=== PATIENT | female | born 1965 | race Caucasian/White ===

== ENCOUNTER 2020-10-03 12:39 | Outpatient (REF) | payer OTHER, SELFPAY ==
--- NOTE | ~2020-10-03 | XR_ITS ---
EXAMINATION: XR CHEST CLINICAL INFORMATION: Shortness of breath COMPARISON: None TECHNIQUE: 2 views of the chest were obtained. FINDINGS: No significant abnormality is noted involving the heart, lungs, mediastinum, bony thorax or soft tissues. XR/XR chest 2V IMPRESSION: Unremarkable chest examination.
== END 2020-10-03 12:40 | disposition home or self-care (01) ==
LOC: HO.HMGCLDS 12:39
PROVIDERS: PCP Internal Medicine; Visit Provider Hospitalist
DX: R06.02 Shortness of breath (principal)
CPT/HCPCS: 71046

== ENCOUNTER 2021-05-29 13:41 | Outpatient (REF) | payer OTHER, SELFPAY | END 2021-05-29 13:42 | disposition home or self-care (01) | LOC: HO.LNP 13:41 | PROVIDERS: Visit Provider Physician Assistant Medical | DX: Z20.822 Contact with and (suspected) exposure to COVID-19 (principal) | CPT/HCPCS: U0003; U0005 ==

== ENCOUNTER 2021-06-29 09:53 | Emergency (ER) | payer OTHER, SELFPAY ==
--- NOTE | ~2021-06-29 | CT_ITS ---
EXAMINATION: CT HEAD WITHOUT CONTRAST CLINICAL INFORMATION: Fall hitting face COMPARISON: None TECHNIQUE: Contiguous axial imaging was performed from the skull base to vertex without intravenous administration of contrast. This CT examination was performed using dose optimization techniques as appropriate, variously including the following: *Automated exposure control *Adjustment of mA and/or kV according to patient size (this includes techniques or standardized protocols for targeted exams where dose is matched to indication/reason for exam; i.e. extremities or head) *Use of iterative reconstruction technique DLP: 702.43 mGy-cm FINDINGS: There is no evidence of acute intracranial hemorrhage or territorial infarction. No abnormal mass effect or midline shift is seen. Weiss to white matter differentiation is well preserved. No extra-axial fluid collections are identified. The ventricles are normal in size. There is no abnormal attenuation within the brain parenchyma. The osseous structures and soft tissues are normal. The mastoid air cells and visualized portions of the paranasal sinuses are well aerated. CT/CT head/brain wo con IMPRESSION: No acute intracranial pathology.
--- NOTE | ~2021-06-29 | CT_ITS ---
EXAMINATION: CT FACIAL BONES WITHOUT CONTRAST CLINICAL INFORMATION: Nasal bridge/periorbital ecchymosis status post fall COMPARISON: None TECHNIQUE: CT of the facial bones without IV contrast with coronal and sagittal reconstructions. This CT examination was performed using dose optimization techniques as appropriate, variously including the following: *Automated exposure control *Adjustment of mA and/or kV according to patient size (this includes techniques or standardized protocols for targeted exams where dose is matched to indication/reason for exam; i.e. extremities or head) *Use of iterative reconstruction technique DLP: 290 mGy-cm FINDINGS: There is some motion artifact present so its difficult to tell whether there may be a nondisplaced distal nasal bone fracture with little soft tissue prominence in this location. No definite displaced fracture is appreciated. The pterygoid plates are intact. The zygomatic arches are intact. The lamina papyracea are intact. The orbital rims are intact. The paranasal sinuses are well-aerated. No air-fluid levels are seen. There is left deviation of the nasal septum. The ostiomeatal complexes are clear. The lamina papyracea are intact. The ethmoid roofs are symmetric. The carotid canals are normally covered by bone. No maxillary periapical disease is seen. There is opacification of some left mastoid air cells. The orbits are normal. The TMJs are unremarkable. The imaged portions of the brain demonstrate no acute abnormality. CT/CT facial bones wo con IMPRESSION: No significant facial bone fracture identified. Small distal nondisplaced nasal bone fracture not excluded.
--- NOTE | ~2021-06-29 | XR_ITS ---
EXAMINATION: XR CHEST CLINICAL INFORMATION: Fall COMPARISON: October 03, 2020 TECHNIQUE: 2 views of the chest were obtained. FINDINGS: No significant abnormality is noted involving the heart, lungs, mediastinum, bony thorax or soft tissues. XR/XR chest 2V IMPRESSION: No acute disease.
--- NOTE | ~2021-06-29 | XR_ITS ---
EXAMINATION: XR THORACIC SPINE CLINICAL INFORMATION: Back pain COMPARISON: None TECHNIQUE: AP and lateral views of the thoracic spine with swimmer's view FINDINGS: No acute thoracic spine fracture is appreciated. No abnormal paraspinal line bulge is seen. There is degenerative marginal spurring T9-T11. Pedicles appear intact. Disc spaces are generally maintained. No destructive bony lesion appreciated. XR/XR thoracic spine 3V IMPRESSION: No significant bony abnormality of the thoracic spine identified.
[2021-06-29 10:22] VITALS: BP 128/84; PULSE 93; RESP 18; TEMP 36.3; O2SAT 100; BMI 24.7
--- NOTE | 2021-06-29 10:30 | PC.NURSE ---
also c/o persistent SOB since having covid around [place].
--- NOTE | 2021-06-29 12:28 | ECG_ITS ---
Test Reason : FALL Blood Pressure : / mmHG Vent. Rate : 073 BPM Atrial Rate : 073 BPM P-R Int : 168 ms QRS Dur : 072 ms QT Int : 366 ms P-R-T Axes : 057 023 054 degrees QTc Int : 403 ms Normal sinus rhythm Normal ECG No previous ECGs available Referred By: Blanca Davey Electronically Signed By:Tacho Mckee
[2021-06-29 13:07] LABS: MANUAL DIFF FLAG NO
[2021-06-29 13:08] LABS: Appearance Urine CLEAR; Basophils Percent Auto 0.7 % (0-2); Color Urine YELLOW; Eosinophils Absolute Auto 0.1 X10*3/uL (0.0-0.4); Eosinophils Percent Auto 2.3 % (0-4); Glucose Urine UA NEG (NEG); Hematocrit 39.2 % (37.0-47.0); Hemoglobin 12.7 g/dl (12.0-16.0); Imm Gran Abs Auto 0.02 X10*3/uL (0.00-0.03); Imm Gran Pct Auto 0.5 % (0.0-0.4); Leukocyte Esterase Urine NEG (NEG); Lymphocytes Absolute Auto 0.7 X10*3/uL (1.2-4.9); Lymphocytes Percent Auto 16.7 % (20-40); Mean Corpuscular HGB Conc 32.4 g/dl (31.0-35.0); Mean Corpuscular Hemoglobin 29.6 pg (27.0-33.0); Mean Corpuscular Volume 91.4 fL (80.0-98.0); Mean Platelet Volume 9.5 fL (9.4-12.3); Monocytes Absolute Auto 0.6 X10*3/uL (0.1-1.2); Neutrophils Absolute Auto 2.9 x10*3/uL (2.0-8.3); Neutrophils Percent Auto 65.8 % (45-73); Nitrite Urine NEG (NEG); Platelet Count 233 X10*3/uL (160-400); Red Blood Count 4.29 X10*6/uL (4.20-5.50); Red Cell Distribution Width 12.7 % (11.0-16.0); Urine Blood NEG (NEG); Urine Ketones NEG (NEG); Urine Protein NEG (NEG-TRACE); White Blood Count 4.4 X10*3/uL (4.8-10.8)
[2021-06-29 13:23] VITALS: BP 145/83; PULSE 74
[2021-06-29 13:25] VITALS: BP 140/81
[2021-06-29 13:26] VITALS: BP 137/81
[2021-06-29] MEDS: Acetaminophen 325 MG TABLET 650 MG PO (13:27)
[2021-06-29 13:28] LABS: Alanine Aminotransferase 21 U/L (0-31); Albumin Level 3.9 g/dL (3.5-5.0); Alkaline Phosphatase 81 U/L (39-117); Anion Gap 11 (12-20); Aspartate Amino Transferase 24 U/L (5-31); Bilirubin Direct < 0.2 mg/dL (0.0-0.5); Bilirubin Total 0.3 mg/dL (0.0-1.0); Blood Urea Nitrogen 14 mg/dL (9-16); Calcium 8.9 mg/dL (8.4-10.2); Carbon Dioxide 29 mmol/L (22-29); Chloride 104 mmol/L (96-108); Estimated Glomerular Filt Rate > 60; Glucose Random 73 mg/dL (60-115); Magnesium 2.3 mg/dL (1.6-2.6); Potassium 3.8 mmol/L (3.3-5.1); Sodium 140 mmol/L (135-145); Total Protein 6.5 g/dL (6.5-8.0)
[2021-06-29 13:29] LABS: COVID-19 Test Negative (Negative)
--- NOTE | 2021-06-29 13:53 | ED_ITS ---
HPI - Fall General Chief Complaint: Fall Stated Complaint: fall facial inj two days ago Time Seen by Provider: 06/29/21 11:42 Source: patient Mode of arrival: ambulatory History of Present Illness HPI Narrative: 56-year-old female with past medical history of MS presenting to the ED complaining of facial pain/headache and increasing weakness > LLE since mechanical trip and fall 2 days ago. Denies symptoms prior to fall. Reports increasing gait imbalance/difficulty ambulating acute on chronically (baseline difficulty with MS) but worsening since fall, denies LOC. also reports chronic persistent SOB since having COVID-19 in April. Denies fever, chills, cough, CP, abdominal pain, numbness, tingling. Takes 325 ASA complaint: fall Onset (ago): day(s) Related Data Home Medications Medication Instructions Recorded Confirmed baclofen 10 mg tablet 10 mg PO TID 08/18/20 10/03/20 duloxetine 30 mg capsule,delayed 30 mg PO DAILY 08/18/20 10/03/20 release duloxetine 60 mg capsule,delayed 60 mg PO DAILY 08/18/20 10/03/20 release gabapentin 300 mg capsule 300 mg PO TID 08/18/20 10/03/20 modafinil 200 mg tablet 200 mg PO QAM 08/18/20 10/03/20 omeprazole 20 mg capsule,delayed 0 mg PO 08/18/20 10/03/20 release Saccharomyces boulardii 250 mg 250 mg PO BID 04/12/21 capsule (Daily Probiotic (S. boulardii)) docusate sodium 50 mg capsule 50 mg PO DAILY 04/12/21 (Stool Softener) ocrelizumab 30 mg/mL intravenous 600 mg IV [id number] 04/12/21 solution (Ocrevus) aspirin 325 mg tablet 325 mg PO DAILY 05/29/21 magnesium citrate 125 mg capsule 250 mg PO BEDTIME cap 05/29/21 oxybutynin chloride 5 mg 5 mg PO DAILY 05/29/21 tablet,extended release 24 hr Previous Rx's Medication Instructions Recorded ondansetron HCl 4 mg tablet 4 mg PO Q8H PRN #30 tab 04/12/21 (Zofran) albuterol sulfate 90 mcg/actuation 2 puff INHALATION Q6H PRN #6.7 g 05/29/21 aerosol inhaler cefdinir 300 mg capsule 300 mg PO Q12H 7 Days #14 cap 05/29/21 Allergies Allergy/AdvReac Type Severity Reaction Status Date / Time bupropion [From WELLBUTRIN] Allergy Intermediate HIVES Verified 06/29/21 10:22 Erythromycin Allergy Unknown low bp Uncoded 06/28/21 10:57 Review of Systems Review of Systems: Constitutional: No Fever, No Chills, No Fatigue, No Malaise ENT/Mouth: No Ear Pain, No Nasal Congestion, No sore throat, No Rhinorrhea, No Swallowing Difficulty Eyes: No Eye Pain, No Swelling, No Redness, No Discharge Cardiovascular: No Chest Pain, + SOB, No Dyspnea on Exertion, No Orthopnea, No Edema Respiratory: No Cough, No Sputum, No Dyspnea Gastrointestinal: No Nausea, No Vomiting, No Diarrhea, No Constipation, No Abdominal pain Genitourinary:No Dysuria, No Urinary Frequency, No Hematuria, No Urinary Incontinence, No Urgency, No Flank Pain Musculoskeletal: +back pain, No Myalgias, No Joint Swelling Skin: +ecchymosis, No rash Neuro: + Weakness, No Numbness, No Paresthesias, No Loss of Consciousness, No Dizziness, + Headache Yes all other systems are reviewed and are negative [facility] Past Medical History Attestation statement: The following information was validated with the patient. Social History Social History Advance Directives: No Advance Directives Information Provided: Yes Physical Exam Vital Signs: Vital Signs: Last Vital Signs Temp 98.5 F 06/29/21 16:49 Pulse 74 06/29/21 16:49 Resp 16 06/29/21 16:49 BP 144/82 H 06/29/21 16:49 Pulse Ox 97 06/29/21 16:49 BMI result Body Mass Index 24.7 Const: General: cooperative, healthy appearing and no acute distress Orientation/consciousness: patient oriented x3 Limitations: no limitations HENMT: Other: + ecchymosis to nasal bridge and right infraorbital region. No periorbital step-off. EOMs intact without entrapment. No septal hematoma Ears: hearing grossly normal bilaterally General nose exam: Normal external nose present Face and sinus: Yes ecchymosis Mouth: Normal oral and palatal mucosa present Throat: Yes posterior oropharynx normal and Yes tonsils normal Eyes: General: appearance normal, both eyes and all related structures Pupils: Equal, round and reactive pupils present EOM: EOMs intact bilaterally Neck: Other: No midline cervical spinous tenderness Neck: Yes normal visual inspection Resp: Effort & Inspection: normal respiratory effort Auscultation: clear to auscultation bilaterally, no rales, no rhonchi and no wheezes Cardio: Rate: regular rate Heart sounds: S1 normal heart sound present and S2 normal heart sound present GI: Inspection: Yes normal to inspection Palpation (GI): Soft to palpation, nontender, no guarding and not rigid : General: Yes no CVA tenderness Back/Spine/Pelvis: Other: + midline thoracic spinal tenderness and paraspinal tenderness. No deformity/step-off. No midline lumbar spinous tenderness Back: no CVA tenderness Skin: Rashes: no rashes Wounds: no wounds Neuro: Other: Patient unsteady on feet, not ataxic, weak +LLE weakness (patient reports baseline weaker than LLE) however today worse than normal General: patient oriented x3, tone normal, moves all extremities a nd CN's II-XI intact bilaterally Cranial nerves: Yes CN's II-XII intact b ilaterally, Yes Equal, round and reactive pupils present and Yes Bilaterally intact EOM present Gait exam (Neuro): Assisted gait required Gait assisted method: walking stick (Baseline) Extrem: General: Yes normal to inspection Course Course Course Narrative: -chronic leukopenia. Labs otherwise unremarkable. UA negative. COVID-19 negative XR chest 2V IMPRESSION: No acute disease. CT facial bones wo con IMPRESSION: No significant facial bone fracture identified. Small distal nondisplaced nasal bone fracture not excluded. CT head/brain wo con IMPRESSION: No acute intracranial pathology. >> results discussed with patient, symptoms likely secondary to MS flare. Discussed IV glucocorticoids. Patient hesitant to start steroids at this time, would like to wait. Will try to touch base with patient's neurologist at the [facility] in [place]. XR thoracic spine 3V IMPRESSION: No significant bony abnormality of the thoracic spine identified. -left message at patient's neurologist office, never received phone call back. Patient was able to contact office herself and obtain appointment for 09:00 tomorrow morning. Patient would like to refrain from obtaining IV glucocorticoids today until her appointment tomorrow. Discussed worrisome signs and symptoms and strict return precautions including needed close follow-up with Neurology. She verbalized understanding and feel safe for discharge home at this time -[id number]--spoke to Carmen GONZALES from patient's neurologist office, aware of history/workup done in the ED, will be seeing patient tomorrow morning MDM - Fall MDM Narrative Medical decision making narrative: 56-year-old female with past medical history of MS presenting to the ED complaining of facial pain/headache and increasing weakness > RLE since mechanical trip and fall 2 days ago. On exam vital signs stable, NAD/nontoxic, physical exam as above, gait unsteady, no ataxia, RLE weakness acute on chronically. Concern for ICH vs facial fractures vs MS flare. Lower concern for CVA as sx began after fall Plan: EKG, labs, UA, CXR, head CT, facial bone CT, re-evaluate Medical Records Attestation: I reviewed the patient's medical records. Lab Data Attestation: I reviewed the patient's lab results. Result diagrams: 06/29/21 12:59 06/29/21 12:59 Labs: Lab Results 06/29/21 06/29/21 06/29/21 Range/Units 12:59 12:59 12:59 WBC 4.4 L (4.8-10.8) X10*3/uL RBC 4.29 (4.20-5.50) X10*6/uL Hgb 12.7 (12.0-16.0) g/dl Hct 39.2 (37.0-47.0) % MCV 91.4 (80.0-98.0) fL MCH 29.6 (27.0-33.0) pg MCHC 32.4 (31.0-35.0) g/dl RDW 12.7 (11.0-16.0) % Plt Count 233 (160-400) X10*3/uL MPV 9.5 (9.4-12.3) fL Immature Gran % (Auto) 0.5 H (0.0-0.4) % Neut % (Auto) 65.8 (45-73) % Lymph % (Auto) 16.7 L (20-40) % [place] % (Auto) 14.0 H (2-11) % Eos % (Auto) 2.3 (0-4) % Baso % (Auto) 0.7 (0-2) % Lymph # (Auto) 0.7 L (1.2-4.9) X10*3/uL [place] # (Auto) 0.6 (0.1-1.2) X10*3/uL Eos # (Auto) 0.1 (0.0-0.4) X10*3/uL Baso # (Auto) 0.0 (0.0-0.2) X10*3/uL Abs Immat Gran (auto) 0.02 (0.00-0.03) X10*3/uL Absolute Neuts (auto) 2.9 (2.0-8.3) x10*3/uL Absolute Nucleated RBC 0.000 (0.0-0.012) X10*3/uL Nucleated RBC % (auto) 0.0 (0.0-0.2) /100WBC Sodium 140 (135-145) mmol/L Potassium 3.8 (3.3-5.1) mmol/L Chloride 104 (96-108) mmol/L Carbon Dioxide 29 (22-29) mmol/L Anion Gap 11 L (12-20) BUN 14 (9-16) mg/dL Creatinine 0.71 (0.5-1.4) mg/dL Estim Creat Clear Calc 86.0 Estimated GFR > 60 Random Glucose 73 (60-115) mg/dL Calcium 8.9 (8.4-10.2) mg/dL Magnesium 2.3 (1.6-2.6) mg/dL Total Bilirubin 0.3 (0.0-1.0) mg/dL Direct Bilirubin < 0.2 (0.0-0.5) mg/dL AST 24 (5-31) U/L ALT 21 (0-31) U/L Alkaline Phosphatase 81 (39-117) U/L Total Protein 6.5 (6.5-8.0) g/dL Albumin 3.9 (3.5-5.0) g/dL Urine Color Urine Appearance Urine pH (5.0-8.0) Ur Specific [place] (1.005-1.025) Urine Protein (NEG-TRACE) MG/DL Urine Glucose (UA) (NEG) MG/DL Urine Ketones (NEG) MG/DL Urine Blood (NEG) Urine Nitrite (NEG) Ur Leukocyte Esterase (NEG) COVID-19 (RITA) Negative (Negative) COVID-19 Clin Com See Note 06/29/21 Range/Units 12:59 WBC (4.8-10.8) X10*3/uL RBC (4.20-5.50) X10*6/uL Hgb (12.0-16.0) g/dl Hct (37.0-47.0) % MCV (80.0-98.0) fL MCH (27.0-33.0) pg MCHC (31.0-35.0) g/dl RDW (11.0-16.0) % Plt Count (160-400) X10*3/uL MPV (9.4-12.3) fL Immature Gran % (Auto) (0.0-0.4) % Neut % (Auto) (45-73) % Lymph % (Auto) (20-40) % [place] % (Auto) (2-11) % Eos % (Auto) (0-4) % Baso % (Auto) (0-2) % Lymph # (Auto) (1.2-4.9) X10*3/uL [place] # (Auto) (0.1-1.2) X10*3/uL Eos # (Auto) (0.0-0.4) X10*3/uL Baso # (Auto) (0.0-0.2) X10*3/uL Abs Immat Gran (auto) (0.00-0.03) X10*3/uL Absolute Neuts (auto) (2.0-8.3) x10*3/uL Absolute Nucleated RBC (0.0-0.012) X10*3/uL Nucleated RBC % (auto) (0.0-0.2) /100WBC Sodium (135-145) mmol/L Potassium (3.3-5.1) mmol/L Chloride (96-108) mmol/L Carbon Dioxide (22-29) mmol/L Anion Gap (12-20) BUN (9-16) mg/dL Creatinine (0.5-1.4) mg/dL Estim Creat Clear Calc Estimated GFR Random Glucose (60-115) mg/dL Calcium (8.4-10.2) mg/dL Magnesium (1.6-2.6) mg/dL Total Bilirubin (0.0-1.0) mg/dL Direct Bilirubin (0.0-0.5) mg/dL AST (5-31) U/L ALT (0-31) U/L Alkaline Phosphatase (39-117) U/L Total Protein (6.5-8.0) g/dL Albumin (3.5-5.0) g/dL Urine Color YELLOW Urine Appearance CLEAR Urine pH 6.0 (5.0-8.0) Ur Specific [place] 1.020 (1.005-1.025) Urine Protein NEG (NEG-TRACE) MG/DL Urine Glucose (UA) NEG (NEG) MG/DL Urine Ketones NEG (NEG) MG/DL Urine Blood NEG (NEG) Urine Nitrite NEG (NEG) Ur Leukocyte Esterase NEG (NEG) COVID-19 (RITA) (Negative) COVID-19 Clin Com Discharge Plan Discharge Clinical Impression: Multiple sclerosis exacerbation Patient Disposition: Home, Self-Care Instructions: Multiple Sclerosis (DC) Additional Instructions: You may have a nondisplaced nasal bone fracture. Head CT was unremarkable. Her blood work was reassuring. Her chest x-ray, back x-ray, and urine unremarkable. It is very important for you to follow-up with her neurologist tomorrow morning as scheduled. If her symptoms persist or worsen, you have persistent or worsening falls, develops fever, worsening weakness please return to the ED Prescriptions: No Action omeprazole 20 mg capsule,delayed release(DR/EC) 0 mg PO 0RF duloxetine 60 mg capsule,delayed release(DR/EC) 60 mg PO DAILY 0RF duloxetine 30 mg capsule,delayed release(DR/EC) 30 mg PO DAILY 0RF gabapentin 300 mg capsule 300 mg PO TID 0RF baclofen 10 mg tablet 10 mg PO TID 0RF modafinil 200 mg tablet 200 mg PO QAM 0RF Ocrevus 30 mg/mL solution 600 mg IV [id number] 0RF Saccharomyces boulardii [Daily Probiotic (S. boulardii)] 250 mg capsule 250 mg PO BID 0RF Stool Softener 50 mg capsule 50 mg PO DAILY 0RF ondansetron HCl [Zofran] 4 mg tablet 4 mg PO Q8H PRN (Reason: nausea and vomiting) Qty: 30 1RF magnesium citrate 125 mg capsule 250 mg PO BEDTIME 0RF oxybutynin chloride 5 mg tablet extended release 24hr 5 mg PO DAILY 0RF aspirin 325 mg tablet 325 mg PO DAILY 0RF cefdinir 300 mg capsule 300 mg PO Q12H 7 Days Qty: 14 0RF albuterol sulfate 90 mcg/actuation HFA aerosol inhaler 2 puff inhalation Q6H PRN (Reason: shortness of breath or wheezing) Qty: 6.7 0RF Referrals: Dwight Grullon MD [Primary Care Provider] - 2 days
--- NOTE | 2021-06-29 15:09 | PC.NURSE ---
MESSAGE LEFT AT [facility] IN [facility], TO CALL RAMON BACK @ THIS TIME
[2021-06-29 16:49] VITALS: BP 144/82; PULSE 74; RESP 16; TEMP 36.9; O2SAT 97
== END 2021-06-29 17:00 | disposition home or self-care (01) ==
PROVIDERS: Physician Assistant; Emergency Provider Emergency Medicine; PCP Internal Medicine
DX: G35 Multiple sclerosis (principal); S00.33XA Contusion of nose, initial encounter; W18.39XA Other fall on same level, initial encounter; R26.2 Difficulty in walking, not elsewhere classified; Z20.822 Contact with and (suspected) exposure to COVID-19; Y93.89 Activity, other specified; Y92.9 Unspecified place or not applicable; Y99.9 Unspecified external cause status
CPT/HCPCS: 36415; 70450; 70486; 71046; 72072; 80048; 80076; 81003; 83735; 85025; 87635; 93005; 99284

== ENCOUNTER 2021-09-13 13:59 | Outpatient (REF) | payer OTHER, SELFPAY ==
[2021-09-13 14:47] LABS: Influenza A PCR NEGATIVE (Negative); Influenza B PCR NEGATIVE (Negative); Resp Syncy Virus RNA Qual PCR NEGATIVE (Negative); SARS COV2 PCR INHOUSE NEGATIVE (Negative)
== END 2021-09-13 14:00 | disposition home or self-care (01) ==
LOC: HO.LNP 13:59
PROVIDERS: Visit Provider Emergency Medicine
DX: Z20.822 Contact with and (suspected) exposure to COVID-19 (principal); R68.89 Other general symptoms and signs
CPT/HCPCS: 0241U

== ENCOUNTER 2022-09-15 13:42 | Outpatient (REF) | payer OTHER, SELFPAY ==
[2022-09-15 15:38] LABS: Appearance Urine Clear; Color Urine Yellow; Glucose Urine UA Negative (Negative); Leukocyte Esterase Urine Moderate (2+) (Negative); Nitrite Urine Negative (Negative); PH 5.5 (5.0-9.0); Specific Gravity - Urine 1.015 (1.005-1.025); UMIC TRIGGER UACC YES; Urine Blood Negative (Negative); Urine Ketones Negative (Negative); Urine Protein Negative (Neg-Trace)
[2022-09-15 15:43] LABS: Bacteria Urine None Seen (None Seen); Hyaline Casts Urine 0-2 /LPF (0-2); Squamous Epithelial Cell Urine 0-2 /HPF (0-2); UACC Culture Trigger YES
== END 2022-09-15 13:43 | disposition home or self-care (01) ==
LOC: HO.HMGCLDS 13:42
PROVIDERS: Visit Provider Physician Assistant
DX: G35 Multiple sclerosis (principal); R82.90 Unspecified abnormal findings in urine
CPT/HCPCS: 81001; 87086

== ENCOUNTER 2022-12-27 15:48 | Outpatient (AMB) | payer OTHER, SELFPAY ==
--- NOTE | 2022-12-27 16:12 | MHC.OFFWIV ---
Intake Vital Signs 12/27/22 16:20 Weight 162 lb BP 114/76 Blood Pressure Location Rt brachial Position Sitting Pulse 76 Pulse Source Pulse Oximeter Temp 97.6 F Temp Source Temporal Artery Scan Pulse Oximetry (%) 98 Oxygen Delivery Method Room Air Intake Visit Reasons: EP Rash on scalp Intake Note: patient here for possible shingles. rash on left side of scalp. pt states it is painful and itchy. Patient Tobacco Use Status: Never used Tobacco Allergies bupropion [From WELLBUTRIN] Allergy (Intermediate, Verified 12/27/22 16:21) HIVES Erythromycin Allergy (Unknown, Uncoded 12/27/22 16:21) low bp Do you need a note to return to daycare/school/sports/work: No HPI HPI Comments History of Present Illness Details 57-year-old female presents for rash or head. Rash has been present for 1 day. The scalp she knows the Welchol me. She is concerned might be shingles. Denies fevers or chills. The rash is itchy and painful. PFSH Family History Other Mental health disorder Substance abuse Social History Patient Tobacco Use Status: Never used Tobacco e-Cigarette/Vaping Use: Never Used Current occupational status: disabled Cognitive needs: No Hearing needs: No Vision needs: Yes Review of Systems Const All systems reviewed & are unremarkable except as noted in HPI and below Skin/Breast Details: Rash on scalp Physical Exam Vital Signs: Last Vital Signs Temp 97.6 F 12/27/22 16:20 Pulse 76 12/27/22 16:20 BP 114/76 12/27/22 16:20 Pulse Ox 98 12/27/22 16:20 Oxygen Delivery Method Room Air 12/27/22 16:20 Const General: no acute distress and alert Skin Other: few scattered small the shins not particularly tender on the scalp Assessment & Plan Assessment & Plan (1) Rash: Code(s): R21 - Rash and other nonspecific skin eruption Plan unclear etiology of rash does not resemble shingles given it crosses the midline and does not seem to follow any specific dermatome. recommend symptomatic treatment at home strict return precautions Discharge instructions, follow up and treatment are discussed with patient in my usual fashion. Alternatives in treatment are also discussed. The patient will return for worsening symptoms or as needed. Advised that any labs/imaging ordered will be followed up on and contact made if further treatment needed. Counseled that patient's condition may require further evaluation and/or treatment. Symptoms of concern for worsening disorder discussed in detail in my customary manner. Patient does verbalize understanding of the plan, there are no apparent barriers to communication. The patient is given the opportunity to ask questions and have them answered to his/her satisfaction Coding Level of Care Code Est Pt Level 2 (00946) Diagnoses Rash R21
[2022-12-27 16:20] VITALS: BP 114/76; PULSE 76; TEMP 36.4; O2SAT 98
== END 2022-12-27 16:46 | disposition home or self-care (01) ==
PROVIDERS: PCP Internal Medicine; Visit Provider Physician Assistant
DX: R21 Rash and other nonspecific skin eruption (principal)
CPT/HCPCS: 99212

== ENCOUNTER 2023-03-11 15:59 | Outpatient (AMB) | payer OTHER, SELFPAY ==
[2023-03-11 16:42] VITALS: BP 128/82; PULSE 75; TEMP 36.7; O2SAT 97; BMI 26.4
--- NOTE | 2023-03-11 16:42 | MHC.OFFWIV ---
Intake Vital Signs 03/11/23 16:42 Height 5 ft 7 in Weight 168 lb 9 oz BMI 26.4 BP 128/82 Blood Pressure Location Lt brachial Position Sitting Pulse 75 Pulse Source Pulse Oximeter Temp 98.1 F Temp Source Oral Pulse Oximetry (%) 97 Oxygen Delivery Method Room Air Intake Visit Reasons: EP, blodd in urine Patient Tobacco Use Status: Never used Tobacco Allergies bupropion [From WELLBUTRIN] Allergy (Intermediate, Verified 03/24/23 14:06) HIVES Erythromycin Allergy (Unknown, Uncoded 03/24/23 14:06) low bp Medication List - Last Reconciled 03/24/23 by Aman Ponce MD albuterol sulfate 90 mcg/actuation 2 puffs inhalation Q6H PRN aspirin 325 mg PO DAILY baclofen 10 mg PO TID docusate sodium (Stool Softener) 50 mg PO DAILY doxycycline hyclate 100 mg PO DAILY duloxetine 30 mg PO DAILY duloxetine 60 mg PO DAILY fluconazole 150 mg PO Q3D 2 doses fluticasone propionate 50 mcg/actuation 1 spray intranasal DAILY gabapentin 300 mg PO TID meclizine 25 mg PO TID modafinil 200 mg PO QAM ocrelizumab (Ocrevus) 600 mg IV [id number] omeprazole 0 mg PO ondansetron HCl (Zofran) 4 mg PO Q8H PRN phenazopyridine (Pyridium) 200 mg PO TID 3 days Saccharomyces boulardii (Daily Probiotic (S. boulardii)) 250 mg PO BID sulfamethoxazole-trimethoprim 800-160 mg (Bactrim DS) 1 tab PO BID 5 days HPI EP, blodd in urine HPI Details Patient presents for a sick visit. Reports symptoms of increased frequency of urination, burning on urination and discomfort in the suprapubic area. Symptoms started in the past few days. No fevers or chills. No nausea or vomiting. PFSH Family History Other Mental health disorder Substance abuse Patient Tobacco Use Status: Never used Tobacco e-Cigarette/Vaping Use: Never Used Current occupational status: disabled Cognitive needs: No Hearing needs: No Vision needs: Yes Physical Exam Vital Signs: Last Vital Signs Temp 98.1 F 03/11/23 16:42 Pulse 75 03/11/23 16:42 BP 128/82 03/11/23 16:42 Pulse Ox 97 03/11/23 16:42 Oxygen Delivery Method Room Air 03/11/23 16:42 BMI result Body Mass Index 26.4 General: Yes Bimanual renal exam normal bilaterally and Yes no CVA tenderness Back/Spine/Pelvis Back: no CVA tenderness Results AMB Urinalysis, Automated UA Leukoctes 500 Cris/uL Last Edit by Gavin Carpenter CMA on 03/11/23 16:51 UA Nitrite Negative Last Edit by Gavin Carpenter CMA on 03/11/23 16:51 UA Urobilinogen 0.2 mg/dL Last Edit by Gavin Carpenter CMA on 03/11/23 16:51 UA Protein 0 mg/dL Last Edit by Gavin Carpenter CMA on 03/11/23 16:51 UA pH 7.0 Last Edit by Gavin Carpenter CMA on 03/11/23 16:51 UA Blood 0 Sea/uL Last Edit by Gavin Carpenter CMA on 03/11/23 16:51 UA Specific [place] 1.010 Last Edit by Gavin Carpenter CMA on 03/11/23 16:51 UA Ketone Negative Last Edit by Gavin Carpenter CMA on 03/11/23 16:51 UA Bilirubin 0 mg/dL Last Edit by Gavin Carpenter CMA on 03/11/23 16:51 UA Glucose 0 mg/dL Last Edit by Gavin Carpenter CMA on 03/11/23 16:51 Results Reviewed Results Reviewed: Laboratory Last Values Urine pH (Auto) 7.0 03/11/23 16:50 Specific [place] (Auto) 1.010 03/11/23 16:50 Urine Protein (Auto) 0 mg/dL 03/11/23 16:50 Glucose (UA)(Auto) 0 mg/dL 03/11/23 16:50 Urine Ketones (Auto) Negative 03/11/23 16:50 Urine Blood (Auto) 0 Sea/uL 03/11/23 16:50 Urine Nitrite (Auto) Negative 03/11/23 16:50 Urine Bilirubin (Auto) 0 mg/dL 03/11/23 16:50 Urine Urobilinogen (Auto) 0.2 mg/dL 03/11/23 16:50 Leukocyte Esterase (Auto) 500 Cris/uL 03/11/23 16:50 Assessment & Plan Assessment & Plan (1) Urinary tract infection: Code(s): N39.0 - Urinary tract infection, site not specified Plan: Take antibiotics and Pyridium as directed. Increase fluid intake. If symptoms of burning persist, new onset of fever or lower back pain, to follow-up at the clinic. Orders: Orders AMB Urinalysis Automated 03/11/23 Z13.9 - Encounter for screening, unspecified Medications: New sulfamethoxazole-trimethoprim 800-160 mg (Bactrim DS) 1 tab PO BID 10 tabs 0RF 5 days phenazopyridine (Pyridium) 200 mg PO TID 9 tabs 0RF 3 days fluconazole 150 mg PO Q3D 2 tabs 0RF 2 doses Coding Level of Care Code Est Pt Level 3 (35209) Diagnoses Urinary tract infection N39.0
== END 2023-03-11 16:55 | disposition home or self-care (01) ==
PROVIDERS: PCP Internal Medicine; Visit Provider Internal Medicine
DX: R35.0 Frequency of micturition (principal)
CPT/HCPCS: 81003; 99213

== ENCOUNTER 2023-04-01 14:09 | Emergency (ER) | payer OTHER, SELFPAY ==
--- NOTE | ~2023-04-01 | XR_ITS ---
EXAMINATION: XR CHEST CLINICAL INFORMATION: Shortness of breath. COMPARISON: 06/29/2021 TECHNIQUE: 2 views of the chest were obtained. FINDINGS: The lungs are well expanded. No focal consolidation. No pleural effusion. Cardiac silhouette is within normal limits. XR/XR chest 2V IMPRESSION: No acute abnormality.
--- NOTE | 2023-04-01 14:10 | ECG_ITS ---
Test Reason : chest pain Blood Pressure : / mmHG Vent. Rate : 075 BPM Atrial Rate : 075 BPM P-R Int : 154 ms QRS Dur : 072 ms QT Int : 366 ms P-R-T Axes : 069 027 072 degrees QTc Int : 408 ms Normal sinus rhythm Normal ECG When compared with ECG of 29-JUN-2021 13:17, No significant change was found Referred By: Generic ED Physician Electronically Signed By:JOHN ABRAHAM
--- NOTE | 2023-04-01 14:22 | ED_ITS ---
HPI - General Adult General Chief complaint: Chest Pain Stated complaint: chest pain sent in by urgent care Time Seen by Provider: 04/01/23 19:51 Source: patient Mode of arrival: ambulatory History of Present Illness HPI narrative: 58-year-old female with history of MS presents with having contracted COVID on 03/18, she states that she feels somewhat better but overall still feels fatigued with congestion. Related Data Home Medications Medication Instructions Recorded Confirmed baclofen 10 mg tablet 10 mg PO TID 08/18/20 03/24/23 duloxetine 30 mg capsule,delayed 30 mg PO DAILY 08/18/20 03/24/23 release duloxetine 60 mg capsule,delayed 60 mg PO DAILY 08/18/20 03/24/23 release gabapentin 300 mg capsule 300 mg PO TID 08/18/20 03/24/23 modafinil 200 mg tablet 200 mg PO QAM 08/18/20 03/24/23 omeprazole 20 mg capsule,delayed 0 mg PO 08/18/20 03/24/23 release Saccharomyces boulardii 250 mg 250 mg PO BID 04/12/21 03/24/23 capsule (Daily Probiotic (S. boulardii)) docusate sodium 50 mg capsule 50 mg PO DAILY 04/12/21 03/24/23 (Stool Softener) ocrelizumab 30 mg/mL intravenous 600 mg IV [id number] 04/12/21 03/24/23 solution (Ocrevus) aspirin 325 mg tablet 325 mg PO DAILY 05/29/21 03/24/23 Previous Rx's Medication Instructions Recorded ondansetron HCl 4 mg tablet 4 mg PO Q8H PRN nausea and 04/12/21 (Zofran) vomiting #30 tabs albuterol sulfate 90 mcg/actuation 2 puff inhalation Q6H PRN 05/29/21 aerosol inhaler shortness of breath or wheezing #6.7 grams meclizine 25 mg tablet 25 mg PO TID #30 tabs 09/15/22 doxycycline hyclate 100 mg capsule 100 mg PO DAILY #30 caps 10/19/22 fluticasone propionate 50 1 spray intranasal DAILY #16 grams 11/26/22 mcg/actuation nasal spray,suspension fluconazole 150 mg tablet 150 mg PO Q3D 2 doses #2 tabs 03/11/23 phenazopyridine 200 mg tablet 200 mg PO TID 3 days #9 tabs 03/11/23 (Pyridium) sulfamethoxazole 800 1 tab PO BID 5 days #10 tabs 03/11/23 mg-trimethoprim 160 mg tablet (Bactrim DS) Allergies Allergy/AdvReac Type Severity Reaction Status Date / Time bupropion [From WELLBUTRIN] Allergy Intermediate HIVES Verified 04/01/23 14:22 Erythromycin Allergy Unknown low bp Uncoded 03/24/23 14:06 Review of Systems 2 Review of Systems: Pertinent positives and negatives as stated in [facility] Past Medical History Source: nursing notes reviewed Family History Family History Other Mental health disorder Substance abuse Social History Social History Unable to assess alcohol history related to: Unknown Patient Tobacco Use Status: Never used Tobacco Smoked in Last 30 Days: No e-Cigarette/Vaping Use: Never Used Use of substances other than those prescribed or required for medical reasons: No Advance Directives: No Advance Directives Information Provided: No Patient : No Current occupational status: disabled Cognitive needs: No Hearing needs: No Vision needs: Yes Physical Exam ED Vital Signs: Vital Signs - 24 hr 04/01/23 14:23 04/01/23 19:41 Temperature 97.8 F Pulse Rate 85 67 Respiratory Rate 16 12 Blood Pressure 103/73 134/71 Pulse Oximetry 97 98 Oxygen Delivery Method Room Air Room Air BMI result Body Mass Index 25.1 VITAL SIGNS: Reviewed. GENERAL: Well developed, well nourished, in no acute distress. HEAD: Normocephalic/atraumatic EYES: PERRLA, EOMI EARS: Ext canals without abnormality NOSE: Nares patent bilateral OROPHARYNX: no oral lesions noted, posterior pharynx clear NECK: Supple, no adenopathy LUNGS: Normal breath sounds. No adventitious sounds or accessory muscle use. SpO2<98> CARDIOVASCULAR: Regular rate and rhythm without noted murmurs ABDOMEN: Soft, non-tender, non-distended with bowel sounds. MUSCULOSKELETAL: No tenderness, deformities, or effusions noted on gross inspection. EXTREMITIES: No cyanosis, clubbing or edema. SKIN: Inspection of the skin reveals no rashes NEUROLOGIC: Alert and oriented x 4. Strength and sensation to light touch were grossly intact x 4. Course Course Course Narrative: RME performed by Shahla Francisoc PA-C. Patient is a 58 year old assigned female at presenting to the emergency department with chest pain and a headache. Patient was COVID-19 positive on 03/18/2023. Labs, imaging, and swabs ordered. Patient placed back in the waiting room pending room availability and results. Medical Decision Making Medical Decision Making [facility] Narrative: This is a 58-year-old female with history and clinical presentation, DDX: Residual COVID-19 symptoms, pneumonia, anemia, post viral syndrome I reviewed all investigations and hematologic indices are negative for leukocytosis or left shift, there is no anemia or thrombocytopenia. Coagulation studies are within normal limits. Chemistry indices are grossly within normal limits without evidence of CARLOTA/electrolyte or liver enzyme derangements. High sensitivity troponin is undetectable. Patient is still read as showing is COVID positive. Chest x-ray does not demonstrate an infiltrate and otherwise my interpretation is in agreement with radiology's impression. There are no acute changes on EKG. Differential Diagnosis Differential Diagnoses: The differential diagnosis associated with the presentation includes Please see the discussion above Admission/Observation Consideration of admission/observation: Escalation of care including admission/observation considered Please see the discussion above Lab Data [facility] Lab Attestation statement: I reviewed the patient's lab results. Please see the discussion above 04/01/23 15:34 04/01/23 15:34 Labs: Lab Results 04/01/23 Range/Units 15:34 WBC 3.9 L (4.8-10.8) X10*3/uL RBC 4.55 (4.20-5.50) X10*6/uL Hgb 13.7 (12.0-16.0) g/dl Hct 41.3 (37.0-47.0) % MCV 90.8 (80.0-98.0) fL MCH 30.1 (27.0-33.0) pg MCHC 33.2 (31.0-35.0) g/dl RDW 12.4 (11.0-16.0) % Plt Count 317 D (160-400) X10*3/uL MPV 9.2 L (9.4-12.3) fL Immature Gran % (Auto) 0.5 H (0.0-0.4) % Neut % (Auto) 68.0 (45-73) % Lymph % (Auto) 19.6 L (20-40) % Lucas % (Auto) 10.1 (2-11) % Eos % (Auto) 1.3 (0-4) % Baso % (Auto) 0.5 (0-2) % Lymph # (Auto) 0.8 L (1.2-4.9) X10*3/uL Lucas # (Auto) 0.4 (0.1-1.2) X10*3/uL Eos # (Auto) 0.1 (0.0-0.4) X10*3/uL Baso # (Auto) 0.0 (0.0-0.2) X10*3/uL Abs Immat Gran (auto) 0.02 (0.00-0.03) X10*3/uL Absolute Neuts (auto) 2.6 (2.0-8.3) x10*3/uL Absolute Nucleated RBC 0.000 (0.0-0.012) X10*3/uL Nucleated RBC % (auto) 0.0 (0.0-0.2) /100WBC PT 11.7 (11.1-13.3) SEC INR 1.0 (0.9-1.1) APTT 27.9 (26.0-36.4) SEC Sodium 143 (135-145) mmol/L Potassium 3.5 (3.3-5.1) mmol/L Chloride 106 (96-108) mmol/L Carbon Dioxide 30 H (22-29) mmol/L Anion Gap 11 L (12-20) BUN 12 (9-16) mg/dL Creatinine 0.72 (0.5-1.4) mg/dL Estim Creat Clear Calc 82.8 Estimated GFR > 60 Random Glucose 96 (60-115) mg/dL Calcium 9.5 D (8.4-10.2) mg/dL Magnesium 2.3 (1.6-2.6) mg/dL Total Bilirubin 0.3 (0.0-1.0) mg/dL AST 23 (5-31) U/L ALT 21 (0-31) U/L Alkaline Phosphatase 86 (39-117) U/L Troponin I High Sens < 2.7 (<3.5-17.0) ng/L Total Protein 7.3 (6.5-8.0) g/dL Albumin 4.2 (3.5-5.0) g/dL Influenza Type A (PCR) NEGATIVE (Negative) Influenza Type B (PCR) NEGATIVE (Negative) RSV RNA Qual (PCR) NEGATIVE (Negative) SARS-CoV-2 RNA (RT-PCR) POSITIVE A (Negative) Independent Interpretation I performed an independent interpretation of an: EKG Interpretation: Normal sinus rhythm, HR-75, no STEMI, ME/QRS/QTC is within normal limits. Radiology Impression Discussion of test interpretation with radiology: I have reviewed the radiologist's reading. Radiologist Impression: Please see the discussion above External Record Review External record reviewed: Outpatient record, Prior outpatient labs and Prior outpatient radiology Chronic Conditions Patient?s care impacted by: Other MS Critical Care Time Critical Care Time Critical Care Time: Yes Total Critical Care Time: 30 Attestation: I personally attest to this time spent taking care of the patient. Discharge Plan Discharge Clinical Impression: Post-COVID syndrome Patient Disposition: Home, Self-Care Instructions: COVID-19 (Coronavirus Disease 2019) (ED) Additional Instructions: 1. Resume all home medications as prescribed. Continue stay well hydrated and utilize [id number] analgesics for any body aches. 2. Please follow-up with primary care doctor. Return to the ER for any worsening symptoms. Prescriptions: No Action fluticasone propionate 50 mcg/actuation spray,suspension 1 spray intranasal DAILY Qty: 16 3RF Rx Instructions: administer into each nostril omeprazole 20 mg capsule,delayed release(DR/EC) 0 mg PO duloxetine 60 mg capsule,delayed release(DR/EC) 60 mg PO DAILY duloxetine 30 mg capsule,delayed release(DR/EC) 30 mg PO DAILY gabapentin 300 mg capsule 300 mg PO TID baclofen 10 mg tablet 10 mg PO TID modafinil 200 mg tablet 200 mg PO QAM meclizine 25 mg tablet 25 mg PO TID Qty: 30 0RF sulfamethoxazole-trimethoprim [Bactrim DS] 800-160 mg tablet 1 tab PO BID 5 Days Qty: 10 0RF phenazopyridine [Pyridium] 200 mg tablet 200 mg PO TID 3 Days Qty: 9 0RF fluconazole 150 mg tablet 150 mg PO Q3D 0 Days Qty: 2 0RF Ocrevus 30 mg/mL solution 600 mg IV [id number] Saccharomyces boulardii [Daily Probiotic (S. boulardii)] 250 mg capsule 250 mg PO BID Stool Softener 50 mg capsule 50 mg PO DAILY ondansetron HCl [Zofran] 4 mg tablet 4 mg PO Q8H PRN (Reason: nausea and vomiting) Qty: 30 1RF aspirin 325 mg tablet 325 mg PO DAILY albuterol sulfate 90 mcg/actuation HFA aerosol inhaler 2 puff inhalation Q6H PRN (Reason: shortness of breath or wheezing) Qty: 6.7 0RF doxycycline hyclate 100 mg capsule 100 mg PO DAILY Qty: 30 0RF Referrals: Chato Paz MD [Primary Care Provider] -
[2023-04-01 14:23] VITALS: BP 103/73; PULSE 85; RESP 16; TEMP 36.6; O2SAT 97; BMI 25.1
[2023-04-01 15:51] LABS: MANUAL DIFF FLAG NO
[2023-04-01 15:57] LABS: Basophils Percent Auto 0.5 % (0-2); Eosinophils Absolute Auto 0.1 X10*3/uL (0.0-0.4); Eosinophils Percent Auto 1.3 % (0-4); Hematocrit 41.3 % (37.0-47.0); Hemoglobin 13.7 g/dl (12.0-16.0); Imm Gran Abs Auto 0.02 X10*3/uL (0.00-0.03); Imm Gran Pct Auto 0.5 % (0.0-0.4); Lymphocytes Absolute Auto 0.8 X10*3/uL (1.2-4.9); Lymphocytes Percent Auto 19.6 % (20-40); Mean Corpuscular HGB Conc 33.2 g/dl (31.0-35.0); Mean Corpuscular Hemoglobin 30.1 pg (27.0-33.0); Mean Corpuscular Volume 90.8 fL (80.0-98.0); Mean Platelet Volume 9.2 fL (9.4-12.3); Monocytes Absolute Auto 0.4 X10*3/uL (0.1-1.2); Monocytes Percent Auto 10.1 % (2-11); Neutrophils Absolute Auto 2.6 x10*3/uL (2.0-8.3); Platelet Count 317 X10*3/uL (160-400); Red Blood Count 4.55 X10*6/uL (4.20-5.50); Red Cell Distribution Width 12.4 % (11.0-16.0); White Blood Count 3.9 X10*3/uL (4.8-10.8)
[2023-04-01 16:04] LABS: Prothrombin Time 11.7 SEC (11.1-13.3)
[2023-04-01 16:06] LABS: Partial Thromboplastin Time 27.9 SEC (26.0-36.4)
[2023-04-01 16:08] LABS: Alanine Aminotransferase 21 U/L (0-31); Albumin Level 4.2 g/dL (3.5-5.0); Alkaline Phosphatase 86 U/L (39-117); Anion Gap 11 (12-20); Aspartate Amino Transferase 23 U/L (5-31); Bilirubin Total 0.3 mg/dL (0.0-1.0); Blood Urea Nitrogen 12 mg/dL (9-16); Calcium 9.5 mg/dL (8.4-10.2); Carbon Dioxide 30 mmol/L (22-29); Chloride 106 mmol/L (96-108); Creatinine Clr Calc Pharmacy 82.8; Estimated Glomerular Filt Rate > 60; Glucose Random 96 mg/dL (60-115); Magnesium 2.3 mg/dL (1.6-2.6); Potassium 3.5 mmol/L (3.3-5.1); Sodium 143 mmol/L (135-145); Total Protein 7.3 g/dL (6.5-8.0)
[2023-04-01 16:19] LABS: Troponin-I High Sensitivity < 2.7 ng/L (<3.5-17.0)
[2023-04-01 17:38] LABS: Influenza A PCR NEGATIVE (Negative); Influenza B PCR NEGATIVE (Negative); Resp Syncy Virus RNA Qual PCR NEGATIVE (Negative); SARS COV2 PCR INHOUSE POSITIVE (Negative)
[2023-04-01 19:41] VITALS: BP 134/71; PULSE 67; PULSE 68; RESP 12; O2SAT 98
== END 2023-04-01 21:49 | disposition home or self-care (01) ==
PROVIDERS: Physician Assistant Medical; Emergency Provider Student in an Organized Health Care Education/Training Program; PCP Internal Medicine
DX: U09.9 Post COVID-19 condition, unspecified (principal); R07.89 Other chest pain; Z20.822 Contact with and (suspected) exposure to COVID-19; Z20.828 Contact with and (suspected) exposure to other viral communicable diseases; Z79.899 Other long term (current) drug therapy
CPT/HCPCS: 0241U; 71046; 80053; 83735; 84484; 85025; 85610; 85730; 93005; 99283; 99285

== ENCOUNTER → 2023-04-01 14:10 | Outpatient (BNV) | payer OTHER, SELFPAY | PROVIDERS: PCP Internal Medicine; Visit Provider Internal Medicine | DX: R07.9 Chest pain, unspecified (principal) | CPT/HCPCS: 93010 ==

== ENCOUNTER 2023-04-24 14:32 | Emergency (ER) | payer OTHER, SELFPAY ==
--- NOTE | ~2023-04-24 | CT_ITS ---
EXAMINATION: CT ABDOMEN AND PELVIS WITH CONTRAST CLINICAL INFORMATION: Right lower quadrant abdominal pain COMPARISON: None available. TECHNIQUE: Multidetector volumetric images were obtained from the superior aspect of the liver through the pubic symphysis following administration 85 mL of Omnipaque 350 intravenous contrast. Sagittal and coronal reformatted images were obtained on the technologist's workstation. Oral contrast: No This CT examination was performed using dose optimization techniques as appropriate, variously including the following: *Automated exposure control *Adjustment of mA and/or kV according to patient size (this includes techniques or standardized protocols for targeted exams where dose is matched to indication/reason for exam; i.e. extremities or head) *Use of iterative reconstruction technique DLP: 551 mGy-cm FINDINGS: LUNG BASES: The visualized lung bases are unremarkable. LIVER, GALLBLADDER, AND BILIARY TREE: The liver is normal in size, shape, and attenuation. Multiple hepatic cysts are seen within the liver. No biliary ductal dilatation is present. Status post cholecystectomy PANCREAS: Unremarkable. SPLEEN: Unremarkable. ADRENAL GLANDS: Unremarkable. KIDNEYS AND URETERS: The kidneys are normal in size, shape, and attenuation. No hydronephrosis, hydroureter, or calculi seen. No perinephric stranding. BLADDER: Unremarkable. GASTROINTESTINAL TRACT: The small and large bowel are unremarkable. The appendix is unremarkable. ABDOMINAL WALL: No significant hernia is appreciated. LYMPH NODES: Normal. VASCULAR: Unremarkable. PELVIC VISCERA: Unremarkable. OSSEOUS STRUCTURES: Posterior facet joint arthropathy is seen in the lumbar spine. CT/CT abdomen pelvis w IV con IMPRESSION: No significant abnormality.
--- NOTE | 2023-04-24 14:38 | ED.ABDPAIN ---
HPI - Abdominal Pain General Chief Complaint: Abdominal Pain Stated Complaint: Abd pain - referred by urgent care Time Seen by Provider: 04/24/23 20:30 Source: patient Mode of arrival: ambulatory Limitations: no limitations History of Present Illness HPI narrative: Patient is a 58-year-old female who presents emergency department for evaluation of diffuse lower abdominal pain x8 days. Initially described as a burning sensation that was radiating to the bilateral sides and associated nausea over the 1st few days but this has resolved. Denies fevers, chills, vomiting, diarrhea, hematuria, dysuria or urinary frequency. She does report history of constipation, last bowel movement was a few days ago. She was at urgent care prior to her arrival today, and states that upon palpation to was having pain to the right of the umbilicus for which she was referred to the emergency department. Related Data Home Medications Medication Instructions Recorded Confirmed baclofen 10 mg tablet 10 mg PO TID 08/18/20 03/24/23 duloxetine 30 mg capsule,delayed 30 mg PO DAILY 08/18/20 03/24/23 release duloxetine 60 mg capsule,delayed 60 mg PO DAILY 08/18/20 03/24/23 release gabapentin 300 mg capsule 300 mg PO TID 08/18/20 03/24/23 modafinil 200 mg tablet 200 mg PO QAM 08/18/20 03/24/23 omeprazole 20 mg capsule,delayed 0 mg PO 08/18/20 03/24/23 release Saccharomyces boulardii 250 mg 250 mg PO BID 04/12/21 03/24/23 capsule (Daily Probiotic (S. boulardii)) docusate sodium 50 mg capsule 50 mg PO DAILY 04/12/21 03/24/23 (Stool Softener) ocrelizumab 30 mg/mL intravenous 600 mg IV [id number] 04/12/21 03/24/23 solution (Ocrevus) aspirin 325 mg tablet 325 mg PO DAILY 05/29/21 03/24/23 Previous Rx's Medication Instructions Recorded ondansetron HCl 4 mg tablet 4 mg PO Q8H PRN nausea and 04/12/21 (Zofran) vomiting #30 tabs albuterol sulfate 90 mcg/actuation 2 puff inhalation Q6H PRN 05/29/21 aerosol inhaler shortness of breath or wheezing #6.7 grams meclizine 25 mg tablet 25 mg PO TID #30 tabs 09/15/22 doxycycline hyclate 100 mg capsule 100 mg PO DAILY #30 caps 10/19/22 fluticasone propionate 50 1 spray intranasal DAILY #16 grams 11/26/22 mcg/actuation nasal spray,suspension fluconazole 150 mg tablet 150 mg PO Q3D 2 doses #2 tabs 03/11/23 phenazopyridine 200 mg tablet 200 mg PO TID 3 days #9 tabs 03/11/23 (Pyridium) sulfamethoxazole 800 1 tab PO BID 5 days #10 tabs 03/11/23 mg-trimethoprim 160 mg tablet (Bactrim DS) dicyclomine 10 mg capsule 10 mg PO TID #30 caps 04/24/23 polyethylene glycol 3350 17 17 g PO DAILY #119 grams 04/24/23 gram/dose oral powder (Miralax) Allergies Allergy/AdvReac Type Severity Reaction Status Date / Time bupropion [From WELLBUTRIN] Allergy Intermediate HIVES Verified 04/01/23 14:22 Review of Systems Review of Systems Yes all other systems are reviewed and are negative [facility] Past Medical History Attestation statement: The following information was validated with the patient. Source: old records reviewed Family History Family History Other Mental health disorder Substance abuse Social History Social History Unable to assess alcohol history related to: Unknown Patient Tobacco Use Status: Never used Tobacco Smoked in Last 30 Days: No e-Cigarette/Vaping Use: Never Used Use of substances other than those prescribed or required for medical reasons: No Advance Directives: No Advance Directives Information Provided: No Patient : No Current occupational status: disabled Cognitive needs: No Hearing needs: No Vision needs: Yes Physical Exam ED Vital Signs: Vital Signs - 24 hr 04/24/23 14:39 04/24/23 20:13 04/24/23 22:08 Temperature 97.6 F 98.3 F Pulse Rate 75 75 74 Respiratory Rate 18 17 14 Blood Pressure 143/83 H 154/83 H 139/82 Pulse Oximetry 97 96 96 Oxygen Delivery Method Room Air Room Air Room Air BMI result Body Mass Index 25.6 Appearance: Alert.?Oriented to person, place and time. No acute distress.?Normal affect. Eyes: Pupils equal, round and reactive to light.? ENT: Pharynx normal.?? Neck: Normal inspection.? Neck supple.?? CVS: Heart sounds normal. Normal heart rate and rhythm.? Pulses normal.?? Respiratory: No respiratory distress.? Lung sounds clear to auscultation bilaterally?? Abdomen: Soft with mild diffuse lower abdominal tenderness upon palpation Normoactive bowel sounds. No pulsatile mass.?? Skin: Skin warm and dry.? Normal skin color.?? Extremities: No lower extremity edema.? Neuro: Moves all extremities spontaneously. Sensation intact bilaterally.. No focal neuro deficits. Ambulates with normal steady gait. Course Course Course Narrative: RME: 58 yo F w/PMHx GERD, hidradenitis, MS, presenting to the ED c/o lower abdominal pain described as burning w/assoc low back pain and nausea. denies fever, vomiting, diarrhea, dysuria/hematuria abdomen soft diffusely ttp > RLQ labs, UA, CTAP ordered Full HPI, ROS and PE to be performed by primary ED provider. Medical Decision Making Medical Decision Making [facility] Narrative: Patient is a 58-year-old female with past medical history of GERD, MS, UTI who presents emergency department for evaluation of abdominal pain as per HPI. At time examination she does have diffuse lower abdominal tenderness upon palpation, however no rigidity or guarding. Will obtain CBC to evaluate for leukocytosis/ anemia, CMP and lipase to evaluate for abnormal electrolytes /abnormal renal function/ abnormal hepatic/biliary function, CT AP and Urinalysis. CT of the abdomen and pelvis without significant abnormalities, reviewed these findings with patient. She does express concern that she may be constipated and has not had a bowel movement in the past 3 days. There is evidence of stool on her examination but no impaction or obstruction. Discussed with patient use of once MiraLax in addition to dicyclomine for abdominal pain and outpatient follow-up with her primary care provider. Reviewed worrisome signs and symptoms that would warrant re-evaluation emergency department. All questions were answered. Stable for discharge. Differential Diagnosis Differential Diagnoses: The differential diagnosis associated with the presentation includes (Constipation, obstruction, diverticulitis, appendicitis, colitis, urinary tract infection) Admission/Observation Consideration of admission/observation: Escalation of care including admission/observation considered (See narrative above) Lab Data [facility] Lab Attestation statement: I reviewed the patient's lab results. CBC is without leukocytosis or anemia. CMP is overall unremarkable. Lipase within normal limits. Urinalysis with 1+ leukocyte esterase and wbc's but no urine bacteria noted, no genitourinary symptoms, do not suspect acute UTI. 04/24/23 14:54 04/24/23 14:54 Labs: Lab Results 04/24/23 Range/Units 14:54 WBC 4.8 (4.8-10.8) X10*3/uL RBC 4.84 (4.20-5.50) X10*6/uL Hgb 14.2 (12.0-16.0) g/dl Hct 43.8 (37.0-47.0) % MCV 90.5 (80.0-98.0) fL MCH 29.3 (27.0-33.0) pg MCHC 32.4 (31.0-35.0) g/dl RDW 12.4 (11.0-16.0) % Plt Count 269 (160-400) X10*3/uL MPV 9.1 L (9.4-12.3) fL Immature Gran % (Auto) 0.6 H (0.0-0.4) % Neut % (Auto) 66.3 (45-73) % Lymph % (Auto) 20.7 (20-40) % Wolfe % (Auto) 9.5 (2-11) % Eos % (Auto) 2.3 (0-4) % Baso % (Auto) 0.6 (0-2) % Lymph # (Auto) 1.0 L (1.2-4.9) X10*3/uL Wolfe # (Auto) 0.5 (0.1-1.2) X10*3/uL Eos # (Auto) 0.1 (0.0-0.4) X10*3/uL Baso # (Auto) 0.0 (0.0-0.2) X10*3/uL Abs Immat Gran (auto) 0.03 (0.00-0.03) X10*3/uL Absolute Neuts (auto) 3.2 (2.0-8.3) x10*3/uL Absolute Nucleated RBC 0.000 (0.0-0.012) X10*3/uL Nucleated RBC % (auto) 0.0 (0.0-0.2) /100WBC Sodium 142 (135-145) mmol/L Potassium 4.0 (3.3-5.1) mmol/L Chloride 105 (96-108) mmol/L Carbon Dioxide 30 H (22-29) mmol/L Anion Gap 11 L (12-20) BUN 16 (9-16) mg/dL Creatinine 0.77 (0.5-1.4) mg/dL Estim Creat Clear Calc 83.7 Estimated GFR > 60 Random Glucose 113 (60-115) mg/dL Calcium 9.6 (8.4-10.2) mg/dL Magnesium 2.4 (1.6-2.6) mg/dL Total Bilirubin 0.3 (0.0-1.0) mg/dL Direct Bilirubin 0.1 (0.0-0.5) mg/dL AST 21 (5-31) U/L ALT 17 (0-31) U/L Alkaline Phosphatase 90 (39-117) U/L Total Protein 7.5 (6.5-8.0) g/dL Albumin 4.4 (3.5-5.0) g/dL Lipase 29 (8-78) U/L Urine Color Yellow Urine Appearance Clear Urine pH 6.5 (5.0-9.0) Ur Specific Carrington 1.010 (1.005-1.025) Urine Protein Negative (Neg-Trace) mg/dL Urine Glucose (UA) Negative (Negative) mg/dL Urine Ketones Negative (Negative) mg/dL Urine Blood Negative (Negative) Urine Nitrite Negative (Negative) Ur Leukocyte Esterase Small (1+) H (Negative) Urine RBC 0-2 (0-2) /HPF Urine WBC 6-10 H (0-5) /HPF Ur Squamous Epith Cells 0-2 (0-2) /HPF Urine Bacteria None Seen (None Seen) Hyaline Casts 0-2 (0-2) /LPF Independent Interpretation I performed an independent interpretation of an: CT Scan Radiology Impression Discussion of test interpretation with radiology: I have reviewed the radiologist's reading. Radiologist Impression: CT/CT abdomen pelvis w IV con IMPRESSION: No significant abnormality. Independent Historian Clinical information obtained from an independent historian. History obtained from or confirmed by: Other (Daughter present at bedside who confirms history) External Record Review External record reviewed: Outpatient record Prescription Management I considered prescription management with: Pain Medication Medications Administered Discontinued Medications Generic Name Dose Route Start Last Admin Trade Name Freq PRN Reason Stop Dose Admin Sodium Chloride 1,000 mls @ 999 mls/hr 04/24/23 21:15 04/24/23 21:16 Ns IV 04/24/23 22:15 999 mls/hr .Q1H1M JA Administration Iohexol 85 ml 04/24/23 20:40 04/24/23 20:41 Iohexol 350 Mg/Ml 100 Ml Infus..Btl IV 04/24/23 20:41 85 ml ONCE ONE Administration Discharge Plan Discharge Clinical Impression: Abdominal pain Patient Disposition: Home, Self-Care Instructions: Abdominal Pain (ED) Prescriptions: New dicyclomine 10 mg capsule 10 mg PO TID Qty: 30 0RF polyethylene glycol 3350 [Miralax] 17 gram/dose powder 17 g PO DAILY Qty: 119 0RF No Action fluticasone propionate 50 mcg/actuation spray,suspension 1 spray intranasal DAILY Qty: 16 3RF Rx Instructions: administer into each nostril omeprazole 20 mg capsule,delayed release(DR/EC) 0 mg PO duloxetine 60 mg capsule,delayed release(DR/EC) 60 mg PO DAILY duloxetine 30 mg capsule,delayed release(DR/EC) 30 mg PO DAILY gabapentin 300 mg capsule 300 mg PO TID baclofen 10 mg tablet 10 mg PO TID modafinil 200 mg tablet 200 mg PO QAM meclizine 25 mg tablet 25 mg PO TID Qty: 30 0RF sulfamethoxazole-trimethoprim [Bactrim DS] 800-160 mg tablet 1 tab PO BID 5 Days Qty: 10 0RF phenazopyridine [Pyridium] 200 mg tablet 200 mg PO TID 3 Days Qty: 9 0RF fluconazole 150 mg tablet 150 mg PO Q3D 0 Days Qty: 2 0RF Ocrevus 30 mg/mL solution 600 mg IV [id number] Saccharomyces boulardii [Daily Probiotic (S. boulardii)] 250 mg capsule 250 mg PO BID Stool Softener 50 mg capsule 50 mg PO DAILY ondansetron HCl [Zofran] 4 mg tablet 4 mg PO Q8H PRN (Reason: nausea and vomiting) Qty: 30 1RF aspirin 325 mg tablet 325 mg PO DAILY albuterol sulfate 90 mcg/actuation HFA aerosol inhaler 2 puff inhalation Q6H PRN (Reason: shortness of breath or wheezing) Qty: 6.7 0RF doxycycline hyclate 100 mg capsule 100 mg PO DAILY Qty: 30 0RF Referrals: Chato Paz MD [Primary Care Provider] - Interventions: ED Discharge Assessment Last Done: 04/24/23 22:15 Discharge Date/Time: 04/24/23 22:16
[2023-04-24 14:39] VITALS: BP 143/83; PULSE 75; RESP 18; TEMP 36.4; O2SAT 97; BMI 25.6
[2023-04-24 15:00] LABS: MANUAL DIFF FLAG NO
[2023-04-24 15:04] LABS: Appearance Urine Clear; Basophils Percent Auto 0.6 % (0-2); Color Urine Yellow; Eosinophils Absolute Auto 0.1 X10*3/uL (0.0-0.4); Eosinophils Percent Auto 2.3 % (0-4); Glucose Urine UA Negative (Negative); Hematocrit 43.8 % (37.0-47.0); Hemoglobin 14.2 g/dl (12.0-16.0); Imm Gran Abs Auto 0.03 X10*3/uL (0.00-0.03); Imm Gran Pct Auto 0.6 % (0.0-0.4); Leukocyte Esterase Urine Small (1+) (Negative); Lymphocytes Percent Auto 20.7 % (20-40); Mean Corpuscular HGB Conc 32.4 g/dl (31.0-35.0); Mean Corpuscular Hemoglobin 29.3 pg (27.0-33.0); Mean Corpuscular Volume 90.5 fL (80.0-98.0); Mean Platelet Volume 9.1 fL (9.4-12.3); Monocytes Absolute Auto 0.5 X10*3/uL (0.1-1.2); Monocytes Percent Auto 9.5 % (2-11); Neutrophils Absolute Auto 3.2 x10*3/uL (2.0-8.3); Neutrophils Percent Auto 66.3 % (45-73); Nitrite Urine Negative (Negative); PH 6.5 (5.0-9.0); Platelet Count 269 X10*3/uL (160-400); Red Blood Count 4.84 X10*6/uL (4.20-5.50); Red Cell Distribution Width 12.4 % (11.0-16.0); UMIC TRIGGER UACC YES; Urine Blood Negative (Negative); Urine Ketones Negative (Negative); Urine Protein Negative (Neg-Trace); White Blood Count 4.8 X10*3/uL (4.8-10.8)
[2023-04-24 15:06] LABS: Bacteria Urine None Seen (None Seen); Hyaline Casts Urine 0-2 /LPF (0-2); RBC Urine 0-2 /HPF (0-2); Squamous Epithelial Cell Urine 0-2 /HPF (0-2); UACC Culture Trigger YES
[2023-04-24 15:17] LABS: Alanine Aminotransferase 17 U/L (0-31); Albumin Level 4.4 g/dL (3.5-5.0); Alkaline Phosphatase 90 U/L (39-117); Anion Gap 11 (12-20); Aspartate Amino Transferase 21 U/L (5-31); Bilirubin Direct 0.1 mg/dL (0.0-0.5); Bilirubin Total 0.3 mg/dL (0.0-1.0); Blood Urea Nitrogen 16 mg/dL (9-16); Calcium 9.6 mg/dL (8.4-10.2); Carbon Dioxide 30 mmol/L (22-29); Chloride 105 mmol/L (96-108); Creatinine Clr Calc Pharmacy 83.7; Estimated Glomerular Filt Rate > 60; Glucose Random 113 mg/dL (60-115); Lipase 29 U/L (8-78); Magnesium 2.4 mg/dL (1.6-2.6); Sodium 142 mmol/L (135-145); Total Protein 7.5 g/dL (6.5-8.0)
[2023-04-24 20:13] VITALS: BP 154/83; PULSE 75; RESP 17; TEMP 36.8; O2SAT 96
--- NOTE | 2023-04-24 20:19 | PC.NURSE ---
20G IV lined started on the R AC as pt is going for a CT Scan with contrast. Pt tolerated well.
[2023-04-24] MEDS: iohexoL 350 MG/ML 100 ML INFUS..BTL 85 ML IV (20:41)
[2023-04-24] MEDS: 0.9 % Sodium Chloride 1,000 ML 999 ML IV (21:16)
[2023-04-24 22:08] VITALS: BP 139/82; PULSE 74; RESP 14; O2SAT 96
== END 2023-04-24 22:16 | disposition home or self-care (01) ==
PROVIDERS: Physician Assistant; Emergency Provider Emergency Medicine; PCP Internal Medicine
DX: R10.30 Lower abdominal pain, unspecified (principal)
CPT/HCPCS: 36415; 74177; 80048; 80076; 81001; 81003; 83690; 83735; 85025; 87086; 99284; 99285; Q9967

== ENCOUNTER 2023-07-06 16:05 | Emergency (ER) | payer OTHER, SELFPAY ==
--- NOTE | 2023-07-06 16:12 | ED.GENADULT ---
HPI - General Adult General Chief complaint: Neuro Symptoms/Deficit Stated complaint: Nerve pain Time Seen by Provider: 07/06/23 17:19 Source: patient and family (Daughter) Mode of arrival: ambulatory Limitations: no limitations History of Present Illness HPI narrative: 58-year-old female with history of trigeminal neuralgia, MS with upper and lower extremity weakness, GERD, who presents emergency department for evaluation of flare-up of her trigeminal neuralgia. The patient states that over the past 4 days she has had pain in the right side of her face consistent with her trigeminal neuralgia urine she states the pain is a constant, burning pain which is greater than 10/10 the patient was started on carbamazepine 100 mg 3 times a day with no improvement of her pain she was also started on methylprednisolone. Patient does take gabapentin for her MS pain is well. Despite taking these medications she states that the pain is gotten worse. She has not able to eat or drink since opening her mouth causes severe pain. She has had nothing by mouth for 24 hours. Her review of systems was negative. She denied fever, chills, rhinorrhea, sore throat, cough, chest pain, shortness of breath, nausea, vomiting or diarrhea. Related Data Home Medications Medication Instructions Recorded Confirmed baclofen 10 mg tablet 10 mg PO TID 08/18/20 03/24/23 duloxetine 30 mg capsule,delayed 30 mg PO DAILY 08/18/20 03/24/23 release duloxetine 60 mg capsule,delayed 60 mg PO DAILY 08/18/20 03/24/23 release gabapentin 300 mg capsule 300 mg PO TID 08/18/20 03/24/23 modafinil 200 mg tablet 200 mg PO QAM 08/18/20 03/24/23 omeprazole 20 mg capsule,delayed 0 mg PO 08/18/20 03/24/23 release Saccharomyces boulardii 250 mg 250 mg PO BID 04/12/21 03/24/23 capsule (Daily Probiotic (S. boulardii)) docusate sodium 50 mg capsule 50 mg PO DAILY 04/12/21 03/24/23 (Stool Softener) ocrelizumab 30 mg/mL intravenous 600 mg IV [id number] 04/12/21 03/24/23 solution (Ocrevus) aspirin 325 mg tablet 325 mg PO DAILY 05/29/21 03/24/23 Previous Rx's Medication Instructions Recorded ondansetron HCl 4 mg tablet 4 mg PO Q8H PRN nausea and 04/12/21 (Zofran) vomiting #30 tabs albuterol sulfate 90 mcg/actuation 2 puff inhalation Q6H PRN 05/29/21 aerosol inhaler shortness of breath or wheezing #6.7 grams meclizine 25 mg tablet 25 mg PO TID #30 tabs 09/15/22 doxycycline hyclate 100 mg capsule 100 mg PO DAILY #30 caps 10/19/22 fluticasone propionate 50 1 spray intranasal DAILY #16 grams 11/26/22 mcg/actuation nasal spray,suspension fluconazole 150 mg tablet 150 mg PO Q3D 2 doses #2 tabs 03/11/23 phenazopyridine 200 mg tablet 200 mg PO TID 3 days #9 tabs 03/11/23 (Pyridium) sulfamethoxazole 800 1 tab PO BID 5 days #10 tabs 03/11/23 mg-trimethoprim 160 mg tablet (Bactrim DS) dicyclomine 10 mg capsule 10 mg PO TID #30 caps 04/24/23 polyethylene glycol 3350 17 17 g PO DAILY #119 grams 04/24/23 gram/dose oral powder (Miralax) oxycodone 5 mg tablet 5 mg PO Q6H PRN pain #10 tabs 07/07/23 Allergies Allergy/AdvReac Type Severity Reaction Status Date / Time bupropion [From WELLBUTRIN] Allergy Intermediate HIVES Verified 07/06/23 16:13 Review of Systems Review of Systems: Yes all other systems are reviewed and are negative PMFSH Family History Family History Other Mental health disorder Substance abuse Social History Social History Unable to assess alcohol history related to: Unknown Patient Tobacco Use Status: Never used Tobacco Smoked in Last 30 Days: No e-Cigarette/Vaping Use: Never Used Use of substances other than those prescribed or required for medical reasons: No Advance Directives: No Advance Directives Information Provided: No Current occupational status: disabled Cognitive needs: No Hearing needs: No Vision needs: Yes Physical Exam ED Vital Signs: Vital Signs - 24 hr 07/06/23 16:14 07/06/23 17:16 07/06/23 18:01 Temperature 96.8 F 97.3 F Pulse Rate 82 84 72 Respiratory Rate 18 16 16 Blood Pressure 158/81 H 156/85 H 130/69 Pulse Oximetry 98 96 97 Oxygen Delivery Method Room Air Room Air Room Air 07/06/23 19:30 07/06/23 20:55 Temperature 98.7 F Pulse Rate 76 83 Respiratory Rate 16 17 Blood Pressure 156/76 H 154/86 H Pulse Oximetry 92 96 Oxygen Delivery Method Room Air Room Air BMI result Body Mass Index 25.1 Vital signs revealed an elevated blood pressure of 158/81. Exam: General: Awake, alert in no distress Head: Normocephalic, atraumatic EENT: Lids normal, sclera normal, conjunctiva normal, nose normal , ears normal, throat without erythema or exudates. Not let me touch the right side of her face secondary to the severe pain that she has had Lung: breath sounds symmetric, no wheezing, rales or rhonchi Chest: symmetric movement, nontender Heart: regular rate and rhythm, normal S1, S2 no murmurs or rubs Abdomen: soft, non-tender, nondistended, normal bowel sounds Psych: Pleasant, cooperative Course Course Course Narrative: This is a rapid medical exam: Additional HPI, ROS, PE not included below will be deferred to primary provider. Patient is a 58-year-old female with MS presenting to the ED with complaint of trigeminal neuralgia flare on right for the past 3-4 days. She contacted DOMINICK Ortega at neurology office who recommended increasing her carbamazepine, which patient did starting yesterday without relief. She last took 100mg at 4:30pm. Was also prescribed a medrol dose pack. States neurosurgeon is Dr. Bashir. Medications Administered Discontinued Medications Generic Name Dose Route Start Last Admin Trade Name Freq PRN Reason Stop Dose Admin Sodium Chloride 1,000 mls @ 999 mls/hr 07/06/23 17:40 07/06/23 19:42 Ns IV 07/06/23 18:40 Infused .Q1H1M STA Infusion Ketorolac Tromethamine 30 mg 07/06/23 17:40 07/06/23 17:54 Ketorolac Tromethamine 15 Mg/Ml Vial IVPUSH 07/06/23 17:41 30 mg ONCE STA Administration Morphine Sulfate 2 mg 07/06/23 18:57 07/06/23 19:38 Morphine Sulfate 2 Mg/Ml Cartridge IVPUSH 07/06/23 18:58 2 mg ONCE ONE Administration Protocol Morphine Sulfate 4 mg 07/06/23 20:35 07/06/23 20:47 Morphine Sulfate 4 Mg/Ml Cartridge IVPUSH 07/06/23 20:36 4 mg ONCE STA Administration Protocol Ondansetron HCl 4 mg 07/06/23 17:40 07/06/23 17:51 Ondansetron Hcl 4 Mg/2 Ml Vial IVPUSH 07/06/23 17:41 4 mg ONCE ONE Administration Oxycodone HCl 5 mg 07/06/23 22:56 07/06/23 23:24 Oxycodone Hcl Immed Release 5 Mg Tablet PO 07/06/23 22:57 5 mg ONCE STA Administration Medical Decision Making Medical Decision Making [facility] Narrative: 58-year-old female with history of trigeminal neuralgia, MS with upper and lower extremity weakness, GERD, who presents emergency department for evaluation of flare-up of her trigeminal neuralgia x4 days with inability eat or drink for 2 days secondary to the severity of her right facial pain. Review of systems was negative. Examination did reveal an elevated blood pressure, patient would not let me touch the right side of her face secondary to the severity of her pain. Differential diagnosis: ?Includes but is not limited to trigeminal neuralgia flare-up, electrolyte abnormality, anemia, dehydration Following evaluation was ordered: CBC, CMP, CK C-reactive protein, ESR. Patient was initially treated with the following: IV insert, normal saline x1 L, Toradol 30 mg IV, Zofran 4 mg IV Course: 23:57 My independent interpretation patient's laboratory evaluation as follows: CBC was normal. CMP was normal. Patient got minimal relief with Toradol IV. She was then treated with morphine 2 mg IV morphine 4 mg IV which gave her an adverse reaction of chest tightness and not feeling well pain. Patient was then given oxycodone 5 mg orally which did improve her pain. She was able to drink fluid and eat pudding without seeing severe pain in her trigeminal nerve Patient will be discharged home with a prescription for oxycodone 5 mg 3 times a day as needed for pain. She is currently taking carbamazepine mg 3 times a day, she was advised to take 100 mg twice a day 200 mg at night to see if this helps with her pain. She was given printed and verbal instructions and discharged home Lab Data 07/06/23 18:13 07/06/23 18:13 Labs: Lab Results 07/06/23 Range/Units 18:13 WBC 5.7 (4.8-10.8) X10*3/uL RBC 4.52 (4.20-5.50) X10*6/uL Hgb 13.6 (12.0-16.0) g/dl Hct 40.8 (37.0-47.0) % MCV 90.3 (80.0-98.0) fL MCH 30.1 (27.0-33.0) pg MCHC 33.3 (31.0-35.0) g/dl RDW 12.6 (11.0-16.0) % Plt Count 256 (160-400) X10*3/uL MPV 9.3 L (9.4-12.3) fL Immature Gran % (Auto) 0.2 (0.0-0.4) % Neut % (Auto) 90.3 H (45-73) % Lymph % (Auto) 7.5 L (20-40) % Angelina % (Auto) 1.6 L (2-11) % Eos % (Auto) 0.2 (0-4) % Baso % (Auto) 0.2 (0-2) % Lymph # (Auto) 0.4 L (1.2-4.9) X10*3/uL Angelina # (Auto) 0.1 (0.1-1.2) X10*3/uL Eos # (Auto) 0.0 (0.0-0.4) X10*3/uL Baso # (Auto) 0.0 (0.0-0.2) X10*3/uL Abs Immat Gran (auto) 0.01 (0.00-0.03) X10*3/uL Absolute Neuts (auto) 5.2 (2.0-8.3) x10*3/uL Absolute Nucleated RBC 0.000 (0.0-0.012) X10*3/uL Nucleated RBC % (auto) 0.0 (0.0-0.2) /100WBC Smear Tech's Comments VERIFIED ESR 10 (0-20) MM/HR Sodium 143 (135-145) mmol/L Potassium 4.0 (3.3-5.1) mmol/L Chloride 109 H (96-108) mmol/L Carbon Dioxide 26 (22-29) mmol/L Anion Gap 12 (12-20) BUN 15 (9-16) mg/dL Creatinine 0.71 (0.5-1.4) mg/dL Estim Creat Clear Calc 84.0 Estimated GFR > 60 Random Glucose 105 (60-115) mg/dL Calcium 9.0 D (8.4-10.2) mg/dL Total Bilirubin 0.3 (0.0-1.0) mg/dL AST 19 (5-31) U/L ALT 18 (0-31) U/L Alkaline Phosphatase 83 (39-117) U/L Total Creatine Kinase 88 (26-140) U/L C-Reactive Protein 0.17 (< or = 0.50) mg/dL Total Protein 6.8 (6.5-8.0) g/dL Albumin 4.2 (3.5-5.0) g/dL Discharge Plan Discharge Clinical Impression: Trigeminal neuralgia pain Patient Disposition: Home, Self-Care Instructions: Trigeminal Neuralgia (ED) Additional Instructions: Your blood work was unremarkable. Take Tylenol (acetaminophen) 500 mg pills, 2 pills every 6 hours as needed for pain. For pain not relieved by Tylenol take oxycodone 5 mg pills, 1 pill every 4 hours as needed for pain. Do not drive or work while taking this medication since they can cause sleepiness. Oxycodone is a narcotic medication that can be addicting. If you are concerned about addiction you can ask the pharmacist for less pills or do not get this prescription filled. Take carbamazepine 100 mg pills, 1 pill twice a day and 2 pills at night to see if this helps with your pain. Consider increasing this medication to 200 mg 3 times a day to see if a higher dose helps your pain. Try drinking protein shakes such as ensure or boost, also try soft foods such as pudding, drink small amounts of fluid frequently to try to stay hydrated. Follow-up with your doctor in 2 days. Please return to the emergency department if your symptoms get worse or if you develop any symptoms that are concerning to you. Prescriptions: New oxycodone 5 mg tablet 5 mg PO Q6H PRN (Reason: pain) Qty: 10 0RF Rx Instructions: Patient may request partial refill; Partial Fill upon patient request. No Action fluticasone propionate 50 mcg/actuation spray,suspension 1 spray intranasal DAILY Qty: 16 3RF Rx Instructions: administer into each nostril dicyclomine 10 mg capsule 10 mg PO TID Qty: 30 0RF polyethylene glycol 3350 [Miralax] 17 gram/dose powder 17 g PO DAILY Qty: 119 0RF omeprazole 20 mg capsule,delayed release(DR/EC) 0 mg PO duloxetine 60 mg capsule,delayed release(DR/EC) 60 mg PO DAILY duloxetine 30 mg capsule,delayed release(DR/EC) 30 mg PO DAILY gabapentin 300 mg capsule 300 mg PO TID baclofen 10 mg tablet 10 mg PO TID modafinil 200 mg tablet 200 mg PO QAM meclizine 25 mg tablet 25 mg PO TID Qty: 30 0RF sulfamethoxazole-trimethoprim [Bactrim DS] 800-160 mg tablet 1 tab PO BID 5 Days Qty: 10 0RF phenazopyridine [Pyridium] 200 mg tablet 200 mg PO TID 3 Days Qty: 9 0RF fluconazole 150 mg tablet 150 mg PO Q3D 0 Days Qty: 2 0RF Ocrevus 30 mg/mL solution 600 mg IV [id number] Saccharomyces boulardii [Daily Probiotic (S. boulardii)] 250 mg capsule 250 mg PO BID Stool Softener 50 mg capsule 50 mg PO DAILY ondansetron HCl [Zofran] 4 mg tablet 4 mg PO Q8H PRN (Reason: nausea and vomiting) Qty: 30 1RF aspirin 325 mg tablet 325 mg PO DAILY albuterol sulfate 90 mcg/actuation HFA aerosol inhaler 2 puff inhalation Q6H PRN (Reason: shortness of breath or wheezing) Qty: 6.7 0RF doxycycline hyclate 100 mg capsule 100 mg PO DAILY Qty: 30 0RF
[2023-07-06 16:14] VITALS: BP 158/81; PULSE 82; RESP 18; TEMP 36; O2SAT 98; BMI 25.1
[2023-07-06 17:16] VITALS: BP 156/85; PULSE 84; RESP 16; O2SAT 96
--- NOTE | 2023-07-06 17:18 | PC.NURSE ---
Awaits ED provider, VSS. States painful nerve pain to right side of face, skin pale, warm and dry. Assistance needed to ambulate into stretcher.
[2023-07-06] MEDS: ondansetron HCL 4 MG/2 ML VIAL IVPUSH (17:51)
[2023-07-06] MEDS: 0.9 % Sodium Chloride 1,000 ML 999 ML IV (17:54)
[2023-07-06] MEDS: Ketorolac Tromethamine 15 MG/ML VIAL 30 MG IVPUSH (17:54)
[2023-07-06 18:01] VITALS: BP 130/69; PULSE 72; RESP 16; TEMP 36.3; O2SAT 97
[2023-07-06 18:21] LABS: Basophils Percent Auto 0.2 % (0-2); Eosinophils Percent Auto 0.2 % (0-4); Hematocrit 40.8 % (37.0-47.0); Hemoglobin 13.6 g/dl (12.0-16.0); Imm Gran Abs Auto 0.01 X10*3/uL (0.00-0.03); Imm Gran Pct Auto 0.2 % (0.0-0.4); Lymphocytes Absolute Auto 0.4 X10*3/uL (1.2-4.9); Lymphocytes Percent Auto 7.5 % (20-40); MANUAL DIFF FLAG SCAN; Mean Corpuscular HGB Conc 33.3 g/dl (31.0-35.0); Mean Corpuscular Hemoglobin 30.1 pg (27.0-33.0); Mean Corpuscular Volume 90.3 fL (80.0-98.0); Mean Platelet Volume 9.3 fL (9.4-12.3); Monocytes Absolute Auto 0.1 X10*3/uL (0.1-1.2); Monocytes Percent Auto 1.6 % (2-11); Neutrophils Absolute Auto 5.2 x10*3/uL (2.0-8.3); Neutrophils Percent Auto 90.3 % (45-73); Platelet Count 256 X10*3/uL (160-400); Red Blood Count 4.52 X10*6/uL (4.20-5.50); Red Cell Distribution Width 12.6 % (11.0-16.0); SCAN SMEAR FLAG 1; White Blood Count 5.7 X10*3/uL (4.8-10.8)
[2023-07-06 18:38] LABS: Alanine Aminotransferase 18 U/L (0-31); Albumin Level 4.2 g/dL (3.5-5.0); Alkaline Phosphatase 83 U/L (39-117); Anion Gap 12 (12-20); Aspartate Amino Transferase 19 U/L (5-31); Bilirubin Total 0.3 mg/dL (0.0-1.0); Blood Urea Nitrogen 15 mg/dL (9-16); C Reactive Protein 0.17 mg/dL (< or = 0.50); Carbon Dioxide 26 mmol/L (22-29); Chloride 109 mmol/L (96-108); Estimated Glomerular Filt Rate > 60; Glucose Random 105 mg/dL (60-115); Sodium 143 mmol/L (135-145); Total Protein 6.8 g/dL (6.5-8.0)
[2023-07-06 18:39] LABS: SLIDE REVIEW VERIFIED
[2023-07-06 18:58] LABS: Erythrocyte Sedimentation Rate 10 MM/HR (0-20)
[2023-07-06 19:30] VITALS: BP 156/76; PULSE 76; RESP 16; TEMP 37.1; O2SAT 92
[2023-07-06] MEDS: Morphine Sulfate 2 MG/ML CARTRIDGE IVPUSH (19:38)
[2023-07-06] MEDS: Morphine Sulfate 4 MG/ML CARTRIDGE IVPUSH (20:47)
[2023-07-06 20:55] VITALS: BP 154/86; PULSE 83; RESP 17; O2SAT 96
[2023-07-06] MEDS: oxyCODONE HCl Immed Release 5 MG TABLET PO (23:24)
[2023-07-07 00:31] VITALS: BP 115/63; PULSE 75; RESP 16; TEMP 36.6; O2SAT 94
== END 2023-07-07 00:32 | disposition home or self-care (01) ==
PROVIDERS: Emergency Provider Emergency Medicine Emergency Medical Services; PCP Internal Medicine
DX: G50.0 Trigeminal neuralgia (principal); R53.1 Weakness; G35 Multiple sclerosis; R51.9 Headache, unspecified; K21.9 Gastro-esophageal reflux disease without esophagitis
CPT/HCPCS: 36415; 80053; 82550; 85025; 85652; 86140; 96361; 96374; 96375; 96376; 99284; J1885; J2270; J2405

== ENCOUNTER 2023-07-09 21:34 | Inpatient (IN) | payer OTHER, SELFPAY ==
--- NOTE | ~2023-07-09 | MR_ITS ---
MR BRAIN WITHOUT AND WITH CONTRAST CLINICAL INFORMATION: Leg weakness. Multiple sclerosis flare. COMPARISON: Head CT 06/29/2021. TECHNIQUE: Multiplanar, multisequence MRI of the brain was obtained before and after the intravenous administration of 7 mL Gadavist. FINDINGS: Multiple T2 signal hyperintense lesions within the supratentorial periventricular and subcortical white matter as well as the corpus callosum and brainstem in keeping with the reported clinical history of multiple sclerosis. No enhancing lesions to suggest active demyelination. Multiple chronic low T1 signal intensity lesions. No prior studies available for comparison. There is no hydrocephalus, extra-axial surface collection, or herniation. The major flow voids at the skull base are preserved. There is no acute infarct on diffusion-weighted imaging. There is no intracranial hemorrhage on the gradient recalled echo acquisition. The midline structures are normal. The cerebellar tonsils are normally positioned. The craniocervical junction is normal. Osseous marrow signal intensity is homogenous. The visualized soft tissues are unremarkable. There is a large left mastoid effusion. MR/MR head/brain wo/w con IMPRESSION: - Multiple T2 signal hyperintense lesions within the supratentorial periventricular and subcortical white matter as well as the corpus callosum and brainstem in keeping with the reported clinical history of multiple sclerosis. No enhancing lesions to suggest active demyelination. No prior studies available for comparison. - There is a large left mastoid effusion.
[2023-07-09 21:39] VITALS: BP 150/100; PULSE 82; O2SAT 99
[2023-07-09 22:01] VITALS: BP 150/78; PULSE 84; RESP 16; TEMP 36.7; O2SAT 96; BMI 25.1
--- NOTE | 2023-07-09 22:22 | PC.NURSE ---
Patient wheeled to bathroom in wheelchair, assisted to transfer to toilet with Vikas Valentin (ED PCT). Rachelle Montenegro (ED automobile [employer] membership sales agent) aware. Plan to collect urine specimen.
[2023-07-09 22:38] LABS: MANUAL DIFF FLAG NO
[2023-07-09 22:40] LABS: Appearance Urine Clear; Basophils Percent Auto 0.4 % (0-2); Color Urine Yellow; Eosinophils Absolute Auto 0.1 X10*3/uL (0.0-0.4); Eosinophils Percent Auto 1.1 % (0-4); Glucose Urine UA Negative (Negative); Hematocrit 40.1 % (37.0-47.0); Hemoglobin 13.8 g/dl (12.0-16.0); Imm Gran Abs Auto 0.01 X10*3/uL (0.00-0.03); Imm Gran Pct Auto 0.2 % (0.0-0.4); Leukocyte Esterase Urine Trace (Negative); Mean Corpuscular HGB Conc 34.4 g/dl (31.0-35.0); Mean Corpuscular Hemoglobin 30.2 pg (27.0-33.0); Mean Corpuscular Volume 87.7 fL (80.0-98.0); Mean Platelet Volume 9.1 fL (9.4-12.3); Monocytes Absolute Auto 0.5 X10*3/uL (0.1-1.2); Monocytes Percent Auto 10.9 % (2-11); Neutrophils Percent Auto 66.4 % (45-73); Nitrite Urine Negative (Negative); PH 6.5 (5.0-9.0); Platelet Count 246 X10*3/uL (160-400); Red Blood Count 4.57 X10*6/uL (4.20-5.50); Red Cell Distribution Width 12.5 % (11.0-16.0); UMIC TRIGGER UACC YES; Urine Blood Negative (Negative); Urine Ketones Negative (Negative); Urine Protein Negative (Neg-Trace); White Blood Count 4.6 X10*3/uL (4.8-10.8)
[2023-07-09 22:42] LABS: Bacteria Urine None Seen (None Seen); Hyaline Casts Urine 0-2 /LPF (0-2); RBC Urine 0-2 /HPF (0-2); Squamous Epithelial Cell Urine 0-2 /HPF (0-2); WBC Urine 0-5 /HPF (0-5)
[2023-07-09 22:57] LABS: Anion Gap 13 (12-20); Blood Urea Nitrogen 12 mg/dL (9-16); Calcium 9.3 mg/dL (8.4-10.2); Carbon Dioxide 29 mmol/L (22-29); Chloride 105 mmol/L (96-108); Creatinine Clr Calc Pharmacy 87.6; Estimated Glomerular Filt Rate > 60; Glucose Random 89 mg/dL (60-115); Partial Thromboplastin Time 28.9 SEC (26.0-36.8); Potassium 3.6 mmol/L (3.3-5.1); Sodium 143 mmol/L (135-145)
[2023-07-09 23:05] LABS: Troponin-I High Sensitivity < 2.7 ng/L (<3.5-17.0)
--- NOTE | 2023-07-10 01:18 | ED_ITS ---
HPI - General Adult General Chief complaint: General Medical Stated complaint: HEADACHE WEAKNESS Time Seen by Provider: 07/10/23 01:16 Source: patient, family and old records reviewed Mode of arrival: wheelchair Limitations: no limitations History of Present Illness HPI narrative: 58 yo female with PMH of MS on ocrevus, trigeminal neuralgia seeing Dr. Bashir but waiting for appointment on 07/15 for injections she is currently taking carbamazepine 100mg BID then 200mg at night and was seen here on 07/05 and prescribed 5mg oxycodone TID PRN. She returns tonight with persistent pain from trigeminal neuralgia and she cannot eat. She is so weak she has pain everywhere. She cannot get up. She got up and fell two times today no trauma reported. She only consumed two puddings today. MD complaint: trigeminal neuralgia, MS flare Onset (ago): day(s) (several ) Location: face Radiation: non-radiation Severity: moderate Quality: stabbing and sharp Pain Consistency: intermittent Relieving factors: none Exacerbating factors: eating and movement Associated symptoms: loss of appetite, malaise and weakness Treatments prior to arrival: other (trying all Rx medications) Related Data Home Medications Medication Instructions Recorded Confirmed baclofen 10 mg tablet 10 mg PO TID 08/18/20 03/24/23 duloxetine 30 mg capsule,delayed 30 mg PO DAILY 08/18/20 03/24/23 release duloxetine 60 mg capsule,delayed 60 mg PO DAILY 08/18/20 03/24/23 release gabapentin 300 mg capsule 300 mg PO TID 08/18/20 03/24/23 modafinil 200 mg tablet 200 mg PO QAM 08/18/20 03/24/23 omeprazole 20 mg capsule,delayed 0 mg PO 08/18/20 03/24/23 release Saccharomyces boulardii 250 mg 250 mg PO BID 04/12/21 03/24/23 capsule (Daily Probiotic (S. boulardii)) docusate sodium 50 mg capsule 50 mg PO DAILY 04/12/21 03/24/23 (Stool Softener) ocrelizumab 30 mg/mL intravenous 600 mg IV [id number] 04/12/21 03/24/23 solution (Ocrevus) aspirin 325 mg tablet 325 mg PO DAILY 05/29/21 03/24/23 Previous Rx's Medication Instructions Recorded ondansetron HCl 4 mg tablet 4 mg PO Q8H PRN nausea and 04/12/21 (Zofran) vomiting #30 tabs albuterol sulfate 90 mcg/actuation 2 puff inhalation Q6H PRN 05/29/21 aerosol inhaler shortness of breath or wheezing #6.7 grams meclizine 25 mg tablet 25 mg PO TID #30 tabs 09/15/22 doxycycline hyclate 100 mg capsule 100 mg PO DAILY #30 caps 10/19/22 fluticasone propionate 50 1 spray intranasal DAILY #16 grams 11/26/22 mcg/actuation nasal spray,suspension fluconazole 150 mg tablet 150 mg PO Q3D 2 doses #2 tabs 03/11/23 phenazopyridine 200 mg tablet 200 mg PO TID 3 days #9 tabs 03/11/23 (Pyridium) sulfamethoxazole 800 1 tab PO BID 5 days #10 tabs 03/11/23 mg-trimethoprim 160 mg tablet (Bactrim DS) dicyclomine 10 mg capsule 10 mg PO TID #30 caps 04/24/23 polyethylene glycol 3350 17 17 g PO DAILY #119 grams 04/24/23 gram/dose oral powder (Miralax) oxycodone 5 mg tablet 5 mg PO Q6H PRN pain #10 tabs 07/07/23 Allergies Allergy/AdvReac Type Severity Reaction Status Date / Time bupropion [From WELLBUTRIN] Allergy Intermediate HIVES Verified 07/09/23 22:08 Review of Systems 2 Review of Systems: Constitutional : No Fever, No Chills, pos Fatigue ENT/Mouth : No sore throat, No Rhinorrhea Eyes: No Eye Pain, No Swelling, No Redness Cardiovascular : No Chest Pain, No SOB, No Dyspnea on Exertion Respiratory : No Cough, No Sputum Gastrointestinal : No Nausea, No Vomiting, No Diarrhea, No abdominal Pain Genitourinary : No Dysuria, No Urinary Frequency, No Hematuria, Musculoskeletal : No joint pain, No Myalgias, No Joint Swelling Skin : No Skin Lesions, No rash Neuro : pos Weakness, No Numbness, No Dizziness, positive Headache Psych : No Anxiety/Panic, No Depression Heme/Lymph: No Bruising, No Bleeding,No Lymphadenopathy Endocrine : No Polyuria, No Polydipsia All other systems reviewed and are negative [facility] Past Medical History Attestation statement: The following information was validated with the patient. Source: old records reviewed Medical History Chronic GERD Multiple sclerosis Urinary tract infection Family History Family History Other Mental health disorder Substance abuse Social History Social History Unable to assess alcohol history related to: Unknown Patient Tobacco Use Status: Never used Tobacco e-Cigarette/Vaping Use: Never Used Advance Directives: No Advance Directives Information Provided: No Current occupational status: disabled Cognitive needs: No Hearing needs: No Vision needs: Yes Physical Exam ED Vital Signs: Vital Signs - 24 hr 07/09/23 22:01 Temperature 98.0 F Pulse Rate 84 Respiratory Rate 16 Blood Pressure 150/78 H Pulse Oximetry 96 Oxygen Delivery Method Room Air BMI result Body Mass Index 25.1 Appearance: Alert. Oriented X3. No acute distress. Eyes: Pupils equal, round and reactive to light. ENT: Pharynx normal but with pain and trismus due to R sided facial pain Neck: Normal inspection. Neck supple. CVS: Normal heart rate and rhythm. Pulses normal. Respiratory: No respiratory distress. Breath sounds normal. Abdomen: Soft and nontender. Skin: Skin warm and dry. Normal skin color. Normal skin turgor. Extremities: No lower extremity edema. No calf ttp Neuro: Oriented X 3. No motor deficit. No sensory deficit. diffusely weak Course Course Course Narrative: discussed with hospitalist recommends full gram of solumedrol Reevaluation(s) Reevaluation #1: [facility] is closed currently for any transfer Medications Administered Discontinued Medications Generic Name Dose Route Start Last Admin Trade Name Freq PRN Reason Stop Dose Admin Hydromorphone HCl 0.5 mg 07/10/23 01:32 07/10/23 02:28 Hydromorphone Hcl 0.5 Mg/0.5 Ml Syringe IVPUSH 07/10/23 01:33 0.5 mg ONCE ONE Administration Protocol Lactated Ringer's 1,000 mls @ 999 mls/hr 07/10/23 01:45 07/10/23 02:29 Lr IV 07/10/23 02:45 999 mls/hr .Q1H1M JA Administration Medical Decision Making Medical Decision Making [facility] Narrative: 58 yo female with PMH of MS on ocrevus, trigeminal neuralgia waiting for injections by Dr. Bashir pending 07/15 currently on carbamazepine and oxycodone with little relief. She feels her MS is flared and now she cannot walk, ambulate and she is having a hard time eating and drinking. At this time labs, IVF and low dose dilaudid ordered. Will likely need to admit for FTT and weakness anticipate admission for IV steroid bolus and likely low dose given ocrevus use. Differential Diagnosis Differential Diagnoses: The differential diagnosis associated with the presentation includes MS flare, dehydration, anemia Admission/Observation Consideration of admission/observation: Escalation of care including admission/observation considered admit for MS flare Consult Healthcare Provider Management of the patient was discussed with: Hospitalist (will admit) Lab Data [facility] Lab Attestation statement: I reviewed the patient's lab results. 07/09/23 22:33 07/09/23 22:33 Labs: Lab Results 07/09/23 Range/Units 22:33 WBC 4.6 L (4.8-10.8) X10*3/uL RBC 4.57 (4.20-5.50) X10*6/uL Hgb 13.8 (12.0-16.0) g/dl Hct 40.1 (37.0-47.0) % MCV 87.7 (80.0-98.0) fL MCH 30.2 (27.0-33.0) pg MCHC 34.4 (31.0-35.0) g/dl RDW 12.5 (11.0-16.0) % Plt Count 246 (160-400) X10*3/uL MPV 9.1 L (9.4-12.3) fL Immature Gran % (Auto) 0.2 (0.0-0.4) % Neut % (Auto) 66.4 (45-73) % Lymph % (Auto) 21.0 (20-40) % Talbot % (Auto) 10.9 (2-11) % Eos % (Auto) 1.1 (0-4) % Baso % (Auto) 0.4 (0-2) % Lymph # (Auto) 1.0 L (1.2-4.9) X10*3/uL [place]bot # (Auto) 0.5 (0.1-1.2) X10*3/uL Eos # (Auto) 0.1 (0.0-0.4) X10*3/uL Baso # (Auto) 0.0 (0.0-0.2) X10*3/uL Abs Immat Gran (auto) 0.01 (0.00-0.03) X10*3/uL Absolute Neuts (auto) 3.0 (2.0-8.3) x10*3/uL Absolute Nucleated RBC 0.000 (0.0-0.012) X10*3/uL Nucleated RBC % (auto) 0.0 (0.0-0.2) /100WBC APTT 28.9 (26.0-36.8) SEC Sodium 143 (135-145) mmol/L Potassium 3.6 (3.3-5.1) mmol/L Chloride 105 (96-108) mmol/L Carbon Dioxide 29 (22-29) mmol/L Anion Gap 13 (12-20) BUN 12 (9-16) mg/dL Creatinine 0.68 (0.5-1.4) mg/dL Estim Creat Clear Calc 87.6 Estimated GFR > 60 Random Glucose 89 (60-115) mg/dL Calcium 9.3 (8.4-10.2) mg/dL Troponin I High Sens < 2.7 (<3.5-17.0) ng/L Urine Color Yellow Urine Appearance Clear Urine pH 6.5 (5.0-9.0) Ur Specific [place] 1.010 (1.005-1.025) Urine Protein Negative (Neg-Trace) mg/dL Urine Glucose (UA) Negative (Negative) mg/dL Urine Ketones Negative (Negative) mg/dL Urine Blood Negative (Negative) Urine Nitrite Negative (Negative) Ur Leukocyte Esterase Trace H (Negative) Urine RBC 0-2 (0-2) /HPF Urine WBC 0-5 (0-5) /HPF Ur Squamous Epith Cells 0-2 (0-2) /HPF Urine Bacteria None Seen (None Seen) Hyaline Casts 0-2 (0-2) /LPF Independent Historian Clinical information obtained from an independent historian. History obtained from or confirmed by: Other (daughter) External Record Review External record reviewed: Inpatient record Discharge Plan Discharge Clinical Impression: Multiple sclerosis, Weakness, Right trigeminal neuralgia Patient Disposition: Admitted As Inpatient
--- NOTE | 2023-07-10 01:47 | MHC.EDTECH ---
PT used her call suarez, informed this tech she had to use to bathroom. Per RN a commode was okay to use, this tech brought in a commode and helped the PT to it, PT is unstable on her Left leg. This tech stood outside of the room to give her privacy and the patient get herself up and transferred back into bed.
[2023-07-10] MEDS: HYDROmorphone HCl 0.5 MG/0.5 ML SYRINGE IVPUSH (02:28)
[2023-07-10] MEDS: Lactated Ringers 1,000 ML 999 ML IV (02:29)
--- NOTE | 2023-07-10 03:17 | P.HPHOSP_ITS ---
History of Present Illness Date of Service: 07/10/23 Chief Complaint: Weakness, unable to walk This is a 58-year-old female with pertinent history of MS on ocrelizumab, trigeminal neuralgia followed by Dr. Bashir, mood disorder who presents to the emergency department for evaluation of weakness and unable to walk. Patient states she has been having flare of her trigeminal neuralgia with facial pain. Patient was seen in the ER about 4 days ago and was prescribed oxycodone. Patient states the pain is persistent and she can not eat. She takes carbamazepine for it. Patient undergoes microvascular needle decompression surgery by Dr. Bashir and has an appointment on 07/15 for the same. Patient unable to make an appointment sooner as he is on vacation. Patient states the stress of trigeminal neuralgia has caused flare of her MS. She has been having lower extremity weakness and has been having difficulty ambulating for the last couple of days. Patient normally uses a walker to ambulate but she has been wheelchair-bound on the day of presentation. Also has been having multiple falls due to weakness. No fever, chills, chest discomfort, palpitations, shortness of breath, abdominal pain, vision changes. States she has had urinary and bowel incontinence that has been ongoing for many years. In the emergency department, IV methylprednisolone was ordered. [facility] was called for treatment of flare of trigeminal neuralgia by Neurosurgery but [facility] declined transfer. Review of Systems 2 Constitutional: Constitutional: Reports fatigue, Reports frequent falls, Reports lethargy, Reports malaise, Reports poor appetite and Reports weakness Cardiovascular: Cardiovascular: Reports no additional cardiovascular complaints Respiratory: Respiratory: Reports no additional respiratory complaints Gastrointestinal: Gastrointestinal: Reports no additional gastrointestinal complaints Genitourinary: Genitourinary: Reports no additional female genitourinary complaints Musculoskeletal: Musculoskeletal: Reports abnormal gait Neurologic: Reports abnormal gait, Reports frequent falls and Reports weakness Endocrine: Endocrine: Reports fatigue PMFSH Medical History Chronic GERD Multiple sclerosis Urinary tract infection Family History Other Mental health disorder Substance abuse Social History Unable to assess alcohol history related to: Unknown Patient Tobacco Use Status: Never used Tobacco e-Cigarette/Vaping Use: Never Used Advance Directives: No Advance Directives Information Provided: No Current occupational status: disabled Cognitive needs: No Hearing needs: No Vision needs: Yes Meds Allergies Allergy/AdvReac Type Severity Reaction Status Date / Time bupropion [From WELLBUTRIN] Allergy Intermediate HIVES Verified 07/09/23 22:08 Active Medications: Current Medications Methylprednisolone Sodium Succinate 1,000 mg/ Sodium Chloride 66 mls @ 66 mls/hr IV ONCE ONE Stop: 07/10/23 03:27 Home Medications Medication Instructions Recorded Confirmed Last Taken Type baclofen 10 mg tablet 10 mg PO TID 08/18/20 03/24/23 Unknown History duloxetine 30 mg capsule,delayed 30 mg PO DAILY 08/18/20 03/24/23 Unknown History release duloxetine 60 mg capsule,delayed 60 mg PO DAILY 08/18/20 03/24/23 Unknown History release gabapentin 300 mg capsule 300 mg PO TID 08/18/20 03/24/23 Unknown History modafinil 200 mg tablet 200 mg PO QAM 08/18/20 03/24/23 Unknown History omeprazole 20 mg capsule,delayed 0 mg PO 08/18/20 03/24/23 Unknown History release Saccharomyces boulardii 250 mg 250 mg PO BID 04/12/21 03/24/23 Unknown History capsule (Daily Probiotic (S. boulardii)) docusate sodium 50 mg capsule 50 mg PO DAILY 04/12/21 03/24/23 Unknown History (Stool Softener) ocrelizumab 30 mg/mL intravenous 600 mg IV [id number] 04/12/21 03/24/23 Unknown History solution (Ocrevus) aspirin 325 mg tablet 325 mg PO DAILY 05/29/21 03/24/23 Unknown History Physical Exam 2 Vital Signs and Narrative: Vital Signs: Last Vital Signs Temp 98.0 F 07/09/23 22:01 Pulse 84 07/09/23 22:01 Resp 16 07/09/23 22:01 BP 150/78 H 07/09/23 22:01 Pulse Ox 96 07/09/23 22:01 O2 Del Method Room Air 07/09/23 22:01 BMI result Body Mass Index 25.1 Middle-aged female lying in bed in no distress Neck supple, no JVD Regular rate and rhythm, S1-S2 heard Regular breath sounds bilaterally, no wheezing or crackles appreciated Abdomen soft nontender, no guarding, no rigidity Patient is awake, alert and oriented to self, place, time and person, lower extremity weakness noted Psych: Normal mood No pedal edema Results Labs 07/09/23 22:33 07/09/23 22:33 Labs: Laboratory Results - last 24 hr 07/09/23 22:33 MCV 87.7 MCH 30.2 MCHC 34.4 RDW 12.5 Plt Count 246 MPV 9.1 L Immature Gran % (Auto) 0.2 Neut % (Auto) 66.4 Lymph % (Auto) 21.0 Walsh % (Auto) 10.9 Eos % (Auto) 1.1 Baso % (Auto) 0.4 Lymph # (Auto) 1.0 L Walsh # (Auto) 0.5 Eos # (Auto) 0.1 Baso # (Auto) 0.0 Abs Immat Gran (auto) 0.01 Absolute Neuts (auto) 3.0 Absolute Nucleated RBC 0.000 Nucleated RBC % (auto) 0.0 APTT 28.9 Anion Gap 13 Estim Creat Clear Calc 87.6 Estimated GFR > 60 Random Glucose 89 Calcium 9.3 Troponin I High Sens < 2.7 Urine Color Yellow Urine Appearance Clear Urine pH 6.5 Ur Specific [place] 1.010 Urine Protein Negative Urine Glucose (UA) Negative Urine Ketones Negative Urine Blood Negative Urine Nitrite Negative Ur Leukocyte Esterase Trace H Urine RBC 0-2 Urine WBC 0-5 Ur Squamous Epith Cells 0-2 Urine Bacteria None Seen Hyaline Casts 0-2 Assessment and Plan (1) Multiple sclerosis: Status: Acute Plan This is a 58-year-old female with pertinent history of MS on ocrelizumab, trigeminal neuralgia followed by Dr. Bashir, mood disorder who presents to the emergency department for evaluation of weakness and unable to walk. #. Acute exacerbation of multiple sclerosis: Patient initiated on IV methylprednisolone. Consulting Neurology, appreciate assistance #. Trigeminal neuralgia: On carbamazepine. Has an appointment with Dr. Bashir, neurosurgery for microvascular decompression surgery. [facility] refused transfer at the time of admission #. Mood disorder: Continue home mood stabilizers #. Gastroesophageal reflux disease: On PPI Med rec pending DVT prophylaxis: Lovenox Full code Admit as inpatient and will require two night minimum hospital stay for IV steroids (as above), which is not possible in a lesser acute setting. Specialist consult pending Quality Stroke Does the patient have a stroke diagnosis?: No VTE Prior VTE?: No VTE Risk Level:: Medical - moderate - high VTE Device Contraindication: Treatment Not Indicated VTE Drug Contraindication: N/A - Med Ordered
[2023-07-10] MEDS: Enoxaparin Sodium 40 MG/0.4 ML SYRINGE SUBCUT (03:57)
[2023-07-10] MEDS: methylPREDNISolone Sod Succ 500 MG in 0.9 % Sodium Chloride 50 ML 66 MG IV (03:57)
[2023-07-10] MEDS: ondansetron HCL 4 MG/2 ML VIAL IVPUSH ×2 (05:19→15:58)
[2023-07-10] MEDS: carBAMazepine 100 MG TAB.CHEW PO (05:20)
[2023-07-10 06:24] LABS: MANUAL DIFF FLAG NO
[2023-07-10 06:44] LABS: Anion Gap 14 (12-20); Blood Urea Nitrogen 11 mg/dL (9-16); Calcium 8.8 mg/dL (8.4-10.2); Carbon Dioxide 28 mmol/L (22-29); Chloride 104 mmol/L (96-108); Creatinine Clr Calc Pharmacy 93.2; Estimated Glomerular Filt Rate > 60; Glucose Random 89 mg/dL (60-115); Potassium 3.3 mmol/L (3.3-5.1); Sodium 143 mmol/L (135-145)
[2023-07-10 07:01] LABS: Basophils Percent Auto 0.6 % (0-2); Eosinophils Absolute Auto 0.1 X10*3/uL (0.0-0.4); Eosinophils Percent Auto 1.4 % (0-4); Hematocrit 37.5 % (37.0-47.0); Hemoglobin 12.7 g/dl (12.0-16.0); Imm Gran Abs Auto 0.02 X10*3/uL (0.00-0.03); Imm Gran Pct Auto 0.6 % (0.0-0.4); Lymphocytes Percent Auto 27.5 % (20-40); Mean Corpuscular HGB Conc 33.9 g/dl (31.0-35.0); Mean Corpuscular Volume 88.7 fL (80.0-98.0); Mean Platelet Volume 9.8 fL (9.4-12.3); Monocytes Absolute Auto 0.4 X10*3/uL (0.1-1.2); Monocytes Percent Auto 11.6 % (2-11); Neutrophils Absolute Auto 2.1 x10*3/uL (2.0-8.3); Neutrophils Percent Auto 58.3 % (45-73); Platelet Count 246 X10*3/uL (160-400); Red Blood Count 4.23 X10*6/uL (4.20-5.50); Red Cell Distribution Width 12.5 % (11.0-16.0); White Blood Count 3.6 X10*3/uL (4.8-10.8)
[2023-07-10] MEDS: Metoclopramide HCl 10 MG/2 ML VIAL 5 MG IVPUSH ×2 (08:24→17:53)
[2023-07-10 08:46] VITALS: BP 124/72; PULSE 84; RESP 14; O2SAT 94
[2023-07-10] MEDS: carBAMazepine 200 MG TABLET PO (09:52)
--- NOTE | 2023-07-10 10:53 | PHA.MEDREC ---
Pharmacy Consult ? Medication Reconciliation Pharmacy has completed the medication reconciliation.Med rec complete, spoke to patient.
[2023-07-10 11:41] VITALS: BP 126/68; PULSE 86; RESP 20; TEMP 36.2; O2SAT 93
[2023-07-10] MEDS: Sennosides/Docusate Sodium TABLET 1 TAB PO ×2 (13:07→21:08)
[2023-07-10] MEDS: modafiniL 100 MG TABLET PO (13:07)
[2023-07-10] MEDS: Gabapentin 300 MG CAPSULE PO (13:07)
[2023-07-10] MEDS: DULoxetine HCl 60 MG CAPSULE.DR PO (13:07)
--- NOTE | 2023-07-10 13:49 | PM.EVENT ---
Event Note Date of Service: 07/10/23 Event Note: Patient seen and evaluated. Chart reviewed. Agree with documentation as outlined. We will continue methylprednisolone at 1 g IV daily for 3 days for MS flare; add back carbamazepine and 100 mg t.i.d. for trigeminal neuralgia. Opiates as necessary during hospitalization. Await neuro input Time Spent With Patient Time: Total time managing care of this patient today ____ minutes.
[2023-07-10] MEDS: carBAMazepine ER 100 MG TAB.ER.12H PO ×2 (15:17→21:35)
[2023-07-10] MEDS: Baclofen 20 MG TABLET PO ×2 (15:17→21:08)
[2023-07-10] MEDS: Gabapentin 300 MG CAPSULE 600 MG PO ×2 (15:17→21:08)
[2023-07-10 15:43] VITALS: BP 124/73; PULSE 79; RESP 18; TEMP 36.4; O2SAT 93
[2023-07-10 15:44] VITALS: BMI 24.9
[2023-07-10] MEDS: 0.9 % Sodium Chloride Flush 3 ML SYRINGE IVFLUSH ×2 (15:58→21:13)
[2023-07-10] MEDS: Omeprazole 20 MG CAPSULE.DR PO (15:58)
--- NOTE | 2023-07-10 16:52 | P.CNNE_ITS ---
History of Present Illness Data of Consult Service Date: 07/10/23 Primary Care Provider: Unknown Physician HPI Reason for consult: [place]orsenin Trigeminal neuralgia and possible MSexacerbation This is a 58-year-old female with MS on ocrelizumab, trigeminal neuralgia followed by Dr. Bashir, mood disorder, who presents to the emergency department for evaluation of weakness and unable to walk. Patient states she has been having flare of her trigeminal neuralgia with facial pain. Patient was seen in the ER about 4 days ago and was prescribed oxycodone. Patient states the pain is persistent and she can not eat. She takes carbamazepine for it. Patient undergoes microvascular needle decompression surgery by Dr. Bashir and has an appointment on 07/15 for the same. Patient unable to make an appointment sooner as he is on vacation. Patient states the stress of trigeminal neuralgia has caused flare of her MS. She has been having lower extremity weakness and has been having difficulty ambulating for the last couple of days. Patient normally uses a walker to ambulate but she has been wheelchair-bound on the day of presentation. Also has been having multiple falls due to weakness. No fever, chills, chest discomfort, palpitations, shortness of breath, abdominal pain, vision changes. States she has had urinary and bowel incontinence that has been ongoing for many years. Review of Systems 2 Review of Systems: Constitutional : No Fever, No Chills, pos Fatigue ENT/Mouth : No sore throat, No Rhinorrhea Eyes: No Eye Pain, No Swelling, No Redness Cardiovascular : No Chest Pain, No SOB, No Dyspnea on Exertion Respiratory : No Cough, No Sputum Gastrointestinal : No Nausea, No Vomiting, No Diarrhea, No abdominal Pain Genitourinary : No Dysuria, No Urinary Frequency, No Hematuria, Musculoskeletal : No joint pain, No Myalgias, No Joint Swelling Skin : No Skin Lesions, No rash Neuro : pos Weakness, No Numbness, No Dizziness, positive Headache Psych : No Anxiety/Panic, No Depression Heme/Lymph: No Bruising, No Bleeding,No Lymphadenopathy Endocrine : No Polyuria, No Polydipsia All other systems reviewed and are negative Constitutional: Constitutional: Reports fatigue, Reports frequent falls, Reports lethargy, Reports malaise, Reports poor appetite and Reports weakness Cardiovascular: Cardiovascular: Reports no additional cardiovascular complaints Respiratory: Respiratory: Reports no additional respiratory complaints Gastrointestinal: Gastrointestinal: Reports no additional gastrointestinal complaints Musculoskeletal: Musculoskeletal: Reports abnormal gait Neurologic: Reports abnormal gait, Reports frequent falls and Reports weakness Endocrine: Endocrine: Reports fatigue PMFSH Past Medical History Medical History Chronic GERD Multiple sclerosis Urinary tract infection Family History Family History Other Mental health disorder Substance abuse Social History Social History Household Members: Children Housing: House Do you presently have visiting nurse or other home services: No Unable to assess alcohol history related to: Unknown Patient Tobacco Use Status: Never used Tobacco e-Cigarette/Vaping Use: Never Used Second Hand Smoke Exposure: No Current occupational status: disabled Cognitive needs: No Hearing needs: No Vision needs: Yes Meds Allergies Allergy/AdvReac Type Severity Reaction Status Date / Time bupropion [From WELLBUTRIN] Allergy Intermediate HIVES Verified 07/09/23 22:08 Active Medications: Current Medications Acetaminophen (Acetaminophen 325 Mg Tablet) 650 mg PO Q6H PRN PRN Reason: Pain, Mild (Pain Scale 1-3) Aspirin (Aspirin Enteric Coated 81 Mg Tablet.) 81 mg PO DAILY [facility] Baclofen (Baclofen 10 Mg Tablet) 10 mg PO DAILY [facility] Baclofen (Baclofen 20 Mg Tablet) 20 mg PO BID@1500,2100 [facility] Last Admin: 07/10/23 15:17 Dose: 20 mg Carbamazepine (Carbamazepine Er 100 Mg Tab.Er.12h) 100 mg PO TID [facility] Last Admin: 07/10/23 15:17 Dose: 100 mg Duloxetine HCl (Duloxetine Hcl 30 Mg Capsule.) 30 mg PO BEDTIME [facility] Duloxetine HCl (Duloxetine Hcl 60 Mg Capsule.) 60 mg PO DAILY [facility] Last Admin: 07/10/23 13:07 Dose: 60 mg Enoxaparin Sodium (Enoxaparin Sodium 40 Mg/0.4 Ml Syringe) 40 mg SUBCUT Q24H [facility] Last Admin: 07/10/23 03:57 Dose: 40 mg Fluticasone Propionate (Fluticasone Propionate Nasal 16 Gm [place]) 1 spray NOSTRIL-B DAILY PRN PRN Reason: allergies Gabapentin (Gabapentin 300 Mg Capsule) 300 mg PO DAILY [facility] Last Admin: 07/10/23 13:07 Dose: 300 mg Gabapentin (Gabapentin 300 Mg Capsule) 600 mg PO BID@1500,2100 [facility] Last Admin: 07/10/23 15:17 Dose: 600 mg Methylprednisolone Sodium Succinate 1,000 mg/ Sodium Chloride 66 mls @ 66 mls/hr IV DAILY [facility] Stop: 07/12/23 09:59 Melatonin (Melatonin 3 Mg Tablet) 6 mg PO BEDTIME PRN PRN Reason: Insomnia Metoclopramide HCl (Metoclopramide Hcl 10 Mg/2 Ml Vial) 5 mg IVPUSH Q6H PRN PRN Reason: Nausea and Vomiting Last Admin: 07/10/23 08:24 Dose: 5 mg Modafinil (Modafinil 100 Mg Tablet) 100 mg PO DAILY [facility] Last Admin: 07/10/23 13:07 Dose: 100 mg Omeprazole (Omeprazole 20 Mg Capsule.Dr) 20 mg PO BID@0630,1630 [facility] Last Admin: 07/10/23 15:58 Dose: 20 mg Ondansetron HCl (Ondansetron Hcl 4 Mg/2 Ml Vial) 4 mg IVPUSH Q8H PRN PRN Reason: Nausea and Vomiting Last Admin: 07/10/23 15:58 Dose: 4 mg Senna/Docusate Sodium (Sennosides/Docusate Sodium Tablet) 1 tab PO BID [facility] Last Admin: 07/10/23 13:07 Dose: 1 tab Sodium Chloride (0.9 % Sodium Chloride Flush 3 Ml Syringe) 3 ml IVFLUSH QSHIFT [facility] Last Admin: 07/10/23 15:58 Dose: 3 ml Vitamin D (Cholecalciferol (Vitamin D3) 25 Mcg Tablet) 50 mcg PO DAILY [facility] Home Medications Medication Instructions Recorded Confirmed Last Taken Type baclofen 10 mg tablet 10 mg PO DAILY 08/18/20 07/10/23 07/09/23 History duloxetine 30 mg capsule,delayed 30 mg PO BEDTIME 08/18/20 07/10/23 07/09/23 History release duloxetine 60 mg capsule,delayed 60 mg PO DAILY 08/18/20 07/10/23 07/09/23 History release gabapentin 300 mg capsule 300 mg PO DAILY 08/18/20 07/10/23 07/09/23 History modafinil 200 mg tablet 100 mg PO DAILY 08/18/20 07/10/23 Unknown History omeprazole 20 mg capsule,delayed 20 mg PO BID@0630,1630 08/18/20 07/10/23 07/09/23 History release ocrelizumab 30 mg/mL intravenous 600 mg IV [id number] 04/12/21 07/10/23 Unknown History solution (Ocrevus) aspirin 81 mg tablet,delayed 81 mg PO DAILY 07/10/23 07/10/23 07/09/23 History release baclofen 10 mg tablet 20 mg PO BID@1500,2100 07/10/23 07/10/23 07/09/23 History carbamazepine 100 mg 100 mg PO TID 07/10/23 07/10/23 Unknown History tablet,extended release,12 hr cholecalciferol (vitamin D3) 50 50 mcg PO DAILY 07/10/23 07/10/23 07/09/23 History mcg (2,000 unit) tablet fluticasone propionate 50 1 spray intranasal DAILY PRN 07/10/23 07/10/23 Unknown History mcg/actuation nasal allergies spray,suspension gabapentin 300 mg capsule 600 mg PO BID@1500,2100 07/10/23 07/10/23 07/09/23 History methylprednisolone 4 mg tablets in 0 mg DIRECTED 07/10/23 07/10/23 Unknown History a dose pack polyethylene glycol 3350 17 17 g PO Q2D@1000 07/10/23 07/10/23 Unknown History gram/dose oral powder (Miralax) renew probiotic 1 tab PO DAILY 07/10/23 07/10/23 Unknown History sennosides 8.6 mg-docusate sodium 1 tab-cap PO BID 07/10/23 07/10/23 Unknown History 50 mg tablet Physical Exam 2 Vital Signs: Vital Signs: Last Vital Signs Temp 97.6 F 07/10/23 15:43 Pulse 79 07/10/23 15:43 Resp 18 07/10/23 15:43 BP 124/73 07/10/23 15:43 Pulse Ox 93 07/10/23 15:43 O2 Del Method Room Air 07/10/23 15:43 BMI result Body Mass Index 24.9 Neuro: Other: Alert and oriented. Non focal exam Results Labs 07/10/23 04:56 07/10/23 04:56 Labs: Short CBC 07/09/23 07/10/23 Range/Units 22:33 04:56 WBC 4.6 L 3.6 L (4.8-10.8) X10*3/uL Hgb 13.8 12.7 (12.0-16.0) g/dl Hct 40.1 37.5 (37.0-47.0) % Plt Count 246 246 (160-400) X10*3/uL BMP 07/09/23 07/10/23 22:33 04:56 Sodium 143 143 Potassium 3.6 3.3 Chloride 105 104 Carbon Dioxide 29 28 BUN 12 11 Creatinine 0.68 0.64 Calcium 9.3 8.8 Urine 07/09/23 Range/Units 22:33 Urine Color Yellow Urine Appearance Clear Urine pH 6.5 (5.0-9.0) Ur Specific [place] 1.010 (1.005-1.025) Urine Protein Negative (Neg-Trace) mg/dL Urine Glucose (UA) Negative (Negative) mg/dL Assessment and Plan (1) Multiple sclerosis: Status: Acute Relapsing remitting MS with trigeminal neuralgia. Recom. IV Solumedrol 1gm dialy x 3 days Increase carbamazepine by 200mg / day. MRI brain with and without Gautam. Plan This is a 58-year-old female with pertinent history of MS on ocrelizumab, trigeminal neuralgia followed by Dr. Bashir, mood disorder who presents to the emergency department for evaluation of weakness and unable to walk. #. Acute exacerbation of multiple sclerosis: Patient initiated on IV methylprednisolone. Consulting Neurology, appreciate assistance #. Trigeminal neuralgia: On carbamazepine. Has an appointment with Dr. Bashir, neurosurgery for microvascular decompression surgery. [facility] refused transfer at the time of admission #. Mood disorder: Continue home mood stabilizers #. Gastroesophageal reflux disease: On PPI Med rec pending DVT prophylaxis: Lovenox Full code Admit as inpatient and will require two night minimum hospital stay for IV steroids (as above), which is not possible in a lesser acute setting. Specialist consult pending Procedures Date of Service Date of Service: 07/10/23
[2023-07-10 19:03] VITALS: BP 119/63; PULSE 94; RESP 18; TEMP 36.2; O2SAT 98
[2023-07-10] MEDS: DULoxetine HCl 30 MG CAPSULE.DR PO (21:08)
[2023-07-11 04:00] VITALS: BP 131/60; PULSE 78; RESP 16; TEMP 36.1; O2SAT 97
[2023-07-11] MEDS: Enoxaparin Sodium 40 MG/0.4 ML SYRINGE SUBCUT (05:37)
[2023-07-11] MEDS: Omeprazole 20 MG CAPSULE.DR PO ×2 (05:38→15:39)
[2023-07-11 06:33] LABS: MANUAL DIFF FLAG NO
[2023-07-11 06:36] LABS: Basophils Percent Auto 0.4 % (0-2); Eosinophils Absolute Auto 0.1 X10*3/uL (0.0-0.4); Eosinophils Percent Auto 0.9 % (0-4); Hematocrit 38.2 % (37.0-47.0); Hemoglobin 12.9 g/dl (12.0-16.0); Imm Gran Abs Auto 0.02 X10*3/uL (0.00-0.03); Imm Gran Pct Auto 0.4 % (0.0-0.4); Lymphocytes Percent Auto 19.4 % (20-40); Mean Corpuscular HGB Conc 33.8 g/dl (31.0-35.0); Mean Corpuscular Hemoglobin 30.1 pg (27.0-33.0); Mean Platelet Volume 9.5 fL (9.4-12.3); Monocytes Absolute Auto 0.6 X10*3/uL (0.1-1.2); Monocytes Percent Auto 11.2 % (2-11); Neutrophils Absolute Auto 3.6 x10*3/uL (2.0-8.3); Neutrophils Percent Auto 67.7 % (45-73); Platelet Count 257 X10*3/uL (160-400); Red Blood Count 4.29 X10*6/uL (4.20-5.50); Red Cell Distribution Width 12.8 % (11.0-16.0); White Blood Count 5.3 X10*3/uL (4.8-10.8)
[2023-07-11 06:51] LABS: Alanine Aminotransferase 32 U/L (0-31); Albumin Level 3.8 g/dL (3.5-5.0); Alkaline Phosphatase 77 U/L (39-117); Anion Gap 11 (12-20); Aspartate Amino Transferase 24 U/L (5-31); Bilirubin Total 0.3 mg/dL (0.0-1.0); Blood Urea Nitrogen 15 mg/dL (9-16); Calcium 9.1 mg/dL (8.4-10.2); Carbon Dioxide 32 mmol/L (22-29); Chloride 104 mmol/L (96-108); Creatinine Clr Calc Pharmacy 79.5; Estimated Glomerular Filt Rate > 60; Glucose Fasting 94 mg/dL (60-99); Potassium 3.4 mmol/L (3.3-5.1); Sodium 144 mmol/L (135-145); Total Protein 6.4 g/dL (6.5-8.0)
[2023-07-11 07:28] VITALS: BP 114/57; PULSE 70; RESP 18; TEMP 36.3; O2SAT 97
[2023-07-11] MEDS: Baclofen 10 MG TABLET PO (08:06)
[2023-07-11] MEDS: Gabapentin 300 MG CAPSULE PO (08:06)
[2023-07-11] MEDS: DULoxetine HCl 60 MG CAPSULE.DR PO (08:06)
[2023-07-11] MEDS: 0.9 % Sodium Chloride Flush 3 ML SYRINGE IVFLUSH ×3 (08:06→19:47)
[2023-07-11] MEDS: Cholecalciferol (Vitamin D3) 25 MCG TABLET 50 MCG PO (08:06)
[2023-07-11] MEDS: carBAMazepine ER 100 MG TAB.ER.12H PO (08:06)
[2023-07-11] MEDS: Sennosides/Docusate Sodium TABLET 1 TAB PO ×2 (08:06→19:46)
[2023-07-11] MEDS: modafiniL 100 MG TABLET PO (08:06)
[2023-07-11] MEDS: ondansetron HCL 4 MG/2 ML VIAL IVPUSH (09:51)
--- NOTE | 2023-07-11 10:20 | MHC.CM.PN ---
IMM DELIVERED. PATIENT COMES FROM HOME W/ DAUGHTER MIKE WHO IS ALSO [employer]. [employer] ASSISTS W/ ALL ADL'S. PATIENT AMBULATES W/ ROLLATOR. ALSO HAS A CANE. PCP: WOODY FLANAGAN MD HCP: PT COMPLETED HCP NAMING AGENTS 1) DAUGHTER MIKE AND 2) BROTHER CONNOR [phone] DP: GOAL IS HOME W/ [employer]/DTR. DTR TO TRANSPORT. NO PT EVAL ORDERED AT THIS TIME. CM WILL CONTINUE TO FOLLOW.
[2023-07-11] MEDS: Acetaminophen 325 MG TABLET 650 MG PO (11:06)
[2023-07-11] MEDS: polyethylene glycoL 3350 17 GM POWD.PACK PO (11:06)
[2023-07-11] MEDS: carBAMazepine 100 MG TAB.CHEW PO (11:35)
[2023-07-11] MEDS: gadobutroL 7.5 ML VIAL IVPUSH (12:53)
[2023-07-11] MEDS: methylPREDNISolone Sod Succ 500 MG in 0.9 % Sodium Chloride 50 ML 50 MG IV (12:55)
[2023-07-11] MEDS: oxyCODONE HCl Immed Release 5 MG TABLET PO (14:19)
[2023-07-11] MEDS: Metoclopramide HCl 10 MG/2 ML VIAL 5 MG IVPUSH (14:19)
--- NOTE | 2023-07-11 14:39 | P.PNIM_ITS ---
Subjective Subjective Date of Service: 07/11/23 Interval History: seen and examined this morning follow up for MS, Trigeminal neuralgia flare does not want 1gm of solu-medrol, requesting dose decrease to 500 mg feels like leg weakness is improving Review of Systems Review of Systems: Yes all other systems are reviewed and are negative Constitutional Constitutional: Denies chills and Denies fever(s) Cardiovascular Cardiovascular: Denies chest pain, Denies palpitations and Denies dyspnea Respiratory Respiratory: Denies cough and Denies dyspnea Endocrine Endocrine: Denies palpitations Physical Exam 2 Vital Signs: Vital Signs: Last Vital Signs Temp 97.4 F 07/11/23 07:28 Pulse 70 07/11/23 07:28 Resp 18 07/11/23 07:28 BP 114/57 L 07/11/23 07:28 Pulse Ox 97 07/11/23 07:28 O2 Del Method Room Air 07/11/23 07:28 BMI result Body Mass Index 24.9 Const: General: cooperative, comfortable, no acute distress, alert and awake Nutritional Appearance: average body habitus Orientation/consciousness: p atient oriented x3 Resp: Effort & Inspection: normal respiratory effort, able to speak in complete sentences, no respiratory distress and no use of accessory muscles Cardio: Rate: regular rate GI: Inspection: No distended Palpation (GI): Soft to palpation and nontender Neuro: Other: upper body strength equal b/l; RLE 2/5, LLE 4/5 General: patient oriented x3 Objective Data Active Medications Acetaminophen (Acetaminophen 325 Mg Tablet) 650 mg PO Q6H PRN PRN Reason: Pain, Mild (Pain Scale 1-3) Last Admin: 07/11/23 11:06 Dose: 650 mg Documented By: EDNA Aspirin (Aspirin Enteric Coated 81 Mg Tablet.) 81 mg PO DAILY@2100 [facility] Baclofen (Baclofen 10 Mg Tablet) 10 mg PO DAILY [facility] Last Admin: 07/11/23 08:06 Dose: 10 mg Documented By: EDNA Baclofen (Baclofen 20 Mg Tablet) 20 mg PO BID@1500,2100 [facility] Last Admin: 07/10/23 21:08 Dose: 20 mg Documented By: KASIA Carbamazepine (Carbamazepine Er 200 Mg Tab.Er.12h) 200 mg PO TID [facility] Duloxetine HCl (Duloxetine Hcl 30 Mg Capsule.) 30 mg PO BEDTIME [facility] Last Admin: 07/10/23 21:08 Dose: 30 mg Documented By: KASIA Duloxetine HCl (Duloxetine Hcl 60 Mg Capsule.) 60 mg PO DAILY [facility] Last Admin: 07/11/23 08:06 Dose: 60 mg Documented By: EDNA Enoxaparin Sodium (Enoxaparin Sodium 40 Mg/0.4 Ml Syringe) 40 mg SUBCUT Q24H [facility] Last Admin: 07/11/23 05:37 Dose: 40 mg Documented By: KASIA Fluticasone Propionate (Fluticasone Propionate Nasal 16 Gm [place]) 1 spray NOSTRIL-B DAILY PRN PRN Reason: allergies Gabapentin (Gabapentin 300 Mg Capsule) 300 mg PO DAILY [facility] Last Admin: 07/11/23 08:06 Dose: 300 mg Documented By: EDNA Gabapentin (Gabapentin 300 Mg Capsule) 600 mg PO BID@1500,2100 [facility] Last Admin: 07/10/23 21:08 Dose: 600 mg Documented By: KASIA Methylprednisolone Sodium Succinate 500 mg/ Sodium Chloride 50 mls @ 50 mls/hr IV DAILY [facility] Stop: 07/12/23 09:59 Last Infusion: 07/11/23 13:55 Dose: Infused Documented By: EDNA Melatonin (Melatonin 3 Mg Tablet) 6 mg PO BEDTIME PRN PRN Reason: Insomnia Metoclopramide HCl (Metoclopramide Hcl 10 Mg/2 Ml Vial) 5 mg IVPUSH Q6H PRN PRN Reason: Nausea and Vomiting Last Admin: 07/11/23 14:19 Dose: 5 mg Documented By: EDNA Modafinil (Modafinil 100 Mg Tablet) 100 mg PO DAILY [facility] Last Admin: 07/11/23 08:06 Dose: 100 mg Documented By: EDNA Omeprazole (Omeprazole 20 Mg Capsule.) 20 mg PO BID@0630,1630 [facility] Last Admin: 07/11/23 05:38 Dose: 20 mg Documented By: KASIA Ondansetron HCl (Ondansetron Hcl 4 Mg/2 Ml Vial) 4 mg IVPUSH Q8H PRN PRN Reason: Nausea and Vomiting Last Admin: 07/11/23 09:51 Dose: 4 mg Documented By: EDNA Oxycodone HCl (Oxycodone Hcl Immed Release 5 Mg Tablet) 5 mg PO Q6H PRN PRN Reason: Pain, Moderate(Pain Scale 4-6) Last Admin: 07/11/23 14:19 Dose: 5 mg Documented By: EDNA Polyethylene Glycol (Polyethylene Glycol 3350 17 Gm Powd.Pack) 17 gm PO DAILY PRN PRN Reason: Constipation Last Admin: 07/11/23 11:06 Dose: 17 gm Documented By: EDNA Senna/Docusate Sodium (Sennosides/Docusate Sodium Tablet) 1 tab PO BID [facility] Last Admin: 07/11/23 08:06 Dose: 1 tab Documented By: EDNA Sodium Chloride (0.9 % Sodium Chloride Flush 3 Ml Syringe) 3 ml IVFLUSH QSHIFT [facility] Last Admin: 07/11/23 08:06 Dose: 3 ml Documented By: EDNA Vitamin D (Cholecalciferol (Vitamin D3) 25 Mcg Tablet) 50 mcg PO DAILY [facility] Last Admin: 07/11/23 08:06 Dose: 50 mcg Documented By: EDNA Labs 07/11/23 05:38 07/11/23 05:38 Labs: Laboratory Results - last 24 hr 07/11/23 05:38 MCV 89.0 MCH 30.1 MCHC 33.8 RDW 12.8 Plt Count 257 MPV 9.5 Immature Gran % (Auto) 0.4 Neut % (Auto) 67.7 Lymph % (Auto) 19.4 L [place] % (Auto) 11.2 H Eos % (Auto) 0.9 Baso % (Auto) 0.4 Lymph # (Auto) 1.0 L [place] # (Auto) 0.6 Eos # (Auto) 0.1 Baso # (Auto) 0.0 Abs Immat Gran (auto) 0.02 Absolute Neuts (auto) 3.6 Absolute Nucleated RBC 0.000 Nucleated RBC % (auto) 0.0 Anion Gap 11 L Estim Creat Clear Calc 79.5 Estimated GFR > 60 Fasting Glucose 94 Calcium 9.1 Total Bilirubin 0.3 AST 24 ALT 32 H Alkaline Phosphatase 77 Total Protein 6.4 L Albumin 3.8 Assessment and Plan (1) Right trigeminal neuralgia: Status: Acute (2) Multiple sclerosis: Status: Acute Plan This is a 58-year-old female with pertinent history of MS on ocrelizumab, trigeminal neuralgia followed by Dr. Bashir, mood disorder who presents to the emergency department for evaluation of weakness and unable to walk. Acute exacerbation of multiple sclerosis: seen by neurology - rec 1gm Solu-Medrol x3 days, patient does not want that dose, unable to tolerate in the past requesting 500 mg instead MRI pending Trigeminal neuralgia: On carbamazepine, dose increased as per Neurology recommendation Has an appointment with Dr. Bashir, neurosurgery for microvascular decompression surgery on 07/15 [facility] refused transfer at the time of admission oxycodone prn Gastroesophageal reflux disease: On PPI DVT prophylaxis: Lovenox Full code Requires ongoing inpatient stay for high dose IV steroids (as above), which is not possible in a lesser acute setting Quality Stroke Does the patient have a stroke diagnosis?: No VTE Prior VTE?: No VTE Risk Level:: Medical - moderate - high VTE Device Contraindication: Treatment Not Indicated VTE Drug Contraindication: N/A - Med Ordered
[2023-07-11 15:24] VITALS: BP 131/68; PULSE 68; RESP 16; TEMP 36; O2SAT 92
[2023-07-11] MEDS: Baclofen 20 MG TABLET PO ×2 (15:39→19:46)
[2023-07-11] MEDS: carBAMazepine ER 200 MG TAB.ER.12H PO ×2 (15:39→19:46)
[2023-07-11] MEDS: Gabapentin 300 MG CAPSULE 600 MG PO ×2 (15:40→19:46)
[2023-07-11 19:15] VITALS: BP 125/68; PULSE 95; RESP 18; TEMP 36; O2SAT 94
[2023-07-11] MEDS: DULoxetine HCl 30 MG CAPSULE.DR PO (19:46)
[2023-07-11] MEDS: Aspirin Enteric Coated 81 MG TABLET.DR PO (19:46)
[2023-07-12 03:14] VITALS: BP 103/55; PULSE 74; RESP 16; TEMP 36; O2SAT 97
[2023-07-12] MEDS: Enoxaparin Sodium 40 MG/0.4 ML SYRINGE SUBCUT (05:11)
[2023-07-12] MEDS: Omeprazole 20 MG CAPSULE.DR PO ×2 (05:12→15:12)
[2023-07-12 07:26] VITALS: BP 121/62; PULSE 62; RESP 16; TEMP 36.3; O2SAT 95
[2023-07-12] MEDS: Cholecalciferol (Vitamin D3) 25 MCG TABLET 50 MCG PO (08:01)
[2023-07-12] MEDS: DULoxetine HCl 60 MG CAPSULE.DR PO (08:01)
[2023-07-12] MEDS: Baclofen 10 MG TABLET PO (08:01)
[2023-07-12] MEDS: methylPREDNISolone Sod Succ 500 MG in 0.9 % Sodium Chloride 50 ML 50 MG IV (08:01)
[2023-07-12] MEDS: Gabapentin 300 MG CAPSULE PO (08:02)
[2023-07-12] MEDS: Sennosides/Docusate Sodium TABLET 1 TAB PO ×2 (08:02→19:47)
[2023-07-12] MEDS: carBAMazepine ER 200 MG TAB.ER.12H PO ×3 (08:02→19:46)
[2023-07-12] MEDS: modafiniL 100 MG TABLET PO (08:02)
[2023-07-12] MEDS: oxyCODONE HCl Immed Release 5 MG TABLET PO ×2 (09:27→18:40)
[2023-07-12] MEDS: ondansetron HCL 4 MG/2 ML VIAL IVPUSH (09:55)
[2023-07-12 10:38] VITALS: BP 121/62; PULSE 62; O2SAT 95
--- NOTE | 2023-07-12 11:37 | PC.NURSE ---
Addendum entered by Evangelina Gann RN 07/12/23 13:19: Pt able to ambulate to bathroom with this RN, 1A stand by and walker. Original Note: Pt was able to ambulate to bathroom with PT. Pt is currently sitting in the chair, see PT note for details.
--- NOTE | 2023-07-12 14:13 | P.PNIM_ITS ---
Subjective Subjective Date of Service: 07/12/23 Interval History: seen and examined this morning follow up for flare of trigeminal neuralgia and MS reports improvement in leg weakness, but not back to her baseline still with significant facial pain Review of Systems Review of Systems: Yes all other systems are reviewed and are negative Constitutional Constitutional: Denies chills and Denies fever(s) Cardiovascular Cardiovascular: Denies chest pain and Denies palpitations Gastrointestinal Gastrointestinal: Denies nausea and Denies vomiting Endocrine Endocrine: Denies palpitations Physical Exam 2 Vital Signs: Vital Signs: Last Vital Signs Temp 97.3 F 07/12/23 07:26 Pulse 62 07/12/23 10:38 Resp 16 07/12/23 07:26 BP 121/62 07/12/23 10:38 Pulse Ox 95 07/12/23 10:38 O2 Del Method Room Air 07/12/23 07:26 BMI result Body Mass Index 24.9 Const: General: cooperative, comfortable, no acute distress, alert and awake Nutritional Appearance: average body habitus Orientation/consciousness: p atient oriented x3 Resp: Effort & Inspection: normal respiratory effort, able to speak in complete sentences, no respiratory distress and no use of accessory muscles Cardio: Rate: regular rate GI: Inspection: No distended Palpation (GI): Soft to palpation and nontender Neuro: Other: upper body strength equal b/l; RLE 3/5, LLE 4/5 General: patient oriented x3 Objective Data Active Medications Acetaminophen (Acetaminophen 325 Mg Tablet) 650 mg PO Q6H PRN PRN Reason: Pain, Mild (Pain Scale 1-3) Last Admin: 07/11/23 11:06 Dose: 650 mg Documented By: EDNA Aspirin (Aspirin Enteric Coated 81 Mg Tablet.) 81 mg PO DAILY@2100 [facility] Last Admin: 07/11/23 19:46 Dose: 81 mg Documented By: KASIA Baclofen (Baclofen 10 Mg Tablet) 10 mg PO DAILY [facility] Last Admin: 07/12/23 08:01 Dose: 10 mg Documented By: VENLEE Baclofen (Baclofen 20 Mg Tablet) 20 mg PO BID@1500,2100 [facility] Last Admin: 07/11/23 19:46 Dose: 20 mg Documented By: KASIA Carbamazepine (Carbamazepine Er 200 Mg Tab.Er.12h) 200 mg PO TID [facility] Last Admin: 07/12/23 08:02 Dose: 200 mg Documented By: HARI Duloxetine HCl (Duloxetine Hcl 30 Mg Capsule.) 30 mg PO BEDTIME [facility] Last Admin: 07/11/23 19:46 Dose: 30 mg Documented By: KASIA Duloxetine HCl (Duloxetine Hcl 60 Mg Capsule.) 60 mg PO DAILY [facility] Last Admin: 07/12/23 08:01 Dose: 60 mg Documented By: HARI Enoxaparin Sodium (Enoxaparin Sodium 40 Mg/0.4 Ml Syringe) 40 mg SUBCUT Q24H [facility] Last Admin: 07/12/23 05:11 Dose: 40 mg Documented By: KASIA Fluticasone Propionate (Fluticasone Propionate Nasal 16 Gm [place]) 1 spray NOSTRIL-B DAILY PRN PRN Reason: allergies Gabapentin (Gabapentin 300 Mg Capsule) 300 mg PO DAILY [facility] Last Admin: 07/12/23 08:02 Dose: 300 mg Documented By: HARI Gabapentin (Gabapentin 300 Mg Capsule) 600 mg PO BID@1500,2100 [facility] Last Admin: 07/11/23 19:46 Dose: 600 mg Documented By: KASIA Melatonin (Melatonin 3 Mg Tablet) 6 mg PO BEDTIME PRN PRN Reason: Insomnia Metoclopramide HCl (Metoclopramide Hcl 10 Mg/2 Ml Vial) 5 mg IVPUSH Q6H PRN PRN Reason: Nausea and Vomiting Last Admin: 07/11/23 14:19 Dose: 5 mg Documented By: EDNA Modafinil (Modafinil 100 Mg Tablet) 100 mg PO DAILY [facility] Last Admin: 07/12/23 08:02 Dose: 100 mg Documented By: HARI Omeprazole (Omeprazole 20 Mg Capsule.) 20 mg PO BID@0630,1630 [facility] Last Admin: 07/12/23 05:12 Dose: 20 mg Documented By: KASIA Ondansetron HCl (Ondansetron Hcl 4 Mg/2 Ml Vial) 4 mg IVPUSH Q8H PRN PRN Reason: Nausea and Vomiting Last Admin: 07/12/23 09:55 Dose: 4 mg Documented By: EDNA Oxycodone HCl (Oxycodone Hcl Immed Release 5 Mg Tablet) 5 mg PO Q6H PRN PRN Reason: Pain, Moderate(Pain Scale 4-6) Last Admin: 07/12/23 09:27 Dose: 5 mg Documented By: EDNA Polyethylene Glycol (Polyethylene Glycol 3350 17 Gm Powd.Pack) 17 gm PO DAILY PRN PRN Reason: Constipation Last Admin: 07/11/23 11:06 Dose: 17 gm Documented By: EDNA Comments: Pt c/o constipation DOMINICK stovall Senna/Docusate Sodium (Sennosides/Docusate Sodium Tablet) 1 tab PO BID [facility] Last Admin: 07/12/23 08:02 Dose: 1 tab Documented By: HARI Sodium Chloride (0.9 % Sodium Chloride Flush 3 Ml Syringe) 3 ml IVFLUSH QSHIFT [facility] Last Admin: 07/12/23 08:02 Dose: Not Given Documented By: HARI Non-Admin Reason: IV Running Vitamin D (Cholecalciferol (Vitamin D3) 25 Mcg Tablet) 50 mcg PO DAILY [facility] Last Admin: 07/12/23 08:01 Dose: 50 mcg Documented By: HARI Labs 07/11/23 05:38 07/11/23 05:38 Assessment and Plan (1) Right trigeminal neuralgia: Status: Acute (2) Multiple sclerosis: Status: Acute Plan This is a 58-year-old female with pertinent history of MS on ocrelizumab, trigeminal neuralgia followed by Dr. Bashir, mood disorder who presents to the emergency department for evaluation of weakness and unable to walk. Acute exacerbation of multiple sclerosis: seen by neurology - rec 1gm Solu-Medrol x3 days, patient does not want that dose, unable to tolerate in the past requesting 500 mg instead today is last day of IV solu-medrol MRI does not show active demyelination leg weakness improving Trigeminal neuralgia: On carbamazepine, dose increased as per Neurology recommendation to 200mg TID Has an appointment with Dr. Bashir, neurosurgery for microvascular decompression surgery on 07/15 [facility] refused transfer at the time of admission oxycodone prn Gastroesophageal reflux disease: On PPI DVT prophylaxis: Lovenox Full code dispo: seen by PT - rec home with PT services Requires ongoing inpatient stay for high dose IV steroids (as above), which is not possible in a lesser acute setting Quality Stroke Does the patient have a stroke diagnosis?: No VTE Prior VTE?: No VTE Risk Level:: Medical - moderate - high VTE Device Contraindication: Treatment Not Indicated VTE Drug Contraindication: N/A - Med Ordered
--- NOTE | 2023-07-12 15:07 | MHC.CM.PN ---
EMR REVIEWED AND PER MD ROUNDS, PT NOT MEDICALLY CLEARED FOR DC , CONTINUES WITH FACIAL PAIN. P.T. RECOMMENDED HOME WITH SERVICES. REFERRAL SENT TO [facility] PER PT CHOICE. CM WILL CONTINUE TO FOLLOW FOR ANY CHANGE IN DC PLAN/NEEDS
[2023-07-12] MEDS: Gabapentin 300 MG CAPSULE 600 MG PO ×2 (15:11→19:45)
[2023-07-12] MEDS: Baclofen 20 MG TABLET PO ×2 (15:12→19:46)
[2023-07-12] MEDS: 0.9 % Sodium Chloride Flush 3 ML SYRINGE IVFLUSH ×2 (15:13→19:48)
[2023-07-12 15:21] VITALS: BP 142/68; PULSE 81; RESP 18; TEMP 36.8; O2SAT 94
--- NOTE | 2023-07-12 18:22 | PC.NURSE ---
DOMINICK Robles made aware via tiger text at 1702 pt reporting severe right facial pain. Patient asking for additional medication to help with the pain. DOMINICK Robles ordered 2mg IVP morphine, pt refuses medication at this time, pts reason being she does not believe the morphine will work. Other non-pharmacological options offered such as heat/cold compress pt refuses at this time.
[2023-07-12] MEDS: polyethylene glycoL 3350 17 GM POWD.PACK PO (18:40)
[2023-07-12 19:30] VITALS: BP 134/64; PULSE 84; RESP 18; TEMP 36.1; O2SAT 97
[2023-07-12] MEDS: Aspirin Enteric Coated 81 MG TABLET.DR PO (19:46)
[2023-07-12] MEDS: DULoxetine HCl 30 MG CAPSULE.DR PO (19:47)
[2023-07-13 04:00] VITALS: BP 126/63; PULSE 70; RESP 16; TEMP 36.2; O2SAT 94
[2023-07-13] MEDS: Enoxaparin Sodium 40 MG/0.4 ML SYRINGE SUBCUT (05:43)
[2023-07-13] MEDS: Omeprazole 20 MG CAPSULE.DR PO (05:43)
[2023-07-13 07:16] VITALS: BP 124/60; PULSE 71; RESP 16; TEMP 36.4; O2SAT 93
[2023-07-13] MEDS: Sennosides/Docusate Sodium TABLET 1 TAB PO (07:27)
[2023-07-13] MEDS: carBAMazepine ER 200 MG TAB.ER.12H PO (07:27)
[2023-07-13] MEDS: modafiniL 100 MG TABLET PO (07:28)
[2023-07-13] MEDS: Cholecalciferol (Vitamin D3) 25 MCG TABLET 50 MCG PO (07:28)
[2023-07-13] MEDS: DULoxetine HCl 60 MG CAPSULE.DR PO (07:28)
[2023-07-13] MEDS: Gabapentin 300 MG CAPSULE PO (07:28)
[2023-07-13] MEDS: Baclofen 10 MG TABLET PO (07:28)
[2023-07-13] MEDS: 0.9 % Sodium Chloride Flush 3 ML SYRINGE IVFLUSH (07:28)
[2023-07-13] MEDS: ondansetron HCL 4 MG/2 ML VIAL IVPUSH (09:40)
--- NOTE | 2023-07-13 10:43 | P.DS_ITS ---
DS: Providers Provider Date of Service: 07/13/23 Date of admission: 07/10/23 03:15 Primary care physician: Chato Paz MD Consults: 07/10/23 01:32 Consult to Neurology Stat Consulting Provider: [facility] Reason for consultation: MS flare, trigeminal neuralgia Has provider been notified: No DS: Diagnosis Discharge Diagnosis (1) Right trigeminal neuralgia: Status: Acute (2) Multiple sclerosis: Status: Acute DS: Summary Hospital Course Hospital Course: History and physical as per admitting provider. This is a 58-year-old female w ith pertinent history of MS on ocrelizumab, trigeminal neuralgia followed by Dr. Bashir, mood disorder who presents to the emergency department for evaluation of weakness and unable to walk. Patient states she has been having flare of her trigeminal neuralgia with facial pain. Patient was seen in the ER about 4 days ago and was prescribed oxycodone. Patient states the pain is persistent and she can not eat. She takes carbamazepine for it. Patient undergoes microvascular needle decompression surgery by Dr. Bashir and has an appointment on 07/15 for the same. Patient unable to make an appointment sooner as he is on vacation. Patient states the stress of trigeminal neuralgia has caused flare of her MS. She has been having lower extremity weakness and has been having difficulty ambulating for the last couple of days. Patient normally uses a walker to ambulate but she has been wheelchair-bound on the day of presentation. Also has been having multiple falls due to weakness. No fever, chills, chest discomfort, palpitations, shortness of breath, abdominal pain, vision changes. States she has had urinary and bowel incontinence that has been ongoing for many years. In the emergency department, IV methylprednisolone was ordered. [facility] was called for treatment of flare of trigeminal neuralgia by Neurosurgery but [facility] declined transfer. 58-year-old woman treated for acute exacerbation of multiple sclerosis and trigeminal neuralgia. Treated with 500 mg IV Solu-Medrol x3 days, patient requested to have lower dose. MRI did not show active demyelination. Her leg weakness seem to improve with treatment. In terms of her trigeminal neuralgia she has been on Tegretol and her dose was increased as per Neurology 200 mg t.i.d.. She can continue this and weaned down when her symptoms resolve or as per her neurologist. She has a scheduled microvascular decompression on 07/16/2023. Plan is to discharge home with physical therapy. Time Attestation Discharge Coordination Time (in mins): 45 Quality: Safe Use of Opioids Does Pt have an Active Cancer Diagnosis on the Problem List?: No Quality: Stroke Does the patient have a stroke diagnosis?: No Physical Exam Vital Signs: Vital Signs: Last Vital Signs Temp 97.5 F 07/13/23 07:16 Pulse 71 07/13/23 07:16 Resp 16 07/13/23 07:16 BP 124/60 07/13/23 07:16 Pulse Ox 93 07/13/23 07:16 O2 Del Method Room Air 07/13/23 07:16 BMI result Body Mass Index 24.9 Appearing in no acute distress head is normocephalic atraumatic eyes pupils are PERRLA sclera is anicteric mouth throat mucous membranes are intact and moist neck is supple no lymphadenopathy, no JVD noted lung sounds are clear to auscultation heart regular rate rhythm, clear S1, S2 positive bowel sounds, abdomen is soft, nontender neuro patient is alert x3, no focal deficits Discharge Plan Discharge Anticipated Discharge Date/Time: 07/13/23 10:25 Patient Disposition: Home Health Service Discharge Diagnosis: Multiple sclerosis exacerbation Trigeminal neuralgia Referrals: [facility] [Outside] Chato Paz MD [Primary Care Provider] - 1 Week Discharge Medications: New carbamazepine 200 mg Tablet Extended Release 12 Hr 200 mg PO TID Qty: 90 0RF Continued oxycodone 5 mg tablet 5 mg PO Q6H PRN (Reason: pain) Qty: 10 0RF Rx Instructions: Patient may request partial refill; Partial Fill upon patient request. methylprednisolone 4 mg tablets,dose pack 0 mg DIRECTED Rx Instructions: medrol dose pack taper fluticasone propionate 50 mcg/actuation spray,suspension 1 spray intranasal DAILY PRN (Reason: allergies) Rx Instructions: administer into each nostril baclofen 10 mg Tablet 20 mg PO BID@1500,2100 gabapentin 300 mg Capsule 600 mg PO BID@1500,2100 cholecalciferol (vitamin D3) 50 mcg (2,000 unit) Tablet 50 mcg PO DAILY polyethylene glycol 3350 [Miralax] 17 gram/dose powder 17 g PO Q2D@1000 aspirin 81 mg Tablet,Delayed Release (Dr/Ec) 81 mg PO DAILY sennosides-docusate sodium 8.6-50 mg Tablet 1 tab-cap PO BID renew probiotic 1 tab PO DAILY omeprazole 20 mg capsule,delayed release(DR/EC) 20 mg PO BID@0630,1630 duloxetine 60 mg capsule,delayed release(DR/EC) 60 mg PO DAILY duloxetine 30 mg capsule,delayed release(DR/EC) 30 mg PO BEDTIME gabapentin 300 mg capsule 300 mg PO DAILY baclofen 10 mg tablet 10 mg PO DAILY modafinil 200 mg tablet 100 mg PO DAILY Ocrevus 30 mg/mL solution 600 mg IV [id number] Discontinued carbamazepine 100 mg Tablet Extended Release 12 Hr 100 mg PO TID Discharge Orders: Discharge Order (Routine); Ordered 07/13/23 Ordered By: Shirin Clark Diet: Advance to usual diet Activity on Discharge: As tolerated Stand Alone Forms: Patient Portal Discharge page Care Plan Goals: complete resolution of symptoms May wean back down to home dose of Tegretol when symptoms resolve or discuss with neurologist Health Concerns: Multiple sclerosis exacerbation Trigeminal neuralgia Plan of Treatment: Follow-up with primary care provider as needed Follow-up as scheduled neurology appointment Take all medications as prescribed Assessment: See discharge summary
--- NOTE | 2023-08-01 18:26 | W.MHC.F2F ---
Service Date Service Date: 08/01/23 Encounter Date of encounter: 07/13/23 Encounter: acute exacerbation of multiple sclerosis and trigeminal neuralgia Reasons for Services Signs and symptoms assessed: acute exacerbation of multiple sclerosis and trigeminal neuralgia Reason for shelter: CV/CP assess and/or care Reason for physical therapy: home safety and mobility Homebound: Leaving the home is medically contraindicated at this time without the asist of a device and/or another person due th the listed conditions above and below. Reason homebound: unsteady gait / fall risk Certification: Based on the above findings, I certify that this patient is confined to the home and needs intermittent shelter care, physical therapy and/or speech therapy, or continues to need occupational therapy. The patient is under my care, and I have initiated the establishment of the plan of care. The patient will be followed by a physician who will periodically review the plan of care. Time Spent With Patient Time: Total time managing care of this patient today ____ minutes.
== END 2023-07-13 12:24 | disposition home health service (06) | DRG 60 ==
LOC: HO.ED 07-10 02:24 → HO.EDOVER 07-10 03:19 → HO.S3 07-10 13:31
PROVIDERS: Hospitalist; Admitting Provider Student in an Organized Health Care Education/Training Program; Emergency Provider Emergency Medicine; PCP Internal Medicine; Visit Provider Nurse Practitioner Acute Care
DX: G35 Multiple sclerosis (principal); G50.0 Trigeminal neuralgia; F39 Unspecified mood [affective] disorder; K21.9 Gastro-esophageal reflux disease without esophagitis; Z79.82 Long term (current) use of aspirin; Z79.899 Other long term (current) drug therapy
CPT/HCPCS: 36415; 70553; 80048; 80053; 81001; 84484; 85025; 85730; 97162; 99285; A9585; J1170; J1650; J2405; J2765; J2930; J7120

== ENCOUNTER → 2023-07-10 03:15 | Outpatient (BNV) | payer OTHER, SELFPAY | PROVIDERS: Admitting Provider Student in an Organized Health Care Education/Training Program; Emergency Provider Emergency Medicine; Visit Provider Student in an Organized Health Care Education/Training Program | DX: G50.0 Trigeminal neuralgia (principal); G35 Multiple sclerosis | CPT/HCPCS: 99222; 99232; 99233; 99239; 99499; G0180 ==

== ENCOUNTER → 2023-07-10 03:15 | Outpatient (BNV) | payer OTHER, SELFPAY | PROVIDERS: Admitting Provider Student in an Organized Health Care Education/Training Program; Emergency Provider Emergency Medicine; Visit Provider Psychiatry & Neurology Neurology | DX: G35 Multiple sclerosis (principal); G50.0 Trigeminal neuralgia | CPT/HCPCS: 99222 ==

== ENCOUNTER 2023-10-29 11:26 | Outpatient (AMB) | payer OTHER, SELFPAY ==
--- NOTE | 2023-10-29 11:29 | MHC.PC.OV ---
Vital Signs 10/29/23 11:35 Height 5 ft 7 in BMI Reason not done Patient refused/unable BP 126/78 Blood Pressure Location Rt brachial Position Sitting Pulse 82 Pulse Source Pulse Oximeter Pulse Oximetry (%) 96 Oxygen Delivery Method Room Air Intake Visit Reasons: Annual PE Allergies bupropion [From WELLBUTRIN] Allergy (Intermediate, Verified 10/29/23 11:36) HIVES Medication List - Last Reconciled 10/29/23 by Chato Paz MD aspirin 81 mg PO DAILY baclofen 20 mg PO BID@1500,2100 baclofen 10 mg PO DAILY carbamazepine ER 200 mg PO TID cholecalciferol (vitamin D3) 50 mcg PO DAILY duloxetine 30 mg PO BEDTIME duloxetine 60 mg PO DAILY fluticasone propionate 50 mcg/actuation 1 spray intranasal DAILY PRN gabapentin 600 mg PO BID@1500,2100 gabapentin 300 mg PO DAILY methylprednisolone medrol dose pack taper modafinil 100 mg PO DAILY ocrelizumab (Ocrevus) 600 mg IV [id number] omeprazole 20 mg PO BID@0630,1630 oxycodone 5 mg PO Q6H PRN polyethylene glycol 3350 (Miralax) 17 grams PO Q2D@1000 [renew probiotic 1 tab PO DAILY] sennosides-docusate sodium 8.6-50 mg 1 tab-cap PO BID [tub transfer bench As directed] Tobacco use date assessed: 10/29/23 Dental Screening Dental Screen Date: 10/29/23 Did you have a dental visit in the last 12 months?: Yes Did you have a dental problem in the last 6 months where you did not have access to dental care?: No Was dental information given to patient?: Patient has dentist HPI Annual PE HPI Details Physical exam appointment Patient has been seen only once last year when she came in for her initial establish care visit Patient have Multiple sclerosis which was diagnosed in 2000 Currently she is taking neurologist at [facility] Patient is complaining difficulty sleeping at night would recommend to discuss it further with a neurologist Most of her medications are through neurology office except omeprazole for chronic GERD Mammogram is up-to-date at [facility] She has OBGYN at [place] Colonoscopy was also [facility] through Dr. Baca gastroenterology She is having change in bowel movement for the past 1 month, I would like her to call Gastroenterology for follow-up on that Patient has a history of hydradenitis suppurative she was referred to Dermatology, patient saw Dr. Mayo but she would like to go to [place] animal ride attendant New referral placed Lab order placed to be done fasting I also ordered x-ray of her wrist as patient is complaining of pain both wrist which is worse at the end of the day Referral to orthopedic placed for wrist evaluation. [facility] Medical History Chronic GERD Multiple sclerosis Urinary tract infection Family History Other Mental health disorder Substance abuse Social History Household Members: Children Housing: House Do you presently have visiting nurse or other home services: No Unable to assess alcohol history related to: Unknown Patient Tobacco Use Status: Never used Tobacco e-Cigarette/Vaping Use: Never Used Second Hand Smoke Exposure: No service: No Current occupational status: disabled Cognitive needs: No Hearing needs: No Vision needs: Yes Questionnaire PHQ-9 Over the last 2 weeks, how often have you been bothered by any of the following problems? Depression Screening Interpretation: Negative Depression Screening Done: Yes Source: Developed by Drs. Morteza Velasquez, Chuck Gar and colleagues, with an educational estella from [employer]. Thrive Questionnaire Date Thrive assessed: 07/11/23 AUDIT C Alcohol Use Questionnaire (AUDIT-C) 1. How often do you have a drink containing alcohol?: Never 3. How often do you have six or more drinks on one occasion?: Never Total Score: 0 Score Reviewed/Action Taken: Yes YANYC-7 AMB Questionnaire YANCY-7 Date YANCY - 7 assessed: 10/19/22 Source: Developed by Drs. Morteza Velasquez, Chuck Gar and colleagues, with an educational estella from [employer]. Review of Systems Const Denies chills, Denies fever(s) and Denies headache(s) Eyes Denies blurry vision ENT Denies headache(s), Denies nasal discharge, Denies nasal obstruction, Denies odynophagia and Denies sinus pain Card Denies chest pain at rest and Denies chest pain with activity Resp Denies cough and Denies hemoptysis GI Denies diarrhea, Denies odynophagia, Denies vomiting and Denies hematemesis Reports as per HPI Skin/Breast Reports as per HPI Neuro Denies Abnormal speech present and Denies headache(s) Psych Denies mood swings and Denies paranoia Endo Reports as per HPI Timmy/Lymph Reports as per HPI Aller/Immun Reports as per HPI Physical exam (Primary Care) Vital Signs: Last Vital Signs Pulse 82 10/29/23 11:35 BP 126/78 10/29/23 11:35 Pulse Ox 96 10/29/23 11:35 Oxygen Delivery Method Room Air 10/29/23 11:35 Tobacco/Smoking Status: Tobacco use Status Tobacco use date assessed 10/29/23 10/29/23 11:38 Patient Tobacco Use Status Never used Tobacco 10/29/23 11:30 e-Cigarette/Vaping Use Never Used 10/29/23 11:30 Depression Screening Interpretation: Negative Thrive Assessment: Date of Thrive Assessment Date Thrive assessed 07/11/23 10/29/23 11:30 Const General: cooperative, comfortable and no acute distress Orientation/consciousness: patient oriented x3 HENMT Head: Yes normocephalic and Yes atraumatic Ears: hearing grossly normal bilaterally Eyes General: appearance normal, both eyes and all related structures Pupils: Equal, round and reactive pupils present EOM: EOMs intact bilaterally Neck Neck: Yes supple and No lymphadenopathy Thyroid: Thyroid normal Lymphatic: no lymphadenopathy noted Resp Effort & Inspection: normal respiratory effort and able to speak in complete sentences Auscultation: clear to auscultation bilaterally Cardio Rhythm: regular rhythm Heart sounds: S1 normal heart sound present and S2 normal heart sound present GI Palpation (GI): Soft to palpation and nontender Auscultation: normal bowel sounds Skin General skin exam: elasticity normal and turgor normal Neuro Other: Sitting in wheelchair comfortable answering question appropriately she is here daughter General: patient oriented x3 Cranial nerves: Yes Equal, round and reactive pupils present Speech: No Abnormal speech present Extrem Other: No pain with wrist movement General: Yes normal exam except as noted and No edema Right lower extremity: no edema Left lower extremity: no edema Psych Affect: normal affect Attitude: cooperative Results AMB Urinalysis, Automated UA Leukoctes 0 Cris/uL Last Edit by Gavin Carpenter CMA on 10/29/23 11:47 UA Nitrite Negative Last Edit by Gavin Carpenter CMA on 10/29/23 11:47 UA Urobilinogen 0.2 mg/dL Last Edit by Gavin Carpenter CMA on 10/29/23 11:47 UA Protein 0 mg/dL Last Edit by Gavin Carpenter CMA on 10/29/23 11:47 UA pH 6.0 Last Edit by Gavin Carpenter CMA on 10/29/23 11:47 UA Blood 0 Sea/uL Last Edit by Gavin Carpenter CMA on 10/29/23 11:47 UA Specific [place] 1.020 Last Edit by Gavin Carpenter CMA on 10/29/23 11:47 UA Ketone Positive Last Edit by Gavin Carpenter CMA on 10/29/23 11:47 UA Bilirubin 0 mg/dL Last Edit by Gavin Carpenter CMA on 10/29/23 11:47 UA Glucose 0 mg/dL Last Edit by Gavin Carpenter CMA on 10/29/23 11:47 Results Reviewed Results Reviewed: Laboratory Last Values Urine pH (Auto) 6.0 10/29/23 11:47 Specific [place] (Auto) 1.020 10/29/23 11:47 Urine Protein (Auto) 0 mg/dL 10/29/23 11:47 Glucose (UA)(Auto) 0 mg/dL 10/29/23 11:47 Urine Ketones (Auto) Positive 10/29/23 11:47 Urine Blood (Auto) 0 Sea/uL 10/29/23 11:47 Urine Nitrite (Auto) Negative 10/29/23 11:47 Urine Bilirubin (Auto) 0 mg/dL 10/29/23 11:47 Urine Urobilinogen (Auto) 0.2 mg/dL 10/29/23 11:47 Leukocyte Esterase (Auto) 0 Cris/uL 10/29/23 11:47 Assessment and Plan Assessment & Plan (1) Encounter for general adult medical examination with abnormal findings: Code(s): Z00.01 - Encounter for general adult medical examination with abnormal findings (2) Multiple sclerosis: Code(s): G35 - Multiple sclerosis (3) Bilateral hand pain: Code(s): M79.641 - Pain in right hand; M79.642 - Pain in left hand (4) Hydradenitis: Code(s): L73.2 - Hidradenitis suppurativa Plan Physical exam appointment Patient has been seen only once last year when she came in for her initial establish care visit Patient have Multiple sclerosis which was diagnosed in 2000 Currently she is taking neurologist at [facility] Patient is complaining difficulty sleeping at night would recommend to discuss it further with a neurologist Most of her medications are through neurology office except omeprazole for chronic GERD Mammogram is up-to-date at [facility] She has OBGYN at [place] Colonoscopy was also [facility] through Dr. Baca gastroenterology She is having change in bowel movement for the past 1 month, I would like her to call Gastroenterology for follow-up on that Patient has a history of hydradenitis suppurative she was referred to Dermatology, patient saw Dr. Mayo but she would like to go to [place] animal ride attendant New referral placed, she is having flare-up currently and is requesting a script for doxycycline which I have sent for her Lab order placed to be done fasting I also ordered x-ray of her wrist as patient is complaining of pain both wrist which is worse at the end of the day Referral to orthopedic placed for wrist evaluation. Orders: Orders Comprehensive [place]. Panel Fast Today G35 - Multiple sclerosis, Z00.01 - Encounter for general adult medical examination with abnormal findings Vitamin B12 Today G35 - Multiple sclerosis, Z00.01 - Encounter for general adult medical examination with abnormal findings AMB Urinalysis Automated Today Z13.9 - Encounter for screening, unspecified Complete Blood Count Auto Diff Today G35 - Multiple sclerosis, Z00.01 - Encounter for general adult medical examination with abnormal findings Lipid Panel Today G35 - Multiple sclerosis, Z00.01 - Encounter for general adult medical examination with abnormal findings TSH reflex Free T4 Today G35 - Multiple sclerosis, Z00.01 - Encounter for general adult medical examination with abnormal findings Vitamin D 25-OH (D2 and D3) Today G35 - Multiple sclerosis, Z00.01 - Encounter for general adult medical examination with abnormal findings XR hand wrist LT Today M79.641 - Pain in right hand, M79.642 - Pain in left hand XR hand wrist RT Today M79.641 - Pain in right hand, M79.642 - Pain in left hand Referrals Orthopedics Referral M79.641 - Pain in right hand, M79.642 - Pain in left hand Dermatology Referral L73.2 - Hidradenitis suppurativa Medications: Changed From dicyclomine 10 mg PO TID 30 caps 0RF To dicyclomine 10 mg PO BID 10 days 20 caps 0RF Coding Level of Care Code Est Pt Level 4 (96324) Est Pt Prev Care 40-64y(32303) Diagnoses Encounter for general adult medical examination with abnormal findings Z00.01 Multiple sclerosis G35 Bilateral hand pain M79.641; M79.642 Hydradenitis L73.2
[2023-10-29 11:35] VITALS: BP 126/78; PULSE 82; O2SAT 96
== END 2023-10-29 12:06 | disposition home or self-care (01) ==
PROVIDERS: PCP Internal Medicine; Visit Provider Internal Medicine
DX: Z00.01 Encounter for general adult medical examination with abnormal findings (principal); G35 Multiple sclerosis; M79.641 Pain in right hand; M79.642 Pain in left hand; L73.2 Hidradenitis suppurativa
CPT/HCPCS: 81003; 99214; 99396

== ENCOUNTER 2023-12-02 11:02 | Outpatient (AMB) | payer OTHER, SELFPAY ==
--- NOTE | 2023-12-02 11:03 | A.OFFVIS_ITS ---
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 Patient reports ongoing pain for about 6 months to about a year. No previous treatment. Patient reports that both of her hands are equal to pain. 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 She fines relief with icing her hands. 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 The patient reports that her pain is diffuse throughout her bilateral hands and wrist, but reports that his worst at the base of the thumb bilaterally and also reports that the right small finger has been bothering her for the past few days. Patient reports that she previously had injections performed in her shoulder, and that she would like to avoid further injections if possible. The patient denies any numbness or tingling in hands. 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 The patient also complains of pain and tenderness in the medial left elbow, that has been ongoing for approximately 1 year and has gotten worse. She has no other acute complaints or concerns at this time. [facility] Medical History Chronic GERD Multiple sclerosis Urinary tract infection Family History Other Mental health disorder Substance abuse Social History Household Members: Children Housing: House Do you presently have visiting nurse or other home services: No Unable to assess alcohol history related to: Unknown Patient Tobacco Use Status: Never used Tobacco e-Cigarette/Vaping Use: Never Used Second Hand Smoke Exposure: No service: No Current occupational status: disabled Cognitive needs: No Hearing needs: No Vision needs: Yes Review of Systems Const All systems reviewed & are unremarkable except as noted in HPI and below Physical Exam Extrem Other: Patient is alert, oriented, and in no acute distress. Neuro: Median, ulnar, radial nerves motor and sensory intact and sensation is normal to the tips of all digits. Vascular: Cap refill brisk Pain: Patient reports pain with range of motion of the right small finger Patient also reports tenderness to palpation of the right radial wrist ROM: Range of motion about bilateral hands full and intact, but patient reports discomfort throughout range of motion exercises. Skin: No lacerations or abrasions. General: No ecchymosis, erythema, or evidence of infection. Psych: Appears grossly normal Affect normal Attitude cooperative Assessment & Plan Assessment & Plan (1) Bilateral hand pain: Code(s): M79.641 - Pain in right hand; M79.642 - Pain in left hand Category: Medical (2) Bilateral wrist pain: Code(s): M25.531 - Pain in right wrist; M25.532 - Pain in left wrist Category: Medical (3) Medial epicondylitis, left elbow: Code(s): M77.02 - Medial epicondylitis, left elbow Category: Medical Plan 1. Bilateral hand pain and stiffness 2. Bilateral wrist pain 3. Medial epicondylitis Patient is educated that the best place to start with treatment of these conditions without injection would be occupational therapy Patient is amenable to this, but reports that she is not able to leave her home frequently enough for occupational therapy outpatient due to her him MS, and will need a referral for home OT Patient states that she has had home PT and OT several times previously through [facility] Patient is once again referred to [facility] for home PT and OT services for treatment of bilateral hand pain and stiffness, bilateral wrist pain and s tiffness, and medial epicondylitis of the left elbow Patient will follow-up in 2 to 3 months if she does not feel that PT and OT are helping with these conditions to discuss further treatment options, as needed with any acute concerns Orders: Referrals [facility] Referral M25.531 - Pain in right wrist, M25.532 - Pain in left wrist, M77.02 - Medial epicondylitis, left elbow, M79.641 - Pain in right hand, M79.642 - Pain in left hand Coding Level of Care Code Est Pt Level 3 (13308) Diagnoses Bilateral hand pain M79.641; M79.642 Bilateral wrist pain M25.531; M25.532 Medial epicondylitis, left elbow M77.02
== END 2023-12-02 12:14 | disposition home or self-care (01) ==
PROVIDERS: PCP Internal Medicine
DX: M79.641 Pain in right hand (principal); M79.642 Pain in left hand; M25.531 Pain in right wrist; M25.532 Pain in left wrist; M77.02 Medial epicondylitis, left elbow
CPT/HCPCS: 99213

== ENCOUNTER → 2023-12-02 11:02 | Outpatient (BNVA) | payer OTHER, SELFPAY | PROVIDERS: PCP Internal Medicine | DX: M79.641 Pain in right hand (principal); M79.642 Pain in left hand; M25.531 Pain in right wrist; M25.532 Pain in left wrist; M77.02 Medial epicondylitis, left elbow | CPT/HCPCS: 99212 ==

== ENCOUNTER 2023-12-11 13:05 | Outpatient (REF) | payer OTHER, SELFPAY | END 2023-12-11 13:06 | disposition home or self-care (01) | LOC: HO.HMGCLDS 13:05 | PROVIDERS: PCP Internal Medicine; Visit Provider Nurse Practitioner Family | DX: Z87.440 Personal history of urinary (tract) infections (principal); R82.90 Unspecified abnormal findings in urine | CPT/HCPCS: 87086 ==

== ENCOUNTER 2023-12-16 13:18 | Outpatient (REF) | payer OTHER, SELFPAY ==
[2023-12-16 15:56] LABS: Appearance Urine Clear; Color Urine Yellow; Glucose Urine UA Negative (Negative); Leukocyte Esterase Urine Small (1+) (Negative); Nitrite Urine Negative (Negative); PH 6.5 (5.0-9.0); UMIC TRIGGER UACC YES; Urine Blood Negative (Negative); Urine Ketones Negative (Negative); Urine Protein Negative (Neg-Trace)
[2023-12-16 16:06] LABS: Bacteria Urine None Seen (None Seen); Hyaline Casts Urine 0-2 /LPF (0-2); RBC Urine 0-2 /HPF (0-2); Squamous Epithelial Cell Urine 0-2 /HPF (0-2); UACC Culture Trigger YES; WBC Urine 0-5 /HPF (0-5)
== END 2023-12-16 13:19 | disposition home or self-care (01) ==
LOC: HO.HMGCLDS 13:18
PROVIDERS: PCP Internal Medicine; Visit Provider Urology
DX: R35.0 Frequency of micturition (principal)
CPT/HCPCS: 81001; 87086

== ENCOUNTER 2024-01-20 15:23 | Outpatient (AMB) | payer OTHER, SELFPAY ==
--- NOTE | 2024-01-20 15:24 | AM.OFFWIN_ITS ---
Intake Vital Signs 01/20/24 15:26 Height 5 ft 7 in BMI Reason not done Patient refused/unable BP 114/78 Blood Pressure Location Rt brachial Position Sitting Pulse 94 Pulse Source Pulse Oximeter Temp 99.2 F Temp Source Oral Pulse Oximetry (%) 97 Oxygen Delivery Method Room Air Intake Visit Reasons: EP Fall, pain behing lt knee. Intake Note: pt c/o pain behind LT knee. Started due to fall a week ago. Patient Tobacco Use Status: Never used Tobacco Allergies bupropion [From WELLBUTRIN] Allergy (Intermediate, Verified 01/20/24 15:25) HIVES Do you need a note to return to daycare/school/sports/work: No HPI EP Fall, pain behing lt knee. HPI Details This note is constructed using voice recognition software. While every effort has been made to ensure accuracy, humidifier maintenance worker errors may have been included. The patient is a 59 year old female who presents to the clinic today with left knee pain after fall one-week ago. She notes that she had fallen with hyperextending her left knee the lateral aspect striking both her knee and ankle. She was hopeful that the pain would improve, however not. She has a history of MS so has balance issues at baseline, and this is certainly not helped her pain or balance. She denies any visible swelling, or bruising. She notes that since the fall she has been having additional hyperextension with minimal pressure on the foot. [facility] Medical History Chronic GERD Multiple sclerosis Urinary tract infection Family History Other Mental health disorder Substance abuse Social History Household Members: Children Housing: House Do you presently have visiting nurse or other home services: No Unable to assess alcohol history related to: Unknown Patient Tobacco Use Status: Never used Tobacco e-Cigarette/Vaping Use: Never Used Second Hand Smoke Exposure: No service: No Current occupational status: disabled Cognitive needs: No Hearing needs: No Vision needs: Yes Review of Systems Const All systems reviewed & are unremarkable except as noted in HPI and below Physical Exam Vital Signs: Last Vital Signs Temp 99.2 F 01/20/24 15:26 Pulse 94 01/20/24 15:26 BP 114/78 01/20/24 15:26 Pulse Ox 97 01/20/24 15:26 Oxygen Delivery Method Room Air 01/20/24 15:26 Const General: cooperative, healthy appearing, comfortable, no acute distress and alert Orientation/consciousness: patient oriented x3 Limitations: no limitations Resp Effort & Inspection: normal respiratory effort and able to speak in complete sentences Skin General skin exam: no rashes or lesions noted, elasticity normal and turgor normal Neuro General: patient oriented x3 Extrem Other: Left knee tenderness along lateral joint line, pain with all movements, however full range of motion present. General: Yes full ROM, Yes capillary refill normal and Yes normal exam except as noted Psych Appearance: grossly normal Mental Status: mental status grossly normal Speech and movement: Normal speech and movement present Affect: normal affect Assessment & Plan Assessment & Plan (1) Hyperextension injury of left knee: Code(s): S89.82XA - Other specified injuries of left lower leg, initial encounter Qualifiers: Encounter type: initial encounter Qualified Code(s): S89.82XA - Other specified injuries of left lower leg, initial encounter Plan: Given nature of injury, imaging obtained by x-ray, however we also elected to immobilize the knee in place referral to Orthopedics for evaluation and treatment plan. Advised rest, ice, compression when not an immobilizer, elev ation, and NSAIDs as able for pain management. (2) Ankle pain, left: Code(s): M25.572 - Pain in left ankle and joints of left foot Qualifiers: Chronicity: acute Qualified Code(s): M25.572 - Pain in left ankle and joints of left foot Plan: X-ray ordered to evaluate after a fall, geovany wrap applied, advised rest, ice, compression, elevation as needed. Plan See above for full details and plan. Orders: Referrals Orthopedics Referral S89.82XA - Other specified injuries of left lower leg, initial encounter Coding Level of Care Code Est Pt Level 4 (50357) Diagnoses Hyperextension injury of left knee, initial encounter S89.82XA Encounter type: initial encounter Acute left ankle pain M25.572 Chronicity: acute
[2024-01-20 15:26] VITALS: BP 114/78; PULSE 94; TEMP 37.3; O2SAT 97
== END 2024-01-20 16:28 | disposition home or self-care (01) ==
PROVIDERS: PCP Internal Medicine; Visit Provider Registered Nurse
DX: S89.82XA Other specified injuries of left lower leg, initial encounter (principal); M25.572 Pain in left ankle and joints of left foot

== ENCOUNTER → 2024-01-20 15:23 | Outpatient (BNVA) | payer OTHER, SELFPAY | PROVIDERS: PCP Internal Medicine ==

== ENCOUNTER 2024-01-20 15:52 | Outpatient (REF) | payer OTHER, SELFPAY ==
--- NOTE | ~2024-01-20 | XR_ITS ---
EXAMINATION: XR ANKLE, LEFT CLINICAL INFORMATION: Left ankle pain. COMPARISON: 03/31/2017 TECHNIQUE: AP, lateral, and mortise views of the left ankle. FINDINGS: No fracture. Alignment is anatomic. No erosions. Joint spaces are maintained. Soft tissues are normal. XR/XR ankle LT 2V IMPRESSION: No acute bony pathology. Electronically signed by: Sandra Shannon MD 01/21/2024 09:02 AM EDT
--- NOTE | ~2024-01-20 | XR_ITS ---
EXAMINATION: XR KNEE, LEFT CLINICAL INFORMATION: M25.562 - Pain in left knee , pain after fall. COMPARISON: None available. TECHNIQUE: Two views of the left knee. FINDINGS: No fracture or joint effusion. Alignment is anatomic. Joint spaces are maintained. Minimal medial compartment joint space loss and trace productive marginal osteophytes. Mild spurring of the lateral tibial spine. Soft tissue appears normal. XR/XR knee LT 2V IMPRESSION: 1. No acute findings left knee. No joint effusion. 2. Minimal degenerative arthritis medial compartment. Electronically signed by: Emmanuel Munguia MD 03/30/2024 09:37 AM EST
== END 2024-01-20 15:53 | disposition home or self-care (01) ==
LOC: HO.HMGCX 15:52
PROVIDERS: PCP Internal Medicine; Visit Provider Registered Nurse
DX: M25.572 Pain in left ankle and joints of left foot (principal); M25.562 Pain in left knee
CPT/HCPCS: 73560; 73600; 99212

== ENCOUNTER → 2024-01-20 15:56 | Outpatient (BNV) | payer OTHER, SELFPAY | PROVIDERS: PCP Internal Medicine; Visit Provider Radiology Diagnostic Radiology | DX: M25.562 Pain in left knee (principal) | CPT/HCPCS: 73560 ==

== ENCOUNTER 2024-07-02 08:32 | Outpatient (AMB) | payer OTHER, SELFPAY ==
--- NOTE | 2024-07-02 08:43 | A.OFFPC_ITS ---
Intake Visit Reasons: GI Referral Request Allergies bupropion [From [facility]] Allergy (Intermediate, Verified 07/02/24 08:44) HIVES Medication List - Last Reconciled 07/02/24 by Chato Paz MD aspirin 81 mg PO DAILY baclofen 20 mg PO TID carbamazepine ER 200 mg PO TID PRN cholecalciferol (vitamin D3) 1,250 mcg PO QWEEK duloxetine 30 mg PO BEDTIME duloxetine 60 mg PO DAILY fluticasone propionate 50 mcg/actuation 1 spray intranasal DAILY PRN gabapentin 600 mg PO TID modafinil 100 mg PO DAILY ocrelizumab (Ocrevus) 600 mg IV [id number] omeprazole 20 mg PO BID polyethylene glycol 3350 (Miralax) 17 grams PO Q2D@1000 [renew probiotic 1 tab PO DAILY] sennosides-docusate sodium 8.6-50 mg 1 tab-cap PO BID [tub transfer bench As directed] Tobacco use date assessed: 07/02/24 Dental Screening Dental Screen Date: 07/02/24 Did you have a dental visit in the last 12 months?: Yes Did you have a dental problem in the last 6 months where you did not have access to dental care?: No Was dental information given to patient?: Patient has dentist HPI GI Referral Request HPI Details History - The patient is a 59-year-old female pr esenting with requests for specialist referrals and medication refills. - Her established diagnosis of Multiple Sclerosis has been associated with bowel irregularity, presenting recently with small, infrequent bowel movements. - Previously managed Hidradenitis Suppur ativa is experiencing a resurgence, with recent flare-ups affecting facial and aural regions. - The patient associates the changes in bowel consistency to her MS, but reports an atypical pattern of bowel movements. - Previous treatment for Hidradenitis Gleason ppurativa included doxycycline, and she expresses a need for a dermatology referral for ongoing dermatological care. Problem List - Multiple Sclerosis (MS) - Bowel Dysfunction secondary to Multipl e Sclerosis - Hidradenitis Suppurativa - Constipation - Dermal Inflammation Patient Instructions - Call to schedule an appointment with Morgan Yoo, the pickle sorter post-referral. - Contact [facility] to arr harriet a consultation following the referral. - Follow prescription instructions for d oxycycline as previously prescribed. - Monitor bowel patterns and seek prompt consultation if symptoms exacerbate. Review of Systems - General: No fever no chills - Neurological: No headaches no dizziness - Ear nose throat: No sore throat no hearing difficulty no ear pain - Cardiovascular: No syncope, no chest pain, no palpitations - Gastrointestinal: No nausea vomiting or diarrhea PFSH Medical History Right trigeminal neuralgia Multiple sclerosis Chronic GERD Multiple sclerosis Urinary tract infection Family History Other Mental health disorder Substance abuse Social History Household Members: Children Housing: House Do you presently have visiting nurse or other home services: No Unable to assess alcohol history related to: Unknown Patient Tobacco Use Status: Never used Tobacco e-Cigarette/Vaping Use: Never Used Second Hand Smoke Exposure: No service: No Current occupational status: disabled Cognitive needs: No Hearing needs: No Vision needs: Yes Questionnaire Thrive Questionnaire Date Thrive assessed: 07/11/23 AUDIT C Alcohol Use Questionnaire (AUDIT-C) 1. How often do you have a drink containing alcohol?: Never 3. How often do you have six or more drinks on one occasion?: Never Total Score: 0 Score Reviewed/Action Taken: Yes YANCY-7 AMB Questionnaire YANCY-7 Date YANCY - 7 assessed: 10/19/22 Source: Developed by Drs. Morteza Velasquez, Malina Melo, Chuck Marcano and colleagues, with an educational estella from [employer]. Physical exam (Primary Care) Tobacco/Smoking Status: Tobacco use Status Tobacco use date assessed 07/02/24 07/02/24 08:44 Patient Tobacco Use Status Never used Tobacco 07/02/24 08:44 e-Cigarette/Vaping Use Never Used 07/02/24 08:44 Thrive Assessment: Date of Thrive Assessment Date Thrive assessed 07/11/23 07/02/24 08:44 Telehealth Telehealth Telehealth Platform: [facility] Location of provider rendering services: practice address Location of patient: address on file Patient Identification confirmed using: Name, : Yes Telehealth method: video (attempted) Patient verbally consented to treatment: Yes Patient verbally consented to billing insurance company: Yes Patient informed of any privacy concerns related to visit: Yes Minutes spent on Phone/Video with Pt.: 13 Coding Level of Care Code Tele Est Pt Level 3 (38330) Diagnoses Hydradenitis L73.2 Bowel dysfunction K59.9 Assessment & Plan Assessment & Plan (1) Hydradenitis: Code(s): L73.2 - Hidradenitis suppurativa Category: Medical (2) Bowel dysfunction: Code(s): K59.9 - Functional intestinal disorder, unspecified Category: Medical Plan History - The patient is a 59-year-old female presenting with requests for specialist referrals and medication refills. - Her established diagnosis of Multiple Sclerosis has been associated with bowel irregularity, presenting recently with small, infrequent bowel movements. - Previously managed Hidradenitis Suppurativa is experiencing a resurgence, with recent flare-ups affecting facial and aural regions. - The patient associates the changes in bowel consistency to her MS, but reports an atypical pattern of bowel movements. - Previous treatment for Hidradenitis Suppurativa included doxycycline, and she expresses a need for a dermatology referral for ongoing dermatological care. Problem List - Multiple Sclerosis (MS) - Bowel Dysfunction secondary to Multiple Sclerosis - Hidradenitis Suppurativa - Constipation - Dermal Inflammation Patient Instructions - Call to schedule an appointment with Dr. Yoo, the pickle sorter post-referral. - Contact [facility] to arrange a consultation following the referral. - Follow prescription instructions for doxycycline as previously prescribed. - Monitor bowel patterns and seek prompt consultation if symptoms exacerbate. Orders: Referrals Gastroenterology Referral K59.9 - Functional intestinal disorder, unspecified Dermatology Referral L73.2 - Hidradenitis suppurativa
--- OUTSIDE RECORDS SUMMARY | 2024-07-02 09:01 | XMS_ITS | Clinical Summary ---
Author Organization [facility] Address [address] [place] [address] Phone Care Team Providers Care Commercial [employer] Retro[employer] Architect Name Role Phone Chato Paz MD Primary Care Provider [phone] Allergies Active Allergy Reactions Criticality Noted Date Comments Bupropion 12/11/2010 Other 12/11/2010 Medications aspirin 81 mg EC tablet Take 1 tablet (81 mg total) by mouth 1 (one) time each day. Active baclofen (LIORESAL) 10 mg tablet Take 2 tablets (20 mg total) by mouth 3 (three) times a day. 03/06/20 22 Active carBAMazepine , bulk, powder Take by mouth. Activ e cholecalcifer ol (VITAMIN D-3) 25 mcg (1,000 unit) capsule Take 1 capsule (1,000 Units total) by mouth. Active cyanocobalami n (VITAMIN B-12) 100 mcg tablet Take 0.5 tablets (50 mcg total) by mouth. Active docusate sodium (COLACE) 100 mg capsule Take 1 capsule (100 mg total) by mouth. Active DULoxetine (CYMBALTA) [address] capsule Take 1 capsule (30 mg total) by mouth 1 (one) time each day. 01/09/20 22 Active DULoxetine (CYMBALTA) [address] capsule Take 1 capsule (60 mg total) by mouth 1 (one) time each day. 11/29/19 17 Active estradioL (ESTRACE) 0.01 % (0.1 mg/gram) vaginal cream 07/28/19 22 Active fluticasone propionate (FLONASE) 50 mcg/actuation nasal spray Administer 2 sprays into affected nostril(s). 08/27/19 15 Active gabapentin (NEURONTIN) 300 mg capsule 1 po up to 5 times per day 12/13/19 22 Active L. acidophilus/B ifid. animalis 32 billion cell capsule Take by mouth. Activ e LORazepam (ATIVAN) 0.5 mg tablet 1 po qd PRN 12/14/19 22 Active ocrelizumab (Ocrevus) 30 mg/mL solution injection Infuse into a venous catheter. Active omeprazole (PriLOSEC) [address] capsule Take 2 capsules (40 mg total) by mouth 2 (two) times a day. 04/24/20 22 Active ondansetron (ZOFRAN) 4 mg tablet Take 1 tablet (4 mg total) by mouth. 09/25/19 19 Active polyethylene glycol (PEG) 17 gram/dose oral powder Take 17 g by mouth. 10/05/19 22 Active methylPREDNIS olone (MEDROL) 4 mg tablet See administration instructions. 07/05/19 24 Active modafiniL (PROVIGIL) 100 mg tabletIndicat ions:Multiple sclerosis (CMS/HCC) Take 1 tablet (100 mg total) by mouth 1 (one) time each day in the morning. TAKE 1 TABLET BY MOUTH EVERY DAY IN THE MORNING Max Daily Amount: 100 mg 30 each 5 05/13/19 25 2024 Active ergocalcifero l (VITAMIN D-2) 1,250 mcg (50,000 unit) capsule TAKE 1 CAPSULE BY MOUTH ONE TIME PER WEEK x 12 wks 11/25/19 24 2024 Discontinued sulfamethoxaz ole-trimethop rim (BACTRIM DS,SEPTRA DS) 800-160 mg per tablet Take 1 tablet by mouth 2 (two) times a day for 3 days. 6 tablet 06/11/19 25 2024 Active Problems Problem Noted Date Diagnosed Date Breast pain 06/10/2024 Assessment & Plan (06/10/2024 4:36 PM EST): I reviewed normal exam findings with patient. I explained her pain may be due to caffeine intake or trauma from her pets. I encouraged her to cut back on caffeine, wear a supportive bra, try to avoid contact with animals, and use primrose oil prn. Call if she notices a lump. She agreed. Urinary retention 06/10/2024 Assessment & Plan (06/10/2024 4:36 PM EST): No real evidence today, but I encouraged her to follow up with Urology if she feels this is the case. We will send culture and treat prn. Cervical myelopathy 06/14/2023 Allergic rhinitis 06/03/2022 Vaginal dryness, menopausal 07/28/2021 Overview (06/03/2022): Last Assessment & Plan: Rx for vaginal estrogen provided today. Patient uncertain if she will use this medication or not. I discussed that vaginal estrogen may also help to prevent recurrent UTIs. She plans to discuss further with her urologist. 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 Fatigue 08/05/2019 Spasticity 08/05/2019 Trigeminal neuralgia 11/21/2017 Incidental lung nodule 08/29/2017 Neck pain 12/24/2016 Hoarseness 01/02/2016 Shoulder pain, bilateral 02/17/2015 Overview (06/03/2022): Seeing MARTY Chronic constipation 12/30/2014 Dysphagia 03/04/2012 Overview (06/03/2022): Seeing dr. Yoo Upper EGD: 03/18/2012 Multiple sclerosis 12/11/2010 Overview (06/03/2022): Dr. Cristina Encounters Date Type Department Care Team Description 06/11/2024 Telephone Obstetrics and Gynecology - [address] [phone] Ela Najera MD Urinary Problem 06/10/2024 3:15 PM EST Office Visit Obstetrics and Gynecology - [address] [phone] Ela Najera MD Breast pain (Primary Dx); Urinary retention 05/25/2024 Telephone Obstetrics and Gynecology [address] [phone] Ela Najera MD Appointment 05/21/2024 4:45 PM EST - 05/21/2024 11:59 PM EST Hospital Encounter [facility] [address] [place] [address] Multiple sclerosis (CMS/HCC) Discharge Disposition: Home or Self Care 05/21/2024 4:45 PM EST - 05/21/2024 11:59 PM EST Hospital Encounter [facility] [address] [place] [address] Multiple sclerosis (CMS/HCC) Discharge Disposition: Home or Self Care 05/21/2024 4:45 PM EST - 05/21/2024 11:59 PM EST Hospital Encounter [facility] [address] [place] [address] Multiple sclerosis (CMS/HCC) Discharge Disposition: Home or Self Care 05/13/2024 8:00 AM EST Office Visit [facility] [address] [facility] [address] [place] [phone] Eden Babb PA Multiple sclerosis ([facility]/HCC) (Primary Dx) 05/01/2024 Telephone [facility] [address] [facility] [address] [place] [phone] Eden Babb PA SYMPTOMS from Last 3 Months Surgical History Surgery Date Site/Laterality Comments OTHER SURGICAL HISTORY PROCEDURE:CHOLECYSTECOMY OTHER SURGICAL HISTORY PROCEDURE:TRIGEMINAL NERVE SURGERY Medical History Medical History Date Comments Multiple sclerosis ([facility]/HCC) 06/25/2011 DX: Multiple sclerosis (HCC) Myelopathy ([facility]) 06/25/2011 DX:Myelopat hy ([facility]);COMMENT:Cervical Myelopathy of thoracic region 05/13/2017 DX :Myelopathy of thoracic region Trigeminal neuralgia of left side of face 11/15/2017 DX:Trigeminal neuralgia of l eft side of face Family History Medical History Relation Name Comments Clotting disorder Father Cancer Mother Dementia Mother Hypertension Mother Multiple sclerosis Neg Hx Relation Name Status Comments Father Mother Social History Tobacco Use Types Packs/Day Years Used Date Smoking Tobacco: Never Smokeless Tobacco: Never Alcohol Use Standard Drinks/Week Comments Not Currently 0 (1 standard drink = 0.6 oz pur e alcohol) Housing Instability Answer Date Recorde d Are you worried that in the next 2 months you may not have stable housing? No 05/24/2024 Food Access & Nutrition Answer Date Rec orded Do you have access to a vari ety of food including fruits and vegetables? Yes 05/24/2024 Health Literacy Answer Date Recorded How often do you need to hav e someone help you when you read instructions, pamphlets, or other written material from your doctor or pharmacy? Never 05/24/2024 Caregiver: How often do you need to have someone help you when you read instructions, pamphlets, or other written material from your doctor or pharmacy? Not on file 05/24/2024 Financial Risk Answer Date Recorded How hard is it for you to pa y for the very basics like food, housing, medical care, and air conditioning / heating? Not very hard 05/24/2024 Transportation Answer Date Recorded Has the lack of transportati on kept you from meetings, work, or from getting things needed for daily living? No Has the lack of transportati on kept you from medical appointments or from getting medications? No 05/24/2024 Social Isolation Answer Date Recorded How often do you feel lonely or isolated from th ose around you? Never 05/24/2024 Food Risk Answer Date Recorded Within the past 12 months we worried whether our food would run out before we got money to buy more. Never true 05/24/2024 Within the past 12 months th e food we bought just didn't last and we didn't have money to get more. Never true 05/24/2024 Dependent Care Answer Date Recorded Do you need help finding or paying for care for your loved ones. For example, child welfare social worker or elderly care for an older adult? No 05/24/2024 Education Answer Date Recorded Do you think completing more education or training, like finishing a GED, going to college, or learning a trade, would be helpful for you? No 05/24/2024 Employment and Income Answer Date Recor ded During the last four weeks, have you been actively looking for work? No 05/24/2024 Living Situation Answer Date Recorded What is your living situation? 0 05/24/2024 Comments Unknown Sex and Gender Information Value Date Recorded Sex Assigned at Female 05/20/2024 2:19 PM EST Legal Sex Female 12:27 PM EST Gender Identity Female 05/20/2024 2:19 PM EST Sexual Orientation Not on file Obstetrics History Para Term AB IAB SAB Ectopic Multiple Livin g Live Births 1 1 1 1 1 Date Outcome GA Total Labor Labor/2nd/3rd Weight Sex Type Anes PTL Brisa A1 A5 Name Clin Term CS-Un spec Living Last Filed Vital Signs Vital Sign Reading Time Taken Comments Blood Pressure 115/74 06/10/2024 3:34 PM EST Pulse 86 06/10/2024 3:34 PM EST Temperature 36.1 ??C (96.9 ??F) 05/13/2024 8:35 AM ES T Respiratory Rate - - Oxygen Saturation 95% 05/13/2024 8:35 AM EST Inhaled Oxygen Concentration - - Weight 74.7 kg (164 lb 9.6 oz) 06/10/2024 3:34 P M EST Height 170.2 cm (5' 7 ) 06/10/2024 3:34 PM EST Body Mass Index 25.78 06/10/2024 3:34 PM EST Plan of Treatment Health Maintenance Due Date Last Done Comments Breast Cancer Screening 1965 Hepatitis B Vaccines (1 of 3 - 19+ 3-dose series) 01/13/1984 Zoster Vaccines (1 of 2) 2015 Pneumococcal Vaccine: 50+ Years (2 of 2 - PCV) 11/11/2016 11/12/2015 Colorectal Cancer Screening: Colonoscopy 04/06/2022 HIV Screening 04/06/2022 Hepatitis C Screening 04/06/2022 COVID-19 Vaccine ( season) 2023 03/20/2022, 03/07/2021, 09/07/2020, Additional history exists Influenza Vaccine (#1) 2023 , 02/22/2021, 04/24/2020, Additional history exists Cervical Cancer Screening: Pap Smear 07/27/2024 07/27/2021 DTaP,Tdap,and Td Vaccines (2 - Td or Tdap) 08/26/2024 08/26/2014 Social Influencers of Health Screening 05/24/2025 05/24/2024 Depression Screening 06/10/2025 06/10/2024 RSV Immunization Patients 60+ Years Old (1 - 1-dose 75+ series) 01/13/2040 Pneumococcal Vaccine: Pediatrics (0 to 5 Years) and At-Risk Patients (6 to 64 Years) Aged Out 11/12/2015 No longer eligible based on patient's age to complete this topic HIB Vaccines Aged Out No longer eligi ble based on patient's age to complete this topic HPV Vaccines Aged Out No longer eligi ble based on patient's age to complete this topic Hepatitis A Vaccines Aged Out No long er eligible based on patient's age to complete this topic IPV Vaccines Aged Out No longer eligi ble based on patient's age to complete this topic MMR Vaccines Aged Out No longer eligi ble based on patient's age to complete this topic Meningococcal ACWY Vaccine Aged Out N o longer eligible based on patient's age to complete this topic Meningococcal B Vacine Aged Out No lo nger eligible based on patient's age to complete this topic RSV Immunization Patients Under 20 months Aged Out No longer eligible based on patient's age to complete this topic Varicella Vaccines Aged Out No longer eligible based on patient's age to complete this topic Procedures Procedure Name Priority Date/Time Associated Diagnosis Comments CULTURE URINE Routine 06/10/2024 4:28 PM EST Urinary retention POC URINE AUTO W/O MICRO Routine 06/10/2024 4:13 PM EST Urinary retention MR THORACIC SPINE WO CONTRAST Routine 05/21/2024 6:28 PM EST Multiple sclerosis (CMS/HCC) MR CERVICAL SPINE WO CONTRAST Routine 05/21/2024 6:28 PM EST Multiple sclerosis (CMS/HCC) MR BRAIN WO CONTRAST Routine 05/21/2024 6:28 PM EST Multiple sclerosis (CMS/HCC) CBC WITH AUTO DIFFERENTIAL Routine 05/05/2024 3:38 PM EST Multiple sclerosis (CMS/HCC) VITAMIN B12 Routine 05/05/2024 3:38 PM EST Multiple sclerosis (CMS/HCC) VITAMIN D 25 HYDROXY Routine 05/05/2024 3:38 PM EST Multiple sclerosis (CMS/HCC) THYROID STIMULATING HORMONE Routine 05/05/2024 3:38 PM EST Multiple sclerosis (CMS/HCC) COMPREHENSIVE METABOLIC PANEL Routine 05/05/2024 3:38 PM EST Multiple sclerosis (CMS/HCC) CBC AND DIFFERENTIAL Routine 05/05/2024 3:38 PM EST Multiple sclerosis (CMS/HCC) PAP SMEAR Routine 07/27/2021 from Last 3 Months or Most Recently Relevant to Health Maintenance Results * Culture urine (06/10/2024 4:28 PM EST) Pathologist [facility] Culture, Urine <10,000 cfu/ml, insignificant count, no further workup. 06/11/2024 2:06 PM EST [facility] Urine Urine specimen obtained by clean catch procedure / Unknown Non-blood Collection / Unknown 06/10/2024 4:28 PM EST 06/10/2024 4:28 PM EST us Ela Najera MD LAB MICROBIOLOGY - GENERAL ORDERABLES Final Result [facility] [address] [place] [address], * (ABNORMAL) POC Urine Auto W/O Micro (06/10/2024 4:13 PM EST) Pathologist [facility] Leukocytes UA POC Positive(A) Negative Nitrite UA POC Negative Negative Urobilinogen UA POC Negative Negative Protein UA POC Negative Negative PH UA POC 5.0 5.0 - 9.0 Blood UA POC Trace(A) Negative, Trace Specific [place] UA POC 1.015 1.001 - 1.035 Ketones UA POC Negative Negative Bilirubin UA POC Negative Negative Glucose UA POC Normal Normal, Trace Urine Urine specimen obtained by clean catch procedure / Unknown 06/10/2024 4:13 PM EST Ela Najera MD POINT OF CARE TEST ENTER/ED IT ORDERABLES Final Result * MR Thoracic Spine wo Contrast (05/21/2024 6:28 PM EST) Anatomical Region Laterality Modality T-spine, Spine Magnetic Resonan ce 05/22/2024 8:36 AM EST Impressions 05/22/2024 9:49 AM EST Stable MRI appearance of the thoracic cord with multifocal demyelinating lesions, some of which demonstrate associated volume loss. ??No new lesion. -------- FINAL REPORT -------- Dictated By: Yousif Dejesus Dictated Date: 05/22/2024 08:36 ET Assigned Physician: Yousif Dejesus Reviewed and Electronically Signed By: Yousif Dejesus Signed Date: 05/22/2024 09:49 ET Workstation ID: [id number] Transcribed By: Self Edit Transcribed Date: 05/22/2024 08:36 ET Narrative 05/22/2024 9:49 AM EST PROCEDURE: Noncontrast MRI of the thoracic spine. HISTORY: Multiple sclerosis, monitor. COMPARISON: 11/15/2022. TECHNIQUE: Multiplanar multisequence MRI of the thoracic spine without intravenous contrast administration. FINDINGS: There are scattered nonspecific T2 hyperintense lesions in the liver, probably cysts but not definitively characterized on this study. ??No other soft tissue findings. ?? Normal alignment. ??No compression deformity. ??No concerning marrow infiltrative lesion. ??Small hemangiomas in the T9 and T3 vertebral bodies. Mild degenerative changes of the vertebral endplates and facet joints. ??No disc herniation. ??No significant spinal or foraminal stenosis. Normal position of the conus at L1. --There is a stable faint area of signal abnormality and mild atrophy in the left posterior cord at T3. --Stable area of signal abnormality and volume loss in the dorsal cord at T4-5. ??This is most evident on the sagittal inversion recovery sequence on the accompanying MRI of the cervical spine. --Stable elongated dorsal cord atrophy antegrade signal abnormality at T7. --Stable focus of signal abnormality in the right lateral cord at T8. --Stable patchy signal abnormality the bilateral lateral cord at T8-9. --Stable signal abnormality and mild atrophy in the left lateral cord at T9. --Stable small focus of signal abnormality in the right anterior cord at the level of the T10 endplate. --Stable patchy central T2 signal in the cord at the level of the inferior T11 endplate. --Stable signal abnormality in the central anterior and left dorsal cord at the level of the inferior T12 endplate. Procedure Note Yousif Dejesus MD - 05/22/2024 PROCEDURE: Noncontrast MRI of the thoracic spine. HISTORY: Multiple sclerosis, monitor. COMPARISON: 11/15/2022. TECHNIQUE: Multiplanar multisequence MRI of the thoracic spine withoutintravenous contrast administration. FINDINGS: There are scattered nonspecific T2 hyperintense lesions in the liver,probably cysts but not definitively characterized on this study. No othersoft tissue findings. Normal alignment. No compression deformity. No concerning marrowinfiltrative lesion. Small hemangiomas in the T9 and T3 vertebralbodies. Mild degenerative changes of the vertebral endplates and facet joints. Nodisc herniation. No significant spinal or foraminal stenosis. Normal position of the conus at L1. --There is a stable faint area of signal abnormality and mild atrophy inthe left posterior cord at T3. --Stable area of signal abnormality and volume loss in the dorsal cord atT4-5. This is most evident on the sagittal inversion recovery sequence onthe accompanying MRI of the cervical spine. --Stable elongated dorsal cord atrophy antegrade signal abnormality atT7. --Stable focus of signal abnormality in the right lateral cord at T8. --Stable patchy signal abnormality the bilateral lateral cord at T8-9. --Stable signal abnormality and mild atrophy in the left lateral cord atT9. --Stable small focus of signal abnormality in the right anterior cord atthe level of the T10 endplate. --Stable patchy central T2 signal in the cord at the level of the [id number] endplate. --Stable signal abnormality in the central anterior and left dorsal cordat the level of the inferior T12 endplate. IMPRESSION: Stable MRI appearance of the thoracic cord with multifocal demyelinatinglesions, some of which demonstrate associated volume loss. No newlesion. -------- FINAL REPORT -------- Dictated By: Yousif Dejesus Dictated Date: 05/22/2024 08:36 ET Assigned Physician: Yousif Dejesus Reviewed and Electronically Signed By: Yousif Dejesus Signed Date: 05/22/2024 09:49 ET Workstation ID: [id number] Transcribed By: Self Edit Transcribed Date: 05/22/2024 08:36 ET Eden TAN IMG MRI PROCEDURES Final Res ult * MR Cervical Spine wo Contrast (05/21/2024 6:28 PM EST) Anatomical Region Laterality Modality C-spine, Spine Magnetic Resonan ce 05/22/2024 9:05 AM EST Impressions 05/22/2024 9:14 AM EST Stable patchy multifocal signal abnormality in the cervical cord compatible with demyelinating plaques. ??No new lesion. -------- FINAL REPORT -------- Dictated By: Yousif Dejesus Dictated Date: 05/22/2024 09:05 ET Assigned Physician: Yousif Dejesus Reviewed and Electronically Signed By: Yousif Dejesus Signed Date: 05/22/2024 09:14 ET Workstation ID: [id number] Transcribed By: Self Edit Transcribed Date: 05/22/2024 09:05 ET Narrative 05/22/2024 9:14 AM EST PROCEDURE: MRI of the cervical spine without intravenous contrast. TECHNIQUE: Sagittal and axial multisequence MRI of the cervical spine without intravenous contrast administration. HISTORY: Multiple sclerosis, monitor COMPARISON: 11/15/2022. FINDINGS: Please see the accompanying dedicated MRI brain report for findings involving the brain and skull base. The paraspinous soft tissues are normal. Alignment is normal. ??No concerning marrow infiltrative lesion. There is stable subtle ill-defined T2 signal abnormality in the left lateral cord at the cervicomedullary junction. Stable diffuse ill-defined signal abnormality in the cord from the mid C2 level through the mid C3 level. Stable patchy T2 signal abnormality in the left lateral cord at C5. Stable elongated area of T2 signal abnormality in the dorsal cord at C6. Stable small focus of signal abnormality in the left posterior cord at C6-7. There are also lesions in the upper thoracic cord which will be detailed in a separate report. Cervical disc levels: C2-3: No significant disc or facet abnormality. ??No spinal or foraminal stenosis. C3-4: No significant disc or facet abnormality. ??No spinal or foraminal stenosis. C4-5: Small left uncovertebral spurs and mild left facet arthropathy. ??Mild left foraminal stenosis. ??No spinal stenosis. C5-6: Mild disc space height loss and endplate irregularity with small anterior endplate osteophytes. ??No spinal or foraminal stenosis. C6-7: Mild left facet arthropathy. ??No spinal or foraminal stenosis. C7-T1: Mild lateral facet arthropathy. ??No spinal or foraminal stenosis. Procedure Note Yousif Dejesus MD - 05/22/2024 PROCEDURE: MRI of the cervical spine without intravenous contrast. TECHNIQUE: Sagittal and axial multisequence MRI of the cervical spinewithout intravenous contrast administration. HISTORY: Multiple sclerosis, monitor COMPARISON: 11/15/2022. FINDINGS: Please see the accompanying dedicated MRI brain report for findingsinvolving the brain and skull base. The paraspinous soft tissues are normal. Alignment is normal. No concerning marrow infiltrative lesion. There is stable subtle ill-defined T2 signal abnormality in the leftlateral cord at the cervicomedullary junction. Stable diffuse ill-defined signal abnormality in the cord from the mid N2ftnpt through the mid C3 level. Stable patchy T2 signal abnormality in the left lateral cord at C5. Stable elongated area of T2 signal abnormality in the dorsal cord at C6. Stable small focus of signal abnormality in the left posterior cord atC6-7. There are also lesions in the upper thoracic cord which will be detailedin a separate report. Cervical disc levels: C2-3: No significant disc or facet abnormality. No spinal or foraminalstenosis. C3-4: No significant disc or facet abnormality. No spinal or foraminalstenosis. C4-5: Small left uncovertebral spurs and mild left facet arthropathy.Mild left foraminal stenosis. No spinal stenosis. C5-6: Mild disc space height loss and endplate irregularity with smallanterior endplate osteophytes. No spinal or foraminal stenosis. C6-7: Mild left facet arthropathy. No spinal or foraminal stenosis. C7-T1: Mild lateral facet arthropathy. No spinal or foraminal stenosis. IMPRESSION: Stable patchy multifocal signal abnormality in the cervical cordcompatible with demyelinating plaques. No new lesion. -------- FINAL REPORT -------- Dictated By: Yousif Dejesus Dictated Date: 05/22/2024 09:05 ET Assigned Physician: Yousif Dejesus Reviewed and Electronically Signed By: Yousif Dejesus Signed Date: 05/22/2024 09:14 ET Workstation ID: [id number] Transcribed By: Self Edit Transcribed Date: 05/22/2024 09:05 ET Eden TAN Janny MRI PROCEDURES Final Res ult * MR Brain wo Contrast (05/21/2024 6:28 PM EST) Anatomical Region Laterality Modality Head and Neck Magnetic Resonan ce 05/22/2024 9:24 AM EST Impressions 05/22/2024 9:31 AM EST Stable juxtacortical, periventricular, brainstem, and cerebellar lesions compatible with demyelinating plaques in this patient with a history of multiple sclerosis. -------- FINAL REPORT -------- Dictated By: Yousif Dejesus Dictated Date: 05/22/2024 09:24 ET Assigned Physician: Yousif Dejesus Reviewed and Electronically Signed By: Yousif Dejesus Signed Date: 05/22/2024 09:31 ET Workstation ID: [id number] Transcribed By: Self Edit Transcribed Date: 05/22/2024 09:24 ET Narrative 05/22/2024 9:31 AM EST PROCEDURE: Noncontrast MRI of the brain. HISTORY: Multiple sclerosis, monitor. COMPARISON: 05/27/2022. TECHNIQUE: Multiplanar multisequence MRI of the brain without intravenous contrast administration. FINDINGS: BRAIN: There are stable scattered lesions involving the juxtacortical greater than periventricular supratentorial white matter. ??Stable patchy signal abnormality in the brainstem and stable patchy signal in the brachium pontis bilaterally. ??Small lesions in the left cerebellum are also unchanged. ??Some of the lesions are hypointense on the T1-weighted spin-echo sequence; the T1 lesion burden is unchanged. ?? No diffusion abnormality. ??No mass or extra-axial fluid collection. ??No hydrocephalus. ??The major intracranial flow voids are preserved. Age commensurate ventricles and sulci. ORBITS: Normal. ??Normal appearance of the optic nerves. SINUSES/MASTOIDS: Moderate left mastoid fluid. CALVARIUM: Mild hyperostosis frontalis interna. OTHER: The visualized skull base soft tissues are normal. ??Mild degenerative changes of the visualized cervical spine. Procedure Note Yousif Dejesus MD - 05/22/2024 PROCEDURE: Noncontrast MRI of the brain. HISTORY: Multiple sclerosis, monitor. COMPARISON: 05/27/2022. TECHNIQUE: Multiplanar multisequence MRI of the brain without intravenouscontrast administration. FINDINGS: BRAIN: There are stable scattered lesions involving the juxtacorticalgreater than periventricular supratentorial white matter. Stable patchysignal abnormality in the brainstem and stable patchy signal in thebrachium pontis bilaterally. Small lesions in the left cerebellum arealso unchanged. Some of the lesions are hypointense on the [id number] sequence; the T1 lesion burden is unchanged. No diffusionabnormality. No mass or extra-axial fluid collection. No hydrocephalus.The major intracranial flow voids are preserved. Age commensurateventricles and sulci. ORBITS: Normal. Normal appearance of the optic nerves. SINUSES/MASTOIDS: Moderate left mastoid fluid. CALVARIUM: Mild hyperostosis frontalis interna. OTHER: The visualized skull base soft tissues are normal. Milddegenerative changes of the visualized cervical spine. IMPRESSION: Stable juxtacortical, periventricular, brainstem, and cerebellar lesionscompatible with demyelinating plaques in this patient with a history ofmultiple sclerosis. -------- FINAL REPORT -------- Dictated By: Yousif Dejesus Dictated Date: 05/22/2024 09:24 ET Assigned Physician: Yousif Dejesus Reviewed and Electronically Signed By: Yousif Dejesus Signed Date: 05/22/2024 09:31 ET Workstation ID: [id number] Transcribed By: Self Edit Transcribed Date: 05/22/2024 09:24 ET [facility] IMG MRI PROCEDURES Final Res ult * (ABNORMAL) CBC auto differential (05/05/2024 3:38 PM EST) WBC 4.6(L) 4.8 - 10.8 K/mcL LAB HEMETOLOGY METHOD 05/05/2024 6:18 PM [facility] RBC 4.60 3.80 - 4.80 M/mcL LAB HEMETOLOGY METHOD 05/05/2024 6:18 PM [facility] Hemoglobin 13.5 11.5 - 16.0 g/dL LAB HEMETOLOGY METHOD 05/05/2024 6:18 PM [facility] Hematocrit 43.1 35.0 - 47.0 % LAB HEMETOLOGY METHOD 05/05/2024 6:18 PM [facility] MCV 93.7 79.0 - 98.0 FL LAB HEMETOLOGY METHOD 05/05/2024 6:18 PM [facility] MCH 29.3 27.0 - 32.0 pcg LAB HEMETOLOGY METHOD 05/05/2024 6:18 PM [facility] MCHC 31.3(L) 32.0 - 37.0 g/dL LAB HEMETOLOGY METHOD 05/05/2024 6:18 PM [facility] RDW 12.4 11.0 - 15.0 % LAB HEMETOLOGY METHOD 05/05/2024 6:18 PM [facility] Platelets 289 130 - 400 K/mcL LAB HEMETOLOGY METHOD 05/05/2024 6:18 PM EST [facility] MPV 9.8 7.0 - 11.0 FL LAB HEMETOLOGY METHOD 05/05/2024 6:18 PM [facility] NRBC 0.0 <1.0 % LAB HEMETOLOGY METHOD 05/05/2024 6:18 PM [facility] NRBC Absolute 0.00 <0.10 K/mcL LAB HEMETOLOGY METHOD 05/05/2024 6:18 PM [facility] Neutrophils Relative 67.6 % LAB HEMETOLOGY METHOD 05/05/2024 6:18 PM [facility] Lymphocytes Relative 20.3 % LAB HEMETOLOGY METHOD 05/05/2024 6:18 PM [facility] Monocytes Relative 10.0 % LAB HEMETOLOGY METHOD 05/05/2024 6:18 PM [facility] Eosinophils Relative 1.5 % LAB HEMETOLOGY METHOD 05/05/2024 6:18 PM [facility] Basophils Relative 0.4 % LAB HEMETOLOGY METHOD 05/05/2024 6:18 PM [facility] Immature Granulocytes Relative 0.2 % LAB HEMETOLOGY METHOD 05/05/2024 6:18 PM [facility] Neutrophils Absolute 3.10 1.50 - 7.00 K/mcL LAB HEMETOLOGY METHOD 05/05/2024 6:18 PM [facility] Lymphocytes Absolute 0.93(L) 1.00 - 5.00 K/mcL LAB HEMETOLOGY METHOD 05/05/2024 6:18 PM [facility] Monocytes Absolute 0.46 0.20 - 1.00 K/mcL LAB HEMETOLOGY METHOD 05/05/2024 6:18 PM [facility] Eosinophils Absolute 0.07 0.00 - 0.50 K/mcL LAB HEMETOLOGY METHOD 05/05/2024 6:18 PM EST [facility] Basophils Absolute 0.02 0.00 - 0.20 K/[facility] LAB HEMETOLOGY METHOD 05/05/2024 6:18 PM EST [facility] Immature Granulocytes Absolute 0.01 0.00 - 0.03 K/[facility] LAB HEMETOLOGY METHOD 05/05/2024 6:18 PM EST [facility] Blood Venous blood specimen / Unknown Venipuncture / Unknown 05/05/2024 3:38 PM EST 05/05/2024 3:38 PM EST [facility] LAB BLOOD ORDERABLES Final R esult Performing Organization Address City/[facility]/ZIP Co de Phone Number [facility] [address] [place] [address], [place] [phone] * (ABNORMAL) Vitamin D 25 hydroxy (05/05/2024 3:38 PM EST) Vit D, 25-Hydroxy 82.8(H) 30.0 - 80.0 ng/mL LAB CHEMISTRY METHOD 05/05/2024 6:42 PM EST [facility] Blood Venous blood specimen / Unknown Venipuncture / Unknown 05/05/2024 3:38 PM EST 05/05/2024 3:38 PM EST [facility] LAB BLOOD ORDERABLES Final R esult Performing Organization Address City/[facility]/ZIP Co de Phone Number [facility] [address] [place] [address], [place] [phone] * Thyroid stimulating hormone (05/05/2024 3:38 PM EST) TSH 1.59 0.40 - 4.00 mcIU/mL LAB CHEMISTRY METHOD 05/05/2024 6:42 PM EST [facility] Blood Venous blood specimen / Unknown Venipuncture / Unknown 05/05/2024 3:38 PM EST 05/05/2024 3:38 PM EST [facility] LAB BLOOD ORDERABLES Final R esult [facility] [address] [place] [address], [place] [phone] * Vitamin B12 (05/05/2024 3:38 PM EST) [facility] Vitamin B-12 596 250 - 900 pcg/mL LAB CHEMISTRY METHOD 05/05/2024 7:02 PM [facility] Blood Venous blood specimen / Unknown Venipuncture / Unknown 05/05/2024 3:38 PM EST 05/05/2024 3:38 PM EST [facility] LAB BLOOD ORDERABLES Final R esult Performing Organization Address City/[facility]/ZIP Co de Phone Number [facility] [address] [place] [address], [place] [phone] * (ABNORMAL) Comprehensive metabolic panel (05/05/2024 3:38 PM EST) [facility] Sodium 138 133 - 145 mmol/L LAB CHEMISTRY METHOD 05/05/2024 7:02 PM [facility] Potassium 4.5 3.5 - 5.5 mmol/L LAB CHEMISTRY METHOD 05/05/2024 7:02 PM [facility] Chloride 104 96 - 110 mmol/L LAB CHEMISTRY METHOD 05/05/2024 7:02 PM [facility] CO2 30 21 - 32 mmol/L LAB CHEMISTRY METHOD 05/05/2024 7:02 PM [facility] Anion Gap 4 3 - 11 LAB CHEMISTRY METHOD 05/05/2024 7:02 PM [facility] Glucose 101(H) 70 - 100 mg/dL LAB CHEMISTRY METHOD 05/05/2024 7:02 PM [facility] BUN 17 5 - 25 mg/dL LAB CHEMISTRY METHOD 05/05/2024 7:02 PM [facility] Creatinine 0.66 0.50 - 1.10 mg/dL LAB CHEMISTRY METHOD 05/05/2024 7:02 PM [facility] eGFR 101 >=60 mL/min/1. 73m2 LAB CHEMISTRY METHOD 05/05/2024 7:02 PM [facility] Comment:Calculation based on the??Chronic Kidney Disease Epidemiology Collaboration (CKD-EPI) equation refit??without adjustment for race. BUN/Creatinine Ratio 25.8 LAB CHEMISTRY METHOD 05/05/2024 7:02 PM [facility] Calcium 9.3 8.5 - 10.5 mg/dL LAB CHEMISTRY METHOD 05/05/2024 7:02 PM [facility] AST (SGOT) 24 10 - 42 unit/L LAB CHEMISTRY METHOD 05/05/2024 7:02 PM [facility] ALT (SGPT) 36 10 - 60 unit/L LAB CHEMISTRY METHOD 05/05/2024 7:02 PM [facility] Alkaline Phosphatase 96 42 - 121 unit/L LAB CHEMISTRY METHOD 05/05/2024 7:02 PM [facility] Total Protein 7.0 6.0 - 8.0 g/dL LAB CHEMISTRY METHOD 05/05/2024 7:02 PM [facility] Albumin 4.0 3.2 - 5.0 g/dL LAB CHEMISTRY METHOD 05/05/2024 7:02 PM [facility] Total Bilirubin 0.4 0.0 - 1.4 mg/dL LAB CHEMISTRY METHOD 05/05/2024 7:02 PM [facility] Blood Venous blood specimen / Unknown Venipuncture / Unknown 05/05/2024 3:38 PM EST 05/05/2024 3:38 PM EST [facility] LAB BLOOD ORDERABLES Final R esult [facility] [address] [place] [address], * Pap smear (07/27/2021) 07/27/2021 Narrative HISTORICAL TESTING LAB RESULTING AGENCY - 08/07/2021 4:35 PM EDT [id number] THINPREP PAP, IMAGED: NEGATIVE FOR SQUAMOUS INTRAEPITHELIAL LESION AND MALIGNANCY. ATROPHY. NOTE: THE PAP TEST IS A SCREENING TEST WITH AN INHERENT FALSE NEGATIVE RATE. AUTOMATED PRESCREENING OF ALL LIQUID BASED SPECIMENS IS PERFORMED BY THE THINPREP IMAGING SYSTEM UNLESS OTHERWISE STATED. JACK CHUNG(ASCP) (CASE ELECTRONICALLY SIGNED 08 07 2021) RESULT OF APTIMA HIGH RISK HPV ASSAY: HIGH RISK HPV: ??NEGATIVE (SEROTYPES 16,18,31,33,35,39,45,51,52,56,58,59,66,68) COMPLETED ON 2021-07-28 ADEQUACY: SATISFACTORY . SOURCE: THINPREP PAP HPV ANY DX: ??REFLEX 16 AND 18, CERVICAL, IMAGED CLINICAL INFORMATION: HPV ANY DIAGNOSIS. HORMONES, PAP HX NEGATIVE, [Z12.4, Z01.419] Meng Lindsay DO LAB CYTOLOGY ORDERABLES Final Result HISTORICAL TESTING LAB RESULTING AGENCY from Last 3 Months or Most Recently Relevant to Health Maintenance Insurance [employer] MEDICAID [place] [id number] Care Teams Commercial Green Retrofit Architect Relationship Specialty Start Date End Date Chato Paz MD [address] [place] [address] PCP - General 12/14/22
--- OUTSIDE RECORDS SUMMARY | 2024-07-02 09:01 | XMS_ITS | Clinical Summary ---
Author Organization [facility] Address [address] [place] [address] Care Team Providers Care Internet Programmer Name Role Phone Chato Paz MD Primary Care Provider [phone] Allergies Active Allergy Reactions Criticality Noted Date Comments Bupropion 12/11/2010 Carbamazepine Hives Medium 05/03/2018 Medications Medication Sig Dispensed Refills Start Date End Date Status Probiotic CAPS Take by mouth. 0 Active Cholecalciferol (VITAMIN D3) 25 MCG (1000 UT) CAPS Take 1 capsule by mouth. 0 Active docusate sodium (COLACE) 100 MG capsule Take 1 capsule (100 mg total) by mouth. 0 Active fluticasone (FLONASE) 50 MCG/ACT nasal spray spray or apply 2 sprays inside Nose. 0 08/26/2014 Active vitamin B-12 (CYANOCOBALAMIN) 100 MCG tablet Take 0.5 tablets (50 mcg total) by mouth daily. 0 Active Ocrelizumab (OCREVUS IV) Inject into the vein. 0 Active estradiol (ESTRACE) 0.1 MG/GM vaginal cream 0 07/27/2021 Active LORazepam (ATIVAN) 0.5 MG tablet 1 po qd PRN 20 tablet 0 12/13/2021 Active baclofen (LIORESAL) 10 MG tabletIndications: Multiple sclerosis (HCC) Take 2 tablets (20 mg total) by mouth 3 (three) times a day. 540 tablet 3 05/01/2023 Active gabapentin (NEURONTIN) 300 MG capsule 2 po tid 540 capsule 3 05/01/2023 Active methylPREDNISolone (Medrol) 4 MG tablet follow package directions 21 tablet 0 07/05/2023 Active carBAMazepine (CARBATROL) 100 MG 12 hr capsule Take 1 capsule (100 mg total) by mouth. 0 07/26/2022 Active Polyethylene Glycol 3350 (PEG 3350) 17 g PACK 0 08/30/2023 Active Aspirin 81 MG CAPS Take 81 mg by mouth. 0 07/17/2023 Active ergocalciferol (VITAMIN D2) capsule 83444 units TAKE 1 CAPSULE BY MOUTH ONE TIME PER WEEK x 12 wks 12 capsule 0 11/25/2023 Active DULoxetine (CYMBALTA) DR capsule 30 mg TAKE 1 CAPSULE BY MOUTH EVERY DAY 90 capsule 1 12/18/2023 Active modafinil (PROVIGIL) 200 MG tablet TAKE 1 TABLET BY MOUTH EVERY DAY IN THE MORNING 30 tablet 5 01/19/2024 Active DULoxetine (CYMBALTA) DR capsule 60 mg TAKE 1 CAPSULE BY MOUTH EVERY DAY 90 capsule 1 01/19/2024 Active modafinil (PROVIGIL) 200 MG tablet TAKE 1 TABLET BY MOUTH EVERY DAY IN THE MORNING 30 tablet 0 01/14/2024 Active omeprazole (PriLOSEC) 20 MG capsule TAKE 2 CAPSULES BY MOUTH TWICE A DAY 360 capsule 1 02/07/2024 Active Active Problems Problem Noted Date Diagnosed Date Multiple sclerosis 02/18/2020 Trigeminal neuralgia 08/05/2019 Spasticity 08/05/2019 Cervical myelopathy 08/05/2019 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 Fatigue 08/05/2019 Family History Medical History Relation Name Comments Blood Clots Father Cancer Mother Dementia Mother Hypertension Mother Multiple sclerosis Neg Hx Relation Name Status Comments Father Mother Social History Tobacco Use Types Packs/Day Years Used Date Smoking Tobacco: Never Smokeless Tobacco: Never Tobacco Cessation:Counseling Given: Not Answered Alcohol Use Standard Drinks/Week Comments Yes 0 (1 standard drink = 0.6 oz pur e alcohol) Sex and Gender Information Value Date Recorded Sex Assigned at Female 04/18/2021 10:21 AM EST Gender Identity Not on file Sexual Orientation Not on file Job Start Date Occupation Industry Not on file Not on file Not on file Last Filed Vital Signs Vital Sign Reading Time Taken Comments Blood Pressure 125/81 01/07/2024 3:53 PM EDT Pulse 81 01/07/2024 3:53 PM EDT Temperature 35.9 ??C (96.6 ??F) 11/21/2023 9:00 AM ED T Respiratory Rate 18 11/21/2023 11:52 AM EDT Oxygen Saturation 96% 01/07/2024 3:53 PM EDT Inhaled Oxygen Concentration - - Weight 72.6 kg (160 lb) 09/03/2023 4:06 PM EDT Height 170.2 cm (5' 7 ) 05/01/2023 4:02 PM EST Body Mass Index 25.06 05/01/2023 4:02 PM EST Plan of Treatment Health Maintenance Due Date Last Done Comments Hepatitis B Vaccines (1 of 3 - 3-dose series) 1965 Hepatitis C Screening 1965 COVID-19 Vaccine (#1) 1965 Depression Screening 1977 BMI Counseling 1983 Preventative Health Evaluation 1983 Cervical Cancer Screening (Pap Smear) 1986 Colon Cancer Screening (Colonoscopy) 2010 Breast Cancer Screening (Mammogram) 2015 Shingrix-Zoster Vaccine (1 of 2) 2015 Influenza Vaccine (#1) 2023 , 02/22/2021, 04/24/2020, Additional history exists DTap / Tdap / Td (2 - Td or Tdap) 08/26/2024 08/26/2014 Pneumococcal Vaccine Aged Out 11/12/2015 No long er eligible based on patient's age to complete this topic RSV Ped < 20 months Aged Out No longe r eligible based on patient's age to complete this topic Care Teams Internet Programmer Relationship Specialty Start Date End Date Chato Paz MD [address] [place] [address] PCP - General Internal Medicine 12/14/22
--- OUTSIDE RECORDS SUMMARY | 2024-07-02 09:01 | XMS_ITS | Data Portability ---
Author Organization [place] [facility] Address [address] [place] [id number] Care Team Providers Care Printing Manager Name Role Phone [facility] Primary Care Provider Assessment Encounter Date Assessment Date Assessment LastModified by Organization Details LastModified Time 10/08/2022 10/08/2022 Time On Scene with Patient: 00:41:42 Brief Overview: 57 y/o female c/o left ear pain x 3 days, ear is tender to the touch with intermittent drainage. she states hearing feels decreased. no hx of injury. no fever, chills, cough, congestion. pt has hx chronic ear infections and OE due to HS. pt also c/o urinary urgency, no dysuria, fever, flank pain or hematuria. pt also reports she had an episode of urinary incontinence last night. Vital Signs: BP 140/82, HR 86, RR 18, T 98.3, O2 98% RA Exam: 57 y/o female well appearing, alert NAD sitting on her couch. left ear: + erythema, mild edema left canal. + tenderness of the left tragus, slight discharge noted. abdomen: non distended, normal bowel sounds, soft, non tender. no suprapubic tenderness no CVA tenderness. DDx considered, with rationale: OM: considered but TMs is clear. Ruptured TM: considered but TMs intact. mastoiditis: considered but no erythema, edema or mastoid tenderness. UTI: considered but no dysuria, UA not suggestive of UTI. Pyelonephritis: considered but no CVA tenderness she is afebrile. sepsis: considered but she is afebrile, vitals are stable, she does not appear septic. UA: no blood, leuks or nitrates. culture not indicated. Proper Personal Protective Equipment (PPE), including gloves, eye protection and masks were donned and doffed appropriately and all equipment cleaned using approved technique with germicidal disposable wipes prior to and after care of this patient according to [facility]'s infection prevention protocols. [email or web address] Not available 10/08/2022 12:13:54 Plan of Treatment Reminders Order Date Submit Date Provider Last Modified By Organization Details Last Modified Time Details Appointments None recorded. Lab urinalysis , dipstick 2022 023 [email or web address] 5 [facility] - [facility], [address], [place], [address], 11:29:34 Referral None recorded. Procedures None recorded. Surgeries None recorded. Imaging None recorded. Medication Orders Ciprodex 0.3 %-0.1 % ear drops,susp ension 2022 023 [facility] #[id number], [address] [place], [address], 11:29:46 Patient TargetsNo targets recorded. Patient Instructions Encounter Date Encounter Id Patient Instructions Last Modified By Organization Details Last Modified Time 10/08/2022 [id number] Thank you for yo ur visit with [facility] today. We cannot always find the exact cause of your symptoms during your initial visit. Please follow up with your primary care provider or specialist within 12-24 hours within 24-48 hours within 2-3 days to be rechecked or seek medical attention if your symptoms do not go away or get worse. If you develop any new or worsening symptoms and need after hours care, please go to nearest ER and/or call 911. If you have additional concerns or develop a change in your condition between 8am-10pm, please call [facility] at [phone] to help navigate your care. [email or web address] Not available 10/08/2022 12:12:22 Reason for Referral None Reported. Results Created Date Observation Date Name Description Value Unit Range Abnormal Flag Note LastModifiedBy Organization Detail LastModifiedTime 10/09/19 23 10/08/2022 urina lysis , dipst ick Appearance clear Not Available [facility] [address], [place], [address], 10/08/2022 11:27:19 10/09/1910/08/2022 urina lysis , dipst ick Color yellow Not Available [facility] [address] [place], [address], 10/08/2022 11:27:19 10/09/1910/08/2022 urina lysis , dipst ick Glucose (ref: neg Neg Not Available [facility] [address] [place], [address], 10/08/2022 11:27:19 10/09/1910/08/2022 urina lysis , dipst ick Bilirubin (ref: neg) Neg Not Available [facility] [address] [place], [address], 10/08/2022 11:27:19 10/09/1910/08/2022 urina lysis , dipst ick Ketones (ref: neg) Neg Not Available [facility] [address], [place], [address], 10/08/2022 11:27:19 10/09/1910/08/2022 urina lysis , dipst ick Specific [place] (ref: 1.003 - 1.035) 1.010 Not Available [facility] [address] [place], [address], 10/08/2022 11:27:19 10/09/1910/08/2022 urina lysis , dipst ick Blood (ref: neg) Neg Not Available [facility] [address] [place], [address], 10/08/2022 11:27:19 10/09/1910/08/2022 urina lysis , dipst ick pH (ref: 5.0-7.0) 7.5 Not Available [facility] [address] [place], [address], 10/08/2022 11:27:19 10/09/1910/08/2022 urina lysis , dipst ick Protein (ref: neg) Neg Not Available [address], [address], 10/08/2022 11:27:19 10/09/19 23 10/08/2022 urina lysis , dipst ick Urobilinogen (ref: 0.2-1.0) 0.2 Not Available [address], [address], 10/08/2022 11:27:19 10/09/19 23 10/08/2022 urina lysis , dipst ick Nitrites (ref: neg) negati ve Not Available [address], [address], 10/08/2022 11:27:19 10/09/19 23 10/08/2022 urina lysis , dipst ick Leukocytes (ref: neg) Neg Not Available [address], [address], 10/08/2022 11:27:19 10/09/1910/08/2022 urina lysis , dipst ick Location [facility] , [address] [place] [phone], [id number] [phone] Not Available [address], [address], 10/08/2022 11:27:19 Result Notes None recorded. Procedures Surgical History Date Name Laterality Status Provider Name and Address Organization Details Recorded Time Cholecystectomy completed DOMINICK Simeon [address] [place] [address], [address], [place] [facility] 10/08/2022 11:14:17 section completed DOMINICK Simeon [address] [place] [address], [address], [place] [facility] 10/08/2022 11:14:35 Imaging Results None recorded. Procedure Notes None recorded. Medical Equipment None Reported. Allergies Allergen ID Allergen Name Allergen Category Reaction Reaction Severity Criticality Documentation Date Start Date Code Code System Note Provider Name and Address Organization Details Recorded Time [id number] Wellbutri n medicatio n Not available Not available Not available 10/08/2022 14965 RxNorm DOMINICK Simeon [address], [facility] [place], [address], [place] [facility] 11:10:24 Medications Name Sig Start Date Stop Date Status Note LastModified by Organization Details LastModified Time poise*pads active Not Available Not Av ailable Not Available doxycycline hyclate 100 mg capsule active Not Available Not Available N ot Available ondansetron HCl 4 mg tablet TAKE 1 TABLET BY MOUTH EVERY 8 HOURS NEEDED FOR NAUSEA AND VOMITING active Not Available Not Available No t Available methenamine hippurate 1 gram tablet TAKE 1 TABLET BY MOUTH TWICE DAILY (WITH CRANBERRY OR VITAMIN C 500 MG) active Not Available Not Available No t Available modafinil 200 mg tablet TAKE 1 TABLET BY MOUTH EVERY DAY IN THE MORNING active Not Available Not Available No t Available lorazepam 0.5 mg tablet TAKE 1 TABLET BY MOUTH EVERY DAY NEEDED active Not Available Not Available No t Available tamsulosin 0.4 mg capsule TAKE 1 CAPSULE BY MOUTH EVERY EVENING active Not Available Not Available No t Available meclizine 25 mg tablet TAKE 1 TABLET BY MOUTH 3 TIMES A DAY active Not Available Not Available No t Available baclofen 10 mg tablet TAKE 2 TABLETS BY MOUTH 3 TIMES A DAY. active Not Available Not Available No t Available cephalexin 500 mg capsule TAKE 1 CAPSULE BY MOUTH TWICE A DAY 10/08 completed Not Available Not Available Not Available gabapentin 300 mg capsule TAKE 2 CAPSULES BY MOUTH 3 TIMES DAILY active Not Available Not Available No t Available omeprazole 20 mg capsule,del ayed release TAKE 2 CAPSULES BY MOUTH TWICE A DAY active Not Available Not Available No t Available polyethylen e glycol 3350 17 gram/dose oral powder MIX DIRECTED AND TAKE 17 G BY MOUTH EVERY OTHER DAY. active Not Available Not Available No t Available estradiol 0.01% (0.1 mg/gram) vaginal cream APPLY 1/2 GRAMS WITH FINGER NIGHTLY FOR 2 WEEKS, THEN SATURDAY, SATURDAY , SATURDAY. 10/08 completed Not Available Not Available Not Available fluticasone propionate 50 mcg/actuati on nasal spray,suspe nsion SPRAY 1 SPRAY INTO EACH NOSTRIL DAILY active Not Available Not Available No t Available amoxicillin 875 mg-feli m clavulanate 125 mg tablet 10/08 completed Not Available Not Available Not Available ciprofloxac in 0.3 %-dexametha sone 0.1 % ear drops,suspe nsion INSTILL 4 DROPS INTO AFFECTED EAR(S) TWICE A DAY FOR 7 DAYS active Not Available Not Available No t Available trospium 20 mg tablet TAKE 1 TABLET BY MOUTH TWICE A DAY 10/08 completed Not Available Not Available Not Available duloxetine 30 mg capsule,del ayed release TAKE 1 CAPSULE BY MOUTH EVERY DAY active Not Available Not Available No t Available duloxetine 60 mg capsule,del ayed release TAKE 1 CAPSULE BY MOUTH EVERY DAY active Not Available Not Available No t Available Myrbetriq 50 mg tablet,exte nded release TAKE 1 TABLET BY MOUTH EVERY DAY active Not Available Not Available No t Available Vitals Date Recorded Oxygen saturation Oxygen saturation in Arterial blood by Pulse oximetry Heart rate Respiratory rate Body temperature Systolic blood pressure Diastolic blood pressure Provider Name and Address Organization Details Last Updated DateTime 3 98 % 98 % 86 /min 18 /min 98.3 [degF] 140 mm[Hg] 82 mm[Hg] Not Available [facility] 11:13:16 Social History Question Answer Notes LastModified by Organizat ion Details LastModified Time Tobacco Smoking Status Never Smoker DOMINICK Simeon [address] [place], [address], [place] [facility] 10/08/2022 11:13:31 What Is Your Level Of Alcohol Consumption? None [email or web address] Information not available 10/08/2022 Fall Risk: Do You Feel Unsteady When Standing Or Walking? Yes [email or web address] Information not available 10/08/2022 Excessive Alcohol Or Drug Use No [email or web address] Information not available 10/08/2022 Does This Patient Have A PCP? Yes [email or web address] Information not available 10/07/2022 Has The Patient Seen Their PCP In The Past 6 Months? No [email or web address] Information not available 10/07/2022 Social Support: Do You Feel Safe? Yes [email or web address] Information no t available 10/08/2022 What Is Your Housing Situation Today? I Have Housing Information not available 10/08/2022 Do You Use Any Illicit Or Recreational Drugs? No Information not available 10/08/2022 Sex: Unknown Functional Status None recorded. Mental Status None recorded. Family History Relationship Description Onset Age of this Age Resolved Age Notes LastModified by Organization Details LastModified Time Father No current problems or disability [email or web address] Not available 09/27 11:13:08 Mother No current problems or disability [email or web address] Not available 09/27 11:13:08 Medical History Condition Response Diabetes N Coronary Artery Disease N CHF N Parkinson's Disease N Cancer N Dementia N Stroke N Depression N Asthma N COPD N Hypothyroidism N High Cholesterol N Rheumatoid Arthritis N Pulmonary Embolism N Hypertension N A-fib N Osteoporosis N Kidney Disease N Gynecological HistoryNo gynecological history recorded. Obstetrics History GPAL:G 0 P 0 0 0 0 Past Encounters Encounter ID Performer Location Encounter Start Date Encounter Closed Date Diagnosis/Indication Diagnosis SNOMED-CT Code Diagnosis ICD10 Code Diagnosis Note [id number] DOMINICK Simeon [facility] [address] [place] [address] 10/08/2022 11:09:22 10/10/2022 13:22:50 Otitis externa of left ear [id number] 247984 H60.92 Status of condition: {{Acute* E xacerbatio n/Acute on chronic Ch ronic Stab le Worseni ng/Progres jaleesa Uncon trolled Cr itical: Warrants escalation to ED. Undete rmined: Unclear staging of condition. Needs further evaluation and management by PCP and/or Specialist }}. Testing/Re sults: n/a Discussion :OE on exam.keep the ears clean and dry. do not use q tips or ear buds.ok to take otc tylenol or ibuprofen as directed on the package for pain.start Rx Ciprodex 0.3% otic suspension apply 4 drops to left ear bid x 7 days. Plan, Medication Management & Follow-up recommenda tions:foll ow up with pcp next week as scheduled. go to the ER with worsening symptoms increased pain, edema, fever, drainage, hearing loss, skin rash, cp, sob. Urgent riley ivan to urinate [id number] R39.15 Status of condition: {{Acute* E xacerbatio n/Acute on chronic Ch ronic Stab le Worseni ng/Progres jaleesa Uncon trolled Cr itical: Warrants escalation to ED. Undete rmined: Unclear staging of condition. Needs further evaluation and management by PCP and/or Specialist }}. Testing/Re sults: UA not suggestive of UTI. Discussion :keep hydrated.a void caffeine.n o signs of infection noted on exam.conta ct your urologist to discuss if this is medication related and arrange follow up. Plan, Medication Management & Follow-up recommenda tions:foll ow up with pcp next week as scheduled or sooner prn.go to the ER with worsening symptoms fever, flank pain, nausea, vomiting, gross hematuria, decreased urinary output, further incontinen ce, cp, sob, dizziness. Multiple sclerosis 20457 007 G35 Health Concerns Section Related Observation LastModified by Organization Detai ls LastModified Time None Recorded Concern Status LastModified by Organization Details LastModified Time None Recorded Advance Directives Directive None Recorded Payers Encounter Date Sequence Insurance Name Policy Number Policy Swartz Covered Member ID Swartz Member ID Guarantor Name 10/08/2022 1 [facility] - DOS ON OR AFTER 2022 - MEDICARE [place]VANTAGE [place] (MEDICARE REPLACEMENT/ADV ANTAGE - PPO) Darlene Prather [id number] Darlene Prather Notes Date Note Type Note Provider Name and Address Organization Details Recorded Time 10/08/2022 text/html 57 y/o female ne w to and provider with hx of MS, overactive bladder and GERD, trigeminal neuralgia, anxiety. pt reports for the past 3 days she has had left ear pain, drainage and decreased hearing in left ear. she has had similar symptoms before due to HS. back last fall she relapsed with her MS and was hospitalized and also tx then with oral antibiotics and antibiotic drops for ear Infection. she denies fever, cough, congestion, cp, sob. she is also concerned she may have UTI as she has had nocturia the past 2 nights and some urgency and incontinence. no fever, abdominal pain, flank pain, hematuria, diarrhea, vomiting. she denies any skin rash, no numbness, tingling. pt states she has appt next week with her new pcp and will be seeking referral to dermatology. DOMINICK Simeon [address], [place], [address], [place] [facility] 10/08/2022 12:14:35 OBGyn Episode No OBEpisode recorded.
--- OUTSIDE RECORDS SUMMARY | 2024-07-02 09:01 | XMS_ITS | Patient Health Record ---
Author Organization [facility] Address [address] [facility] [place] [address] Care Team Providers Care Mortgage Loan Reviewer Name Role Phone Jackson [facility]ANNA[facility], [facility] Primary [facility] Provider Serge Cleaning Unavailable [phone] Allergies Allergen (clinical drug ingredient) Drug/Non Drug Allergy documented on EMR Reaction Allergy Type Onset Date Status Wellbutrin Unknown Drug Allergy Active bupropion Bupropion Unknown Drug Allergy Active Reason For Referral No Information Medications Medication SIG (Take, Route, Frequency, Duration) Notes Start Date End Date Status Ammonium Lactate 12 % 1 application Externally Twice a day for 30 days Active Cymbalta Active Fluticasone Propionate 50 MCG/ACT 1 spray in each nostril Nasally Once a day for 30 day(s) Active Provigil Active Gabapentin 300 MG 1 capsule Orally Once a day for 30 day(s) Active Senna Active Meclizine HCl 25 MG 1 tablet as needed Orally every 12 hrs Active Modafinil 200 MG 1 tablet in the morning Orally Once a day Active oxyBUTYnin Chloride ER 5 MG 1 tablet Orally Once a day for 30 day(s) Active Aspirin 325 MG 1 tablet Orally Once a day for 30 day(s) Active Saccharomyces boulardii 250 MG as directed Orally Not-T aking Baclofen 10 MG 1 tablet as needed Orally Twice a day Active Ocrevus 300 MG/10ML as directed Intravenous Active Docusate Sodium stool softener Active Neurontin Active DULoxetine HCl 30 MG 1 capsule Orally Once a day for 30 day(s) Active Ocrelizumab Ocrevus Not-Taki ng Omeprazole 20 MG as directed Orally Active Ondansetron HCl 4 MG 1 tablet Orally Once a day for 30 day(s) Zofran Active Albuterol Sulfate Ac tive Social History Tobacco Use: Social History Observation Description Date Details (start date - stop date) Never Smoker NA - NA Tobacco Use/Smoking Question Answer Notes Are you a: nonsmoker Additional Findings: Tobacco Non-User Current no n-smoker Alcohol Screen Question Answer Notes Did you have a drink contain ing alcohol in the past year? Yes How often did you have a dri nk containing alcohol in the past year? Monthly or less (1 point) Points 1 Interpretation Negative Tobacco use other than smoking: Question Answer Notes Are you an other tobacco user? No Problems Problem Type SNOMED Code ICD Code Onset Dates Problem Status W/U Status Risk Notes Problem Atherosclerosis of [place] arteries of the extremities ([id number]) Atherosclerosis of [place] artery of both lower extremities, with unspecified presence of clinical manifestation (I70.203) Active confirmed Problem Multiple sclerosis (61665617) Generalized multiple sclerosis (G35) Active confirmed Plan Of Treatment Pending Test Test Name Order Date X ray : Foot, left 3V 12/11/2022 [id number] NAIL, 1-5 12/20/2022 [id number] SKIN LESIONS, OVER 4 12/21/19 23 [id number] DYSTROPHIC NAILS ANY # Insurance Providers Payer Name Payer Address Payer Phone Subscriber Number Group Number Insured Name Patient Relationship to Insured Coverage Start Date Coverage End Date [facility] [employer] Claims [address] [place] [address] [phone] [id number] Darlene Prather Self - patient is the insured Medical (General) History Medical History History ICD Code sclerosis Reflux ( GERD) hydradenitis left foot pain leg weakness Back,Hip,and Knee pain covid-19 Gall bladder problems Headaches/Migraines Numbness Mumps Chicken pox Trigeminal neuralgia MS Surgical History Surgery Date(Month/Year) colonoscopy Gall bladder removal Trigeminal neuralgia
--- OUTSIDE RECORDS SUMMARY | 2024-07-02 09:02 | XMS_ITS ---
Author Name [facility] Organization Unknown History of Medication Use Medication Directions Dispensed Refills Start Date End Date Stat us baclofen (LIORESAL) 10 MG tablet Take 2 tablets (20 mg total) by mouth 3 (three) times a day. 05/01/2023 active methylPREDNISolone sodium succinate (SOLU-Medrol) injection 125 mg 125 mg, Intravenous, Once, On Lyubov 11/21/23 at 0915, For 1 doseGive 30 minutes prior to ocrelizumab. ??Administer over 2-3 minutes 11/21/2023 4 completed Polyethylene Glycol 3350 (PEG 3350) 17 g PACK 08/30/2023 active Probiotic CAPS Take by mouth. ac tive CARBAMAZEPINE PO Take by mouth. active fluticasone (FLONASE) 50 MCG/ACT nasal spray spray or apply 2 sprays inside Nose. 08/26/2014 active ocrelizumab (OCREVUS) 600 mg in sodium chloride (NS) 0.9 % 500 mL IVPB 600 mg, Intravenous, Once, On Lyubov 11/21/23 at 0915, For 1 doseMust use in-line 0.22 micron filter. ??- Infusion Rate for first full 600 mg dose or reaction with previous infusion: Start at 40 mL/hr. Increase by 40 mL/hr every 30 minutes. Maximum rate: 200 mL/hr. Duration: 3.5 hours or longer.??- Infus 11/21/2023 4 completed Problems Problem Status Onset Date Problem Type Date of Resoluti on Source Thoracic myelopathy active 2019-08-05 ProblemAct [facility] Spasticity active 2019-08-05 ProblemAct [facility] G Cervical myelopathy active 2019-08-05 ProblemAct [facility] Multiple sclerosis active 2020-02-18 ProblemAct [facility] Trigeminal neuralgia active 2019-08-05 ProblemAct [facility] Fatigue active 2019-08-05 ProblemAct [facility]
--- OUTSIDE RECORDS SUMMARY | 2024-07-02 09:02 | XMS_ITS | Encounter Summary ---
Author Organization [facility] [place] [address] Care Team Providers Care Veneer Stapler Name Role Phone Chato Paz MD Primary Care Provider [phone] Reason for Visit * Reason Onset Date Comments Urinary Problem 06/11/2024 Encounter Details Date Type Department Care Team ([facility] Contact Info) Description 06/11/2024 Telephone Obstetrics and Gynecology [address] [phone] Ela Najera MD [address] [place], [place] Urinary Problem Social History Tobacco Use Types Packs/Day Years [...] for your loved ones. For example, child care counselor or elderly care for an older adult? [...] PM EST Sexual Orientation Not on file documented as of this encounter Progress Notes * DOMINICK Brown - 06/29/2024 10:09 AM EST Error * DOMINICK Brown - 06/29/2024 10:04 AM EST Lets check a urinalysis with reflex culture and a CBC. Orders entered. We could set her up for a visit later this week or next week and I can make sure she is ready for rescheduling infusion. Thanks * DOMINICK Brown - 06/29/2024 10:02 AM EST ----- Message from Jordana Barajas sent at 06/29/2024 8:10 AM EST ----- Patient daughter called and said she is experiencing dizziness, weird feelings in her head, weakness. And she is wondering if the patient should get any blood work done or come in for an appointment.Patient currently does not have a follow up scheduled and the last infusions have been cancelled. * Leandra Judge - 06/11/2024 11:31 AM EST Pt's daughter calling as her mother is still having UTI symptoms. She has tried AZO but it is not helping. I spoke with Dr Najera who will send a script to her pharmacy. If culture comes back as negative we will call and advise her to cease taking them. Daughter understood. She asks that we send the prescription as soon as possible. documented in this encounter Plan of Treatment Scheduled Orders Name Type Priority Associated Diagnoses Orde r Schedule Urinalysis with reflex microscopic and culture Lab Routine Multiple sclerosis (CMS/HCC) 1 Occurrences starting 06/29/2024 until 06/29/2025 CBC and differential Lab Routine Multiple sclerosis (CMS/HCC) 1 Occurrences starting 06/29/2024 until 06/29/2025 documented as of this encounter Visit Diagnoses Diagnosis Multiple sclerosis (CMS/HCC)- Primary Multiple sclerosis documented in this encounter Additional Health Concerns Assessment Noted Time PHQ-9 Depression Total Score: 0 06/10/19 25 10:58 AM EST documented as of this encounter Care Teams Veneer Stapler Relationship Specialty Start Date End Date Chato Paz MD [address] [place] [address] PCP - General 12/14/22 documented as of this encounter
--- OUTSIDE RECORDS SUMMARY | 2024-07-02 09:02 | XMS_ITS | Encounter Summary ---
Author Organization [facility] [place] [address] Care Team Providers Care Machinist Mate Name Role Phone Chato Paz MD Primary Care Provider [phone] Reason for Visit * Reason Comments Breast Problem Pain Encounter Details Date Type Department Care Team ([facility] Contact Info) Description 06/10/2024 3:15 PM EST Office Visit Obstetrics and Gynecology - [address] [phone] Ela Rice MD [address], [place] Breast pain (Primary Dx); Urinary retention Social History Tobacco Use Types Packs/Day Years [...] your loved ones. For example, child care provider or elderly care for an older adult? [...] on file documented as of this encounter Last Filed Vital Signs Vital Sign Reading Time Taken Comments Blood Pressure 115/74 06/10/2024 3:34 PM EST Pulse 86 06/10/2024 3:34 PM EST Temperature - - Respiratory Rate - - Oxygen Saturation - - Inhaled Oxygen Concentration - - Weight 74.7 kg (164 lb 9.6 oz) 06/10/2024 3:34 P M EST Height 170.2 cm (5' 7 ) 06/10/2024 3:34 PM EST Body Mass Index 25.78 06/10/2024 3:34 PM EST documented in this encounter Ordered Prescriptions Prescription Sig Dispense Quantity Refills Last Filled Start Date End Date sulfamethoxazole-t rimethoprim (BACTRIM DS,SEPTRA DS) 800-160 mg per tablet Take 1 tablet by mouth 2 (two) times a day for 3 days. 6 tablet 06/11/2024 06/14/2024 documented in this encounter Progress Notes * Ela Rice MD - 06/10/2024 4:36 PM ESTAssociated Problem(s): Urinary retention No real evidence today, but I encouraged her to follow up with Urology if she feels this is the case. We will send culture and treat prn. * lEa Rice MD - 06/10/2024 4:36 PM ESTAssociated Problem(s): Breast pain I reviewed normal exam findings with patient. I explained her pain may be due to caffeine intake ortrauma from her pets. I encouraged her to cut back on caffeine, wear a supportive bra, try to avoidcontact with animals, and use primrose oil prn. Call if she notices a lump. She agreed. * Ela Rice MD - 06/10/2024 3:15 PM EST negative * Ela Rice MD - 06/10/2024 3:15 PM ESTAddended by: ELA RICE on: 06/11/2024 11:29 AM Modules accepted: Orders * Ela Rice MD - 06/10/2024 3:15 PM EST 06/10/2024 Chief Complaint Patient presents with Breast Problem Pain Subjective: Darlene Prather is a 59 y.o. who presents for breast pain, R>L. It has been going on for 2 months. Just tender. She is not sure if she felt a lump on the right side. Has caused bruising to herself by trying to feel very deep. She drinks 1-2 cups of coffee daily and iced tea pretty regularly. She does wear a good fitting bra. She does have a dog and cat that jump up on her chest. No ot her trauma. She denies skin changes, nipple discharge. Also wonders if she may have a UTI. Only symptom is she has not gone all day. She had recent Botox with Urology. Not sure if she is retaining. Does not usually have the usual sx of UTI. No other symptoms. She reports she had a normal mammogram at [facility] in September 2023. Review of Systems: As in HPI. Patient Active Problem List Diagnosis Allergic rhinitis Thoracic myelopathy Chronic constipation Dysphagia Fatigue Hoarseness Incidental lung nodule Multiple sclerosis (CMS/HCC) Neck pain Shoulder pain, bilateral Spasticity Trigeminal neuralgia Vaginal dryness, menopausal Cervical myelopathy (CMS/HCC) Breast pain Urinary retention Past Medical History: Diagnosis Date Multiple sclerosis (CMS/HCC) 06/25/2011 DX:Multiple sclerosis (HCC) Myelopathy (CMS/HCC) 06/25/2011 DX:Myelopathy (HCC);COMMENT:Cervical Myelopathy of thoracic region 05/13/2017 DX:Myelopathy of thoracic region Trigeminal neuralgia of left side of face 11/15/2017 DX:Trigeminal neuralgia of left side of face Past Surgical History: Procedure Laterality Date OTHER SURGICAL HISTORY PROCEDURE:CHOLECYSTECOMY OTHER SURGICAL HISTORY PROCEDURE:TRIGEMINAL NERVE SURGERY Family History Problem Relation Name Age of Onset Hypertension Mother Dementia Mother Cancer Mother Clotting disorder Father Multiple sclerosis Neg Hx Social History Socioeconomic History Marital status: Single Spouse name: None Number of children: None Years of education: None Highest education level: None Occupational History None Tobacco Use Smoking status: Never Smokeless tobacco: Never Substance and Sexual Activity Alcohol use: Not Currently Drug use: Never Sexual activity: None Other Topics Concern None Social History Narrative None OB History Para Term AB Living 1 1 1 1 SAB IAB Ectopic Multiple Live Births 1 # Outcome Date GA Lbr Brant/2nd Weight Sex Type Anes PTL Lv 1 Term CS-Unspec ALLEGRA Current Outpatient Medications on File Prior to Visit Medication Sig Dispense Refill aspirin 81 mg EC tablet Take 1 tablet (81 mg total) by mouth 1 (one) time each day. baclofen (LIORESAL) 10 mg tablet Take 2 tablets (20 mg total) by mouth 3 (three) times a day. carBAMazepine, bulk, powder Take by mouth. cholecalciferol (VITAMIN D-3) 25 mcg (1,000 unit) capsule Take 1 capsule (1,000 Units total) by mouth. cyanocobalamin (VITAMIN B-12) 100 mcg tablet Take 0.5 tablets (50 mcg total) by mouth. docusate sodium (COLACE) 100 mg capsule Take 1 capsule (100 mg total) by mouth. DULoxetine (CYMBALTA) [address] capsule Take 1 capsule (30 mg total) by mouth 1 (one) time each day. DULoxetine (CYMBALTA) [address] capsule Take 1 capsule (60 mg total) by mouth 1 (one) time each day. fluticasone propionate (FLONASE) 50 mcg/actuation nasal spray Administer 2 sprays into affected nostril(s). gabapentin (NEURONTIN) 300 mg capsule 1 po up to 5 times per day LORazepam (ATIVAN) 0.5 mg tablet 1 po qd PRN modafiniL (PROVIGIL) 100 mg tablet Take 1 tablet (100 mg total) by mouth 1 (one) time each day in the morning. TAKE 1 TABLET BY MOUTH EVERY DAY IN THE MORNING Max Daily Amount: 100 mg 30 each 5 ocrelizumab (Ocrevus) 30 mg/mL solution injection Infuse into a venous catheter. omeprazole (PriLOSEC) [address] capsule Take 2 capsules (40 mg total) by mouth 2 (two) times a day. ondansetron (ZOFRAN) 4 mg tablet Take 1 tablet (4 mg total) by mouth. polyethylene glycol (PEG) 17 gram/dose oral powder Take 17 g by mouth. estradioL (ESTRACE) 0.01 % (0.1 mg/gram) vaginal cream (Patient not taking: Reported on 06/10/2024) L. acidophilus/Bifid. animalis 32 billion cell capsule Take by mouth. methylPREDNISolone (MEDROL) 4 mg tablet See administration instructions. [DISCONTINUED] ergocalciferol (VITAMIN D-2) 1,250 mcg (50,000 unit) capsule TAKE 1 CAPSULE BY MOUTHONE TIME PER WEEK x 12 wks No current facility-administered medications on file prior to visit. Allergies Allergen Reactions Bupropion Other Objective: Vitals: 06/10/24 1534 BP: 115/74 Pulse: 86 Weight: 74.7 kg (164 lb 9.6 oz) Height: 1.702 m (67 ) Gen: Well-appearing on today's exam NEUROLOGIC: speech fluent, grossly intact PSYCH: Mood and affect appropriate. Alert and oriented x 3. Breast: Normal appearance, no masses or tenderness, no nipple retraction or dimpling bilaterally. No axillary or supraclavicular lymphadenopathy. Has some skin bruising on upper chest bilaterally Assessment/Plan: 59 y.o. with: Breast pain I reviewed normal exam findings with patient. I explained her pain may be due to caffeine intake ortrauma from her pets. I encouraged her to cut back on caffeine, wear a supportive bra, try to avoidcontact with animals, and use primrose oil prn. Call if she notices a lump. She agreed. Urinary retention No real evidence today, but I encouraged her to follow up with Urology if she feels this is the case. We will send culture and treat prn. Orders Placed This Encounter Procedures Culture urine Order Specific Question: Specimen Source: Answer: Urine, Clean Catch [76] POC Urine Auto W/O Micro No follow-ups on file. Ela Rice MD documented in this encounter Plan of Treatment Not on file documented as of this encounter Procedures Procedure Name Priority Date/Time Associated Diagnosis Comments CULTURE URINE Routine 06/10/2024 4:28 PM EST Urinary retention POC URINE AUTO W/O MICRO Routine 06/10/2024 4:13 PM EST Urinary retention documented in this encounter Results * Culture urine (06/10/2024 4:28 PM EST) Culture, Urine <10,000 cfu/ml, insignificant count, no further workup. 06/11/2024 2:06 PM EST [facility] Urine Urine specimen obtained by clean catch procedure / Unknown Non-blood Collection / Unknown 06/10/2024 4:28 PM EST 06/10/2024 4:28 PM EST us Ela Rice MD LAB MICROBIOLOGY - GENERAL ORDERABLES Final Result [facility] [address] [place] [address], * (ABNORMAL) POC Urine Auto W/O Micro (06/10/2024 4:13 PM EST) Leukocytes UA POC Positive(A) Negative Nitrite UA POC Negative Negative Urobilinogen UA POC Negative Negative Protein UA POC Negative Negative PH UA POC 5.0 5.0 - 9.0 Blood UA POC Trace(A) Negative, Trace Specific [place] UA POC 1.015 1.001 - 1.035 Ketones UA POC Negative Negative Bilirubin UA POC Negative Negative Glucose UA POC Normal Normal, Trace Urine Urine specimen obtained by clean catch procedure / Unknown 06/10/2024 4:13 PM EST us Ela Rice MD POINT OF CARE TEST ENTER/ED IT ORDERABLES Final Result documented in this encounter Visit Diagnoses Diagnosis Breast pain- Primary Mastodynia Urinary retention Unspecified retention of urine documented in this encounter Discontinued Medications Medication Sig Discontinue Reason Start Date End Da te ergocalciferol (VITAMIN D-2) 1,250 mcg (50,000 unit) capsule TAKE 1 CAPSULE BY MOUTH ONE TIME PER WEEK x 12 wks 11/25/2023 06/10/2024 documented as of this encounter Additional Health Concerns Assessment Noted Time PHQ-9 Depression Total Score: 0 06/10/19 25 10:58 AM EST documented as of this encounter Care Teams Machinist Mate Relationship Specialty Start Date End Date Chato Paz MD [address] [place] [address] PCP - General 12/14/22 documented as of this encounter
== END 2024-07-02 11:01 | disposition home or self-care (01) ==
LOC: HO.HMCC 08:32
PROVIDERS: PCP Internal Medicine; Visit Provider Internal Medicine
DX: L73.2 Hidradenitis suppurativa (principal); K59.9 Functional intestinal disorder, unspecified

== ENCOUNTER 2024-09-29 17:08 | Emergency (ER) | payer OTHER, SELFPAY ==
--- NOTE | ~2024-09-29 | XR_ITS ---
CLINICAL HISTORY: fall 3 view right foot Comparison: None Findings: Bones intact. No dislocations. Midfoot spurring. No ankle effusion. No radiopaque foreign body. IMPRESSION: 1. No acute findings. This document has been electronically signed by: Sher Ramirez MD on 09/29/2024 19:27:29
--- NOTE | ~2024-09-29 | XR_ITS ---
CLINICAL HISTORY: fall 3 view, pelvis and right hip Comparison: None Findings: No acute fracture or dislocation. No significant arthritic change. The soft tissues are unremarkable. IMPRESSION: No acute findings. This document has been electronically signed by: Sher Ramirez MD on 09/29/2024 19:27:50
--- NOTE | ~2024-09-29 | CT_ITS ---
CLINICAL HISTORY: head injury CT head without contrast Comparison: None Findings: No intra-axial mass, midline shift, hydrocephalus, or acute hemorrhage. No significant atrophy-like change or white matter disease. The visualized paranasal sinuses and mastoid air cells are normal. The orbits are within normal limits. No skull fracture. IMPRESSION: 1. No acute intracranial findings. This document has been electronically signed by: Sher Ramirez MD on 09/29/2024 19:48:34
--- NOTE | ~2024-09-29 | CT_ITS ---
CLINICAL HISTORY: neck pain CT cervical spine without contrast Comparison: None Findings: Normal vertebral body alignment. Mild multilevel spondylosis with disc space narrowing, osteophytosis most notably at C5-C6. No acute fractures or dislocations. Visualized intracranial contents are unremarkable. Soft tissues of the neck are normal. Lung apices are clear. IMPRESSION: No acute findings. Mild spondylosis at C5-C6. This document has been electronically signed by: Sher Ramirez MD on 09/29/2024 19:48:31
[2024-09-29 17:16] VITALS: BP 165/100; PULSE 93; O2SAT 95
[2024-09-29 17:18] VITALS: BP 133/80; PULSE 83; RESP 18; TEMP 36.7; O2SAT 98; BMI 26.7
--- NOTE | 2024-09-29 17:53 | ED_ITS ---
HPI - Fall General Chief Complaint: Fall Stated Complaint: FALL + COLLAR Time Seen by Provider: 09/29/24 17:17 History of Present Illness HPI Narrative: Patient is a 59-year-old female with a history of MS presented today after falling. Accidentally fell while she was in the shower. Hitting her head. There was no loss of consciousness. Complaining of pain to the right hip and to the right foot. Patient denies any chest pain denies any diaphoresis hit her head hard against the vanity. Then feels a snap in her neck. Patient is from home. Related Data Home Medications ?Medication ?Instructions ?Recorded ?Confirmed duloxetine 30 mg capsule,delayed 30 mg PO BEDTIME 08/18/20 07/02/24 release duloxetine 60 mg capsule,delayed 60 mg PO DAILY 08/18/20 07/02/24 release modafinil 200 mg tablet 100 mg PO DAILY 08/18/20 10/29/23 ocrelizumab 30 mg/mL intravenous 600 mg IV [id number] 04/12/21 07/02/24 solution (Ocrevus) aspirin 81 mg tablet,delayed 81 mg PO DAILY 07/10/23 07/02/24 release polyethylene glycol 3350 17 17 g PO Q2D@1000 07/10/23 07/02/24 gram/dose oral powder (Miralax) renew probiotic 1 tab PO DAILY 07/10/23 07/02/24 sennosides 8.6 mg-docusate sodium 1 tab-cap PO BID 07/10/23 07/02/24 50 mg tablet baclofen 10 mg tablet 20 mg PO TID 01/20/24 07/02/24 carbamazepine 200 mg 200 mg PO TID PRN 01/20/24 07/02/24 tablet,extended release,12 hr cholecalciferol (vitamin D3) 1,250 1,250 mcg PO QWEEK 01/20/24 07/02/24 mcg (50,000 unit) capsule gabapentin 300 mg capsule 600 mg PO TID 01/20/24 07/02/24 omeprazole 20 mg capsule,delayed 20 mg PO BID 01/20/24 07/02/24 release Previous Rx's ?Medication ?Instructions ?Recorded tub transfer bench #1 ea 07/24/23 fluticasone propionate 50 1 spray intranasal DAILY PRN 10/21/23 mcg/actuation nasal allergies #16 grams spray,suspension Allergies Allergy/AdvReac Type Severity Reaction Status Date / Time bupropion [From WELLBUTRIN] Allergy Intermediate HIVES Verified 09/29/24 17:20 Review of Systems 2 Review of Systems: positive head injury positive pain to the right hip, pain to the right foot Yes all other systems are reviewed and are negative [facility] Past Medical History Medical History Right trigeminal neuralgia Multiple sclerosis Chronic GERD Multiple sclerosis Urinary tract infection Family History Family History Other Mental health disorder Substance abuse Social History Social History Household Members: Children Housing: House Do you presently have visiting nurse or other home services: No Unable to assess alcohol history related to: Unknown Patient Tobacco Use Status: Never used Tobacco e-Cigarette/Vaping Use: Never Used Second Hand Smoke Exposure: No Advance Directives: No Advance Directives Information Provided: No Do you have a plan to hurt others: No Plan service: No Current occupational status: disabled Cognitive needs: No Hearing needs: No Vision needs: Yes Physical Exam 2 Vital Signs: Vital Signs: Last Vital Signs Temp 98.1 F 09/29/24 17:18 Pulse 83 09/29/24 17:18 Resp 18 09/29/24 17:18 BP 133/80 09/29/24 17:18 Pulse Ox 98 09/29/24 17:18 O2 Del Method Room Air 09/29/24 17:18 BMI result Body Mass Index 26.7 Appearance: Alert. Oriented X3. No acute distress. Eyes: Pupils equal, round and reactive to light. ENT: Pharynx normal. Neck: Normal inspection. Neck supple. No lymph nodes noted. No crepitus CVS: Normal heart rate and rhythm. Pulses normal. Normal S1 and S2 Respiratory: No respiratory distress. Breath sounds normal. No Wheezing. No rales Abdomen: Soft and nontender. No rigidity. No distention. good BS x4 Skin: Skin warm and dry. Normal skin color. Normal skin turgor. Extremities: No lower extremity edema. Neurovascular intact to all extremities. No Lacerations. positive contusion to the right foot Neuro: Oriented X 3. No motor deficit. No sensory deficit. Moving all extermities. No slurred speech Medications Administered Discontinued Medications Generic Name Dose Route Start Last Admin Trade Name Padmini PRN Reason Stop Dose Admin Acetaminophen 975 mg 09/29/24 17:49 09/29/24 18:02 Acetaminophen 325 Mg Tablet PO 09/29/24 17:50 975 mg ONCE ONE Administration Medical Decision Making Medical Decision Making [facility] Narrative: patient is status post accidental fall. She was cleaning and she hit her head. My interpretation patient's CT head was grossly negative. My review patient's radiology report was the same. X-ray of the foot and hip by my interpretation we are grossly negative for fracture. I reviewed radiology's reading. Patient's white count is normal hemoglobin is 14. No signs of anemia. Kidney function is normal. The fall was mechanical will discharge patient home close follow-up on an outpatient basis Differential Diagnosis Differential Diagnoses: The differential diagnosis associated with the presentation includes fracture, contusion, head injury, neck fracture, intracranial bleed Admission/Observation Consideration of admission/observation: Escalation of care including admission/observation considered Lab Data [facility] Lab Attestation statement: I reviewed the patient's lab results. 09/29/24 18:10 09/29/24 18:10 Labs: Lab Results 09/29/24 Range/Units 18:10 WBC 5.0 (4.8-10.8) X10*3/uL RBC 4.74 (4.20-5.50) X10*6/uL Hgb 14.0 (12.0-16.0) g/dl Hct 42.1 (37.0-47.0) % MCV 88.8 (80.0-98.0) fL MCH 29.5 (27.0-33.0) pg MCHC 33.3 (31.0-35.0) g/dl RDW 12.6 (11.0-16.0) % Plt Count 244 (160-400) X10*3/uL MPV 9.3 L (9.4-12.3) fL Immature Gran % (Auto) 0.8 H (0.0-0.4) % Neut % (Auto) 67.9 (45-73) % Lymph % (Auto) 16.4 L (20-40) % [place] % (Auto) 11.5 H (2-11) % Eos % (Auto) 2.6 (0-4) % Baso % (Auto) 0.8 (0-2) % Lymph # (Auto) 0.8 L (1.2-4.9) X10*3/uL [place]ier # (Auto) 0.6 (0.1-1.2) X10*3/uL Eos # (Auto) 0.1 (0.0-0.4) X10*3/uL Baso # (Auto) 0.0 (0.0-0.2) X10*3/uL Abs Immat Gran (auto) 0.04 H (0.00-0.03) X10*3/uL Absolute Neuts (auto) 3.4 (2.0-8.3) x10*3/uL Absolute Nucleated RBC 0.000 (0.0-0.012) X10*3/uL Nucleated RBC % (auto) 0.0 (0.0-0.2) /100WBC Sodium 143 (135-145) mmol/L Potassium 3.7 (3.3-5.1) mmol/L Chloride 105 (96-108) mmol/L Carbon Dioxide 31 H (22-29) mmol/L Anion Gap 11 L (12-20) BUN 14 (9-16) mg/dL Creatinine 0.68 (0.5-1.4) mg/dL Estim Creat Clear Calc 95.5 Estimated GFR > 60 Random Glucose 88 (60-115) mg/dL Calcium 9.2 (8.4-10.2) mg/dL Independent Interpretation I performed an independent interpretation of an: Plain X-Ray ( x-ray of the foot x-ray of the hip negative) and CT Scan ( CT head and CT C-spine negative) Radiology Impression Discussion of test interpretation with radiology: I have reviewed the radiologist's reading. Discharge Plan Discharge Clinical Impression: Head injury, Contusion Patient Disposition: Home, Self-Care Instructions: Head Injury (DC), Hip Contusion (ED) Prescriptions: No Action (DME) tub transfer bench See Rx Instructions .Route .MEDSUPPLY Qty: 1 0RF Rx Instructions: As directed fluticasone propionate 50 mcg/actuation spray,suspension 1 spray intranasal DAILY PRN (Reason: allergies) Qty: 16 1RF Rx Instructions: administer into each nostril polyethylene glycol 3350 [Miralax] 17 gram/dose powder 17 g PO Q2D@1000 aspirin 81 mg Tablet,Delayed Release (Dr/Ec) 81 mg PO DAILY sennosides-docusate sodium 8.6-50 mg Tablet 1 tab-cap PO BID renew probiotic 1 tab PO DAILY baclofen 10 mg tablet 20 mg PO TID gabapentin 300 mg capsule 600 mg PO TID duloxetine 60 mg capsule,delayed release(DR/EC) 60 mg PO DAILY duloxetine 30 mg capsule,delayed release(DR/EC) 30 mg PO BEDTIME modafinil 200 mg tablet 100 mg PO DAILY omeprazole 20 mg capsule,delayed release(DR/EC) 20 mg PO BID Ocrevus 30 mg/mL solution 600 mg IV [id number] carbamazepine 200 mg tablet extended release 12 hr 200 mg PO TID PRN cholecalciferol (vitamin D3) 1,250 mcg (50,000 unit) capsule 1,250 mcg PO QWEEK Referrals: Chato Paz MD [Primary Care Provider] - 10/01/24 Print Language: [place]an
[2024-09-29] MEDS: Acetaminophen 325 MG TABLET 975 MG PO (18:02)
[2024-09-29 18:14] LABS: MANUAL DIFF FLAG NO
[2024-09-29 18:25] LABS: Basophils Percent Auto 0.8 % (0-2); Eosinophils Absolute Auto 0.1 X10*3/uL (0.0-0.4); Eosinophils Percent Auto 2.6 % (0-4); Hematocrit 42.1 % (37.0-47.0); Imm Gran Abs Auto 0.04 X10*3/uL (0.00-0.03); Imm Gran Pct Auto 0.8 % (0.0-0.4); Lymphocytes Absolute Auto 0.8 X10*3/uL (1.2-4.9); Lymphocytes Percent Auto 16.4 % (20-40); Mean Corpuscular HGB Conc 33.3 g/dl (31.0-35.0); Mean Corpuscular Hemoglobin 29.5 pg (27.0-33.0); Mean Corpuscular Volume 88.8 fL (80.0-98.0); Mean Platelet Volume 9.3 fL (9.4-12.3); Monocytes Absolute Auto 0.6 X10*3/uL (0.1-1.2); Monocytes Percent Auto 11.5 % (2-11); Neutrophils Absolute Auto 3.4 x10*3/uL (2.0-8.3); Neutrophils Percent Auto 67.9 % (45-73); Platelet Count 244 X10*3/uL (160-400); Red Blood Count 4.74 X10*6/uL (4.20-5.50); Red Cell Distribution Width 12.6 % (11.0-16.0)
[2024-09-29 18:27] LABS: Anion Gap 11 (12-20); Blood Urea Nitrogen 14 mg/dL (9-16); Calcium 9.2 mg/dL (8.4-10.2); Carbon Dioxide 31 mmol/L (22-29); Chloride 105 mmol/L (96-108); Creatinine Clr Calc Pharmacy 95.5; Estimated Glomerular Filt Rate > 60; Glucose Random 88 mg/dL (60-115); Potassium 3.7 mmol/L (3.3-5.1); Sodium 143 mmol/L (135-145)
[2024-09-29 20:21] VITALS: BP 122/70; PULSE 87; RESP 18; TEMP 36.8; O2SAT 96
[2024-09-29 20:43] VITALS: BP 122/70; PULSE 87; RESP 18; TEMP 36.8; O2SAT 96
== END 2024-09-29 20:44 | disposition home or self-care (01) ==
PROVIDERS: Emergency Provider Emergency Medicine Emergency Medical Services; PCP Internal Medicine
DX: S09.90XA Unspecified injury of head, initial encounter (principal); S90.31XA Contusion of right foot, initial encounter; W18.2XXA Fall in (into) shower or empty bathtub, initial encounter; M25.551 Pain in right hip; G35 Multiple sclerosis; Y93.E1 Activity, personal bathing and showering; Y92.012 Bathroom of single-family (private) house as the place of occurrence of the external cause; Y99.8 Other external cause status
CPT/HCPCS: 36415; 70450; 72125; 73502; 73620; 80048; 85025; 99284

== ENCOUNTER → 2024-09-29 17:49 | Outpatient (BNV) | payer OTHER, SELFPAY | PROVIDERS: Emergency Provider Emergency Medicine Emergency Medical Services; PCP Internal Medicine; Visit Provider Student in an Organized Health Care Education/Training Program | DX: M54.2 Cervicalgia (principal); S09.90XA Unspecified injury of head, initial encounter; M25.551 Pain in right hip; M79.671 Pain in right foot | CPT/HCPCS: 70450; 72125; 73502; 73620 ==

== ENCOUNTER 2024-11-10 12:35 | Outpatient (AMB) | payer OTHER, SELFPAY ==
[2024-11-10 12:40] VITALS: BP 112/72; PULSE 77; O2SAT 97
--- NOTE | 2024-11-10 12:40 | A.OFFPC_ITS ---
Vital Signs 11/10/24 12:40 Height 5 ft 7 in BMI Reason not done Patient refused/unable BP 112/72 Blood Pressure Location Lt brachial Position Sitting Pulse 77 Pulse Source Pulse Oximeter Pulse Oximetry (%) 97 Intake Visit Reasons: Annual PE Motion Study Engineer Required: No Accompanied by: Daughter Allergies bupropion (From WELLBUTRIN) Allergy (Intermediate, Verified 11/10/24 12:40) HIVES Medication List - Last Reconciled 11/10/24 by Chato Paz MD aspirin 81 mg PO DAILY baclofen 20 mg PO TID carbamazepine ER 200 mg PO TID PRN duloxetine 30 mg PO BEDTIME duloxetine 60 mg PO DAILY fluticasone propionate 50 mcg/actuation 1 spray intranasal DAILY PRN gabapentin 600 mg PO TID modafinil 100 mg PO DAILY ocrelizumab (Ocrevus) 600 mg IV O4SVMSES omeprazole 20 mg PO BID polyethylene glycol 3350 (Miralax) 17 grams PO Q2D@1000 [renew probiotic 1 tab PO DAILY] sennosides-docusate sodium 8.6-50 mg 1 tab-cap PO BID [tub transfer bench As directed] Tobacco use date assessed: 07/02/24 Dental Screening Dental Screen Date: 11/10/24 Did you have a dental visit in the last 12 months?: Yes Did you have a dental problem in the last 6 months where you did not have access to dental care?: No Was dental information given to patient?: Patient has dentist HPI Annual PE HPI Details Physical exam appointment Patient is 59 years old female Patient have Multiple sclerosis which was diagnosed in 2000 Currently she is taking neurologist at [facility] Patient is complaining difficulty sleeping at night would recommend to discuss it further with a neurologist Most of her medications are through neurology office except omeprazole for chronic GERD Mammogram is up-to-date at [facility] She has OBGYN at [place] Colonoscopy was also [facility] through Dr. Baca gastroenterology Today she is presenting with post-traumatic knee pain and swelling. - Reports having a fall December t year, following which she has experienced significant swelling in the left knee. - Reports leg and ankle swelling more pr onounced on the left side, which began after the fall. - Knee swelling noted to have persisted since the fall with a tight sensation described as like a rock. - States the leg symptoms have been fluc tuating, but there is ongoing tightness from hip to foot. - The patient was evaluated via x-ray at the time of injury, findings indicated minimal degenerative arthritis, ruling out acute injury. - Left leg and ankle swelling also obser troy to be darker than the contralateral side. - Reports symptoms of ear canal infectio n involving pain and drainage. Left ear, daughter is here who tells me that patient frequently put her finger in her ear Medical History: - multiple sclerosis - Hydradenitis suppurativa Surgical History: - Surgery for trigeminal neuralgia Social History: - Sedentary lifestyle primarily staying at home due to pain post-fall and multiple psychiatric doses - Limited mobility, only walking short d istances Family History: - Family history of polyps Health Maintenance - Upcoming mammogram in October - Routine colonoscopy history with krish melo polyps Medications - Omeprazole 40 mg twice daily for gastr oesophageal reflux disease - Doxycycline for ear infection (prescri bed, not yet taken) Diagnostic results - Labs: CBC was normal; electrolytes, ki dney function, and blood glucose were normal - An x-ray for knee showed minimal degen erative arthritis with no acute findings or effusion Patient Instructions - Undergo an ultrasound examination of t he affected leg today to rule out DVT - Continue taking omeprazole as prescrib ed - Refrain from inserting fingers into th e ear to avoid exacerbating infection - Complete the prescribed doxycycline (t ervin for five days) - Schedule an eye exam - Contact gastroenterology if GI symptom s persist Review of Systems - General: No fever no chills - Neurological: No headaches no dizzin ess - Ear nose throat: No sore throat no hearing difficulty - Cardiovascular: No syncope, no chest pain, no palpitations - Gastrointestinal: No nausea vomiting or diarrhea - Endocrine: No polyuria polydipsia no heat intolerance - Skin: No new complaints Physical Exam General: Cooperative, healthy appearing, comfortable, no acute distress Orientation: Patient oriented x3 Head: Normal to inspection Ears: Within normal limit visually, but ear canal is red due to manipulation left side Nose: Normal external nose present Face and sinus: Normal facial exam Eyes: Appearance normal, extraocular movement intact, pupils reactive, twitching observed in one eye Neck: Normal visual inspection and supple Respiratory: Normal respiratory effort and able to speak in complete sentences. Clear to auscultation, no stridor, no wheezing, no crackling, no fluid Cardiovascular: S1 and S2 RRR GI: Normal to inspection. Soft to palpation and nontender Skin: Turgor normal, no acute findings Neuro: Patient oriented x3, patient is sitting in wheelchair Extremities: Left leg shows increased circumference compared to the right [id number], discomfort with calf pressure Affect normal [facility] Medical History (Updated 11/10/24 @ 13:58 by Chato Paz MD) Multiple sclerosis Right trigeminal neuralgia Chronic GERD Multiple sclerosis Urinary tract infection Surgical History S/P section S/P laparoscopic cholecystectomy Family History Other Mental health disorder Substance abuse Social History Household Members: Children Housing: House Do you presently have visiting nurse or other home services: No Unable to assess alcohol history related to: Unknown Patient Tobacco Use Status: Never used Tobacco e-Cigarette/Vaping Use: Never Used Second Hand Smoke Exposure: No service: No Current occupational status: disabled Cognitive needs: No Hearing needs: No Vision needs: Yes Questionnaire Thrive Questionnaire Date Thrive assessed: 11/10/24 I am a: Patient What is your living situation today?: I have a steady place to live Within the past 12 months, did the food you bought not last and you didn't have the money to get more?: Never true Within the past 12 months, did you worry whether your food would run out before you got money to buy more?: Never true Do you have trouble paying for medicines?: No Do you have trouble getting transportation to medical appointments?: No Do you have trouble paying your heating and electricity bill?: No Do you have trouble taking care of your child, family member or friend?: No Do you have trouble with day-to-day activities such as bathing, preparing meals, shopping, managing finances, etc.?: No Are you currently unemployed and looking for a job?: No Are you interested in more education?: No Please select the resources that you would like help with: None Currently or been in a relationship where the following occur: I choose not to answer THRIVE Score: 0 AUDIT C Alcohol Use Questionnaire (AUDIT-C) 1. How often do you have a drink containing alcohol?: Never 3. How often do you have six or more drinks on one occasion?: Never Total Score: 0 Score Reviewed/Action Taken: Yes YANCY-7 AMB Questionnaire YANCY-7 Date YANCY - 7 assessed: 11/10/24 Feeling nervous, anxious, or on edge: 0 = Not at all Not being able to stop or control worryin = Not at all Worrying too much about different things: 0 = Not at all Trouble relaxin = Not at all Being so restless that it is hard to sit still: 0 = Not at all Becoming easily annoyed or irritable: 0 = Not at all Feeling afraid as if something awful might happen: 0 = Not at all Total YANCY-7 score (0-4 normal; 5-9 mild; 10-14 moderate; 15-21 severe): 0 Source: Developed by Drs. Morteza Velasquez, Malina Melo, Chuck Marcano and colleagues, with an educational estella from [employer]. YANCY-7 Assessment Billing YANCY-7 Assessment Tool: YANCY-7 Assessment 08552 Physical exam (Primary Care) Vital Signs: Last Vital Signs Pulse 77 11/10/24 12:40 BP 112/72 11/10/24 12:40 Pulse Ox 97 11/10/24 12:40 Tobacco/Smoking Status: Tobacco use Status Tobacco use date assessed 07/02/24 11/10/24 12:48 Patient Tobacco Use Status Never used Tobacco 11/10/24 12:48 e-Cigarette/Vaping Use Never Used 11/10/24 12:48 Thrive Assessment: Date of Thrive Assessment Date Thrive assessed 11/10/24 11/10/24 12:48 Currently or been in a relationship where the following occur: I choose not to answer Coding Level of Care Code Est Pt Level 4 (14774) Est Pt Prev Care 40-64y(90612) Diagnoses Swelling of lower leg M79.89 Dysuria R30.0 Encounter for general adult medical examination with abnormal findings Z00.01 Hydradenitis L73.2 Multiple sclerosis G35 Recurrent falls R29.6 Additional Codes YANCY-7 Assessment Billing - YANCY-7 Assessment Tool: YANCY-7 Assessment 43882 ([id number]) Assessment & Plan Assessment & Plan (1) Swelling of lower leg: Code(s): M79.89 - Other specified soft tissue disorders Category: Medical (2) Dysuria: Code(s): R30.0 - Dysuria Category: Medical (3) Encounter for general adult medical examination with abnormal findings: Code(s): Z00.01 - Encounter for general adult medical examination with abnormal findings Category: Medical (4) Hydradenitis: Code(s): L73.2 - Hidradenitis suppurativa Category: Medical (5) Multiple sclerosis: Code(s): G35 - Multiple sclerosis Category: Medical (6) Recurrent falls: Code(s): R29.6 - Repeated falls Category: Medical Plan Physical exam appointment Patient is 59 years old female Patient have Multiple sclerosis which was diagnosed in 2000 Currently she is taking neurologist at [facility] Patient is complaining difficulty sleeping at night would recommend to discuss it further with a neurologist Most of her medications are through neurology office except omeprazole for chronic GERD Mammogram is up-to-date at [facility] She has OBGYN at [place] Colonoscopy was also [facility] through Dr. Baca gastroenterology Today she is presenting with post-traumatic knee pain and swelling. - Reports having a fall December of last year, following which she has experienced significant swelling in the left knee. - Reports leg and ankle swelling more pronounced on the left side, which began after the fall. - Knee swelling noted to have persisted since the fall with a tight sensation described as like a rock. - States the leg symptoms have been fluctuating, but there is ongoing tightness from hip to foot. - The patient was evaluated via x-ray at the time of injury, findings indicated minimal degenerative arthritis, ruling out acute injury. - Left leg and ankle swelling also observed to be darker than the contralateral side. - Reports symptoms of ear canal infection involving pain and drainage. Left ear, daughter is here who tells me that patient frequently put her finger in her ear Medical History: - multiple sclerosis - Hydradenitis suppurativa Surgical History: - Surgery for trigeminal neuralgia Social History: - Sedentary lifestyle primarily staying at home due to pain post-fall and multiple psychiatric doses - Limited mobility, only walking short distances Family History: - Family history of polyps Health Maintenance - Upcoming mammogram in October - Routine colonoscopy history with benign polyps Medications - Omeprazole 40 mg twice daily for gastroesophageal reflux disease - Doxycycline for ear infection (prescribed, not yet taken) Diagnostic results - Labs: CBC was normal; electrolytes, kidney function, and blood glucose were normal - An x-ray for knee showed minimal degenerative arthritis with no acute findings or effusion Patient Instructions - Undergo an ultrasound examination of the affected leg today to rule out DVT - Continue taking omeprazole as prescribed - Refrain from inserting fingers into the ear to avoid exacerbating infection - Complete the prescribed doxycycline (take for five days) - Schedule an eye exam - Contact gastroenterology if GI symptoms persist Orders: Orders US venous duplex LE LT Today M79.89 - Other specified soft tissue disorders UA CC w/rflx Micro + Cult Today R30.0 - Dysuria Medications: Refilled doxycycline hyclate 100 mg PO BID 20 tabs 0RF 10 days
--- OUTSIDE RECORDS SUMMARY | 2024-11-10 13:43 | XMS_ITS | Data Portability ---
Author Organization [place] [facility], [facility] Address [address] [place] [address] Care Team Providers Care Clean Up Worker Name Role Phone [facility] Primary Care Provider [phone] Assessment Encounter Date Assessment Date Assessment LastModified [...] after care of this patient according to [facility]'s infection prevention protocols. [email or web address] Not available 10/08/2022 12:13:54 Plan of Treatment Reminders Order Date Submit Date Provider Last Modified By Organization Details Last Modified Time Details Appointments None recorded. Lab urinalysis , dipstick 2022 023 [email or web address] 5 [facility] - Home, [address], [place], [address], 11:29:34 Referral None recorded. Procedures None recorded. Surgeries None recorded. Imaging None recorded. Medication Orders Ciprodex 0.3 %-0.1 % ear drops,susp ension 2022 023 [facility] #[id number], [address] [facility] [place], [address], 11:29:46 Patient TargetsNo targets recorded. Patient Instructions Encounter Date Encounter Id Patient Instructions Last Modified By Organization Details Last Modified Time 10/08/2022 [id number] Thank you for yo ur visit with [facility] today. We cannot always find the exact cause of your symptoms during your initial visit. Please follow up with your primary care provider or specialist within 2-3 days to be rechecked or seek medical attention if your symptoms do not go away or get worse. If you develop any new or worsening symptoms and need after hours care, please go to nearest ER and/or call 911. If you have additional concerns or develop a change in your condition between 8am-10pm, please call [facility] at [phone] to help navigate your care. [email or web address] Not available 10/08/2022 12:12:22 Reason for Referral None Reported. Results Created Date Observation Date Name Description Value Unit Range Abnormal Flag Note LastModifiedBy Organization Detail LastModifiedTime 10/09/19 23 10/08/2022 urina lysis , dipst ick Appearance clear Not Available [facility] [address], [place], [address], 10/08/2022 11:27:19 10/09/1910/08/2022 urina lysis , dipst ick Color yellow Not Available [facility] [address] [place], [address], 10/08/2022 11:27:19 10/09/1910/08/2022 urina lysis , dipst ick Glucose (ref: neg Neg Not Available [facility] [address] [place], [address], 10/08/2022 11:27:19 10/09/19 23 10/08/2022 urina lysis , dipst ick Bilirubin (ref: neg) Neg Not Available [facility] [address] [place], [address], 10/08/2022 11:27:19 10/09/1910/08/2022 urina lysis , dipst ick Ketones (ref: neg) Neg Not Available [facility] [address], [place], [address], 10/08/2022 11:27:19 10/09/1910/08/2022 urina lysis , dipst ick Specific [place] (ref: 1.003 - 1.035) 1.010 Not Available [facility] [address], [place], [address], 10/08/2022 11:27:19 10/09/1910/08/2022 urina lysis , dipst ick Blood (ref: neg) Neg Not Available [facility] [address], [place], [address], 10/08/2022 11:27:19 10/09/1910/08/2022 urina lysis , dipst ick pH (ref: 5.0-7.0) 7.5 Not Available [facility] [address] [place], [address], 10/08/2022 11:27:19 06/12/20 23 10/08/2022 urina lysis , dipst ick Protein (ref: neg) Neg Not Available [facility] - [address], [address], 10/08/2022 11:27:19 10/09/19 23 10/08/2022 urina lysis , dipst ick Urobilinogen (ref: 0.2-1.0) 0.2 Not Available [facility] - [address], [address], 10/08/2022 11:27:19 10/09/19 23 10/08/2022 urina lysis , dipst ick Nitrites (ref: neg) negati ve Not Available [facility] - [address], [address], 10/08/2022 11:27:19 10/09/19 23 10/08/2022 urina lysis , dipst ick Leukocytes (ref: neg) Neg Not Available [address], [address], 10/08/2022 11:27:19 10/09/19 23 10/08/2022 urina lysis , dipst ick Location [facility], [facility] , [address] [place] [address], [id number] [phone] Not Available [facility] - [address], [address], 10/08/2022 11:27:19 Result Notes None recorded. Procedures Surgical History Date Name Laterality Status Provider Name and Address Organization Details Recorded Time Cholecystectomy completed DOMINICK Simeon [address] [place] [address], [address], [place] [facility] 10/08/2022 11:14:17 section completed DOMINICK Simeon [address] [place] [address], [address], [place] [facility] 10/08/2022 11:14:35 Imaging Results None recorded. Procedure Notes None recorded. Medical Equipment None Reported. Allergies Allergen ID Allergen Name Allergen Category Reaction Reaction Severity Criticality Documentation Date Start Date Code Code System Note Provider Name and Address Organization Details Recorded Time 768116 Wellbutri n medicatio n Not available Not available Not available 10/08/2022 90989 RxNorm DOMINICK Simeon [address], [place], [address], [place] [facility] 11:10:24 [...] Not Available No t Available amoxicillin 875 mg-potaliciau m clavulanate 125 mg tablet 10/08 completed [...] Heart rate Respiratory rate Body temperature Systolic And Diastolic Provider Name and Address Organization Details Last Updated DateTime 3 98 % 98 % 86 /min 18 /min 98.3 [degF] 140/82 mm[Hg] Not Available [facility] 3 11:13:16 Social History Question Answer Notes LastModified by [employer] Details LastModified Time Tobacco Smoking Status Never Smoker DOMINICK Simeon [address], [place], [address], [place] [facility] 10/08/2022 11:13:31 Fall Risk: Do You Feel Unsteady When Standing Or Walking? Yes Information not available 10/08/2022 Excessive Alcohol Or Drug Use No [email or web address] Information not available 10/08/2022 Does This Patient Have A PCP? Yes [email or web address] Information not available 10/07/2022 Has The Patient Seen Their PCP In The Past 6 Months? No [email or web address] Information not available 10/07/2022 Social Support: Do You Feel Safe? Yes [email or web address] Information not available 10/08/2022 What Is Your Housing Situation Today? I Have Housing Information not available 10/08/2022 Sex: Unknown Functional Status Question Answer Note LastModified by [employer] Details LastModified Time Do you use any illicit or recreational drugs? No [email or web address] Information not available 10/08/2022 What is your level of alcohol consumption? None Information not available 10/08/2022 Mental Status None recorded. Family History Relationship Description Onset Age of this Age Resolved Age Notes LastModified by Organization Details LastModified Time Father No current problems or disability [email or web address] Not available 09/27 11:13:08 Mother No current problems or disability Not available 09/27 11:13:08 Medical History Condition Response Diabetes N Coronary Artery Disease N CHF N Parkinson's Disease N Cancer N Stroke N Dementia N Asthma N Hypothyroidism N Depression N COPD N High Cholesterol N Rheumatoid Arthritis N Pulmonary Embolism N Hypertension N A-fib N Osteoporosis N Kidney Disease N Gynecological HistoryNo gynecological history recorded. Obstetrics History GPAL:G 0 P 0 0 0 0 Past Encounters Encounter ID Performer Location Encounter Start Date Encounter Closed Date Diagnosis/Indication Diagnosis SNOMED-CT Code Diagnosis ICD10 Code Diagnosis Note [id number] DOMINICK Simeon [facility] [address] [place] [address] 10/08/2022 11:09:22 10/10/2022 13:22:50 Otitis externa of left ear [id number] 407312 H60.92 Status of condition: Acute. Testing/Re sults: n/a Discussion :OE on exam.keep [...] cp, sob. Urgent riley ivan to urinate [id number] R39.15 Status of condition: Acute. Testing/Re sults: UA not suggestive of UTI. [...] incontinen ce, cp, sob, dizziness. Multiple sclerosis 07835 007 G35 Health Concerns Section Related Observation LastModified by Organization Detai ls LastModified Time None Recorded Concern Status LastModified by Organization Details LastModified Time None Recorded Advance Directives Directive None Recorded Payers Insurance Date Sequence Insurance Name Policy Number Policy Swartz Covered Member ID Swartz Member ID Guarantor Name 10/07/2022 1 *SELF PAY* Darlene Prather [id number] Darlene Prather 10/19/2022 1 [facility] - DOS ON OR AFTER 2022 - MEDICARE ADVANTAGE [place] (MEDICARE REPLACEMENT/ADV ANTAGE - PPO) Darlene Prather [id number] Darlene Prather Notes Date Note Type Note [...] to dermatology. DOMINICK Simeon [address], [place], [address], [place] [facility] 10/08/2022 12:14:35 OBGyn Episode No OBEpisode recorded.
--- OUTSIDE RECORDS SUMMARY | 2024-11-10 13:44 | XMS_ITS | Clinical Summary ---
Author Organization Former[facility] Address [address] [place] [address] Care Team Providers Care Environmental Director Name Role Phone Chato Paz MD Primary Care Provider [phone] Allergies Active Allergy Reactions Criticality Noted Date [...] 0 07/17/2023 Active ergocalciferol (VITAMIN D2) capsule 86347 units TAKE 1 CAPSULE BY MOUTH ONE [...] 81 01/07/2024 3:53 PM EDT Temperature 35.9 C (96.6 F) 11/21/2023 9:00 AM EDT Respiratory Rate 18 11/21/2023 11:52 AM EDT [...] 2015 Shingrix-Zoster Vaccine (1 of 2) 2015 DTap / Tdap / Td (2 - Td or Tdap) 08/26/2024 08/26/2014 Influenza Vaccine (#1) 2024 , 02/22/2021, 04/24/2020, Additional history exists Pneumococcal Vaccine Aged Out 11/12/2015 No long er eligible based on patient's age to complete this topic RSV Ped < 20 months Aged Out No longe r eligible based on patient's age to complete this topic Care Teams Environmental Director Relationship Specialty Start Date End Date Chato Paz MD [address] [place] [address] PCP - General Internal Medicine 12/14/22
--- OUTSIDE RECORDS SUMMARY | 2024-11-10 13:44 | XMS_ITS | Clinical Summary ---
Author Organization 175 [facility] Address [address] [place] [address] Phone Care Team Providers Care Sales Department Supervisor Name Role Phone Chato Paz MD Primary Care Provider [phone] Allergies Active Allergy Reactions Criticality Noted Date Comments Bupropion 12/11/2010 Other 12/11/2010 Medications aspirin 81 mg EC tablet Take 1 tablet (81 mg total) by mouth 1 (one) time each day. Active carBAMazepine, bulk, powder Take by mouth. Ac tive cholecalcifero l (VITAMIN D-3) 25 mcg (1,000 unit) capsule Take 1 capsule (1,000 Units total) by mouth. Active cyanocobalamin (VITAMIN B-12) 100 mcg tablet Take 0.5 tablets (50 mcg total) by mouth. Active docusate sodium (COLACE) 100 mg capsule Take 1 capsule (100 mg total) by mouth. Active fluticasone propionate (FLONASE) 50 mcg/actuation nasal spray Administer 2 sprays into affected nostril(s). 5 Active L. acidophilus/Bi fid. animalis 32 billion cell capsule Take by mouth. Ac tive LORazepam (ATIVAN) 0.5 mg tablet 1 po qd PRN 2 Active ocrelizumab (Ocrevus) 30 mg/mL solution injection Infuse into a venous catheter. Active omeprazole (PriLOSEC) [address] capsule Take 2 capsules (40 mg total) by mouth 2 (two) times a day. 2 Active ondansetron (ZOFRAN) 4 mg tablet Take 1 tablet (4 mg total) by mouth. 9 Active polyethylene glycol (PEG) 17 gram/dose oral powder Take 17 g by mouth. 2 Active methylPREDNISo lone (MEDROL) 4 mg tablet See administration instructions. 4 Active modafiniL (PROVIGIL) 200 mg tabletIndicati ons:Multiple sclerosis ([facility] V24, CMS/HCC V28) Take 1 tablet (200 mg total) by mouth 1 (one) time each day in the morning. Max Daily Amount: 200 mg 30 each 5 5 025 Active omeprazole (PriLOSEC) [address] capsule Take 1 capsule (40 mg total) by mouth 1 (one) time each day. Do not crush or chew. Active baclofen (LIORESAL) 10 mg tablet TAKE 2 TABLETS BY MOUTH 3 TIMES A DAY. 540 tablet 1 5 Active gabapentin (NEURONTIN) 300 mg capsule Take 2 capsules (600 mg total) by mouth 3 (three) times a day. 540 each 3 5 025 Active DULoxetine (CYMBALTA) [address] capsule Take 1 capsule (30 mg total) by mouth 1 (one) time each day. 90 each 3 5 026 Active DULoxetine (CYMBALTA) [address] capsule Take 1 capsule (60 mg total) by mouth 1 (one) time each day. 90 each 3 5 025 Active amantadine (SYMMETREL) 100 mg tablet Take 1 tablet (100 mg total) by mouth 2 (two) times a day. 60 tablet 2 5 026 Active Active Problems Problem Noted Date Diagnosed Date Unspecified atherosclerosis of [place] arteries of extremities, bilateral legs ([facility] V24) 08/03/2024 Breast pain 06/10/2024 Assessment & Plan (06/10/2024 [...] send culture and treat prn. Cervical myelopathy ([facility] V24, [facility] V28) 0 06/14/2023 Allergic rhinitis 06/03/2022 Vaginal dryness, menopausal [...] dr. Yoo Upper EGD: 03/18/2012 Multiple sclerosis ([facility] V24, [facility] V28) Overview (06/03/2022): Dr. Cristina Encounters Date Type Department Care Team Description 11/02/2024 [facility] [address] [place] [phone] Amy Rodriguez MD SHOWER CHAIR 09/17/2024 [facility] [place] [address] [place] [address] Eden Babb PA 09/11/2024 11:00 AM EDT Telemedicine Outpatient Infusion - [address] [phone] Eden Babb PA Multiple sclerosis (CMS/HCC V24, CMS/HCC V28) (Primary Dx) 09/11/2024 Lab Requisition [facility] - Main Lab [address] [place] [address] Tracy Palomo NP Frequency of micturition 08/18/2024 8:00 AM EDT - 08/18/2024 11:59 PM EDT Hospital Encounter [facility] - [place] [address] [place] [address] Multiple sclerosis (CMS/HCC V24, CMS/[facility] V28) (Primary Dx); Encounter for therapeutic drug monitoring Discharge Disposition: Home or Self Care from Last 3 Months Surgical History Surgery Date Site/Laterality Comments OTHER SURGICAL HISTORY PROCEDURE:CHOLECYSTECOMY OTHER SURGICAL HISTORY PROCEDURE:TRIGEMINAL NERVE SURGERY COLONOSCOPY 10/09/2018 10 yr recall ESOPHAGOGASTRODUODENOSCOPY 06/20/2016 negative spruce COLONOSCOPY 06/20/2016 recall 5 yr ESOPHAGOGASTRODUODENOSCOPY 03/18/2012 COLONOSCOPY 06/09/2003 Medical History Medical History Date Comments Multiple sclerosis ([facility]/HCC V24, CMS/HCC V28) 06/25/2011 DX:Multiple sclerosis (HCC) Myelopathy (CMS/HCC V24, CMS/HCC V28) 06/25/2011 DX:Myelopathy (HCC);COMMENT:Cervical Myelopathy of thoracic region 05/13/2017 DX :Myelopathy of thoracic region Trigeminal neuralgia of left side of face 11/15/2017 DX:Trigeminal neuralgia of l eft side of face Family History Medical History Relation Name Comments Clotting disorder Father Cancer Mother Dementia Mother Hypertension Mother Colon cancer Neg Hx Colon polyps Neg Hx Multiple sclerosis Neg Hx Relation Name Status [...] care for your loved ones. For example, rn maternal child or elderly care for an older adult? [...] Sign Reading Time Taken Comments Blood Pressure 137/79 08/18/2024 11:56 AM EDT Pulse 84 08/18/2024 11:56 AM EDT Temperature 36.1 C (97 F) 08/18/2024 11:56 AM EDT Respiratory Rate 18 08/18/2024 11:56 AM EDT Oxygen Saturation 92% 08/18/2024 11:56 AM EDT Inhaled Oxygen Concentration - - Weight 72.6 kg (160 lb) 08/04/2024 3:29 PM EDT Height 170.2 cm (5' 7 ) 08/04/2024 3:29 PM EDT Body Mass Index 25.06 08/04/2024 3:29 PM EDT Plan of Treatment Upcoming Encounters Date Type Department Care Team (Late st Contact Info) Description 02/08/2025 10:00 AM EDT Appointment [facility] [place] [address] [phone] 02/08/2025 10:00 AM EDT Office Visit [facility] [place] [facility] [place] [address] [phone] Amy Rodriguez MD [address] [phone] Health Maintenance Due Date Last Done Comments Breast Cancer Screening 1965 Hepatitis B Vaccines (1 of 3 - 19+ 3-dose series) 01/13/1984 Zoster Vaccines (1 of 2) 2015 Pneumococcal Vaccine: 50+ Years (2 of 2 - PCV) 11/11/2016 11/12/2015 Cholesterol Screening (Lipid Panel) 04/06/2022 HIV Screening 04/06/2022 Hepatitis C Screening 04/06/2022 Medicare Annual Wellness Visit 04/06/2022 COVID-19 Vaccine ( season) 2023 03/20/2022, 03/07/2021, 09/07/2020, Additional history exists Cervical Cancer Screening: Pap Smear 07/27/2024 07/27/2021 DTaP,Tdap,and Td Vaccines (2 - Td or Tdap) 08/26/2024 08/26/2014 Influenza Vaccine (#1) 2024 , 02/22/2021, 04/24/2020, Additional history exists Social Influencers of Health Screening 05/24/2025 05/24/2024 Depression Screening 09/09/2025 09/09/2024 Colorectal Cancer Screening: Colonoscopy 08/07/2034 08/07/2024, 08/06/2024 RSV Immunization Adult Patients (1 - 1-dose 75+ series) 01/13/2040 HIB Vaccines Aged Out No longer eligi [...] age to complete this topic Meningococcal B Vaccine Aged Out No l onger eligible based on patient's age to complete this topic RSV Immunization Patients Under 20 months Aged Out No longer eligible based on patient's age to complete this topic Varicella Vaccines Aged Out No longer eligible based on patient's age to complete this topic Procedures Procedure Name Priority Date/Time Associated Diagnosis Comments CULTURE URINE Routine 09/11/2024 4:15 PM EDT Frequency of micturition CBC WITH AUTO DIFFERENTIAL Routine 08/18/2024 8:38 AM EDT Multiple sclerosis (CMS/HCC V24, CMS/HCC V28) CBC AND DIFFERENTIAL Routine 08/18/2024 8:38 AM EDT Multiple sclerosis (CMS/HCC V24, CMS/HCC V28) HEPATIC FUNCTION PANEL Routine 08/18/2024 8:38 AM EDT Multiple sclerosis (CMS/HCC V24, CMS/HCC V28) Encounter for therapeutic drug monitoring CREATININE, SERUM Routine 08/18/2024 8:3 8 AM EDT Multiple sclerosis (CMS/HCC V24, CMS/HCC V28) Encounter for therapeutic drug monitoring BUN Routine 08/18/2024 8:38 AM EDT Multiple sclerosis (CMS/HCC V24, CMS/HCC V28) Encounter for therapeutic drug monitoring EXTERNAL COLONOSCOPY REPORT Routine 08/07/2024 7:51 AM EDT PAP SMEAR Routine 07/27/2021 from Last 3 Months or Most Recently Relevant to Health Maintenance Results * (ABNORMAL) Culture urine (09/11/2024 4:15 PM EDT) [facility] Culture, Urine >100,000 CFU/mL Pseudomonas aeruginosa(A) ZINA 09/15/2024 7:46 AM EDT [facility] Comment: The organism value for this result has been updated. These results have been appended to the previously preliminary verified report. This is an edited result. Previous organism was Gram negative bacilli on 09/14/2024 at 1005 EDT. Urine Urine specimen obtained by clean catch procedure / Unknown 09/11/2024 4:15 PM EDT 09/11/2024 6:21 PM EDT Narrative Organism Antibiotic Method Susceptibility Pseudomonas aeruginosa Piperacillin/Tazobactam ZINA <=4 ug/ml: Susceptible Pseudomonas aeruginosa Ceftazidime ZINA 4 ug/ml: Susceptible Pseudomonas aeruginosa Cefepime ZINA 1 ug/ml: Susceptible Pseudomonas aeruginosa Meropenem ZINA 0.5 ug/ml: Susceptible Pseudomonas aeruginosa Amikacin ZINA 2 ug/ml: Susceptible Pseudomonas aeruginosa Ciprofloxacin ZINA 0.25 ug/ml: Susceptible Pseudomonas aeruginosa Levofloxacin ZINA 1 ug/ml: Susceptible Tracy Palomo NP LAB MICROBIOLOGY - GENERA L ORDERABLES Final Result [facility] [address] [place] [address], * CBC auto differential (08/18/2024 8:38 AM EDT) WBC 5.6 4.8 - 10.8 K/mcL LAB HEMETOLOGY METHOD 08/18/2024 9:54 AM EDT [facility] RBC 4.50 3.80 - 4.80 M/mcL LAB HEMETOLOGY METHOD 08/18/2024 9:54 AM EDT [facility] Hemoglobin 13.3 11.5 - 16.0 g/dL LAB HEMETOLOGY METHOD 08/18/2024 9:54 AM EDT [facility] Hematocrit 41.0 35.0 - 47.0 % LAB HEMETOLOGY METHOD 08/18/2024 9:54 AM EDT [facility] MCV 90.5 79.0 - 98.0 FL LAB HEMETOLOGY METHOD 08/18/2024 9:54 AM EDT [facility] MCH 29.4 27.0 - 32.0 pcg LAB HEMETOLOGY METHOD 08/18/2024 9:54 AM EDT [facility] MCHC 32.4 32.0 - 37.0 g/dL LAB HEMETOLOGY METHOD 08/18/2024 9:54 AM EDT [facility] RDW 12.5 11.0 - 15.0 % LAB HEMETOLOGY METHOD 08/18/2024 9:54 AM EDT [facility] Platelets 220 130 - 400 K/mcL LAB HEMETOLOGY METHOD 08/18/2024 9:54 AM EDT [facility] MPV 10.0 7.0 - 11.0 FL LAB HEMETOLOGY METHOD 08/18/2024 9:54 AM EDT [facility] NRBC 0.0 <1.0 % LAB HEMETOLOGY METHOD 08/18/2024 9:54 AM T [facility] NRBC Absolute 0.00 <0.10 K/mcL LAB HEMETOLOGY METHOD 08/18/2024 9:54 AM [facility] Neutrophils Relative 66.2 % LAB HEMETOLOGY METHOD 08/18/2024 9:54 AM [facility] Lymphocytes Relative 22.5 % LAB HEMETOLOGY METHOD 08/18/2024 9:54 AM [facility] Monocytes Relative 7.5 % LAB HEMETOLOGY METHOD 08/18/2024 9:54 AM [facility] Eosinophils Relative 2.7 % LAB HEMETOLOGY METHOD 08/18/2024 9:54 AM [facility] Basophils Relative 0.7 % LAB HEMETOLOGY METHOD 08/18/2024 9:54 AM [facility] Immature Granulocytes Relative 0.4 % LAB HEMETOLOGY METHOD 08/18/2024 9:54 AM [facility] Neutrophils Absolute 3.70 1.50 - 7.00 K/mcL LAB HEMETOLOGY METHOD 08/18/2024 9:54 AM [facility] Lymphocytes Absolute 1.26 1.00 - 5.00 K/mcL LAB HEMETOLOGY METHOD 08/18/2024 9:54 AM [facility] Monocytes Absolute 0.42 0.20 - 1.00 K/mcL LAB HEMETOLOGY METHOD 08/18/2024 9:54 AM [facility] Eosinophils Absolute 0.15 0.00 - 0.50 K/mcL LAB HEMETOLOGY METHOD 08/18/2024 9:54 AM [facility] Basophils Absolute 0.04 0.00 - 0.20 K/mcL LAB HEMETOLOGY METHOD 08/18/2024 9:54 AM EDT [facility] Immature Granulocytes Absolute 0.02 0.00 - 0.03 K/mcL LAB HEMETOLOGY METHOD 08/18/2024 9:54 AM EDT [facility] Blood Venous blood specimen / Unknown Venipuncture / Unknown 08/18/2024 8:38 AM EDT 08/18/2024 8:38 AM EDT [facility] BLOOD ORDERABLES Final R esult [facility] [address] [place] [address], * Creatinine (08/18/2024 8:38 AM EDT) Creatinine 0.68 0.50 - 1.10 mg/dL LAB CHEMISTRY METHOD 08/18/2024 10:01 AM EDT [facility] eGFR 100 >=60 mL/min/1. 73m2 LAB CHEMISTRY METHOD 08/18/2024 10:01 AM EDT [facility] Comment:Calculation based on the Chronic Kidney Disease Epidemiology Collaboration (CKD-EPI) equation refit without adjustment for race. Blood Venous blood specimen / Unknown Venipuncture / Unknown 08/18/2024 8:38 AM EDT 08/18/2024 8:38 AM EDT [facility] BLOOD ORDERABLES Final R esult [facility] [address] [place] [address], * BUN (08/18/2024 8:38 AM EDT) BUN 17 5 - 25 mg/dL LAB CHEMISTRY METHOD 08/18/2024 10:01 AM EDT [facility] Blood Venous blood specimen / Unknown Venipuncture / Unknown 08/18/2024 8:38 AM EDT 08/18/2024 8:38 AM EDT Eden TAN LAB BLOOD ORDERABLES Final R esult [facility] [address] [place] [address], * Hepatic function panel (08/18/2024 8:38 AM EDT) Total Protein 6.9 6.0 - 8.0 g/dL LAB CHEMISTRY METHOD 08/18/2024 10:02 AM [facility] Albumin 3.6 3.2 - 5.0 g/dL LAB CHEMISTRY METHOD 08/18/2024 10:02 AM [facility] Total Bilirubin 0.3 0.0 - 1.4 mg/dL LAB CHEMISTRY METHOD 08/18/2024 10:02 AM [facility] Bilirubin, Direct <0.1 0.0 - 0.3 mg/dL LAB CHEMISTRY METHOD 08/18/2024 10:02 AM [facility] Bilirubin, Indirect LAB CHEMISTRY METHOD 08/18/2024 10:02 AM [facility] Comment:Unable to calculate Indirect Bilirubin. ALT (SGPT) 21 10 - 60 unit/L LAB CHEMISTRY METHOD 08/18/2024 10:02 AM [facility] AST (SGOT) 16 10 - 42 unit/L LAB CHEMISTRY METHOD 08/18/2024 10:02 AM [facility] Alkaline Phosphatase 109 42 - 121 unit/L LAB CHEMISTRY METHOD 08/18/2024 10:02 AM [facility] Blood Venous blood specimen / Unknown Venipuncture / Unknown 08/18/2024 8:38 AM EDT 08/18/2024 8:38 AM EDT Eden TAN LAB BLOOD ORDERABLES Final R esult YOLANDA LUEVANO [place] ([facility]) [facility] [address] [place] [address], * External Colonoscopy Report (08/07/2024 7:51 AM EDT) Anatomical Region Laterality Modality Endoscopy Historical Provider MD GI~PROCEDURE ORDERABLES F inal Result * Pap smear (07/27/2021) 07/27/2021 Narrative HISTORICAL TESTING LAB RESULTING AGENCY - 08/07/2021 4:35 PM EDT [id number] THINPREP PAP, IMAGED: NEGATIVE FOR SQUAMOUS INTRAEPITHELIAL LESION AND MALIGNANCY. ATROPHY. NOTE: THE PAP TEST IS A SCREENING TEST WITH AN INHERENT FALSE NEGATIVE RATE. AUTOMATED PRESCREENING OF ALL LIQUID BASED SPECIMENS IS PERFORMED BY THE [email or web address] IMAGING SYSTEM UNLESS OTHERWISE STATED. JACK CHUNG(ASCP) (CASE ELECTRONICALLY SIGNED 08 07 2021) RESULT OF APTIMA HIGH RISK HPV ASSAY: HIGH RISK HPV: NEGATIVE (SEROTYPES 16,18,31,33,35,39,45,51,52,56,58,59,66,68) COMPLETED ON 2021-07-28 ADEQUACY: SATISFACTORY . SOURCE: THINPREP PAP HPV ANY DX: REFLEX 16 AND 18, CERVICAL, IMAGED CLINICAL INFORMATION: HPV ANY DIAGNOSIS. HORMONES, PAP HX NEGATIVE, [Z12.4, Z01.419] Meng Lindsay DO LAB CYTOLOGY ORDERABLES Final Result HISTORICAL TESTING LAB RESULTING AGENCY from Last 3 Months or Most Recently Relevant to Health Maintenance Insurance [employer] MEDICARE Member Subscriber Plan / Payer (Ef fective 2017-Present) Name:THALIA PRATHER Relation to Subscriber:Self Name:Thalia Prather Payer ID:[id number] Group ID:[id number] Type:Not on file Address: [place] [address] [id number] Care Teams Sales Department Supervisor Relationship Specialty Start Date End Date Chato Paz MD [address] [place] [phone] PCP - General 12/14/22
--- OUTSIDE RECORDS SUMMARY | 2024-11-10 13:44 | XMS_ITS | Patient Health Record ---
Author [facility] Address [address] [place] [address] Care Team Providers Care Straight Truck Driver Name Role Phone Jackson [facility]AN[facility] Primary Care Provider Serge Cleaning Unavailable [phone] Allergies Allergen (clinical drug ingredient) Drug/Non Drug Allergy documented on EMR Reaction Allergy Type Onset Date Status Wellbutrin Unknown Drug Allergy Active bupropion Bupropion Unknown Drug Allergy Active Reason For Referral No Information Medications Medication SIG (Take, Route, Frequency, Duration) Notes Start Date End Date Status Ammonium Lactate 12 % 1 application Externally Twice a day; Duration: 30 days Active Cymbalta Active Fluticasone Propionate 50 MCG/ACT 1 spray in each nostril Nasally Once a day; Duration: 30 day(s) Active Provigil Active Gabapentin 300 MG 1 capsule Orally Once a day; Duration: 30 day(s) Active Senna Active Meclizine HCl 25 MG 1 tablet as needed Orally every 12 hrs Active Modafinil 200 MG 1 tablet in the morning Orally Once a day Active oxyBUTYnin Chloride ER 5 MG 1 tablet Orally Once a day; Duration: 30 day(s) Active Aspirin 325 MG 1 tablet Orally Once a day; Duration: 30 day(s) Active Saccharomyces boulardii 250 MG as directed Orally Not-T aking Baclofen 10 MG 1 tablet as needed Orally Twice a day Active Ocrevus 300 MG/10ML as directed Intravenous Active Docusate Sodium stool softener Active Neurontin Active DULoxetine HCl 30 MG 1 capsule Orally Once a day; Duration: 30 day(s) Active Ocrelizumab Ocrevus Not-Taki ng Omeprazole 20 MG as directed Orally Active Ondansetron HCl 4 MG 1 tablet Orally Once a day; Duration: 30 day(s) Zofran Active Albuterol Sulfate Ac [...] Problem Status W/U Status Risk Notes Problem Bilateral atherosclerosis of arteries of lower limbs (disorder) (50704986172783066 ) Atherosclerosis of [place] artery of both lower extremities, with unspecified presence of clinical manifestation (I70.203) Active confirmed Problem Multiple sclerosis (51722927) Generalized multiple sclerosis (G35) Active confirmed Plan Of Treatment Pending Test Test Name Order Date X ray : Foot, left 3V 12/11/2022 [id number] NAIL, 1-5 12/20/2022 [id number] SKIN LESIONS, OVER 4 12/21/19 23 [id number] DYSTROPHIC NAILS ANY # Insurance Providers Payer Name Payer Address Payer Phone Subscriber Number Group Number Insured Name Patient Relationship to Insured Coverage Start Date Coverage End Date [facility] [employer] Claims [address] [place] [address] [phone] [id number] Darlene Prather Self - patient is the insured Medical (General) History Medical History History ICD Code sclerosis Reflux ( GERD) hydradenitis left foot pain leg weakness Back,Hip,and Knee pain covid-19 Gall bladder problems Headaches/Migraines Numbness Mumps Chicken pox Trigeminal neuralgia MS Surgical History Surgery Date(Month/Year) colonoscopy Gall bladder removal Trigeminal neuralgia
--- OUTSIDE RECORDS SUMMARY | 2024-11-10 13:45 | XMS_ITS ---
Author Name [facility] Organization Unknown History of Medication Use Medication Directions Dispensed Refills Start Date End Date Status amantadine (SYMMETREL) 100 mg tablet Take 1 tablet (100 mg total) by mouth 2 (two) times a day. 5 active gabapentin (NEURONTIN) 300 mg capsule Take 2 capsules (600 mg total) by mouth 3 (three) times a day. 5 09/12/19 25 active baclofen (LIORESAL) 10 mg tablet TAKE 2 TABLETS BY MOUTH 3 TIMES A DAY. 5 active DULoxetine (CYMBALTA) [address] capsule Take 1 capsule (30 mg total) by mouth 1 (one) time each day. 5 09/12/19 25 active DULoxetine (CYMBALTA) [address] capsule Take 1 capsule (60 mg total) by mouth 1 (one) time each day. 5 09/12/19 25 active modafiniL (PROVIGIL) 200 mg tablet Take 1 tablet (200 mg total) by mouth 1 (one) time each day in the morning. Max Daily Amount: 200 mg 5 active methylPREDNISolone sodium succinate (SOLU-Medrol) injection 125 mg 125 mg, Intravenous, Once, On Lyubov 11/21/23 at 0915, For 1 doseGive 30 minutes prior to ocrelizumab. Administer over 2-3 minutes 4 11/21/19 24 completed ocrelizumab (OCREVUS) 600 mg in sodium chloride (NS) 0.9 % 500 mL IVPB 600 mg, Intravenous, Once, On Lyubov 11/21/23 at 0915, For 1 doseMust use in-line 0.22 micron filter. - Infusion Rate for first full 600 mg dose or reaction with previous infusion: Start at 40 mL/hr. Increase by 40 mL/hr every 30 minutes. Maximum rate: 200 mL/hr. Duration: 3.5 hours or longer. - Infus 4 11/21/19 24 completed Polyethylene Glycol 3350 (PEG 3350) 17 g PACK 4 active methylPREDNISolone (MEDROL) 4 mg tablet See administration instructions. 4 active baclofen (LIORESAL) 10 MG tablet Take 2 tablets (20 mg total) by mouth 3 (three) times a day. 4 active omeprazole (PriLOSEC) [address] capsule Take 2 capsules (40 mg total) by mouth 2 (two) times a day. 2 active LORazepam (ATIVAN) 0.5 mg tablet 1 po qd PRN 2 active polyethylene glycol (PEG) 17 gram/dose oral powder Take 17 g by mouth. 2 active estradioL (ESTRACE) 0.01 % (0.1 mg/gram) vaginal cream 2 09/12/19 25 aborted ondansetron (ZOFRAN) 4 mg tablet Take 1 tablet (4 mg total) by mouth. 9 active fluticasone (FLONASE) 50 MCG/ACT nasal spray spray or apply 2 sprays inside Nose. 5 active fluticasone propionate (FLONASE) 50 mcg/actuation nasal spray Administer 2 sprays into affected nostril(s). 5 active ammonium lactate (AMLACTIN) 12 % cream 1 Application every 12 hours. 09/12/19 25 aborted aspirin 81 mg EC tablet Take 1 tablet (81 mg total) by mouth 1 (one) time each day. active CARBAMAZEPINE PO Take by mouth. active carBAMazepine, bulk, powder Take by mouth. active cholecalciferol (VITAMIN D-3) 25 mcg (1,000 unit) capsule Take 1 capsule (1,000 Units total) by mouth. active cyanocobalamin (VITAMIN B-12) 100 mcg tablet Take 0.5 tablets (50 mcg total) by mouth. active docusate sodium (COLACE) 100 mg capsule Take 1 capsule (100 mg total) by mouth. active L. acidophilus/Bifid. animalis 32 billion cell capsule Take by mouth. active ocrelizumab (Ocrevus) 30 mg/mL solution injection Infuse into a venous catheter. active omeprazole (PriLOSEC) [address] capsule Take 1 capsule (40 mg total) by mouth 1 (one) time each day. Do not crush or chew. active Probiotic CAPS Take by mouth. ac tive Allergies Allergen Reaction Severity Comment Documented Date Source Statu s CARBAMAZEPINE HIVES 05/03/2018 [facility] active OTHER 12/11/2010 [facility] active BUPROPION [facility] Problems Problem Status Onset Date Problem Type Date of Resoluti on Source Spasticity active 2019-08-05 ProblemAct [facility] Neck pain active 2016-12-24 ProblemAct [facility] Chronic constipation active 2014-12-30 ProblemAct [facility] Unspecified atherosclerosis of [place] arteries of extremities, bilateral legs ([facility] V24) active 2024-08-03 ProblemAct [facility] N Cervical myelopathy ([facility] V24, [facility] V28) active 2023-06-14 ProblemAct [facility] Incidental lung nodule active 2017-08-29 ProblemAct [facility] Fatigue active 2019-08-05 ProblemAct [facility] Shoulder pain, bilateral active 2015-02-17 ProblemAct [facility] Hoarseness active 2016-01-02 ProblemAct [facility] Thoracic myelopathy active 2019-08-05 ProblemAct [facility] Trigeminal neuralgia active 2017-11-21 ProblemAct [facility] Breast pain active 2024-06-10 ProblemAct [facility] JACKIE Multiple sclerosis ([facility] V24, [facility] V28) active 2010-12-11 ProblemAct [facility] Urinary retention active 2024-06-10 ProblemAct [facility] Allergic rhinitis active 2022-06-03 ProblemAct [facility] Vaginal dryness, menopausal active 2021-07-28 ProblemAct [facility] Dysphagia active 2012-03-04 ProblemAct [facility] AN Cervical myelopathy active 2019-08-05 ProblemAct [facility] Multiple sclerosis active 2020-02-18 ProblemAct [facility] Trigeminal neuralgia active 2019-08-05 ProblemAct [facility] Encounters Encounter Type Encounter Reason Primary Diagnosis Location Date Ambulatory [facility] 09/11/2024 Care Team Organization Name Specialty Phone Email Start Date End Da te [facility] 09/11/2024 [facility] 09/11/2024
== END 2024-11-10 13:41 | disposition home or self-care (01) ==
LOC: HO.HMCC 12:35
PROVIDERS: PCP Internal Medicine; Visit Provider Internal Medicine
DX: Z00.01 Encounter for general adult medical examination with abnormal findings (principal); M79.89 Other specified soft tissue disorders; R30.0 Dysuria; G35 Multiple sclerosis; R29.6 Repeated falls; L73.2 Hidradenitis suppurativa

== ENCOUNTER 2024-11-10 13:12 | Outpatient (REF) | payer OTHER, SELFPAY ==
--- NOTE | ~2024-11-10 | US_ITS ---
EXAMINATION: US TRIPLEX LOWER EXTREMITY, LEFT CLINICAL INFORMATION: Edema, left lower extremity. COMPARISON: None available. TECHNIQUE: Color-flow triplex imaging with spectral analysis and compression Doppler were performed on the left lower extremity. FINDINGS: Respiratory variation, normal compression and augmented flow are demonstrated throughout the interrogated left common femoral vein, superficial femoral vein, profunda femoral vein, popliteal vein and midcalf peroneal and posterior tibial venous segments. There is no Villalta's cyst. US/US venous duplex LE IMPRESSION: No acute deep venous thrombosis interrogated veins, left lower extremity. Negative for DVT. Electronically signed by: Juan Alberto Muro MD 11/10/2024 03:47 PM EDT
--- OUTSIDE RECORDS SUMMARY | 2024-11-10 14:34 | XMS_ITS | Encounter Summary ---
Author Organization [facility] Address [address] [place] [address] Care Team Providers Care Ethnology Teacher Name Role Phone Dwight Grullon MD Primary Care Provider Shahida Mercado, Pcp Primary Care Provider Lynne martinez Encounter Details Date Type Department Care Team Description 01/07/2012 Special Education Teaching Assistant Report Medical Records [address] [place] [address] [place] Babb Social History Tobacco Use Types Packs/Day Years Used Date Smoking Tobacco: Never Smokeless Tobacco: Never Alcohol Use Standard Drinks/Week Comments Yes 0 (1 standard drink = 0.6 oz pur e alcohol) occ Sex Assigned at Date Recorded Not on file Job Start Date Occupation Industry Not on file Not on file Not on file documented as of this encounter Plan of Treatment Not on file documented as of this encounter Visit Diagnoses Not on filedocumented in this encounter Care Teams Ethnology Teacher Relationship Specialty Start Date End Date Dwight Grullon MD PCP - General Internal Medicine 08/09/11 11/18/22 Jess Pcp PCP - General Internal Medicine 11/19/22 documented as of this encounter
[2024-11-10 16:26] LABS: Appearance Urine Clear; Glucose Urine UA Negative (Negative); PH 6.0 (5.0-9.0); Specific Gravity - Urine 1.015 (1.005-1.025); UMIC TRIGGER UACC YES
[2024-11-10 16:36] LABS: UACC Culture Trigger YES
== END 2024-11-10 13:13 | disposition home or self-care (01) ==
LOC: HO.HMGCX 13:12
PROVIDERS: PCP Internal Medicine; Visit Provider Internal Medicine
DX: Z00.01 Encounter for general adult medical examination with abnormal findings (principal); M79.89 Other specified soft tissue disorders; R30.0 Dysuria; L73.2 Hidradenitis suppurativa; G35 Multiple sclerosis; R29.6 Repeated falls; K21.9 Gastro-esophageal reflux disease without esophagitis; Z79.899 Other long term (current) drug therapy; Z13.39 Encounter for screening examination for other mental health and behavioral disorders
CPT/HCPCS: 81001; 87086; 93971; 96127; 99212; 99396

== ENCOUNTER → 2024-11-10 13:28 | Outpatient (BNV) | payer OTHER, SELFPAY | PROVIDERS: PCP Internal Medicine; Visit Provider Radiology Diagnostic Radiology | DX: R22.42 Localized swelling, mass and lump, left lower limb (principal) | CPT/HCPCS: 93971 ==

== ENCOUNTER 2025-02-23 15:32 | Outpatient (AMB) | payer OTHER, SELFPAY ==
--- OUTSIDE RECORDS SUMMARY | 2025-02-19 11:33 | XMS_ITS | Encounter Summary ---
Author Organization [facility] Address [address] [place] [address] Care Team Providers Care Product Manager Medical Device Name Role Phone Chato Paz MD Primary Care Provider [phone] Reason for Visit * Reason Comments Leg Pain Encounter Details Date Type Department Care Team ([facility] st Contact Info) Description 02/19/2025 11:33 AM EDT - 02/19/2025 3:53 PM EDT Emergency [facility] Emergency [address] [place] [phone] James Ott MD [address] [address] Leg pain, central, left (Primary Dx); Raynaud's phenomenon without gangrene; Lower extremity edema; Constipation, unspecified constipation type Discharge Disposition: Home or Self Care Social History Tobacco Use Types Packs/Day Years [...] care for your loved ones. 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 [...] Date Recorded What is your living situation? Unrecognized valu e 05/24/2024 Comments Unknown Sex and Gender Information Value Date Recorded Sex Assigned at Female 05/20/2024 2:19 PM EST Legal Sex Female 12:27 PM EST Gender Identity Female 05/20/2024 2:19 PM EST Sexual Orientation Not on file documented as of this encounter Last Filed Vital Signs Vital Sign Reading Time Taken Comments Blood Pressure 146/79 02/19/2025 12:35 PM EDT Pulse 72 02/19/2025 12:35 PM EDT Temperature 36.8 C (98.2 F) 02/19/2025 12:35 PM EDT Respiratory Rate 16 02/19/2025 12:35 PM EDT Oxygen Saturation 96% 02/19/2025 12:35 PM EDT Inhaled Oxygen Concentration - - Weight - - Height - - Body Mass Index - - documented in this encounter Discharge Instructions * Attachments The following attachments cannot be sent through Care Everywhere. * Edema: Leg and Ankle (Georgian) * Raynaud's Phenomenon (Georgian) * Constipation (Georgian) documented in this encounter Medications at Time of Discharge amantadine (SYMMETREL) 100 mg tablet Take 1 tablet (100 mg total) by mouth 2 (two) times a day. 60 tablet 2 09/11/2024 aspirin 81 mg EC tablet Take 1 tablet (81 mg total) by mouth 1 (one) time each day. baclofen (LIORESAL) 10 mg tablet TAKE 2 TABLETS BY MOUTH 3 TIMES A DAY. 540 tablet 1 08/24/2024 cholecalciferol (VITAMIN D-3) 25 mcg (1,000 unit) [...] (one) time each day. 90 each 3 09/11/2024 fluticasone propionate (FLONASE) 50 mcg/actuation nasal spray Administer 2 sprays into affected nostril(s) 1 (one) time each day if needed. 08/26/2014 L. acidophilus/Bifi d. animalis 32 billion cell capsule Take by mouth. lactulose (CEPHULAC) 10 gram packet Take 1 packet (10 g total) by mouth 1 (one) time each day if needed (constipation) for up to 10 doses. 10 packet 02/19/2025 LORazepam (ATIVAN) 0.5 mg tablet 1 po qd PRN 12/13/2021 methylPREDNISolo ne (MEDROL) 4 mg tablet 1 (one) time each day if needed. 07/05/2023 modafiniL (PROVIGIL) 200 mg tabletIndication s:Multiple sclerosis Take 1 tablet (200 mg total) by mouth 1 (one) time each day in the morning. Max Daily Amount: 200 mg 30 each 5 02/01/2025 ocrelizumab (Ocrevus) 30 mg/mL solution injection Infuse into a venous catheter. omeprazole (PriLOSEC) [address] capsule Take 2 capsules (40 mg total) by mouth 2 (two) times a day. 04/24/2022 omeprazole (PriLOSEC) [address] capsule Take 1 capsule (40 mg total) by mouth 1 (one) time each day. Do not crush or chew. ondansetron (ZOFRAN) 4 mg tablet Take 1 tablet (4 mg total) by mouth 1 (one) time each day if needed. 09/24/2018 polyethylene glycol (PEG) 17 gram/dose oral powder Take 17 g by mouth. 10/04/2021 documented as of this encounter Ordered Prescriptions Prescription Sig Dispense Quantity Refills Last Filled Start Date End Date lactulose (CEPHULAC) 10 gram packet Take 1 packet (10 g total) by mouth 1 (one) time each day if needed (constipatio n) for up to 10 doses. 10 packet 02/19/2025 documented in this encounter Discharge Disposition Disposition Code Departure Means Destination Comment s Home or Self Care Went over d/c paperwork and instructions. No further questions and pt was wheeled out of department with family without incident. documented in this encounter Progress Notes * Anne-Marie Arriola RN - 02/19/2025 1:05 PM EDT When pt got up to use bedside commode, lost balance x 2 and had to reach out. Pt is a 1 person assist. Pt again requested w/c to go to bathroom and this nurse refused. * Anne-Marie Arriola RN - 02/19/2025 1:03 PM EDT Pt requested w/c to use the bathroom. She states she is very nearly w/c bound at home. Offered bedside commode, which she accepted. * Anne-Marie Arriola RN - 02/19/2025 12:44 PM EDT Pt reporting that approx 1 week ago, the wheel of pt's wheelchair hit the back of her left calf andhad pain soon after for the last week. Pt reports pain with extension and with weight bearing. Leftfoot appears slightly discolored/darker, feet are cool to touch bilaterally. Difficulty obtaining pulses with dopper bilaterally. Doppler exam was interrupted by US taking patient for study. Pt also reporting constipation x several days despite taking bowel regimen. * Anne-Marie Arriola RN - 02/19/2025 11:34 AM EDT BIBA from home ([facility], BLS) LLE pain to back to calf. Hx of MS and frequent falls. 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 Not on blood thinners. Constipation x 6-8 days. EMS vitals- 142/ 86, HR 84, 99% room air, RR 14, POC 87. * James Ott MD - 02/19/2025 11:28 AM EDT Emergency Medicine Note Patient Name: Darlene Prather Initial Evaluation: 02/19/2025 : 1965 Patient's PCP: Chato Paz MD Emergency Physician: James Ott MD History of Present Illness Chief Complaint: Chief Complaint Patient presents with ??? Leg Pain HPI: 60 y.o. female has a past medical history of Multiple sclerosis (CMS/HCC V24, CMS/HCC V28) (06/25/2011), Myelopathy (CMS/HCC V24, CMS/HCC V28) (06/25/2011), Myelopathy of thoracic region (05/13/2017), and Trigeminal neuralgia of left side of face (11/15/2017). Presents with 1wk of LLE pain, diffusely , no trauma noted coolness of left foot which not new. No smoking, no travel. Minmal walking due to MS. No SOB or pleuritic pain, noted family hx of PE. She herself has never had a PE or DVT ROS: I have performed a ROS with the pertinent positives and negatives documented in the history ofpresent illness. Previous History Medical History[1] Surgical History[2] Social History[3] Family History[4] is allergic to bupropion and pollen extracts. Medications Ordered Prior to Encounter[5] Physical Exam ED Triage Vitals Temp Pulse Resp BP -- -- -- -- SpO2 Temp src Heart Rate Source Patient Position -- -- -- -- BP Location FiO2 (%) -- -- General: Well-appearing, well nourished, in no acute distress HEENT: PERRL, EOMI, external ears and nose appear unremarkable, airway is patent Neck: Supple, full range of motion, no meningismus, no JVD Chest: Clear to auscultation; no evidence of respiratory distress Circulatory: The rate and rhythm , no murmurs rubs or gallops Abdomen: Non-distended, Non-Tender Extremities: Normal ROM, No edema, generalized weakness of LE, decreased perfusion of Left foot, somewhat cool but not cold. Decreased pulses. Calf mldly tender Skin: Warm and dry, well-perfused , no rashes Neuro: Alert and oriented x 3. no motor or sensory deficits Psyche: Normal affect Results Labs Reviewed CBC AND DIFFERENTIAL Narrative: The following orders were created for panel order CBC and differential. Procedure Abnormality Status --------- ------ CBC auto differential[[id number]] Please view results for these tests on the individual orders. BASIC METABOLIC PANEL PROTHROMBIN TIME WITH INR CBC WITH AUTO DIFFERENTIAL Abnormal Labs Reviewed - No abnormal labs to display Vascular US duplex lower extremity venous left (Results Pending) Vascular US duplex lower extremity arteries left with Doppler (Results Pending) I have discussed the incidental/abnormal imaging and/or lab abnormalities with the patient and haveinstructed them the need for further evaluation and workup with their primary care doctor. I have provided the patient with a paper copy of the abnormality. The laboratory results, imaging results and other diagnostic exam results were reviewed in the EMR. EKG Interpretation Critical Care Time None Medical Decision Making Medications - No data to display ED Course as of 02/22/25 0050 SatFeb 19, 2025 1310 DVT scan negative. [JL] 1315 There are multiphasic waveforms throughout the visualized lower extremity arterial vasculature. IMPRESSION: NO OCCLUSION OF THE LEFT LOWER EXTREMITY ARTERIAL VASCULATURE. PEAK SYSTOLIC VELOCITIES AND WAVEFORMS ABOVE. [JL] 1434 Labs show mild leukopenia. Imaging is negative. I suspect there is a component of her nose or some mild lower extremity manage recommended compression stockings. Follow-up with her primary care doctor and vascular. [JL] ED Course User Index [JL] James Ott MD Clinical Impressions as of 02/22/25 0050 Leg pain, central, left Raynaud's phenomenon without gangrene Lower extremity edema Constipation, unspecified constipation type Procedures Procedures Diagnosis 1. Leg pain, central, left Vascular US duplex lower extremity venous left Vascular US duplex lower extremity arteries left with Doppler Vascular US duplex lower extremity venous left Vascular US duplex lower extremity arteries left with Doppler Disposition Data Unavailable ED Prescriptions None Physician Attestation James Ott MD 02/19/25 1204 [1] Past Medical History: Diagnosis Date ??? Multiple sclerosis (CMS/HCC V24, CMS/HCC V28) 06/25/2011 DX:Multiple sclerosis (HCC) ??? Myelopathy (CMS/HCC V24, CMS/HCC V28) 06/25/2011 DX:Myelopathy (HCC);COMMENT:Cervical ??? Myelopathy of thoracic region 05/13/2017 DX:Myelopathy of thoracic region ??? Trigeminal neuralgia of left side of face 11/15/2017 DX:Trigeminal neuralgia of left side of face [2] Past Surgical History: Procedure Laterality Date ??? COLONOSCOPY 10/09/2018 10 yr recall ??? COLONOSCOPY 06/20/2016 recall 5 yr ??? COLONOSCOPY 06/09/2003 ??? ESOPHAGOGASTRODUODENOSCOPY 06/20/2016 negative spruce ??? ESOPHAGOGASTRODUODENOSCOPY 03/18/2012 ??? OTHER SURGICAL HISTORY PROCEDURE:CHOLECYSTECOMY ??? OTHER SURGICAL HISTORY PROCEDURE:TRIGEMINAL NERVE SURGERY [3] Social History Tobacco Use ??? Smoking status: Never ??? Smokeless tobacco: Never Substance Use Topics ??? Alcohol use: Not Currently ??? Drug use: Never [4] Family History Problem Relation Name Age of Onset ??? Hypertension Mother ??? Dementia Mother ??? Cancer Mother ??? Clotting disorder Father ??? Multiple sclerosis Neg Hx ??? Colon cancer Neg Hx ??? Colon polyps Neg Hx [5] No current facility-administered medications on file prior to encounter. Current Outpatient Medications on File Prior to Encounter Medication Sig Dispense Refill ??? amantadine (SYMMETREL) 100 mg tablet Take 1 tablet (100 mg total) by mouth 2 (two) times a day.60 tablet 2 ??? aspirin 81 mg EC tablet Take 1 tablet (81 mg total) by mouth 1 (one) time each day. ??? baclofen (LIORESAL) 10 mg tablet TAKE 2 TABLETS BY MOUTH 3 TIMES A DAY. 540 tablet 1 ??? cholecalciferol (VITAMIN D-3) 25 mcg (1,000 unit) capsule Take 1 capsule (1,000 Units total) bymouth. ??? cyanocobalamin (VITAMIN B-12) 100 mcg tablet Take 0.5 tablets (50 mcg total) by mouth. ??? docusate sodium (COLACE) 100 mg capsule Take 1 capsule (100 mg total) by mouth. ??? DULoxetine (CYMBALTA) [address] capsule Take 1 capsule (30 mg total) by mouth 1 (one) time each day. 90 each 3 ??? DULoxetine (CYMBALTA) [address] capsule Take 1 capsule (60 mg total) by mouth 1 (one) time each day. 90 each 3 ??? fluticasone propionate (FLONASE) 50 mcg/actuation nasal spray Administer 2 sprays into affectednostril(s) 1 (one) time each day if needed. ??? gabapentin (NEURONTIN) 300 mg capsule Take 2 capsules (600 mg total) by mouth 3 (three) times aday. 540 each 3 ??? L. acidophilus/Bifid. animalis 32 billion cell capsule Take by mouth. ??? LORazepam (ATIVAN) 0.5 mg tablet 1 po qd PRN ??? methylPREDNISolone (MEDROL) 4 mg tablet 1 (one) time each day if needed. ??? modafiniL (PROVIGIL) 200 mg tablet Take 1 tablet (200 mg total) by mouth 1 (one) time each day in the morning. Max Daily Amount: 200 mg 30 each 5 ??? ocrelizumab (Ocrevus) 30 mg/mL solution injection Infuse into a venous catheter. ??? omeprazole (PriLOSEC) [address] capsule Take 2 capsules (40 mg total) by mouth 2 (two) times a day. ??? omeprazole (PriLOSEC) [address] capsule Take 1 capsule (40 mg total) by mouth 1 (one) time each day. Do not crush or chew. (Patient not taking: Reported on 12/15/2024) ??? ondansetron (ZOFRAN) 4 mg tablet Take 1 tablet (4 mg total) by mouth 1 (one) time each day if needed. ??? polyethylene glycol (PEG) 17 gram/dose oral powder Take 17 g by mouth. James Ott MD 02/22/25 0050 documented in this encounter Plan of Treatment Upcoming Encounters Date Type Department Care Team (Late st Contact Info) Description 03/02/2025 8:00 AM EST Appointment [facility] Outpatient Rehabilititation - [address] [facility] [address] [place] [phone] 03/02/2025 11:15 AM EST Office Visit Pulmonology - [address] [place] [address] Ann-Marie Krueger MD [address] [place] [phone] documented as of this encounter Procedures Procedure Name Priority Date/Time Associated Diagnosis Comments CBC WITH AUTO DIFFERENTIAL STAT 02/19/2025 1:00 PM EDT PROTHROMBIN TIME WITH INR STAT 02/19/2025 1:00 PM EDT CBC AND DIFFERENTIAL STAT 02/19/2025 1:00 PM EDT BASIC METABOLIC PANEL STAT 02/19/2025 1:00 PM EDT VAS US DUPLEX LOWER EXT ART LEFT W DOPPLER Routine 02/19/2025 12:36 PM EDT Leg pain, central, left VAS US DUPLEX LOWER EXT VENOUS LEFT Routine 02/19/2025 12:36 PM EDT Leg pain, central, left documented in this encounter Results * (ABNORMAL) CBC auto differential (02/19/2025 1:00 PM EDT) [facility] WBC 4.0(L) 4.8 - 10.8 K/mcL LAB HEMETOLOGY METHOD 02/19/2025 1:58 PM EDT [facility] RBC 4.40 3.80 - 4.80 M/mcL LAB HEMETOLOGY METHOD 02/19/2025 1:58 PM EDT [facility] Hemoglobin 13.3 11.5 - 16.0 g/dL LAB HEMETOLOGY METHOD 02/19/2025 1:58 PM EDT [facility] Hematocrit 40.3 35.0 - 47.0 % LAB HEMETOLOGY METHOD 02/19/2025 1:58 PM EDT [facility] MCV 91.8 79.0 - 98.0 FL LAB HEMETOLOGY METHOD 02/19/2025 1:58 PM EDT [facility] MCH 30.3 27.0 - 32.0 pcg LAB HEMETOLOGY METHOD 02/19/2025 1:58 PM EDT [facility] MCHC 33.0 32.0 - 37.0 g/dL LAB HEMETOLOGY METHOD 02/19/2025 1:58 PM EDT [facility] RDW 12.6 11.0 - 15.0 % LAB HEMETOLOGY METHOD 02/19/2025 1:58 PM [facility] Platelets 257 130 - 400 K/mcL LAB HEMETOLOGY METHOD 02/19/2025 1:58 PM EDT [facility] MPV 9.5 7.0 - 11.0 FL LAB HEMETOLOGY [facility] NRBC 0.0 <1.0 % LAB HEMETOLOGY METHOD 02/19/2025 1:58 PM [facility] NRBC Absolute 0.00 <0.10 K/mcL LAB HEMETOLOGY METHOD 02/19/2025 1:58 PM [facility] Neutrophils Relative 62.8 % LAB HEMETOLOGY METHOD 02/19/2025 1:58 PM [facility] Lymphocytes Relative 23.1 % LAB HEMETOLOGY METHOD 02/19/2025 1:58 PM [facility] Monocytes Relative 10.7 % LAB HEMETOLOGY METHOD 02/19/2025 1:58 PM [facility] Eosinophils Relative 2.2 % LAB HEMETOLOGY METHOD 02/19/2025 1:58 PM [facility] Basophils Relative 0.5 % LAB HEMETOLOGY METHOD 02/19/2025 1:58 PM [facility] Immature Granulocytes Relative 0.7 % LAB HEMETOLOGY METHOD 02/19/2025 1:58 PM [facility] Neutrophils Absolute 2.52 1.50 - 7.00 K/mcL LAB HEMETOLOGY METHOD 02/19/2025 1:58 PM [facility] Lymphocytes Absolute 0.93(L) 1.00 - 5.00 K/mcL LAB HEMETOLOGY METHOD 02/19/2025 1:58 PM [facility] Monocytes Absolute 0.43 0.20 - 1.00 K/mcL LAB HEMETOLOGY METHOD 02/19/2025 1:58 PM [facility] Eosinophils Absolute 0.09 0.00 - 0.50 K/mcL LAB HEMETOLOGY METHOD 02/19/2025 1:58 PM [facility] Basophils Absolute 0.02 0.00 - 0.20 K/[facility] LAB HEMETOLOGY METHOD 02/19/2025 1:58 PM EDT [facility] Immature Granulocytes Absolute 0.03 0.00 - 0.03 K/[facility] LAB HEMETOLOGY METHOD 02/19/2025 1:58 PM EDT [facility] Blood Venous blood specimen / Unknown Venipuncture / Unknown 02/19/2025 1:00 PM EDT 02/19/2025 1:45 PM EDT James Ott MD LAB BLOOD ORDERABLES Final Result Performing Organization Address [facility]/ZIP Co de Phone Number [facility] [address] [place] [address], [place] [phone] * Protime-INR (02/19/2025 1:00 PM EDT) Pathologist [facility] Protime 11.4 10.6 - 13.9 sec LAB COAGULATION METHOD 02/19/2025 2:23 PM EDT [facility] INR 0.9 LAB COAGULATION METHOD 02/19/2025 2:23 PM EDT [facility] Blood Venous blood specimen / Unknown Venipuncture / Unknown 02/19/2025 1:00 PM EDT 02/19/2025 1:45 PM EDT James Ott MD LAB BLOOD ORDERABLES Final Result Performing Organization Address City/[facility]/ZIP Co de Phone Number [facility] [address] [place] [address], [place] [phone] * Basic metabolic panel (02/19/2025 1:00 PM EDT) Sodium 140 133 - 145 mmol/L LAB CHEMISTRY METHOD 02/19/2025 2:13 PM EDT [facility] Potassium 4.1 3.5 - 5.5 mmol/L LAB CHEMISTRY METHOD 02/19/2025 2:13 PM [facility] Chloride 103 96 - 110 mmol/L LAB CHEMISTRY METHOD 02/19/2025 2:13 PM [facility] CO2 32 21 - 32 mmol/L LAB CHEMISTRY METHOD 02/19/2025 2:13 PM [facility] Anion Gap 5 3 - 11 LAB CHEMISTRY METHOD 02/19/2025 2:13 PM [facility] Glucose 99 70 - 100 mg/dL LAB CHEMISTRY METHOD 02/19/2025 2:13 PM [facility] BUN 13 5 - 25 mg/dL LAB CHEMISTRY METHOD 02/19/2025 2:13 PM [facility] Creatinine 0.64 0.50 - 1.10 mg/dL LAB CHEMISTRY METHOD 02/19/2025 2:13 PM [facility] eGFR 101 >=60 mL/min/1. 73m2 LAB CHEMISTRY METHOD 02/19/2025 2:13 PM T [facility] Comment:Calculation based on the Chronic Kidney Disease Epidemiology Collaboration (CKD-EPI) equation refit without adjustment for race. BUN/Creatinine Ratio 20.3 LAB CHEMISTRY METHOD 02/19/2025 2:13 PM [facility] Calcium 9.1 8.5 - 10.5 mg/dL LAB CHEMISTRY METHOD 02/19/2025 2:13 PM [facility] Blood Venous blood specimen / Unknown Venipuncture / Unknown 02/19/2025 1:00 PM EDT 02/19/2025 1:45 PM EDT us James Ott MD LAB BLOOD ORDERABLES Final Result [facility] [address] [place] [address], [place] [phone] * Vascular US duplex lower extremity arteries left with Doppler (02/19/2025 12:36 PM EDT) Anatomical Region Laterality Modality Vascular, Abdomen Ultrasound 02/19/2025 1:02 PM EDT Impressions 02/19/2025 1:08 PM EDT NO OCCLUSION OF THE LEFT LOWER EXTREMITY ARTERIAL VASCULATURE. PEAK SYSTOLIC VELOCITIES AND WAVEFORMS ABOVE. -------- FINAL REPORT -------- Dictated By: Thea Danielle Dictated Date: 02/19/2025 13:02 ET Assigned Physician: Thea Danielle Reviewed and Electronically Signed By: Thea Danielle Signed Date: 02/19/2025 13:08 ET Workstation ID: [id number] Transcribed By: Self Edit Transcribed Date: 02/19/2025 13:02 ET Narrative 02/19/2025 1:08 PM EDT PROCEDURE: VAS US DUPLEX LOWER EXT ART LEFT W DOPPLER INDICATION: Peripheral vascular disease TECHNIQUE: 2-D and color Doppler imaging of the left lower extremity arterial vasculature. COMPARISON: No priors available. FINDINGS: Left lower extremity peak systolic arterial velocities in cm/s as follows: SECURITY GUARD: 89.6 Prox SFA: 96.1 Mid SFA: 71.5 Distal SFA: 39.3 Popliteal: 40 Anterior tibial: 65.3 Posterior tibial: 65.3 Dorsalis pedis: 19.2 There are multiphasic waveforms throughout the visualized lower extremity arterial vasculature. Procedure Note Thea Danielle MD - 02/19/2025 PROCEDURE: VAS US DUPLEX LOWER EXT ART LEFT W DOPPLER INDICATION: Peripheral vascular disease TECHNIQUE: 2-D and color Doppler imaging of the left lower extremityarterial vasculature. COMPARISON: No priors available. FINDINGS: Left lower extremity peak systolic arterial velocities in cm/s asfollows: SECURITY GUARD: 89.6 Prox SFA: 96.1 Mid SFA: 71.5 Distal SFA: 39.3 Popliteal: 40 Anterior tibial: 65.3 Posterior tibial: 65.3 Dorsalis pedis: 19.2 There are multiphasic waveforms throughout the visualized lower extremityarterial vasculature. IMPRESSION: NO OCCLUSION OF THE LEFT LOWER EXTREMITY ARTERIAL VASCULATURE. PEAKSYSTOLIC VELOCITIES AND WAVEFORMS ABOVE. -------- FINAL REPORT -------- Dictated By: Thea Danielle Dictated Date: 02/19/2025 13:02 ET Assigned Physician: Thea Danielle Reviewed and Electronically Signed By: Thea Danielle Signed Date: 02/19/2025 13:08 ET Workstation ID: [id number] Transcribed By: Self Edit Transcribed Date: 02/19/2025 13:02 ET us James Ott MD CV VASCULAR PROCEDURES Lisseth l Result * Vascular US duplex lower extremity venous left (02/19/2025 12:36 PM EDT) Anatomical Region Laterality Modality Vascular, Abdomen Ultrasound 02/19/2025 12:4 8 PM EDT Impressions 02/19/2025 12:48 PM EDT NO LEFT LOWER EXTREMITY DEEP VENOUS THROMBOSIS. -------- FINAL REPORT -------- Dictated By: Thea Danielle Dictated Date: 02/19/2025 12:48 ET Assigned Physician: Thea Danielle Reviewed and Electronically Signed By: Thea Danielle Signed Date: 02/19/2025 12:48 ET Workstation ID: [id number] Transcribed By: Self Edit Transcribed Date: 02/19/2025 12:48 ET Narrative 02/19/2025 12:48 PM EDT Ultrasound venous duplex left lower extremity INDICATION: pain in extremities TECHNIQUE: 2-D and color Doppler imaging of the left lower extremity venous vasculature with compression and augmentation maneuvers. COMPARISON: No priors available. FINDINGS: There is normal flow, compression, and augmentation from the common femoral through the popliteal vein. No focal fluid collection. Procedure Note Thea Danielle MD - 02/19/2025 Ultrasound venous duplex left lower extremity INDICATION: pain in extremities TECHNIQUE: 2-D and color Doppler imaging of the left lower extremityvenous vasculature with compression and augmentation maneuvers. COMPARISON: No priors available. FINDINGS: There is normal flow, compression, and augmentation from the commonfemoral through the popliteal vein. No focal fluid collection. IMPRESSION: NO LEFT LOWER EXTREMITY DEEP VENOUS THROMBOSIS. -------- FINAL REPORT -------- Dictated By: Thea Danielle Dictated Date: 02/19/2025 12:48 ET Assigned Physician: Thea Danielle Reviewed and Electronically Signed By: Thea Danielle Signed Date: 02/19/2025 12:48 ET Workstation ID: [id number] Transcribed By: Self Edit Transcribed Date: 02/19/2025 12:48 ET us James Ott MD CV VASCULAR PROCEDURES Lisseth l Result documented in this encounter Visit Diagnoses Diagnosis Leg pain, central, left- Primary Raynaud's phenomenon without gangrene Lower extremity edema Edema Constipation, unspecified constipation type documented in this encounter Additional Health Concerns Assessment Noted Time PHQ-9 Depression Total Score: 0 09/10/19 25 11:35 AM EDT documented as of this encounter Care Teams Product Manager Medical Device Relationship Specialty Start Date End Date Chato Paz MD [address] [place] [id number] PCP - General 12/14/22 documented as of this encounter
[2025-02-23 15:33] VITALS: BMI 26.6
--- NOTE | 2025-02-23 15:33 | MHC.OFFVIS ---
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 Pt states started after a fall 1 yr ago. States some discoloration. Pt states she elevates and still has swelling but worse when feet are hanging down. Pt is in wheelchair but can walk with walker, has MS. 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 The swelling in the patient's leg began approximately one year ago following a fall in her room, which resulted in a knee sprain. The swelling extends from the thigh down to the foot, with a noticeable lump described as egg-shaped near the knee. Despite limited mobility, the patient experiences persistent swelling even when her legs are elevated in a recliner. The patient denies having diabetes and reports no significant history of smoking. 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 It has been affecting there daily activities including walking. It is noted more so in left leg. Patient denies any previous venous surgery or injections. Patient denies any history of DVT/ PE. Patient denies any history of phlebitis. Trial of compression includes - [id number] They now present for vascular evaluation regarding their varicose veins. [facility] Medical History Multiple sclerosis Right trigeminal neuralgia Chronic GERD Multiple sclerosis Urinary tract infection Surgical History S/P section S/P laparoscopic cholecystectomy Family History Other Mental health disorder Substance abuse Social History Household Members: Children Housing: House Do you presently have visiting nurse or other home services: No Unable to assess alcohol history related to: Unknown Patient Tobacco Use Status: Never used Tobacco e-Cigarette/Vaping Use: Never Used Second Hand Smoke Exposure: No service: No Current occupational status: disabled Cognitive needs: No Hearing needs: No Vision needs: Yes Review of Systems Const Reports as per HPI ENT Reports no additional complaints Card Denies chest pain, Denies chest pain at rest and Denies chest pain with activity Resp Denies chest congestion and Denies cough GI Reports no additional complaints Musc Details: pain over varicosities, aching of lower extremities, swelling, cramping, heaviness and tiredness, itching Denies abnormal gait Skin/Breast Reports pruritus and Denies wounds Neuro Reports no additional complaints and Denies abnormal gait Psych Denies no additional complaints Physical Exam Vital Signs: BMI result Body Mass Index 26.6 Const General: cooperative, healthy appearing and comfortable Orientation/consciousness: oriented to person, oriented to place and oriented to time Neck Carotids: no bruits Chest Chest palpation & inspection: normal inspection of the chest and normal palpation of entire chest wall Resp Effort & Inspection: normal respiratory effort and able to speak in complete sentences Cardio Rate: regular rate Heart sounds: S1 normal heart sound present and S2 normal heart sound present Peripheral pulses: Peripheral pulses 2+ throughout GI Inspection: Yes normal to inspection Skin Other: +2 edema, large rope-like varicosities greater than 4 mm CEAP Classification C4 - skin color changes Ep - Etiology Primary As - superficial veins P - reflux General skin exam: dry skin Neuro General: oriented to person, oriented to place and oriented to time Extrem Right lower extremity: full ROM, normal capillary refill and edema Left lower extremity: full ROM, normal capillary refill and edema Psych Mental Status: mental status grossly normal Assessment & Plan Assessment & Plan (1) Varicose veins of left lower extremity with inflammation: Code(s): I83.12 - Varicose veins of left lower extremity with inflammation Category: Medical Plan: In short, the patient has evidence of venous insufficiency. I have discussed the pathophysiology with the patient. In addition I have provided informational material regarding venous disease to the patient. We have discussed conservative measures including compression, elevation, and exercise. I have also provided a handout regarding appropriate use of compression stockings and where to purchase good compression stockings as well. I have taken the liberty of ordering venous insufficiency testing with the patient. They will follow up with me after testing. The patient had an opportunity to ask questions regarding the treatment plan. All questions were answered. Imaging studies, laboratory studies and physical exam results were discussed and reviewed in detail. No major barriers to understanding were identified. The patient expressed understanding and agreement with the above treatment plan. The patient is aware they should contact our office by phone for worsening of the current condition or the appearance of new symptoms. Thank you for allowing me to participate in the vascular care of this patient. If you have any questions or concerns regarding the treatment for the above condition please do not hesitate to contact me. The office telephone contact is [phone]. This note is constructed using voice recognition software. While every effort has been made to ensure accuracy, tar processing technician errors may have been included. Thank you for allowing me to participate in the care of your patient. Yours sincerely, Flaco Cuenca MD, FACS, R.P.V.I. Plan Patient was informed and verbally consented to the use of an ambient scribe for clinic note documentation during this visit. Orders: Orders US venous duplex LE BI Today I83.12 - Varicose veins of left lower extremity with inflammation Patient Instructions: - Wear compression stockings to help reduce swelling. - Await a call from the hospital to schedule the ultrasound of the legs. - Follow up with the clinic after the ultrasound to discuss results and potential treatment options. Coding Level of Care Code New Pt Level 4 (22940) Diagnoses Varicose veins of left lower extremity with inflammation I83.12
--- OUTSIDE RECORDS SUMMARY | 2025-02-23 19:52 | XMS_ITS | Clinical Summary ---
Author Organization 175 [facility] Address [address] [place] [address] Phone Care Team Providers Care Executive Vice President And Chief Operating Officer Name Role Phone Chato Paz MD Primary Care Provider [phone] Allergies Active Allergy Reactions Criticality Noted Date Comments Bupropion 12/11/2010 Pollen Extracts 12/02/2024 Medications aspirin 81 mg EC tablet Take 1 tablet (81 mg total) by mouth 1 (one) time each day. Active cholecalcifero l (VITAMIN D-3) 25 mcg (1,000 [...] 1 (one) time each day if needed. 5 Active L. acidophilus/Bi fid. animalis 32 [...] 1 (one) time each day if needed. 9 Active polyethylene glycol (PEG) 17 gram/dose oral powder Take 17 g by mouth. 2 Active methylPREDNISo lone (MEDROL) 4 mg tablet 1 (one) time each day if needed. 4 Active omeprazole (PriLOSEC) [address] capsule [...] times a day. 540 each 3 5 Active DULoxetine (CYMBALTA) [address] capsule Take 1 capsule (30 mg total) by mouth 1 (one) time each day. 90 each 3 5 09/07/19 26 Active DULoxetine (CYMBALTA) [address] capsule Take 1 capsule (60 mg total) by mouth 1 (one) time each day. 90 each 3 5 Active amantadine (SYMMETREL) 100 mg tablet Take 1 tablet (100 mg total) by mouth 2 (two) times a day. 60 tablet 2 5 09/12/19 26 Active modafiniL (PROVIGIL) 200 mg tabletIndicati ons:Multiple sclerosis Take 1 tablet (200 mg total) by mouth 1 (one) time each day in the morning. Max Daily Amount: 200 mg 30 each 5 5 08/01/19 26 Active lactulose (CEPHULAC) 10 gram packet Take 1 packet (10 g total) by mouth 1 (one) time each day if needed (constipation) for up to 10 doses. 10 packet 5 Active modafiniL (PROVIGIL) 200 mg tabletIndicati ons:Multiple sclerosis Take 1 tablet (200 mg total) by mouth 1 (one) time each day in the morning. Max Daily Amount: 200 mg 30 each 5 5 02/02/20 25 Discontinu ed(Reorder ) modafiniL (PROVIGIL) 100 mg tablet Take 1 tablet (100 mg total) by mouth 1 (one) time each day. Max Daily Amount: 100 mg 01/26/20 25 Discontinu ed(Prescri viviane Discontinu ed) Active Problems Problem Noted Date Diagnosed Date Unspecified atherosclerosis of [place] arteries of extremities, bilateral legs ([facility] V24) 08/03/2024 Breast pain 06/10/2024 Assessment & [...] send culture and treat prn. Cervical myelopathy ([facility] V24, [facility] V28) 0 06/14/2023 Allergic rhinitis 06/03/2022 Vaginal [...] Shoulder pain, bilateral 02/17/2015 Overview (06/03/2022): Seeing [facility] Chronic constipation 12/30/2014 Dysphagia 03/04/2012 Overview (06/03/2022): Seeing dr. Yoo Upper EGD: 03/18/2012 Multiple sclerosis 12/11/2010 Overview (06/03/2022): Dr. Cristina Encounters Date Type Department Care Team Description 02/19/2025 11:33 AM EDT - 02/19/2025 3:53 PM EDT Emergency [facility] Emergency [address] [place] [phone] James Ott MD Leg pain, central, left (Primary Dx); Raynaud's phenomenon without gangrene; Lower extremity edema; Constipation, unspecified constipation type Discharge Disposition: Home or Self Care 01/13/2025 Telephone Pulmonology [facility] [address] [place] [phone] Ann-Marie Krueger MD 01/04/2025 Telephone [facility] - [place] 175 [facility] [address] [place] [phone] Eden Babb PA 12/15/2024 2:30 PM EDT Consult Pulmonology - [place] 175 [facility] [address] [place] [phone] Ann-Marie Krueger MD Multiple sclerosis (CMS/HCC V24, CMS/HCC V28) (Primary Dx); Shortness of breath; Chronic fatigue 12/10/2024 1:07 PM EDT - 12/10/2024 11:59 PM EDT Hospital Encounter [facility] MRI [address] [place] [phone] Multiple sclerosis (CMS/HCC V24, CMS/HCC V28) Discharge Disposition: Home or Self Care 12/10/2024 1:00 PM EDT - 12/10/2024 11:59 PM EDT Hospital Encounter [facility] MRI [address] [place] [phone] Multiple sclerosis (CMS/HCC V24, CMS/HCC V28) Discharge Disposition: Home or Self Care 12/02/2024 3:[address] [facility] [address] [facility] [address] [place] [address] Eden Babb PA Multiple sclerosis ([facility] V24, [facility] V28) (Primary Dx) 11/27/[address] [facility] [address] [facility] [address] [place] [address] Luisito Turcios MA from Last 3 Months Surgical History Surgery Date Site/Laterality Comments OTHER SURGICAL HISTORY PROCEDURE:CHOLECYSTECOMY OTHER SURGICAL HISTORY PROCEDURE:TRIGEMINAL NERVE SURGERY COLONOSCOPY 10/09/2018 10 yr recall ESOPHAGOGASTRODUODENOSCOPY 06/20/2016 negative spruce COLONOSCOPY 06/20/2016 recall 5 yr ESOPHAGOGASTRODUODENOSCOPY 03/18/2012 COLONOSCOPY 06/09/2003 Medical History Medical History Date Comments Multiple sclerosis 06/25/2011 DX:Multiple s clerosis (HCC) Myelopathy ([facility] V24, [facility] V28) 06/25/2011 DX:Myelopathy (HCC);COMMENT:Cervical Myelopathy of thoracic [...] your loved ones. For example, child welfare counselor or elderly care for an older [...] EDT Inhaled Oxygen Concentration - - Weight 76.9 kg (169 lb 9.6 oz) 12/15/2024 2:52 P M EDT Height 170.2 cm (5' 7.01 ) 12/15/2024 2:52 PM ED T Body Mass Index 26.56 12/15/2024 2:52 PM EDT Plan of Treatment Upcoming Encounters Date Type Department Care Team (Late st Contact Info) Description 03/02/2025 8:00 AM EST Appointment [facility] Outpatient Rehabilititation - [place] [address] [facility] [address] [place] [phone] 03/02/2025 11:15 AM EST Office Visit Pulmonology - [place] [address] [facility] [address] [place] [phone] Ann-Marie Krueger MD [address] [place] [phone] Health Maintenance Due Date Last Done Comments Breast Cancer Screening 1965 Zoster Vaccines (1 of 2) 2015 Cholesterol Screening (Lipid Panel) 04/06/2022 HIV Screening 04/06/2022 Hepatitis C Screening 04/06/2022 Medicare Annual Wellness Visit 04/06/2022 Cervical Cancer Screening: Pap Smear 07/27/2024 07/27/2021 DTaP,Tdap,and Td Vaccines (2 - Td or Tdap) 08/26/2024 08/26/2014 Social Influencers of Health Screening 05/24/2025 05/24/2024 Colorectal Cancer Screening: Colonoscopy 08/07/2034 08/07/2024, 08/06/2024 RSV Immunization Adult Patients (1 - 1-dose 75+ series) 01/13/2040 Depression Screening Completed 09/09/2024 COVID-19 Vaccine Completed 01/21/2025, , 03/07/2021, Additional history exists Influenza Vaccine Completed 01/21/2025, , 02/22/2021, Additional history exists Pneumococcal Vaccine: 50+ Years Completed 01/21/2025, 11/12/2015 HIB Vaccines Aged Out No longer eligi ble based on patient's age to complete this topic HPV Vaccines Aged Out No longer eligi ble based on patient's age to complete this topic Hepatitis A Vaccines Aged Out No long er eligible based on patient's age to complete this topic Hepatitis B Vaccines Aged Out No long er eligible [...] WITH INR STAT 02/19/2025 1:00 PM EDT BASIC METABOLIC PANEL STAT 02/19/2025 1:00 PM EDT CBC AND DIFFERENTIAL STAT 02/19/2025 1:00 PM EDT VAS US DUPLEX LOWER EXT ART LEFT W DOPPLER Routine 02/19/2025 12:36 PM EDT Leg pain, central, left VAS US DUPLEX LOWER EXT VENOUS LEFT Routine 02/19/2025 12:36 PM EDT Leg pain, central, left MR BRAIN WO AND W CONTRAST Routine 12/10/2024 2:24 PM EDT Multiple sclerosis (CMS/HCC V24, CMS/HCC V28) MR CERVICAL SPINE WO AND W CONTRAST Routine 12/10/2024 2:24 PM EDT Multiple sclerosis (CMS/HCC V24, CMS/HCC V28) EXTERNAL COLONOSCOPY REPORT Routine 08/07/2024 7:51 AM EDT PAP SMEAR Routine 07/27/2021 from Last 3 Months or Most Recently Relevant to Health Maintenance Results * (ABNORMAL) CBC auto differential (02/19/2025 1:00 PM EDT) WBC 4.0(L) 4.8 - 10.8 K/mcL LAB HEMETOLOGY METHOD 02/19/2025 1:58 PM EDT [facility] RBC 4.40 3.80 - 4.80 M/mcL LAB HEMETOLOGY [facility] Hemoglobin 13.3 11.5 - 16.0 g/dL LAB HEMETOLOGY METHOD 02/19/2025 1:58 PM [facility] Hematocrit 40.3 35.0 - 47.0 % LAB HEMETOLOGY METHOD 02/19/2025 1:58 PM [facility] MCV 91.8 79.0 - 98.0 FL LAB HEMETOLOGY METHOD 02/19/2025 1:58 PM [facility] MCH 30.3 27.0 - 32.0 pcg LAB HEMETOLOGY METHOD 02/19/2025 1:58 PM [facility] MCHC 33.0 32.0 - 37.0 g/dL LAB HEMETOLOGY METHOD 02/19/2025 1:58 PM [facility] RDW 12.6 11.0 - 15.0 % LAB HEMETOLOGY METHOD 02/19/2025 1:58 PM [facility] Platelets 257 130 - 400 K/mcL LAB HEMETOLOGY METHOD 02/19/2025 1:58 PM [facility] MPV 9.5 7.0 - 11.0 FL LAB HEMETOLOGY METHOD 02/19/2025 1:58 PM EDT [facility] NRBC 0.0 <1.0 % LAB HEMETOLOGY METHOD 02/19/2025 1:58 [facility] NRBC Absolute 0.00 <0.10 K/mcL LAB HEMETOLOGY METHOD 02/19/2025 1:58 [facility] Neutrophils Relative 62.8 % LAB HEMETOLOGY METHOD 02/19/2025 1:58 PM [facility] Lymphocytes Relative 23.1 % LAB HEMETOLOGY METHOD 02/19/2025 1:58 PM [facility] Monocytes Relative 10.7 % LAB HEMETOLOGY METHOD 02/19/2025 1:58 PM [facility] Eosinophils Relative 2.2 % LAB HEMETOLOGY METHOD 02/19/2025 1:58 PM [facility] Basophils Relative 0.5 % LAB HEMETOLOGY METHOD 02/19/2025 1:58 PM [facility] Immature Granulocytes Relative 0.7 % LAB HEMETOLOGY METHOD 02/19/2025 1:58 PM [facility] Neutrophils Absolute 2.52 1.50 - 7.00 K/mcL LAB HEMETOLOGY METHOD 02/19/2025 1:58 PM [facility] Lymphocytes Absolute 0.93(L) 1.00 - 5.00 K/mcL LAB HEMETOLOGY METHOD 02/19/2025 1:58 [facility] Monocytes Absolute 0.43 0.20 - 1.00 K/mcL LAB HEMETOLOGY METHOD 02/19/2025 1:58 PM [facility] Eosinophils Absolute 0.09 0.00 - 0.50 K/mcL LAB HEMETOLOGY METHOD 02/19/2025 1:58 PM T [facility] Basophils Absolute 0.02 0.00 - 0.20 K/[facility] LAB HEMETOLOGY METHOD 02/19/2025 1:58 PM EDT [facility] Immature Granulocytes Absolute 0.03 0.00 - 0.03 K/[facility] LAB HEMETOLOGY METHOD 02/19/2025 1:58 PM EDT [facility] Blood Venous blood specimen / Unknown Venipuncture / Unknown 02/19/2025 1:00 PM EDT 02/19/2025 1:45 PM EDT James Ott MD LAB BLOOD ORDERABLES Final Result Performing Organization Address [facility]/ZIP Co de Phone Number [facility] [address] [place] [address], [place] [phone] * Protime-INR (02/19/2025 1:00 PM EDT) Protime 11.4 10.6 - 13.9 sec LAB COAGULATION METHOD 02/19/2025 2:23 PM EDT [facility] INR 0.9 LAB COAGULATION METHOD 02/19/2025 2:23 PM EDT [facility] Blood Venous blood specimen / Unknown Venipuncture / Unknown 02/19/2025 1:00 PM EDT 02/19/2025 1:45 PM EDT James Ott MD LAB BLOOD ORDERABLES Final Result Performing Organization Address City/[facility]/ZIP Co de Phone Number [facility] [address] [place] [address], [place] [phone] * Basic metabolic panel (02/19/2025 1:00 PM EDT) Sodium 140 133 - 145 mmol/L LAB CHEMISTRY METHOD 02/19/2025 2:13 PM EDT [facility] Potassium 4.1 3.5 - 5.5 mmol/L LAB CHEMISTRY METHOD 02/19/2025 2:13 PM EDT [facility] Chloride 103 96 - 110 mmol/L LAB CHEMISTRY METHOD 02/19/2025 2:13 PM EDT [facility] CO2 32 21 - 32 mmol/L LAB CHEMISTRY METHOD 02/19/2025 2:13 PM [facility] Anion Gap 5 3 - 11 LAB CHEMISTRY METHOD 02/19/2025 2:13 PM EDT [facility] Glucose 99 70 - 100 mg/dL LAB CHEMISTRY METHOD 02/19/2025 2:13 PM [facility] BUN 13 5 - 25 mg/dL LAB CHEMISTRY METHOD 02/19/2025 2:13 PM [facility] Creatinine 0.64 0.50 - 1.10 mg/dL LAB CHEMISTRY METHOD 02/19/2025 2:13 PM [facility] eGFR 101 >=60 mL/min/1. 73m2 LAB CHEMISTRY METHOD 02/19/2025 2:13 PM T [facility] Comment:Calculation based on the Chronic Kidney Disease Epidemiology Collaboration (CKD-EPI) equation refit without adjustment for race. BUN/Creatinine Ratio 20.3 LAB CHEMISTRY METHOD 02/19/2025 2:13 PM [facility] Calcium 9.1 8.5 - 10.5 mg/dL LAB CHEMISTRY METHOD 02/19/2025 2:13 [facility] Blood Venous blood specimen / Unknown Venipuncture / Unknown 02/19/2025 1:00 PM EDT 02/19/2025 1:45 PM EDT us James Ott MD LAB BLOOD ORDERABLES Final Result [facility] [address] [place] [address], [place] [phone] * Vascular US duplex lower extremity arteries [...] Signed Date: 02/19/2025 13:08 ET Workstation ID: [id number] Transcribed By: Self Edit Transcribed Date: 02/19/2025 13:02 ET Narrative 02/19/2025 1:08 PM EDT PROCEDURE: VAS US DUPLEX LOWER EXT ART LEFT W DOPPLER INDICATION: Peripheral vascular disease TECHNIQUE: 2-D and color Doppler imaging of the left lower extremity arterial vasculature. COMPARISON: No priors available. FINDINGS: Left lower extremity peak systolic arterial velocities in cm/s as follows: INCLINOMETER TESTER: 89.6 Prox SFA: 96.1 Mid SFA: 71.5 [...] peak systolic arterial velocities in cm/s asfollows: INCLINOMETER TESTER: 89.6 Prox SFA: 96.1 Mid SFA: 71.5 [...] Signed Date: 02/19/2025 13:08 ET Workstation ID: [id number] Transcribed By: Self Edit Transcribed Date: 02/19/2025 13:02 ET us James Ott MD CV VASCULAR PROCEDURES Lisseth l Result * Vascular US duplex lower extremity venous left (02/19/2025 12:36 PM EDT) Anatomical Region Laterality Modality Vascular, Abdomen Ultrasound 02/19/2025 12:4 8 PM EDT Impressions 02/19/2025 12:48 PM EDT NO LEFT LOWER EXTREMITY DEEP VENOUS THROMBOSIS. -------- FINAL REPORT -------- Dictated By: Thea aDnielle Dictated Date: 02/19/2025 12:48 ET Assigned Physician: Thea Danielle Reviewed and Electronically Signed By: Thea Danielle Signed Date: 02/19/2025 12:48 ET Workstation ID: [id number] Transcribed By: Self Edit Transcribed Date: 02/19/2025 [...] Signed Date: 02/19/2025 12:48 ET Workstation ID: [id number] Transcribed By: Self Edit Transcribed Date: 02/19/2025 12:48 ET us James Ott MD CV VASCULAR PROCEDURES Lisseth suzie Result * MR Brain wo and w Contrast (12/10/2024 2:24 PM EDT) Anatomical Region Laterality Modality Head and Neck Magnetic Resonan ce 12/10/2024 5:34 PM EDT Impressions 12/10/2024 7:05 PM EDT No change in multiple demyelinating lesions throughout the supratentorial and infratentorial white matter. No abnormal enhancement to suggest active demyelination. -------- FINAL REPORT -------- Dictated By: SHILO RUANO Dictated Date: 12/10/2024 17:34 ET Assigned Physician: SHILO RUANO Reviewed and Electronically Signed By: SHILO RUANO Signed Date: 12/10/2024 19:05 ET Workstation ID: [id number] Transcribed By: Self Edit Transcribed Date: 12/10/2024 17:34 ET Narrative 12/10/2024 7:05 PM EDT PROCEDURE: Brain MRI INDICATION: Multiple sclerosis TECHNIQUE: Multiplanar, multisequence MRI of the brain without and with contrast. 15 mL Dotarem injected intravenously without complication from a 15 mL vial. COMPARISON: 05/21/2024 FINDINGS: No acute infarct, mass effect, or intracranial hemorrhage. Sella and foramen magnum are within normal limits. No abnormal intracranial susceptibility artifact. Multiple T2 hyperintense foci throughout the supratentorial and infratentorial white matter are similar compared to the prior exam. For example left posterior subinsular lesions are stable compared to prior. Pericallosal lesions more pronounced on the left are also unchanged. T2 hyperintense foci within the left anterolateral flower and bilateral middle cerebellar peduncles are also unchanged. No new lesions. No abnormal intracranial enhancement. Ventricles, sulci, and cisterns are normal in size and configuration. No hydrocephalus. Major dural venous sinuses enhance normally with contrast. Major intracranial arterial flow voids are normal. Sinuses are clear. Trace left mastoid fluid. Orbits and extracranial soft tissues are normal. Calvarium is normal. Procedure Note Shilo Ruano MD - 12/10/2024 PROCEDURE: Brain MRI INDICATION: Multiple sclerosis TECHNIQUE: Multiplanar, multisequence MRI of the brain without and withcontrast. 15 mL Dotarem injected intravenously without complication froma 15 mL vial. COMPARISON: 05/21/2024 FINDINGS: No acute infarct, mass effect, or intracranial hemorrhage. Sella and foramen magnum are within normal limits. No abnormalintracranial susceptibility artifact. Multiple T2 hyperintense foci throughout the supratentorial andinfratentorial white matter are similar compared to the prior exam. Forexample left posterior subinsular lesions are stable compared to prior.Pericallosal lesions more pronounced on the left are also unchanged. [id number] foci within the left anterolateral flower and bilateral middlecerebellar peduncles are also unchanged. No new lesions. No abnormal intracranial enhancement. Ventricles, sulci, and cisterns are normal in size and configuration. Nohydrocephalus. Major dural venous sinuses enhance normally with contrast. Majorintracranial arterial flow voids are normal. Sinuses are clear. Trace left mastoid fluid. Orbits and extracranial soft tissues are normal. Calvarium is normal. IMPRESSION: No change in multiple demyelinating lesions throughout the supratentorialand infratentorial white matter. No abnormal enhancement to suggestactive demyelination. -------- FINAL REPORT -------- Dictated By: SHILO RUANO Dictated Date: 12/10/2024 17:34 ET Assigned Physician: SHILO RUANO Reviewed and Electronically Signed By: SHILO RUANO Signed Date: 12/10/2024 19:05 ET Workstation ID: [id number] Transcribed By: Self Edit Transcribed Date: 12/10/2024 17:34 ET us Eden TAN IMG MRI PROCEDURES Final Res ult * MR Cervical Spine wo and w Contrast (12/10/2024 2:24 PM EDT) Anatomical Region Laterality Modality C-spine, Spine Magnetic Resonan ce 12/10/2024 7:13 PM EDT Impressions 12/10/2024 7:17 PM EDT Multiple unchanged myelinating lesions throughout the cervical and upper thoracic cord. No new lesions. No abnormal enhancement to suggest active demyelination. -------- FINAL REPORT -------- Dictated By: SHILO RUANO Dictated Date: 12/10/2024 19:13 ET Assigned Physician: SHILO RUANO Reviewed and Electronically Signed By: SHILO RUANO Signed Date: 12/10/2024 19:17 ET Workstation ID: [id number] Transcribed By: Self Edit Transcribed Date: 12/10/2024 19:13 ET Narrative 12/10/2024 7:17 PM EDT PROCEDURE: Cervical spine MRI INDICATION: Multiple sclerosis TECHNIQUE: Multiplanar, multisequence MRI of the Cervical spine without and with contrast. 15 mL Dotarem injected intravenously without complication from a 15 mL vial COMPARISON: 05/21/2024 FINDINGS: Cervical lordosis is preserved. Alignment is unchanged. No fracture or suspicious marrow replacing lesion. Disc height and signal are maintained. Mild facet arthritis on the left at C4-5. Multiple T2 hyperintense foci throughout the cervical cord are similar compared to prior. For example at the cervical medullary junction, within the central cord at C2-3, within the left lateral cord at C4, within the dorsal cord at C6, and within the right and left lateral cord at C7-T1. Upper thoracic cord T2 hyperintense lesions are also unchanged on sagittal imaging. No new lesions. No abnormal enhancement. Paraspinal muscles are normal. Foramen magnum is normal. Findings by level: C2-C3: No focal disc protrusion, foraminal stenosis, or spinal canal stenosis. C3-C4: No focal disc protrusion, foraminal stenosis, or spinal canal stenosis. C4-C5: Left facet arthropathy and uncovertebral spurring resulting unchanged moderate left foraminal stenosis. No right foraminal or spinal canal stenosis. C5-C6: No focal disc protrusion, foraminal stenosis, or spinal canal stenosis. C6-C7: No focal disc protrusion, foraminal stenosis, or spinal canal stenosis. C7-T1: No focal disc protrusion, foraminal stenosis, or spinal canal stenosis. Procedure Note Shilo Ruano MD - 12/10/2024 PROCEDURE: Cervical spine MRI INDICATION: Multiple sclerosis TECHNIQUE: Multiplanar, multisequence MRI of the Cervical spine withoutand with contrast. 15 mL Dotarem injected intravenously withoutcomplication from a 15 mL vial COMPARISON: 05/21/2024 FINDINGS: Cervical lordosis is preserved. Alignment is unchanged. No fracture or suspicious marrow replacing lesion. Disc height and signal are maintained. Mild facet arthritis on the left at C4-5. Multiple T2 hyperintense foci throughout the cervical cord are similarcompared to prior. For example at the cervical medullary junction, withinthe central cord at C2-3, within the left lateral cord at C4, within thedorsal cord at C6, and within the right and left lateral cord at C7-T1.Upper thoracic cord T2 hyperintense lesions are also unchanged on sagittalimaging. No new lesions. No abnormal enhancement. Paraspinal muscles are normal. Foramen magnum is normal. Findings by level: C2-C3: No focal disc protrusion, foraminal stenosis, or spinal canalstenosis. C3-C4: No focal disc protrusion, foraminal stenosis, or spinal canalstenosis. C4-C5: Left facet arthropathy and uncovertebral spurring resultingunchanged moderate left foraminal stenosis. No right foraminal or spinalcanal stenosis. C5-C6: No focal disc protrusion, foraminal stenosis, or spinal canalstenosis. C6-C7: No focal disc protrusion, foraminal stenosis, or spinal canalstenosis. C7-T1: No focal disc protrusion, foraminal stenosis, or spinal canalstenosis. IMPRESSION: Multiple unchanged myelinating lesions throughout the cervical and upperthoracic cord. No new lesions. No abnormal enhancement to suggest activedemyelination. -------- FINAL REPORT -------- Dictated By: SHILO RUANO Dictated Date: 12/10/2024 19:13 ET Assigned Physician: SHILO RUANO Reviewed and Electronically Signed By: SHILO RUANO Signed Date: 12/10/2024 19:17 ET Workstation ID: [id number] Transcribed By: Self Edit Transcribed Date: 12/10/2024 19:13 ET us [facility] IMG MRI PROCEDURES Final Res ult * External Colonoscopy Report (08/07/2024 7:51 AM EDT) Anatomical Region Laterality Modality Endoscopy us Historical Provider GI~PROCEDURE ORDERABLES F inal Result * Pap smear (07/27/2021) 07/27/2021 Narrative HISTORICAL TESTING LAB RESULTING AGENCY - 08/07/2021 4:35 PM EDT [id number] THINPREP PAP, IMAGED: NEGATIVE FOR SQUAMOUS INTRAEPITHELIAL [...] DIAGNOSIS. HORMONES, PAP HX NEGATIVE, [Z12.4, Z01.419] us Meng Lindsay DO LAB CYTOLOGY ORDERABLES Final Result HISTORICAL TESTING LAB RESULTING AGENCY from Last 3 Months or Most Recently Relevant to Health Maintenance Insurance [employer] MED[employer] Member Subscriber Plan / Payer (Ef fective 2017-Present) Name:THALIA PRATHER Relation to Subscriber:Self Name:Thalia Prather Payer ID:[id number] Group ID:[id number] Type:Not on file Address: [facility] [id number] [address] Care Teams Executive Vice President And Chief Operating Officer Relationship Specialty Start Date End Date Chato Paz MD [address] [place] [address] PCP - General 12/14/22
--- OUTSIDE RECORDS SUMMARY | 2025-02-23 19:52 | XMS_ITS | Encounter Summary ---
Author Organization [facility] Address [address] [place] [address] Encounters * CPT with Medical instED at [place] on 2025-01-01 { reasonForRequest : UTI , patientReports : , denies":[ Unable to void greater than 5 hours , Erection that will not go away after 2 hours , Fall or trauma that results in urinary incontinence in the setting of pain ,"Fall or injury that results in incontinence in the absence of pain , Lower back pain either unilateral or bilateral, unable to void, painful urination - hematuria , Painful urination , Frequent and increased urination with flank pain , Painful urination with or without fever , Inability to fully empty bladder ], chiefComplaints :"Urinary Symptoms , pmh : Multiple Sclerosis , allergies :&qu ot;Wellbutrin , otherAllergies : , painAssessment : , visitOutcome : , additionalComments : 59 y.o female complains of Urinary Symptoms\npatient self referring\nsymptoms started about a week ago with frequency of urination\nstated she recently noticed a very foul odor. urine has been a clear yellow\nendorses cold sweats\ndenies any body aches or flank pain\nendorses lower abdominal \ndenies any pain or burning with urination\nintermittent nausea but no vomiting and no diarrhea\ndenies any chronic kidney diseaseand no blood thinners\nRequesting Insted assessment.\n\n\nI provided information on the mobile health provider response time and advised the patient and/or caregiver to monitor reported signs and symp toms. I discussed the warning signs of when to seek emergency care. } Sent to a call for a pt complaining of UTI symptoms. SC8 arrives on scene, pt is alert and oriented, airway is patent. Pt ambulates with walker at baseline. Pt has history of MS. Allergies verified: Wellbutrin. Pt unsure if she is allergic to Tegretol or Erythromycin and doesn't remember taking either. Pt complains of chronic dizziness and chronic urinary incontinence. Pt complains of intermittent nausea (mostly at night), increased urinary frequency, foul smelling urine, bladder pain", and intermittent dysuria. Pt denies alcaraz, cp, sob, vomiting, diarrhea, hematuria, fever, or loc. Pt has been eating/drinking normally. BP:125/71, P:84, RR:18, SpO2:96% RA, T:98.0; Head: unremarkable; Lung sounds: clear bilaterally; Abdomen: soft, non-tender, no distention; Back: no CVA tenderness;Skin: pink, warm, dry; Urine sample obtained; urine dip performed; [facility] consulted and pt states she last had UTI within past 6 months. Pt states she was prescribed Cipro which can cause tendon issues.Pt states she has tendonitis and felt a flare in her ankle while taking Cipro. [facility] orders urine culture to be sent to [facility]. [facility] sends script to pt's pharmacy for Cefpodoxime which she will start tonight. Pt advised to take Tylenol 500mg PO q 6 hrs, stay hydrated, decreased caffeine while she has UTI, and follow up with PCP. Red flags discussed. Pt has no further questions. ORAL_MEDICATION, EKG, POC_BLOODWORK, GLUCOSE Written by Medical instED on 2025-01-01
--- OUTSIDE RECORDS SUMMARY | 2025-02-23 19:52 | XMS_ITS | Data Portability ---
Author Organization [facility] Address [address] [place] [phone] Care Team Providers Care Director Name Role Phone SOURAV FLANAGAN Primary Care Provider HIM CCA OTHER Assessment Encounter Date Assessment Date Assessment LastModified by Organization Details LastModified Time 01/01/2025 01/01/2025 I provided real -time medical direction via phone for this encounter, and was available for additional phone based assistance as needed. I have reviewed and agree with the Assessment and Plan as documented by the Foiling Machine Operator. We discussed the diagnostic uncertainty of home visits and the risk associated with this. In this case the patient and I felt this to be an acceptable and reasonable amount of risk given the benefit of avoiding an ED visit. The patient given the opportunity to ask questions. Advised f/u w/ PCP next week/ callus if needs another visits/if develops CP/severe SOB/turning blue/severe abd or flank uncontrolled n/v/d / AMS/ syncope/ fever >100.3 to call 911- verbalized understanding of instruction [email or web address] Not available 01/01/2025 15:52:38 Plan of Treatment Reminders Order Date Submit Date Provider Last Modified By Organization Details Last Modified Time Details Appointments None recorded. Lab culture, urine 2024 025 [place] [facility] (Centralized Electronic Ordering - All Locations), Patient Can Go To The Location Of Their Choice, [address] 20:05:46 urinalysis, dipstick 2024 025 [facility], [address] [place], [address] 17:51:26 Referral None recorded. Procedures None recorded. Surgeries None recorded. Imaging None recorded. Medication Orders cefpodoxime 200 mg tablet 2024 025 [facility] #[id number], [address] [place], [address], 05:01:44 Patient TargetsNo targets recorded. Patient InstructionsNo instructions recorded. Reason for Referral None Reported. Results Created Date Observation Date Name Description Value Unit Range Abnormal Flag Note LastModifiedBy Organization Detail LastModifiedTime 01/02/2001/04/2025 URINE CULTU RE, UROLO GY CORY P urine culture, urology workup Final report abnormal Not Available [facility] ([facility]) [address], [place], [address], 01/04/2025 12:05:42 01/02/2001/04/2025 URINE CULTU RE, UROLO GY CORY P result 1 COMMEN T abnormal Pseud omona s aerug inosa Cefta zidim e-arsenio bacta m and cefto lozan e-darren obact am may be consi dered for thera py ONLY when multi -drug resis tance (MDR) is demon strat ed to merop enem and other teste d agent s. 25,00 0-50, 000 colon y formi ng units per mL Not Available [facility] ([facility]) [address], [place], [address], 01/04/2025 12:05:42 01/02/2001/04/2025 URINE CULTU RE, UROLO GY CORY P antimicrobia l susceptibili ty Commen t S = Susce ptibl e; I = Inter media te; R = Resis tant P = Posit bren; N = Negat bren MICS are expre ssed in micro grams per mL Antib iotic RSLT# 1 RSLT# 2 RSLT# 3 RSLT# 4 Amika jean-pierre S Cefep helen S Cefta zidim e S Cefta zidim e/arsenio bacta m S Cefto lozan e/darren obact am S Cipro floxa jean-pierre S Levof loxac in S Merop enem S Piper acill in/Ta zobac conroy S Tobra mycin S Not Available [facility] ([facility]) [address], [place], [address], 01/04/2025 12:05:42 Result Notes None recorded. Medical Equipment None Reported. Allergies Allergen ID Allergen Name Allergen Category Reaction Reaction Severity Criticality Documentation Date Start Date Code Code System Note Provider Name and Address Organization Details Recorded Time 53022 Wellbutri n medicatio n Not available Not available Not available 01/01/2025 34180 RxNorm Not Available [facility] - production 13:49:35 Medications Name Sig Start Date Stop Date Status Note LastModified by Organization Details LastModified Time amantadine HCl 100 mg tablet TAKE 1 TABLET BY MOUTH TWICE A DAY active Not Available Not Available No t Available amoxicillin 500 mg capsule TAKE 1 CAPSULE BY MOUTH TWICE A DAY active Not Available Not Available No t Available polyethylen e glycol 3350 17 gram oral powder packet TAKE 1 PACKET DISSOLVED IN LIQUID BY MOUTH DAILY active Not Available Not Available No t Available cefpodoxime 200 mg tablet Take 1 tablet every 12 hours by oral route for 7 days. 01/15 completed Not Available Not Available Not Available fluconazole 150 mg tablet TAKE 1 TABLET BY MOUTH NOW AND REPEAT DOSE IN 4 DAYS active Not Available Not Available No t Available valacyclovi r 1 gram tablet TAKE 2 TABLETS EVERY 12 HRS FOR 1 DAY STARTING THE DAY BEFORE PROCEDURE active Not Available Not Available No t Available ciprofloxac in 500 mg tablet TAKE 1 TABLET BY MOUTH TWICE A DAY active Not Available Not Available No t Available sulfamethox azole 800 mg-trimetho prim 160 mg tablet TAKE 1 TABLET BY MOUTH TWICE A DAY FOR 3 DAYS active Not Available Not Available No t Available modafinil 200 mg tablet TAKE 1 TABLET (200 MG TOTAL) BY MOUTH 1 (ONE) TIME EACH DAY IN THE MORNING. MAX DAILY AMOUNT: 200 MG active Not Available Not Available No t Available baclofen 10 mg tablet TAKE 2 TABLETS BY MOUTH 3 TIMES A DAY active Not Available Not Available No t Available gabapentin 300 mg capsule TOO SOON 10/03TA KE 2 CAPSULES (600 MG TOTAL) BY MOUTH 3 TIMES A DAY. active Not Available Not Available No t Available omeprazole 20 mg capsule,del ayed release TAKE 2 CAPSULES BY MOUTH TWICE A DAY active Not Available Not Available No t Available ergocalcife rol (vitamin D2) 1,250 mcg (50,000 unit) capsule TAKE 1 CAPSULE BY MOUTH ONE TIME PER WEEK active Not Available Not Available No t Available doxycycline hyclate 100 mg tablet TAKE 1 TABLET BY MOUTH TWICE A DAY FOR 10 DAYS active Not Available Not Available No t Available modafinil 100 mg tablet TAKE 1 TABLET BY MOUTH ONCE DAILY IN THE MORNING active Not Available Not Available No t Available trospium 20 mg tablet TAKE 1 TABLET BY MOUTH TWICE A DAY active Not Available Not Available No t Available duloxetine 30 mg capsule,del ayed release TAKE 1 CAPSULE BY MOUTH 1 TIME EACH DAY. active Not Available Not Available No t Available duloxetine 60 mg capsule,del ayed release TAKE 1 CAPSULE BY MOUTH 1 TIME EACH DAY. active Not Available Not Available No t Available Vitals Date Recorded Heart rate Respiratory rate Oxygen saturation Oxygen saturation in Arterial blood by Pulse oximetry Body weight Body height Body temperature Systolic And Diastolic Provider Name and Address Organization Details Last Updated DateTime 5 84 /min 18 /min 96 % 96 % 39690.7 2 g 170.18 cm 98 [degF] 125/71 mm[Hg] Not Available [facility] - production 5 15:32:46 Social History None recorded. Functional Status None recorded. Mental Status None recorded. Family History Nothing Reported. Medical History No medical history recorded. Gynecological HistoryNo gynecological history recorded. Obstetrics History GPAL:G 0 P 0 0 0 0 Past Encounters Encounter ID Performer Location Encounter Start Date Encounter Closed Date Diagnosis/Indication Diagnosis SNOMED-CT Code Diagnosis ICD10 Code Diagnosis IMO Codes Diagnosis Note [id number] Miesha Bethea MD [facility] ED Medical [address] [address] 01/01/2025 15:32:42 01/03/2025 15:28:02 Urinary tract infectious disease 79944808 N39.0 313313 Advised to stay well hydrated/a void caffeine. Patient does not wish to take Cipro -she developed tendinitis when she was given Cipro for her last UTI and is worried about tendon effects that she has read about from Cipro. She has no history of CKD on 08/18/2024 GFR was 100 with creatinine 0.68. She is not anticoagul ated. will call if UC reveals resistant bacteriaha s APAP 500 mg at home- advise may take 1 every 6 hours as needed for pain Pat has zofran at home- advised to take as needed to stay hydrated patient agreed with plan as above Family can scrap picker rx tonight per patient- allergies and pharmacy rev - this medic does not carry cefpodoxim e Health Concerns Section Related Observation LastModified by Organization Detai ls LastModified Time None Recorded Concern Status LastModified by Organization Details LastModified Time None Recorded Advance Directives Directive None Recorded Payers Insurance Date Sequence Insurance Name Policy Number Policy Swartz Covered Member ID Swartz Member ID Guarantor Name 01/01/2025 1 [facility] - DOS ON OR AFTER 2022 - DUAL ELIGIBLE - JAIL OPTIONS AND ONE CARE (MEDICARE REPLACEMENT/ADV ANTAGE - HMO) Darlene Yamilka [id number] Darlene Prather Notes Date Note Type Note Provider Name and Address Organization Details Recorded Time 01/01/2025 text/html ROS as noted in the [facility] Nurse Triage Notes (Erin Parker): Reason For Request: UTI Denies: Unable to void greater than 5 hours Erection that will not go away after 2 hours Fall or trauma that results in urinary incontinence in the setting of pain Fall or injury that results in incontinence in the absence of pain Lower back pain either unilateral or bilateral, unable to void, painful urination -hematuria Painful urination Frequent and increased urination with flank pain Painful urination with or without fever Inability to fully empty bladder Chief Complaints: Urinary Symptoms PMH: Multiple Sclerosis PMH Reviewed at 01/01/2025:49 Allergies Reviewed at 01/01/2025 13:49 Comments: 59 y.o female complains of Urinary Symptoms patient self referring symptoms started about a week ago with frequency of urination stated she recently noticed a very foul odor. urine has been a clear yellow endorses cold sweats denies any body aches or flank pain endorses lower abdominal denies any pain or burning with urination intermittent nausea but no vomiting and no diarrhea denies any chronic kidney disease and no blood thinners Requesting Insted assessment. I provided information on the mobile health provider response time and advised the patient and/or caregiver to monitor reported signs and symptoms. I discussed the warning signs of when to seek emergency care. Foiling Machine Operator Organization Information for [facility] Business Legal Name: [employer]. Address: [address] [place] [id number], User Support Analyst: Trev MALHOTRA No.: [id number] Foiling Machine Operator POC Test Results from [facility] - ALS Urine Dipstick (15:17:53) Urine leukocytes: 125++ALEX Urine nitrites: -NIT Urine urobilinogen: 0.2URO Urine protein: 15+/-PRO Urine pH: 6.0pH Urine blood: +/-BLO Urine specific gravity: 1.010SG Urine ketones: -KET Urine bilirubin: -KODI Urine glucose: -GLU .................. .................. .................. .................. .................. .................. .................. ............... Foiling Machine Operator Note From [facility] St[facility]: Sent to a call for a pt [...] increased urinary frequency, foul smelling urine, bladder pain , and intermittent dysuria. Pt denies alcaraz, cp, sob, vomiting, diarrhea, hematuria, fever, or loc. Pt has been eating/drinking normally. BP:125/71, P:84, RR:18, SpO2:96% RA, T:98.0; Head: unremarkable; Lung sounds: clear bilaterally; Abdomen: soft, non-tender, no distention; Back: no CVA tenderness; Skin: pink, warm, dry; Urine sample obtained; urine dip performed; C consulted and pt states she last had UTI within past 6 months. Pt states she was prescribed Cipro which can cause tendon issues. Pt states she has tendonitis and felt a flare in her ankle while taking Cipro. [facility] orders urine culture to be sent to [facility]. [facility] sends script to pt's pharmacy for Cefpodoxime which she will start tonight. Pt advised to take Tylenol 500mg PO q 6 hrs, stay hydrated, decreased caffeine while she has UTI, and follow up with PCP. Red flags discussed. Pt has no further questions. [facility] Lab Orders: culture, urine: Performed urinalysis, dipstick: Performed .................. .................. .................. .................. .................. .................. .................. ............... [facility] Consulted: Miesha Bethea .................. .................. .................. .................. .................. .................. .................. ............... Disposition: Fulfilled Miesha Bethea MD [address], [place], [address], OFELIA JC 01/01/2025 20:59:56 OBGyn Episode No OBEpisode recorded.
--- OUTSIDE RECORDS SUMMARY | 2025-02-23 19:52 | XMS_ITS | Clinical Summary ---
Author Organization [facility] Address [address] [place] [address] Care Team Providers Care Inspector Pawnshop Detail Name Role Phone Chato Paz MD Primary Care Provider Allergies Active Allergy Reactions Criticality Noted Date [...] 0 07/17/2023 Active ergocalciferol (VITAMIN D2) capsule 65983 units TAKE 1 CAPSULE BY MOUTH ONE [...] Maintenance Due Date Last Done Comments Hepatitis C Screening 1965 COVID-19 Vaccine (#1) 1965 Depression Screening 1977 BMI Counseling 1983 Preventative Health Evaluation 1983 Cervical Cancer Screening (Pap Smear) 1986 Colon Cancer Screening (Colonoscopy) 2010 Breast Cancer Screening (Mammogram) 2015 Shingrix-Zoster Vaccine (1 of 2) 2015 DTap / Tdap / Td (2 - Td or Tdap) 08/26/2024 08/26/2014 Influenza Vaccine (#1) 2024 , 02/22/2021, 04/24/2020, Additional history exists RSV Adult > 60+ Yrs or (1 - 1-dose 75+ series) 01/13/2040 Pneumococcal Vaccine Aged Out 11/12/2015 No long er eligible based on patient's age to complete this topic Hepatitis B Vaccines Aged Out No long er eligible based on patient's age to complete this topic RSV Ped < 20 months Aged Out No longe r eligible based on patient's age to complete this topic Care Teams Inspector Pawnshop Detail Relationship Specialty Start Date End Date Chato Paz MD [address] [place] [phone] PCP - General Internal Medicine 12/14/22
--- OUTSIDE RECORDS SUMMARY | 2025-02-23 19:52 | XMS_ITS | Encounter Summary ---
Author Organization [facility] Address [address] [place] [address] Care Team Providers Care Aircraft Refueller Name Role Phone Chato Paz MD Primary Care Provider [phone] Encounter Details Date Type Department Care Team ([facility] st Contact Info) Description 09/11/2024 Lab Requisition [facility] [address] [place] [address] Tracy Palomo, PIGS FEET CLEANER [address] [place] [address] Frequency of micturition Social History Tobacco Use Types Packs/Day Years [...] for your loved ones. For example, child and adolescent psychologist or elderly care for an older adult? [...] as of this encounter Plan of Treatment Upcoming Encounters Date Type Department Care Team (Late st Contact Info) Description 03/02/2025 8:00 AM EST Appointment [facility] [place] [address] [place] [address] 03/02/2025 11:15 AM EST Office Visit Pulmonology - [place] [address] [place] [phone] Ann-Marie Krueger MD [address] [place] [address] documented as of this encounter Procedures Procedure Name Priority Date/Time Associated Diagnosis Comments CULTURE URINE Routine 09/11/2024 4:15 PM EDT Frequency of micturition documented in this encounter Results * (ABNORMAL) Culture urine (09/11/2024 4:15 PM EDT) Culture, Urine >100,000 CFU/mL Pseudomonas aeruginosa(A) ZINA 09/15/2024 7:46 AM EDT [facility] Comment: The organism value for [...] Pseudomonas aeruginosa Levofloxacin ZINA 1 ug/ml: Susceptible us Tracy Palomo PIGS FEET CLEANER LAB MICROBIOLOGY - GENERA L ORDERABLES Final Result [facility] [address] [place] [address], documented in this encounter Visit Diagnoses Diagnosis Frequency of micturition Urinary frequency documented in this encounter Additional Health Concerns Assessment Noted Time PHQ-9 Depression Total Score: 0 09/10/19 25 11:35 AM EDT documented as of this encounter Care Teams Aircraft Refueller Relationship Specialty Start Date End Date Chato Paz MD [address] [place] [address] PCP - General 12/14/22 documented as of this encounter
--- OUTSIDE RECORDS SUMMARY | 2025-02-23 19:52 | XMS_ITS | Data Portability ---
Author Organization [place] [facility] Address [address] [place] [address] Care Team Providers Care Marketing Research Coordinator Name Role Phone [facility] Primary Care Provider Assessment Encounter Date [...] care of this patient according to [facility]'s infection prevention protocols. [email or web address] Not available 10/08/2022 12:13:54 Plan of Treatment Reminders Order Date Submit Date Provider Last Modified By Organization Details Last Modified Time Details Appointments None recorded. Lab urinalysis , dipstick 2022 023 [email or web address] Spr - Home, [address], [place], [address], 11:29:34 Referral None recorded. Procedures None recorded. Surgeries None recorded. Imaging None recorded. Medication Orders Ciprodex 0.3 %-0.1 % ear drops,susp ension 2022 023 [facility] #[id number], [address] [facility] [place], [address], 11:29:46 Patient TargetsNo targets recorded. Patient Instructions Encounter Date Encounter Id Patient Instructions Last Modified By Organization Details Last Modified Time 10/08/2022 [id number] Thank you for yo ur visit with [facility] today. We cannot always find the exact [...] condition between 8am-10pm, please call [facility] at [phone] to help navigate your care. [email or web address] Not available 10/08/2022 12:12:22 Reason for Referral None Reported. Results Created Date Observation Date Name Description Value Unit Range Abnormal Flag Note LastModifiedBy Organization Detail LastModifiedTime 10/09/19 23 10/08/2022 urina lysis , dipst ick Appearance clear Not Available [facility]me [address], [place], [address], 10/08/2022 11:27:19 10/09/1910/08/2022 urina lysis , dipst ick Color yellow Not Available [facility] [place] [address] [place], [address], 10/08/2022 11:27:19 10/09/1910/08/2022 urina lysis , dipst ick Glucose (ref: neg Neg Not Available [facility] [address] [place], [address], 10/08/2022 11:27:19 10/09/19 23 10/08/2022 urina lysis , dipst ick Bilirubin (ref: neg) Neg Not Available [facility] [address] [place], [address], 10/08/2022 11:27:19 10/09/1910/08/2022 urina lysis , dipst ick Ketones (ref: neg) Neg Not Available [facility] [address], [place], [address], 10/08/2022 11:27:19 10/09/1910/08/2022 urina lysis , dipst ick Specific [place] (ref: 1.003 - 1.035) 1.010 Not Available [facility] [address], [place], [address], 10/08/2022 11:27:19 10/09/1910/08/2022 urina lysis , dipst ick Blood (ref: neg) Neg Not Available [facility] [address], [place], [address], 10/08/2022 11:27:19 10/09/1910/08/2022 urina lysis , dipst ick pH (ref: 5.0-7.0) 7.5 Not Available [facility] [address] [place], [address], 10/08/2022 11:27:19 06/12/20 23 10/08/2022 urina lysis , dipst ick Protein (ref: neg) Neg Not Available [facility] - [address], [address], 10/08/2022 11:27:19 10/09/19 23 10/08/2022 urina lysis , dipst ick Urobilinogen (ref: 0.2-1.0) 0.2 Not Available [facility] - [address], [address], 10/08/2022 11:27:19 10/09/19 23 10/08/2022 urina lysis , dipst ick Nitrites (ref: neg) negati ve Not Available [facility] - [address], [address], 10/08/2022 11:27:19 10/09/19 23 10/08/2022 urina lysis , dipst ick Leukocytes (ref: neg) Neg Not Available [address], [address], 10/08/2022 11:27:19 10/09/19 23 10/08/2022 urina lysis , dipst ick Location [facility] , [address] [place] [address], [phone] Not Available [facility] - [address], [address], 10/08/2022 11:27:19 Result Notes None recorded. Procedures Surgical History Date Name Laterality Status Provider Name and Address Organization Details Recorded Time Cholecystectomy completed DOMINICK Simeon [address] [place] [address], [address], [place] [facility] 10/08/2022 11:14:17 section completed DOMINICK Simeon [address] [place] [address], [address], [place] [facility] 10/08/2022 11:14:35 Imaging Results None recorded. Procedure Notes None recorded. Medical Equipment None Reported. Allergies Allergen ID Allergen Name Allergen Category Reaction Reaction Severity Criticality Documentation Date Start Date Code Code System Note Provider Name and Address Organization Details Recorded Time 255387 Wellbutri n medicatio n Not available Not available Not available 10/08/2022 56416 RxNorm DOMINICK Simeon [address], [place] [facility] [place], [address], [place] [facility] 11:10:24 [...] /min 98.3 [degF] 140/82 mm[Hg] Not Available [facility] 11:13:16 Social History Question Answer Notes LastModified by Action Details LastModified Time Tobacco Smoking Status Never Smoker DOMINICK Simeon [address], [place], [address], [place] [facility] 10/08/2022 11:13:31 Fall Risk: Do You Feel Unsteady When Standing Or Walking? Yes [email or web address] Information not available 10/08/2022 Excessive Alcohol Or Drug Use No Information not available 10/08/2022 Does This Patient Have A PCP? Yes [email or web address] Information not available 10/07/2022 Has The Patient Seen Their PCP In The Past 6 Months? No [email or web address] Information not available 10/07/2022 Social Support: Do You Feel Safe? Yes [email or web address] Information not available 10/08/2022 What Is Your Housing Situation Today? I Have Housing [email or web address] Information not available 10/08/2022 Sex: Unknown Functional Status Question Answer Note LastModified by Action Details LastModified Time Do you use any illicit or recreational drugs? No [email or web address] Information not available 10/08/2022 What is your level of alcohol consumption? None Information not available 10/08/2022 Mental Status None recorded. Family History Relationship Description Onset Age of this Age Resolved Age Notes LastModified by Organization Details LastModified Time Father No current problems or disability [email or web address] Not available 09/27 11:13:08 Mother No current problems or disability [email or web address] Not available 09/27 11:13:08 Medical History Condition Response Diabetes N Coronary Artery Disease N CHF N Parkinson's Disease N Cancer N Stroke N Dementia N Hypothyroidism N COPD N Asthma N Depression N High Cholesterol N Rheumatoid Arthritis N Pulmonary Embolism N Hypertension N A-fib N Osteoporosis N Kidney Disease N Gynecological HistoryNo gynecological history recorded. Obstetrics History GPAL:G 0 P 0 0 0 0 Past Encounters Encounter ID Performer Location Encounter Start Date Encounter Closed Date Diagnosis/Indication Diagnosis SNOMED-CT Code Diagnosis ICD10 Code Diagnosis IMO Codes Diagnosis Note [id number] DOMINICK Simeon [facility] [place] [address] [place] [address] 10/08/2022 11:09:22 10/10/2022 13:22:50 Otitis externa of left ear 0380485775 862184 H60.92 Status of condition: Acute. Testing/Re sults: [...] cp, sob. Urgent riley ivan to urinate 80723847 R39.15 Status of condition: Acute. Testing/Re sults: [...] incontinen ce, cp, sob, dizziness. Multiple sclerosis 74404 007 G35 Health Concerns Section Related Observation LastModified by Organization Detai ls LastModified Time None Recorded Concern Status LastModified by Organization Details LastModified Time None Recorded Advance Directives Directive None Recorded Payers Insurance Date Sequence Insurance Name Policy Number Policy Swartz Covered Member ID Swartz Member ID Guarantor Name 10/07/2022 1 *SELF PAY* Darlene Prather [id number] Darlene Prather 10/19/2022 1 [facility] - DOS ON OR AFTER 2022 - MEDICARE [place]AGE [place]MEDICARE REPLACEMENT/ADV ANTAGE - PPO) Darlene Prather [id number] Darlene Prather Notes Date Note Type Note Provider Name and Address Organization Details Recorded Time 10/08/2022 text/html General HPI Template - DHReported by Patient 57 y/o female new to and provider with hx of MS, [...] to dermatology. DOMINICK Simeon [address], [place], [address], [place] [facility] 10/08/2022 12:14:35 OBGyn Episode No OBEpisode recorded.
--- OUTSIDE RECORDS SUMMARY | 2025-02-23 19:52 | XMS_ITS | Continuity of Care Document ---
Author Name [facility], Medical Address [address] [place] [address] Organization Unknown Address [address] [place] [address] Medications No known medications Problems No known problems
--- OUTSIDE RECORDS SUMMARY | 2025-02-23 19:52 | XMS_ITS | Patient Health Record ---
Author Organization [facility] Address [address] [place] [address] Care Team Providers Care Master Mechanic Name Role Phone Jackson HANNAH, [facility] Primary Care Provider Serge Cleaning Unavailable [phone] Allergies Allergen (clinical drug ingredient) Drug/Non Drug [...] atherosclerosis of arteries of lower limbs (disorder) (00853273512818777 ) Atherosclerosis of [place] artery of both lower extremities, with unspecified presence of clinical manifestation (I70.203) Active confirmed Problem Multiple sclerosis (00222825) Generalized multiple sclerosis (G35) Active confirmed Plan Of Treatment Pending Test Test Name Order Date X ray : Foot, left 3V 12/11/2022 [id number] NAIL, 1-5 12/20/2022 [id number] SKIN LESIONS, OVER 4 12/21/19 23 [id number] DYSTROPHIC NAILS ANY # Insurance Providers Payer Name Payer Address Payer Phone Subscriber Number Group Number Insured Name Patient Relationship to Insured Coverage Start Date Coverage End Date [facility] [employer] Claims [address] [place] [id number] Darlene Prather Self - patient is the insured Medical (General) History Medical History History ICD Code sclerosis Reflux ( GERD) hydradenitis left foot pain leg weakness Back,Hip,and Knee pain covid-19 Gall bladder problems Headaches/Migraines Numbness Mumps Chicken pox Trigeminal neuralgia [place] Surgical History Surgery Date(Month/Year) colonoscopy Gall bladder removal Trigeminal neuralgia
== END 2025-02-23 16:11 | disposition home or self-care (01) ==
LOC: HO.HVS 15:32
PROVIDERS: PCP Internal Medicine; Visit Provider Surgery Vascular Surgery
DX: I83.12 Varicose veins of left lower extremity with inflammation (principal)
CPT/HCPCS: 99204

== ENCOUNTER → 2025-02-23 15:32 | Outpatient (BNVA) | payer OTHER, SELFPAY | PROVIDERS: PCP Internal Medicine; Visit Provider Surgery Vascular Surgery | DX: I83.12 Varicose veins of left lower extremity with inflammation (principal) | CPT/HCPCS: 99202 ==

== ENCOUNTER 2025-04-26 10:39 | Outpatient (REF) | payer OTHER, SELFPAY ==
--- NOTE | ~2025-04-26 | US_ITS ---
EXAMINATION: US LOWER EXTREMITY VENOUS (REFLUX EXAM), BILATERAL CLINICAL INFORMATION: Varicose veins of the left lower extremity with inflammation COMPARISON: None. TECHNIQUE: Color flow triplex imaging and compression Doppler was performed to evaluate both the deep and the superficial systems bilaterally. To evaluate the superficial system, the examination was performed in the upright position. Color-flow Doppler ultrasound and compression ultrasound were utilized. In addition, maneuvers were utilized to demonstrate reflux. FINDINGS: 1. DEEP VENOUS ULTRASOUND OF THE RIGHT LOWER EXTREMITY: Common Femoral Vein: Compressible, normal respiratory variation and augmented flow. Femoral Vein: Compressible, normal color flow and augmentation. Popliteal Vein: Compressible, normal augmentation. Deep Reflux: There is no evidence of reflux in the deep system in either the common femoral vein, superficial femoral or the popliteal vein. There is no evidence of a Villalta's cyst. 2. SUPERFICIAL ULTRASOUND WITH DOPPLER OF RIGHT LOWER EXTREMITY: GREAT SAPHENOUS VEIN: Saphenofemoral Junction: 0.7 cm; Reflux: 0 ms Proximal Thigh: 0.7 cm; Reflux: 0 ms Mid Thigh: 0.4 cm; Reflux: 0 ms Distal Thigh: 0.4 cm; Reflux: 0 ms At Knee: 0.4 cm; Reflux: 0 ms Proximal Calf: 0.3 cm; Reflux: 0 ms Mid Calf: 0.3 cm; Reflux: 0 ms Distal Calf: 0.3 cm; Reflux: 0 ms DUPLICATED MEDIAL GREAT SAPHENOUS VEIN: Diameter: None imaged Reflux: NA DUPLICATED LATERAL GREAT SAPHENOUS VEIN: Diameter: None imaged Reflux: NA SMALL SAPHENOUS VEIN: Saphenopopliteal Junction: 0.4 cm; Reflux: 0 ms Proximal: 0.3 cm; Reflux: 0 ms Distal: 0.3 cm; Reflux: 0 ms VEIN OF GIACOMINI: Size: 0.2 cm Reflux: NA PERFORATORS: Location: Proximal thigh communicating with the greater saphenous vein Size: 0.3 cm Reflux: NA VARICOSITIES: Location: None imaged. Size: NA Reflux: NA 3. DEEP VENOUS ULTRASOUND OF THE LEFT LOWER EXTREMITY: Common Femoral Vein: Compressible, normal respiratory variation and augmented flow. Femoral Vein: Compressible, normal color flow and augmentation. Popliteal Vein: Compressible, normal augmentation. Deep Reflux: There is no evidence of reflux in the deep system in either the common femoral vein, superficial femoral or the popliteal vein. There is no evidence of a Villalta's cyst. 4. SUPERFICIAL ULTRASOUND WITH DOPPLER OF LEFT LOWER EXTREMITY: GREAT SAPHENOUS VEIN: Saphenofemoral Junction: 0.8 cm; Reflux: 0 ms Proximal Thigh: 0.7 cm; Reflux: 0 ms Mid Thigh: 0.4 cm; Reflux: 0 ms Distal Thigh: 0.4 cm; Reflux: 0 ms At Knee: 0.4 cm; Reflux: 0 ms Proximal Calf: 0.4 cm; Reflux: 0 ms Mid Calf: 0.3 cm; Reflux: 0 ms Distal Calf: 0.3 cm; Reflux: 0 ms DUPLICATED MEDIAL GREAT SAPHENOUS VEIN: Diameter: None imaged Reflux: NA DUPLICATED LATERAL GREAT SAPHENOUS VEIN: Diameter: None imaged. Reflux: NA SMALL SAPHENOUS VEIN: Saphenopopliteal Junction: 0.3 cm; Reflux: 0 ms Proximal: 0.2 cm; Reflux: 0 ms Distal: 0.4 cm; Reflux: 0 ms VEIN OF GIACOMINI: Size: NA Reflux: NA PERFORATORS: Location: Mid calf communicating with the greater saphenous vein Size: 0.1 cm Reflux: NA VARICOSITIES: Location: None Imaged Size: NA Reflux: NA US/US venous duplex LE BI IMPRESSION: Right: No evidence of DVT or deep venous reflux. Normal caliber greater or lesser saphenous veins without reflux. Left: No evidence of DVT or deep venous reflux. Normal caliber greater or lesser saphenous veins without reflux. Electronically signed by: Mary العلي MD 04/26/2025 12:04 PM [facility]
--- OUTSIDE RECORDS SUMMARY | 2025-04-26 12:07 | XMS_ITS | Patient Health Record ---
Author Organization [facility] Address [address] [place] [address] Care Team Providers Care Java Tech Lead Name Role Phone Jackson HANNAH, [facility] Primary Care Provider Serge Cleaning Unavailable [phone] Allergies Allergen (clinical drug ingredient) Drug/Non Drug [...] atherosclerosis of arteries of lower limbs (disorder) (28866124756733443 ) Atherosclerosis of [place] artery of both lower extremities, with unspecified presence of clinical manifestation (I70.203) Active confirmed Problem Multiple sclerosis (12908599) Generalized multiple sclerosis (G35) Active confirmed Plan Of Treatment Pending Test Test Name Order Date X ray : Foot, left 3V 12/11/2022 [id number] NAIL, 1-5 12/20/2022 [id number] SKIN LESIONS, OVER 4 12/21/19 23 [id number] DYSTROPHIC NAILS ANY # Insurance Providers Payer Name Payer Address Payer Phone Subscriber Number Group Number Insured Name Patient Relationship to Insured Coverage Start Date Coverage End Date [facility] [employer] Claims [address] [place] [id number] Darlene Prather Self - patient is the insured Medical (General) History Medical History History ICD Code sclerosis Reflux ( GERD) hydradenitis left foot pain leg weakness Back,Hip,and Knee pain covid-19 Gall bladder problems Headaches/Migraines Numbness Mumps Chicken pox Trigeminal neuralgia [place] Surgical History Surgery Date(Month/Year) colonoscopy Gall bladder removal Trigeminal neuralgia
--- OUTSIDE RECORDS SUMMARY | 2025-04-26 12:08 | XMS_ITS | Clinical Summary ---
Author Organization [facility] Prior to 09/26/24 Address [address] [place] [address] Care Team Providers Care Stunt Man Name Role Phone Chato Paz MD Primary Care Provider [phone] Allergies Active Allergy Reactions Criticality Noted Date [...] 0 07/17/2023 Active ergocalciferol (VITAMIN D2) capsule 32557 units TAKE 1 CAPSULE BY MOUTH ONE [...] age to complete this topic Care Teams Stunt Man Relationship Specialty Start Date End Date Chato Paz MD [address] [facility] [place] [phone] PCP - General Internal Medicine 12/14/22
--- OUTSIDE RECORDS SUMMARY | 2025-04-26 12:08 | XMS_ITS | Encounter Summary ---
Author Organization [facility] Address [address] [place] [address] Care Team Providers Care Photo Checker And Assembler Name Role Phone Chato Paz MD Primary Care Provider [phone] Encounter Details Date Type Department Care Team ([facility] st Contact Info) Description 09/11/2024 Lab Requisition [facility] [address] [facility] [place] [address] Tracy Palomo, PET ADOPTION COUNSELOR [address] [facility] [address] [place] [address] Frequency of micturition Social History Tobacco Use [...] care for your loved ones. For example, children's ministries director or elderly care for an older adult? [...] Care Team (Late st Contact Info) Description 08/03/2025 3:30 PM EDT Office Visit [facility] [place] [address] [phone] Amy Rodriguez MD [address] [place] [address] 09/03/2025 8:00 AM EDT Appointment [facility] [place] [address] [address] documented as of this encounter Procedures Procedure Name Priority Date/Time Associated Diagnosis Comments CULTURE URINE Routine 09/11/2024 4:15 PM EDT Frequency of micturition documented in this encounter Results * (ABNORMAL) Culture urine (09/11/2024 4:15 PM EDT) Culture, Urine >100,000 CFU/mL Pseudomonas aeruginosa(A) ZINA 09/15/2024 7:46 AM EDT [facility] Comment: The organism value for [...] ZINA 1 ug/ml: Susceptible us Tracy Palomo PET ADOPTION COUNSELOR LAB MICROBIOLOGY - GENERA L ORDERABLES Final Result [facility] [address] [place] [address], documented in this encounter Visit Diagnoses Diagnosis Frequency of micturition Urinary frequency documented in this encounter Additional Health Concerns Assessment Noted Time PHQ-9 Depression Total Score: 0 09/10/19 25 11:35 AM EDT documented as of this encounter Care Teams Photo Checker And Assembler Relationship Specialty Start Date End Date Chato Paz MD [address] [place] [address] PCP - General 12/14/22 documented as of this encounter
--- OUTSIDE RECORDS SUMMARY | 2025-04-26 12:08 | XMS_ITS | Clinical Summary ---
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 08/27/19 15 Active L. acidophilus/Bi fid. animalis 32 billion cell capsule Take by mouth. Active LORazepam (ATIVAN) 0.5 mg tablet 1 po [...] 1 (one) time each day if needed. 09/25/19 19 Active polyethylene glycol (PEG) 17 gram/dose oral powder Take 17 g by mouth. 10/05/19 22 Active methylPREDNISo lone (MEDROL) 4 mg tablet 1 (one) time each day if needed. 07/05/19 24 Active gabapentin (NEURONTIN) 300 mg capsule Take 2 capsules (600 mg total) by mouth 3 (three) times a day. 540 each 3 09/12/19 25 Active DULoxetine (CYMBALTA) [address] capsule Take 1 capsule (30 mg total) by mouth 1 (one) time each day. 90 each 3 09/12/19 25 026 Active DULoxetine (CYMBALTA) [address] capsule Take 1 capsule (60 mg total) by mouth 1 (one) time each day. 90 each 3 09/12/19 25 Active amantadine (SYMMETREL) 100 mg tablet Take 1 tablet (100 mg total) by mouth 2 (two) times a day. 60 tablet 2 09/12/19 25 026 Active modafiniL (PROVIGIL) 200 mg tabletIndicati ons:Multiple sclerosis Take 1 tablet (200 mg total) by mouth 1 (one) time each day in the morning. Max Daily Amount: 200 mg 30 each 5 02/02/20 25 026 Active lactulose (CEPHULAC) 10 gram packet Take 1 packet (10 g total) by mouth 1 (one) time each day if needed (constipation ) for up to 10 doses. 10 packet 02/20/20 25 Active baclofen (LIORESAL) 10 mg tablet TAKE 2 TABLETS BY MOUTH 3 TIMES A DAY 540 tablet 1 03/08/20 25 Active acetaminophen (TYLENOL) 500 mg tablet Take 1 tablet (500 mg total) by mouth every 6 (six) hours if needed for mild pain for up to 12 doses. 12 tablet 03/28/20 25 Active ibuprofen (ADVIL,MOTRIN) 200 mg tablet Take 1 tablet (200 mg total) by mouth every 6 (six) hours if needed for mild pain for up to 36 doses. 36 tablet 03/28/20 25 Active methocarbamoL (ROBAXIN) 750 mg tablet Take 1 tablet (750 mg total) by mouth 4 (four) times a day if needed for muscle spasms for up to 24 doses. 24 each 03/28/20 25 Active nitrofurantoin , macrocrystal-m onohydrate, (MACROBID) 100 mg capsule Take 1 capsule (100 mg total) by mouth 2 (two) times a day for 5 days. 10 capsule 03/28/20 25 025 methocarbamoL (ROBAXIN) 750 mg tablet Take 1 tablet (750 mg total) by mouth 4 (four) times a day if needed for muscle spasms for up to 24 doses. 24 each 03/28/20 25 025 Discontinued levoFLOXacin (LEVAQUIN) 500 mg tablet Take 1 tablet (500 mg total) by mouth 1 (one) time each day for 7 days. 7 each 04/12/20 25 025 Discontinued(Th erapy completed) ciprofloxacin (Cipro) 500 mg tablet Take 1 tablet (500 mg total) by mouth 2 (two) times a day for 10 days. 20 each 04/13/20 25 025 Active Problems Problem Noted Date Diagnosed Date Unspecified atherosclerosis of [place] arteries of extremities, bilateral legs 08/03/2024 Breast pain 06/10/2024 Assessment & Plan [...] Shoulder pain, bilateral 02/17/2015 Overview (06/03/2022): Seeing NEOGabriel Chronic constipation 12/30/2014 Dysphagia 03/04/2012 Overview (06/03/2022): Seeing dr. Yoo Upper EGD: 03/18/2012 Multiple sclerosis 12/11/2010 Overview (06/03/2022): Dr. Cristina Encounters Date Type Department Care Team Description 04/13/2025 Telephone [facility] 175 [facility] [address] [place] [address] Eden Babb PA 04/09/2025 12:15 PM EST Lab Draw Station - [facility] [address] [place] [address] Multiple sclerosis (Primary Dx) 04/09/2025 11:30 AM EST Office Visit [facility] 175 [facility] [address] [place] [address] dEen Babb PA Multiple sclerosis (Primary Dx) 03/28/2025 9:06 AM EST - 03/28/2025 2:15 PM EST Emergency [facility] Emergency [address] [place] [address] William Pascual MD Acute left-sided low back pain without sciatica (Primary Dx); Sprain of low back, initial encounter; Left flank pain; Urinary tract infection in female Discharge Disposition: Home or Self Care 03/02/2025 8:00 AM EST - 03/02/2025 11:59 PM EST Hospital Encounter [facility] [place] Outpatient Re[facility] - [place] [address] [phone] Multiple sclerosis (Primary Dx); Encounter for therapeutic drug monitoring Discharge Disposition: Home or Self Care 02/19/2025 11:33 AM EDT - 02/19/2025 3:53 PM EDT Emergency [facility] Emergency [address] [place] [phone] James Ott MD Leg pain, central, left (Primary Dx); Raynaud's phenomenon without gangrene; Lower extremity edema; Constipation, unspecified constipation type Discharge Disposition: Home or Self Care from Last 3 Months Surgical History Surgery Date Site/Laterality Comments OTHER SURGICAL HISTORY PROCEDURE:CHOLECYSTECOMY OTHER SURGICAL HISTORY PROCEDURE:TRIGEMINAL NERVE SURGERY COLONOSCOPY 10/09/2018 10 yr recall ESOPHAGOGASTRODUODENOSCOPY 06/20/2016 negative spruce COLONOSCOPY 06/20/2016 recall 5 yr ESOPHAGOGASTRODUODENOSCOPY 03/18/2012 COLONOSCOPY 06/09/2003 Medical History Medical History Date Comments Multiple sclerosis 06/25/2011 DX:Multiple s clerosis (HCC) Myelopathy (CMS/HCC V24, CMS/HCC V28) 06/25/2011 [...] Not Answered Alcohol Use Standard Drinks/Week Comments Not Currently [...] for your loved ones. For example, children's program coordinator or elderly care for an older adult? [...] Sign Reading Time Taken Comments Blood Pressure 136/80 04/09/2025 12:06 PM EST Pulse 86 04/09/2025 12:06 PM EST Temperature 36.8 C (98.3 F) 03/28/2025 11:59 AM EST Respiratory Rate 16 03/28/2025 11:59 AM EST Oxygen Saturation 99% 04/09/2025 11:42 AM EST Inhaled Oxygen Concentration - - Weight 74.8 kg (165 lb) 04/09/2025 11:42 AM EST Height 170.2 cm (5' 7 ) 04/09/2025 11:42 AM EST Body Mass Index 25.84 04/09/2025 11:42 AM EST Plan of Treatment Upcoming Encounters Date Type Department Care Team (Late st Contact Info) Description 08/03/2025 3:30 PM EDT Office Visit [facility] [place] - [address] [phone] Amy Rodriguez MD [address] [place] [phone] 09/03/2025 8:00 AM EDT Appointment [facility] [place] Outpatient [facility]habil[facility] - [address] [phone] Health Maintenance Due Date Last Done Comments Breast Cancer Screening 1965 Drug Screen 1965 Non-Opioid Controlled Substance Agreement 1965 Zoster Vaccines (1 of 2) 2015 [...] Procedure Name Priority Date/Time Associated Diagnosis Comments BILIRUBIN DUPLICATE PROCEDURE TO ORDER Routine 04/09/2025 12:19 PM EST Multiple sclerosis CBC WITH AUTO DIFFERENTIAL Routine 04/09/2025 12:19 PM EST Multiple sclerosis WEISS URINE CULTURE TUBE Routine 04/09/2025 12:19 PM EST Multiple sclerosis URINALYSIS WITH REFLEX MICROSCOPIC AND CULTURE Routine 04/09/2025 12:19 PM EST Multiple sclerosis THYROID STIMULATING HORMONE Routine 04/09/2025 12:19 PM EST Multiple sclerosis COMPREHENSIVE METABOLIC PANEL Routine 04/09/2025 12:19 PM EST Multiple sclerosis VITAMIN B12 Routine 04/09/2025 12:19 PM EST Multiple sclerosis VITAMIN D 25 HYDROXY Routine 04/09/2025 12:19 PM EST Multiple sclerosis CBC AND DIFFERENTIAL Routine 04/09/2025 12:19 PM EST Multiple sclerosis URINALYSIS WITH REFLEX MICROSCOPIC AND CULTURE Routine 04/09/2025 12:19 PM EST Multiple sclerosis CULTURE URINE Routine 04/09/2025 12:19 PM EST [address] ABDOMEN PELVIS W CONTRAST STAT 03/28/2025 11:42 AM EST WEISS URINE CULTURE TUBE STAT 03/28/2025 11:17 AM EST URINALYSIS WITH REFLEX MICROSCOPIC AND CULTURE STAT 03/28/2025 11:17 AM EST URINALYSIS WITH REFLEX MICROSCOPIC AND CULTURE STAT 03/28/2025 11:17 AM EST CULTURE URINE STAT 03/28/2025 11:17 AM EST CBC WITH AUTO DIFFERENTIAL STAT 03/28/2025 9:49 AM EST BASIC METABOLIC PANEL STAT 03/28/2025 9:49 AM EST C-REACTIVE PROTEIN STAT 03/28/2025 9: 49 AM EST LIPASE STAT 03/28/2025 9:49 AM EST MAGNESIUM STAT 03/28/2025 9:49 AM EST SEDIMENTATION RATE STAT 03/28/2025 9: 49 AM EST CBC AND DIFFERENTIAL STAT 03/28/2025 9:49 AM EST HEPATIC FUNCTION PANEL STAT 9:33 AM EST HEPATIC FUNCTION PANEL Routine 8:43 AM EST Multiple sclerosis Encounter for therapeutic drug monitoring BUN Routine 03/02/2025 8:43 AM EST Multiple sclerosis Encounter for therapeutic drug monitoring CREATININE, SERUM Routine 03/02/2025 8:4 3 AM EST Multiple sclerosis Encounter for therapeutic drug monitoring CBC WITH AUTO DIFFERENTIAL STAT 02/19/2025 1:00 [...] 12:36 PM EDT Leg pain, central, left EXTERNAL COLONOSCOPY REPORT Routine 08/07/2024 7:51 AM EDT PAP SMEAR Routine 07/27/2021 from Last 3 Months or Most Recently Relevant to Health Maintenance Results * Bilirubin duplicate procedure to order (04/09/2025 12:19 PM EST) Total Bilirubin 0.4 0.0 - 1.4 mg/dL 04/09/2025 4:12 PM [facility] Bilirubin, Direct 0.1 0.0 - 0.3 mg/dL 04/09/2025 4:12 PM [facility] Bilirubin, Indirect 0.3 0.0 - 1.1 mg/dL 04/09/2025 4:12 PM [facility] Blood Venous blood specimen / Unknown Venipuncture / Unknown 04/09/2025 12:19 PM EST 04/09/2025 12:19 PM EST us Eden TAN LAB BLOOD ORDERABLES Final R esult [facility] [address] [place] [address], [place] [phone] * (ABNORMAL) Urinalysis with reflex microscopic and culture (04/09/2025 12:19 PM EST) Only the most recent of2 resultswithin the time period is included. Specific [place] Urine 1.022 1.003 - 1.030 LAB URINALYSIS - AUTOMATED METHOD 04/09/2025 2:20 PM [facility] pH, Urine 6.0 5.0 - 8.0 pH LAB URINALYSIS - AUTOMATED METHOD 04/09/2025 2:20 PM [facility] Leukocytes, Urine Large(A) Negative LAB URINALYSIS - AUTOMATED METHOD 04/09/2025 2:20 PM [facility] Nitrite, Urine Negative Negative LAB URINALYSIS - AUTOMATED METHOD 04/09/2025 2:20 PM [facility] Protein, Urine Negative <=Trace mg/dL LAB URINALYSIS - AUTOMATED METHOD 04/09/2025 2:20 PM [facility] Glucose, Urine Negative Negative mg/dL LAB URINALYSIS - AUTOMATED METHOD 04/09/2025 2:20 PM [facility] Ketones, Urine Negative Negative mg/dL LAB URINALYSIS - AUTOMATED METHOD 04/09/2025 2:20 PM [facility] Urobilinogen , Urine 0.2 0.2 - 1.0 mg/dL LAB URINALYSIS - AUTOMATED METHOD 04/09/2025 2:20 PM [facility] Bilirubin, Urine Negative Negative LAB URINALYSIS - AUTOMATED METHOD 04/09/2025 2:20 PM EST [facility] Blood, Urine Negative Negative LAB URINALYSIS - AUTOMATED METHOD 04/09/2025 2:20 PM [facility] RBC, Urine 2 0 - 4 /HPF 04/09/2025 2:20 PM [facility] WBC, Urine 50(H) 0 - 4 /HPF 04/09/2025 2:20 PM [facility] Squamous Epithelial, Urine 6 0 - 60 /LPF 04/09/2025 2:20 PM [facility] Non-Squamous Epithelial, Urine 5-10 Transitional epithelial cells. /LPF 04/09/2025 2:20 PM [facility] Bacteria, Urine Few(A) Negative /HPF 04/09/2025 2:20 PM [facility] Urine Urine specimen obtained by clean catch procedure / Unknown Non-blood Collection / Unknown 04/09/2025 12:19 PM EST 04/09/2025 12:19 PM EST Eden TAN LAB URINE ORDERABLES Final R esult Performing Organization Address City/[facility] Co de Phone Number [facility] [address] [place] [address], [place] [phone] * Weiss urine culture tube (04/09/2025 12:19 PM EST) Only the most recent of2 resultswithin the time period is included. Extra Tube Hold for add-ons. 04/09/2025 2:01 PM EST [facility] Comment:Auto resulted. Urine Urine specimen obtained by clean catch procedure / Unknown Non-blood Collection / Unknown 04/09/2025 12:19 PM EST 04/09/2025 12:19 PM EST Eden TAN LAB URINE ORDERABLES Final R esult [facility] [address] [place] [address], * (ABNORMAL) CBC auto differential (04/09/2025 12:19 PM EST) Only the most recent of3 resultswithin the time period is included. WBC 4.3(L) 4.8 - 10.8 K/mcL LAB HEMETOLOGY METHOD 04/09/2025 2:03 PM [facility] RBC 4.60 3.80 - 4.80 M/mcL LAB HEMETOLOGY METHOD 04/09/2025 2:03 PM [facility] Hemoglobin 13.7 11.5 - 16.0 g/dL LAB HEMETOLOGY METHOD 04/09/2025 2:03 PM [facility] Hematocrit 42.7 35.0 - 47.0 % LAB HEMETOLOGY METHOD 04/09/2025 2:03 PM EST [facility] MCV 92.8 79.0 - 98.0 FL LAB HEMETOLOGY METHOD 04/09/2025 2:03 PM [facility] MCH 29.8 27.0 - 32.0 pcg LAB HEMETOLOGY METHOD 04/09/2025 2:03 PM [facility] MCHC 32.1 32.0 - 37.0 g/dL LAB HEMETOLOGY METHOD 04/09/2025 2:03 PM [facility] RDW 12.5 11.0 - 15.0 % LAB HEMETOLOGY METHOD 04/09/2025 2:03 PM [facility] Platelets 321 130 - 400 K/mcL LAB HEMETOLOGY METHOD 04/09/2025 2:03 PM [facility] MPV 9.6 7.0 - 11.0 FL LAB HEMETOLOGY METHOD 04/09/2025 2:03 PM [facility] NRBC 0.0 <1.0 % LAB HEMETOLOGY METHOD 04/09/2025 2:03 PM [facility] NRBC Absolute 0.00 <0.10 K/mcL LAB HEMETOLOGY METHOD 04/09/2025 2:03 PM [facility] Neutrophils Relative 64.1 % LAB HEMETOLOGY METHOD 04/09/2025 2:03 PM [facility] Lymphocytes Relative 21.9 % LAB HEMETOLOGY METHOD 04/09/2025 2:03 PM [facility] Monocytes Relative 10.6 % LAB HEMETOLOGY METHOD 04/09/2025 2:03 PM [facility] Eosinophils Relative 1.8 % LAB HEMETOLOGY METHOD 04/09/2025 2:03 PM [facility] Basophils Relative 0.7 % LAB HEMETOLOGY METHOD 04/09/2025 2:03 PM [facility] Immature Granulocytes Relative 0.9 % LAB HEMETOLOGY METHOD 04/09/2025 2:03 PM [facility] Neutrophils Absolute 2.77 1.50 - 7.00 K/mcL LAB HEMETOLOGY METHOD 04/09/2025 2:03 PM [facility] Lymphocytes Absolute 0.95(L) 1.00 - 5.00 K/mcL LAB HEMETOLOGY METHOD 04/09/2025 2:03 PM [facility] Monocytes Absolute 0.46 0.20 - 1.00 K/mcL LAB HEMETOLOGY METHOD 04/09/2025 2:03 PM [facility] Eosinophils Absolute 0.08 0.00 - 0.50 K/mcL LAB HEMETOLOGY METHOD 04/09/2025 2:03 PM [facility] Basophils Absolute 0.03 0.00 - 0.20 K/mcL LAB HEMETOLOGY METHOD 04/09/2025 2:03 PM [facility] Immature Granulocytes Absolute 0.04(H) 0.00 - 0.03 K/mcL LAB HEMETOLOGY METHOD 04/09/2025 2:03 PM EST [facility] Blood Venous blood specimen / Unknown Venipuncture / Unknown 04/09/2025 12:19 PM EST 04/09/2025 12:19 PM EST [facility] LAB BLOOD ORDERABLES Final R esult Performing Organization Address City/[facility]/ZIP Co de Phone Number [facility] [address] [place] [address], [place] [phone] * (ABNORMAL) Vitamin D 25 hydroxy (04/09/2025 12:19 PM EST) Vit D, 25-Hydroxy 28.8(L) 30.0 - 80.0 ng/mL 04/09/2025 4:02 PM EST [facility] Blood Venous blood specimen / Unknown Venipuncture / Unknown 04/09/2025 12:19 PM EST 04/09/2025 12:19 PM EST [facility] Panasci PA LAB BLOOD ORDERABLES Final R esult Performing Organization Address [facility] Co de Phone Number [facility] [address] [place] [address], [place] [phone] * (ABNORMAL) Culture urine (04/09/2025 12:19 PM EST) Only the most recent of2 resultswithin the time period is included. Culture, Urine 50,000-100,000 CFU/mL Pseudomonas aeruginosa(A) ZINA 04/12/2025 8:26 AM EST [facility] Comment: The organism value for this result has been updated. These results have been appended to the previously preliminary verified report. This is an edited result. Previous organism was Gram negative bacilli on 04/11/2025 at 1025 EST. Urine Urine specimen obtained by clean catch procedure / Unknown Non-blood Collection / Unknown 04/09/2025 12:19 PM EST 04/09/2025 2:20 PM EST Narrative Organism Antibiotic Method Susceptibility Pseudomonas aeruginosa Piperacillin/Tazobactam ZINA <=4 ug/ml: Susceptible Pseudomonas aeruginosa Ceftazidime ZINA 1 ug/ml: Susceptible Pseudomonas aeruginosa Cefepime ZINA 0.25 ug/ml: Susceptible Pseudomonas aeruginosa Meropenem ZINA <=0.25 ug/ml: Susceptible Pseudomonas aeruginosa Amikacin ZINA <=1 ug/ml: Susceptible Pseudomonas aeruginosa Ciprofloxacin ZINA <=0.06 ug/ml: Susceptible Pseudomonas aeruginosa Levofloxacin ZINA <=0.12 ug/ml: Susceptible Eden TAN LAB MICROBIOLOGY - GENERAL O RDERABLES Final Result Performing Organization Address [facility]/ZIP Co de Phone Number [facility] [address] [place] [address], [place] [phone] * Thyroid stimulating hormone (04/09/2025 12:19 PM EST) TSH 2.52 0.40 - 4.00 mcIU/mL 04/09/2025 4:02 PM EST [facility] Blood Venous blood specimen / Unknown Venipuncture / Unknown 04/09/2025 12:19 PM EST 04/09/2025 12:19 PM EST Eden TAN LAB BLOOD ORDERABLES Final R esult [facility] [address] [place] [address], [place] [phone] * Vitamin B12 (04/09/2025 12:19 PM EST) Vitamin B-12 719 211 - 911 pcg/mL 04/09/2025 4:05 PM EST [facility] Blood Venous blood specimen / Unknown Venipuncture / Unknown 04/09/2025 12:19 PM EST 04/09/2025 12:19 PM EST Eden TAN LAB BLOOD ORDERABLES Final R esult [facility] [address] [place] [address], [place] [phone] * Comprehensive metabolic panel (04/09/2025 12:19 PM EST) Sodium 138 133 - 145 mmol/L 04/09/2025 4:12 PM [facility] Potassium 4.3 3.5 - 5.5 mmol/L 04/09/2025 4:12 PM [facility] Chloride 100 96 - 110 mmol/L 04/09/2025 4:12 PM [facility] CO2 29 21 - 32 mmol/L 04/09/2025 4:12 PM [facility] Anion Gap 9 3 - 11 04/09/2025 4:12 PM [facility] Glucose 94 70 - 100 mg/dL 04/09/2025 4:12 PM [facility] BUN 22 5 - 25 mg/dL 04/09/2025 4:12 PM [facility] Creatinine 0.79 0.50 - 1.10 mg/dL 04/09/2025 4:12 PM [facility] eGFR 86 >=60 mL/min/1. 73m2 04/09/2025 4:12 PM [facility] Comment:Calculation based on the Chronic Kidney Disease Epidemiology Collaboration (CKD-EPI) equation refit without adjustment for race. BUN/Creatinine Ratio 27.8 04/09/2025 4:12 PM [facility] Calcium 9.0 8.5 - 10.5 mg/dL 04/09/2025 4:12 PM [facility] AST (SGOT) 28 10 - 42 unit/L 04/09/2025 4:12 PM [facility] ALT (SGPT) 31 10 - 60 unit/L 04/09/2025 4:12 PM [facility] Alkaline Phosphatase 97 42 - 121 unit/L 04/09/2025 4:12 PM [facility] Total Protein 7.0 6.0 - 8.0 g/dL 04/09/2025 4:12 PM [facility] Albumin 4.4 3.2 - 5.0 g/dL 04/09/2025 4:12 PM [facility] Total Bilirubin 0.4 0.0 - 1.4 mg/dL 04/09/2025 4:12 PM [facility] Blood Venous blood specimen / Unknown Venipuncture / Unknown 04/09/2025 12:19 PM EST 04/09/2025 12:19 PM EST us Eden TAN LAB BLOOD ORDERABLES Final R esult [facility] [address] [place] [address], * CT Abdomen Pelvis w Contrast (03/28/2025 11:42 AM EST) Anatomical Region Laterality Modality Body Computed Tomogra phy 03/28/2025 12:0 5 PM EST Impressions 03/28/2025 12:09 PM EST No acute findings in the abdomen/pelvis. -------- FINAL REPORT -------- Dictated By: SHILO RANGEL Dictated Date: 03/28/2025 12:05 ET Assigned Physician: SHILO RANGEL Reviewed and Electronically Signed By: SHILO RANGEL Signed Date: 03/28/2025 12:09 ET Workstation ID: [id number] Transcribed By: Self Edit Transcribed Date: 03/28/2025 12:05 ET Narrative 03/28/2025 12:09 PM EST PROCEDURE: CT ABDOMEN/PELVIS INDICATION: Pain TECHNIQUE: CT of the abdomen and pelvis following the intravenous administration of 90cc Isovue 370. Multiplanar reformats. The examination was performed utilizing dose reduction techniques. Total DLP 1182 COMPARISON: 08/13/2021 FINDINGS: LOWER THORAX: Bibasilar atelectasis HEPATOBILIARY: Multiple hepatic cysts. Hepatic steatosis. Cholecystectomy. No biliary duct dilatation SPLEEN: No splenomegaly. PANCREAS: No focal mass or ductal dilatation. ADRENALS: No nodules. KIDNEYS/URETERS: No hydronephrosis, stones, or solid mass. Partially duplicated right renal collecting system. PELVIC ORGANS/BLADDER: Uterus and adnexal structures are within normal limits. Distended bladder. PERITONEUM / RETROPERITONEUM: No ascites or free air. No retroperitoneal lymphadenopathy. VESSELS: Abdominal aorta is normal in size. Portal vein is patent. GI TRACT: Large stool throughout the colon. Normal appendix. No bowel obstruction or wall thickening. BONES AND SOFT TISSUES: Small fat-containing periumbilical hernia. Degenerative changes seen throughout the spine. Procedure Note Shilo Rangel MD - 03/28/2025 PROCEDURE: CT ABDOMEN/PELVIS INDICATION: Pain TECHNIQUE: CT of the abdomen and pelvis following the intravenousadministration of 90cc Isovue 370. Multiplanar reformats. The examinationwas performed utilizing dose reduction techniques. Total DLP 1182 COMPARISON: 08/13/2021 FINDINGS: LOWER THORAX: Bibasilar atelectasis HEPATOBILIARY: Multiple hepatic cysts. Hepatic steatosis.Cholecystectomy. No biliary duct dilatation SPLEEN: No splenomegaly. PANCREAS: No focal mass or ductal dilatation. ADRENALS: No nodules. KIDNEYS/URETERS: No hydronephrosis, stones, or solid mass. Partiallyduplicated right renal collecting system. PELVIC ORGANS/BLADDER: Uterus and adnexal structures are within normallimits. Distended bladder. PERITONEUM / RETROPERITONEUM: No ascites or free air. No retroperitoneallymphadenopathy. VESSELS: Abdominal aorta is normal in size. Portal vein is patent. GI TRACT: Large stool throughout the colon. Normal appendix. No bowelobstruction or wall thickening. BONES AND SOFT TISSUES: Small fat-containing periumbilical hernia.Degenerative changes seen throughout the spine. IMPRESSION: No acute findings in the abdomen/pelvis. -------- FINAL REPORT -------- Dictated By: SHILO RANGEL Dictated Date: 03/28/2025 12:05 ET Assigned Physician: SHILO RANGEL Reviewed and Electronically Signed By: SHILO RANGEL Signed Date: 03/28/2025 12:09 ET Workstation ID: [id number] Transcribed By: Self Edit Transcribed Date: 03/28/2025 12:05 ET us William Pascual MD IMG CT PROCEDURES Final Res ult * Sedimentation Rate, Automated (03/28/2025 9:49 AM EST) Pathologist [facility] Sed Rate 23 0 - 30 mm/hr LAB HEMETOLOGY METHOD 03/28/2025 10:24 AM EST [facility] Blood Venous blood specimen / Unknown Venipuncture / Unknown 03/28/2025 9:49 AM EST 03/28/2025 10:14 AM EST us William Pascual MD LAB BLOOD ORDERABLES Final Result Performing Organization Address [facility]/ZIP Co de Phone Number [facility] [address] [place] [address], [place] [phone] * C-reactive protein (03/28/2025 9:49 AM EST) [facility] C-Reactive Protein <0.50 <=0.50 mg/dL 03/28/2025 10:56 AM EST [facility] Blood Venous blood specimen / Unknown Venipuncture / Unknown 03/28/2025 9:49 AM EST 03/28/2025 10:14 AM EST us William Pascual MD LAB BLOOD ORDERABLES Final Result Performing Organization Address City/[facility]/ZIP Co de Phone Number [facility] [address] [place] [address], [place] [phone] * Magnesium (03/28/2025 9:49 AM EST) Pathologist [facility] Magnesium 2.2 1.9 - 2.6 mg/dL 03/28/2025 10:52 AM EST [facility] Blood Venous blood specimen / Unknown Venipuncture / Unknown 03/28/2025 9:49 AM EST 03/28/2025 10:14 AM EST us William Pascual MD LAB BLOOD ORDERABLES Final Result Performing Organization Address City/[facility]/ZIP Co de Phone Number [facility] [address] [place] [address], [place] [phone] * Lipase (03/28/2025 9:49 AM EST) [facility] Lipase 45 12 - 53 unit/L 03/28/2025 10:52 AM [facility] Blood Venous blood specimen / Unknown Venipuncture / Unknown 03/28/2025 9:49 AM EST 03/28/2025 10:14 AM EST us William Pascual MD LAB BLOOD ORDERABLES Final Result Performing Organization Address [facility]/ZIP Co de Phone Number [facility] [address] [place] [address], [place] [phone] * (ABNORMAL) Basic Metabolic Panel (BMP) (03/28/2025 9:49 AM EST) Only the most recent of2 resultswithin the time period is included. [facility] Sodium 143 133 - 145 mmol/L 03/28/2025 10:52 AM EST [facility] Potassium 4.4 3.5 - 5.5 mmol/L 03/28/2025 10:52 AM [facility] Chloride 104 96 - 110 mmol/L 03/28/2025 10:52 AM [facility] CO2 31 21 - 32 mmol/L 03/28/2025 10:52 AM [facility] Anion Gap 8 3 - 11 03/28/2025 10:52 AM [facility] Glucose 119(H) 70 - 100 mg/dL 03/28/2025 10:52 AM [facility] BUN 19 5 - 25 mg/dL 03/28/2025 10:52 AM [facility] Creatinine 0.78 0.50 - 1.10 mg/dL 03/28/2025 10:52 AM [facility] eGFR 87 >=60 mL/min/1. 73m2 03/28/2025 10:52 AM [facility] Comment:Calculation based on the Chronic Kidney Disease Epidemiology Collaboration (CKD-EPI) equation refit without adjustment for race. BUN/Creatinine Ratio 24.4 03/28/2025 10:52 AM [facility] Calcium 9.0 8.5 - 10.5 mg/dL 03/28/2025 10:52 AM [facility] Blood Venous blood specimen / Unknown Venipuncture / Unknown 03/28/2025 9:49 AM EST 03/28/2025 10:14 AM EST us William Pascual MD LAB BLOOD ORDERABLES Final Result [facility] [address] [place] [address], * Hepatic Function Panel (03/28/2025 9:33 AM EST) Only the most recent of2 resultswithin the time period is included. Total Protein 6.3 6.0 - 8.0 g/dL 03/28/2025 1:29 PM [facility] Albumin 4.1 3.2 - 5.0 g/dL 03/28/2025 1:29 PM [facility] Total Bilirubin 0.2 0.0 - 1.4 mg/dL 03/28/2025 1:29 PM [facility] Bilirubin, Direct <0.1 0.0 - 0.3 mg/dL 03/28/2025 1:29 PM [facility] Bilirubin, Indirect 03/28/2025 1:29 PM [facility] Comment:Unable to calculate Indirect Bilirubin. ALT (SGPT) 27 10 - 60 unit/L 03/28/2025 1:29 PM [facility] AST (SGOT) 28 10 - 42 unit/L 03/28/2025 1:29 PM [facility] Alkaline Phosphatase 84 42 - 121 unit/L 03/28/2025 1:29 PM [facility] Blood Venous blood specimen / Unknown Venipuncture / Unknown 03/28/2025 9:33 AM EST 03/28/2025 12:04 PM EST William Pascual MD LAB BLOOD ORDERABLES Final Result [facility] [address] [place] [address], * Creatinine (03/02/2025 8:43 AM EST) Creatinine 0.63 0.50 - 1.10 mg/dL LAB CHEMISTRY METHOD 03/02/2025 10:26 AM EST [facility] eGFR 102 >=60 mL/min/1. 73m2 LAB CHEMISTRY METHOD 03/02/2025 10:26 AM EST [facility] Comment:Calculation based on the Chronic Kidney Disease Epidemiology Collaboration (CKD-EPI) equation refit without adjustment for race. Blood Venous blood specimen / Unknown Venipuncture / Unknown 03/02/2025 8:43 AM EST 03/02/2025 8:43 AM EST Eden Mcwilliamsi PA LAB BLOOD ORDERABLES Final R esult Performing Organization Address [facility]/ZIP Co de Phone Number [facility] [address] [place] [address], [place] [phone] * BUN (03/02/2025 8:43 AM EST) BUN 17 5 - 25 mg/dL LAB CHEMISTRY METHOD 03/02/2025 10:26 AM EST [facility] Blood Venous blood specimen / Unknown Venipuncture / Unknown 03/02/2025 8:43 AM EST 03/02/2025 8:43 AM EST Eden Katja Mcwilliamsi PA LAB BLOOD ORDERABLES Final R esult Performing Organization Address [facility] de Phone Number [facility] [address] [place] [address], [place] [phone] * Protime-INR (02/19/2025 1:00 PM EDT) Protime 11.4 10.6 - 13.9 sec LAB COAGULATION METHOD 02/19/2025 2:23 PM EDT [facility] INR 0.9 LAB COAGULATION METHOD 02/19/2025 2:23 PM EDT [facility] Blood Venous blood specimen / Unknown Venipuncture / Unknown 02/19/2025 1:00 PM EDT 02/19/2025 1:45 PM EDT James Ott MD LAB BLOOD ORDERABLES Final Result Performing Organization Address [facility] Co de Phone Number [facility] [address] [place] [address], [place] [phone] * Vascular US duplex lower extremity arteries [...] Signed Date: 02/19/2025 13:08 ET Workstation ID: [id number] Transcribed By: Self Edit Transcribed Date: 02/19/2025 13:02 ET Narrative 02/19/2025 1:08 PM EDT PROCEDURE: VAS US DUPLEX LOWER EXT ART LEFT W DOPPLER INDICATION: Peripheral vascular disease TECHNIQUE: 2-D and color Doppler imaging of the left lower extremity arterial vasculature. COMPARISON: No priors available. FINDINGS: Left lower extremity peak systolic arterial velocities in cm/s as follows: ADMISSIONS CLERK: 89.6 Prox SFA: 96.1 Mid SFA: 71.5 [...] peak systolic arterial velocities in cm/s asfollows: ADMISSIONS CLERK: 89.6 Prox SFA: 96.1 Mid SFA: 71.5 [...] Signed Date: 02/19/2025 13:08 ET Workstation ID: [id number] Transcribed By: Self Edit Transcribed Date: 02/19/2025 [...] Signed Date: 02/19/2025 12:48 ET Workstation ID: [id number] Transcribed By: Self Edit Transcribed Date: 02/19/2025 [...] Signed Date: 02/19/2025 12:48 ET Workstation ID: [id number] Transcribed By: Self Edit Transcribed Date: 02/19/2025 12:48 ET us James Ott MD CV VASCULAR PROCEDURES Lisseth l Result * External Colonoscopy Report (08/07/2024 7:51 AM EDT) Anatomical Region Laterality Modality Endoscopy us Historical Provider GI~PROCEDURE ORDERABLES F inal Result * Pap smear (07/27/2021) 07/27/2021 Narrative HISTORICAL TESTING LAB RESULTING AGENCY - 08/07/2021 4:35 PM EDT [id number] THINPREP PAP, IMAGED: NEGATIVE FOR SQUAMOUS INTRAEPITHELIAL [...] Most Recently Relevant to Health Maintenance Insurance [facility] MEDICARE Member Subscriber Plan / Payer (Ef fective 2017-Present) Name:THALIA RODAS Relation to Subscriber:Self Name:Thalia Rodas Payer ID:[id number] Group ID:[id number] Type:Not on file Address: [place] [address] [address] [id number] 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
== END 2025-04-26 10:40 ==
LOC: HO.US 10:39
PROVIDERS: PCP Internal Medicine; Visit Provider Surgery Vascular Surgery
DX: I83.12 Varicose veins of left lower extremity with inflammation (principal)
CPT/HCPCS: 93970

== ENCOUNTER → 2025-04-26 10:41 | Outpatient (BNV) | payer OTHER, SELFPAY | PROVIDERS: PCP Internal Medicine; Visit Provider Radiology Diagnostic Radiology | DX: I83.12 Varicose veins of left lower extremity with inflammation (principal) | CPT/HCPCS: 93970 ==